=== PATIENT | male | born 1940 | race African-American/Black ===

== ENCOUNTER 2017-02-14 02:24 | Inpatient (IN) | payer MEDICARE ==
[2017-02-14 03:10] LABS: ALT (SGPT) 25 U/L (8-55); AST (SGOT) 27 U/L (5-34); Alkaline Phosphatase 211 U/L (40-150); Anion Gap 13 mmol/L (10-20); BUN (Urea Nitrogen) 36 mg/dL (8.4-25.7); Bilirubin, Total 0.8 mg/dL (0.2-1.2); Calc. Creatinine Clearance 0 mL/min (70-130); Calcium 9.3 mg/dL (7.8-10.44); Carbon Dioxide 25 mmol/L (23-31); Chloride 102 mmol/L (98-107); Estimated GFR-MDRD 45; Globulin 3.2 g/dL (2.4-3.5); Protein, Total 6.8 g/dL (5.8-8.1)
[2017-02-14 03:17] LABS: Hematocrit 23.8 % (42.0-52.0); Mean Platelet Volume 7.3 fL (7.4-10.4); Red Blood Cell (RBC) Count 2.92 mill/uL (4.70-6.10); White Blood Cell (WBC) Count 7.2 thou/uL (4.8-10.8)
[2017-02-14 03:27] LABS: Prothrombin Time 30.4 SEC (12.0-14.7)
[2017-02-14 03:28] LABS: PTT 69.5 SEC (22.9-36.1)
[2017-02-14 03:34] LABS: Troponin I 0.125 ng/mL (< 0.028)
[2017-02-14 03:45] LABS: Band 2 % (5-11); Neutrophil 61 % (42-75)
[2017-02-14] MEDS ORDERED: Ondansetron ODT 4 MG TAB SL PRN (06:04)
[2017-02-14] MEDS ORDERED: Acetaminophen 325 MG TAB PO PRN (06:04)
[2017-02-14] MEDS ORDERED: Ondansetron HCl/PF 4 MG/2 ML Vial IVP PRN (06:04)
[2017-02-14 06:11] VITALS: BMI 26.7
[2017-02-14 06:42] LABS: Troponin I 0.111 ng/mL (< 0.028)
--- NOTE | 2017-02-14 09:31 | RAD ---
SINGLE VIEW OF CHEST: Date: 02/14/17 COMPARISON: 12/16/16. HISTORY: Shortness of breath and leg swelling with dyspnea. FINDINGS: Single view of the chest shows an enlarged but stable cardiomediastinal silhouette. The patient is s tatus post CABG. The pacemaker is unchanged in position. There is no evidence of consolidation, mass , or pleural effusion. IMPRESSION: Cardiomegaly without evidence of acute cardiopulmonary disease. POS: [facility]
[2017-02-14] MEDS ORDERED: HumaLOG 300 UNITS/3 ML VIAL SC PRN ×2 (09:57→10:04)
[2017-02-14] MEDS ORDERED: hydrALAZINE 20 MG/ML VIAL SLOW IVP PRN (09:57)
[2017-02-14] MEDS ORDERED: Furosemide 40 MG/4 ML VIAL SLOW IVP SCH (10:00)
[2017-02-14] MEDS ORDERED: Dextrose 50% Abboject 50 ML SYRINGE IVP PRN (10:04)
[2017-02-14] MEDS ORDERED: Dextrose 5% in Water 1,000 ML IV PRN (10:04)
[2017-02-14 10:26] LABS: Troponin I 0.112 ng/mL (< 0.028)
--- NOTE | 2017-02-14 10:28 | HP ---
PRIMARY CARE PHYSICIAN: Dr. Ramiro Babb. CHIEF COMPLAINT: Weakness and shortness of breath. HISTORY OF PRESENT ILLNESS: This is a 77-year-old gentleman with history of heart disease, status post coronary artery bypass, history of congestive heart failure with EF of less than 20%, status post implanted defibrillator placement , who presents to the emergency department with 3-4 days of worsening weakness and shortness of breath. The patient states that about 3 days ago, he felt more weak and he was short of breath with activity. 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 He denied chest pain, denied abdominal pain. Denied syncope. He does state that about 2 weeks ago, he noticed that he had some dark black stools on occasion, but then this resolved on its own. He states that he was recently started on aspirin along with Xarelto about 3 months ago. He states he does not take naproxen on a daily basis, but does take it periodically for arthritis knee pain. He presented to the emergency department last night. He was given 1 unit of packed red blood cells and states that he is already feeling some better now, but he has been resting in bed and in no acute distress. PAST MEDICAL HISTORY: Hypertension, type 2 diabetes, gastroesophageal reflux disease, history of coronary artery disease, history of chronic systolic congestive heart failure with EF below 20%, status post implanted defibrillator placement. Gout and arthritis. PAST SURGICAL HISTORY: Appendectomy in 1964, coronary artery bypass graft in 1997, cardiac catheterization in 10/2016, implanted defibrillator placement in 10/2016. MEDICATIONS: Include omeprazole 40 mg daily, metformin 500 mg b.i.d., spironolactone 25 mg daily, isosorbide 10 mg b.i.d., Lasix 40 mg daily, lisinopril 2.5 mg daily, Coreg 3.125 mg b.i.d., simvastatin 20 mg at bedtime, Xarelto 15 mg daily, Zithromax, Robitussin p.r.n. cough, naproxen b.i.d. p.r.n. pain, and aspirin daily per the patient. ALLERGIES: DIPHENHYDRAMINE. SOCIAL HISTORY: No alcohol use at this time. In the past, he used to drink on weekends. No other drug use. No smoking. 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 REVIEW OF SYSTEMS: As per the history of present illness. GENERAL: Denies any recent fevers, chills or recent illness. HEENT: No headache, visual or hearing changes. Denies upper respiratory symptoms, but has been on Zithromax recently. CARDIAC: No chest pain or palpitations. RESPIRATORY: Positive for dyspnea on exertion, history of CHF. PULMONARY: No cough or hemoptysis, again shortness of breath. GASTROINTESTINAL: History of black stools about 2 weeks ago, but denies abdominal pain, nausea, vomiting, diarrhea, constipation. GENITOURINARY: No dysuria or hematuria. NEUROLOGIC: Positive for weakness. No seizures or syncope. MUSCULOSKELETAL: Positive for gout and occasional arthritis pain. PHYSICAL EXAMINATION: VITAL SIGNS: Temperature 97.8, pulse is 67, respirations 18, blood pressure 121 /72, pulse ox is 100% on room air. GENERAL: He is awake and alert. Speech is clear. Mucosa is moist. NECK: Supple. No JVD, adenopathy or bruits. HEART: Regular rate and rhythm with a 2/6 systolic ejection murmur at the left apex. LUNGS: With rales at the bases. ABDOMEN: Soft, nontender, nondistended. No hepatosplenomegaly. EXTREMITIES: With 1+ pitting edema bilaterally. NEUROLOGIC: Intact. LABORATORY DATA AND X-RAY FINDINGS: Early this morning, white blood cell count 7.2 thousand, hemoglobin and hematocrit 7.8 and 23.8, platelets 141. PT was elevated at 30.4 with an INR of 2.8, PTT elevated at 69.5, sodium 136, potassium 3.8, chloride 102, CO2 25, BUN and creatinine 36 and 1.79 with a GFR of 45. Serum glucose of 110. Bilirubin is normal. AST and ALT are normal. Alkaline phosphatase is elevated at 211. Troponin I were elevated at 0.125 and 0.111. BNP was elevated at 503. Chest x-ray from last night revealed cardiomegaly with no evidence of acute cardiopulmonary disease. ASSESSMENT AND PLAN: 1. This is a 77-year-old gentleman with a known history of coronary artery disease and congestive heart failure with decreased ejection fraction, now with symptomatic anemia likely secondary to upper gastrointestinal bleed. 2. We will stop his aspirin and Xarelto. We will consult Gastroenterology for possible upper gastrointestinal endoscopy. We will start proton pump inhibitor twice a day and follow his blood counts.. 3. Ischemic cardiomyopathy with congestive heart failure. Consult Cardiology. We will increase his Lasix to 40 mg twice a day IV, monitor his electrolytes. Further plan per Cardiology. 4. Type 2 diabetes. We will continue metformin at this time and watch his Accu -Cheks. 5. Chronic kidney disease stage 3. I will monitor closely with him being on increased dose of furosemide. 6. Joint pains. We will stop anti-inflammatories. Discussed the importance of avoiding anti-inflammatories especially when he is on blood thinners. 7. Coagulopathy. Rarely would be secondary to the Xarelto, but we will check a liver ultrasound due to elevated PT, PTT as well as elevated alkaline phosphatase, we need to rule out other etiologies. MTDD
[2017-02-14 12:06] LABS: Hematocrit 26.6 % (42.0-52.0)
--- NOTE | 2017-02-14 13:22 | ULT ---
PRELIMINARY REPORT/[facility]/EMERGENCY AFTER HOURS PROCEDURE: EXAM: US Duplex Left Lower Extremity Veins CLINICAL HISTORY: 77 years old, male; Signs and symptoms; Other: Lle swelling, SOB TECHNIQUE: Real-time ultrasound scan of the veins of the left lower extremity with color Doppler flow, spectral waveform analysis and compression. COMPARISON: No relevant prior studies available. FINDINGS: No visible clot in the included veins. The included veins appear normally compressible. Duplex Doppler evaluation demonstrates flow in the evaluated veins. IMPRESSION: No evidence of acute left lower extremity DVT. Thank you for allowing us to participate in the care of your patient. Dictated and Authenticated by: Dez Tanner MD 02/14/2017 3:56 AM Central Time ([place] \T\ [place]) FINAL REPORT EMERGENCY AFTER HOURS LEFT LOWER EXTREMITY VENOUS ULTRASOUND: Date: 02/14/17 FINDINGS/IMPRESSION: I agree with the findings and impression given in the preliminary report per [facility] physician. No evid ence of left lower extremity deep venous thrombosis. POS: [facility]
[2017-02-14] MEDS: Furosemide 40 MG/4 ML VIAL SLOW IVP SCH (13:44)
--- NOTE | 2017-02-14 14:02 | ULT ---
COMPLETE ABDOMINAL ULTRASOUND: Date: 02/14/17 HISTORY: Coagulopathy. Patient had a recent defibrillator insertion. TECHNIQUE: Multiplanar [place] scale and color Doppler images were obtained in a complete abdominal ultrasound. FINDINGS: The liver is normal in echogenicity without focal lesions or intrahepatic ductal dilatation. The gal lbladder contains sludge and mobile gallstones without pericholecystic fluid. There is apparent gall bladder wall thickening. The common bile duct is normal measuring 6.0 mm. A small amount of free fluid is seen adjacent to the liver and spleen. The aorta cannot be visualize d. The visualized portions of the inferior vena cava are normal in caliber. The pancreas cannot be v isualized. The spleen is normal in echogenicity without focal lesions and measures 11.9 cm in length . Both kidneys are normal in echogenicity without hydronephrosis or calculi and measure 10.9 and 12.0 cm in length on the right and left, respectively. IMPRESSION: 1. Cholelithiasis with findings suggesting acute cholecystitis. 2. Small amount of free fluid in the abdomen. POS: [facility]
--- NOTE | 2017-02-14 16:38 | CON ---
DATE OF CONSULTATION: 02/14/2017 REASON FOR CONSULTATION: Shortness of breath. PRIMARY RUBBER STAMP DIES INSPECTOR: Dr. Kapil Marcus. REFERRING PROVIDER: Dr. Hilario Whitten. HISTORY OF PRESENT ILLNESS: Mr. Cerda is a very pleasant 77-year-old gentleman with history of co ronary artery disease, status post bypass surgery in addition to cardiomyopathy status post ICD, who recently presented with shortness of breath. He states that has also had increased weakness. His shortness of breath does occur with mild exertion. He is found to be profoundly anemic upon present ation to the emergency room. He has been given 1 unit of packed red blood cells with significant im provement. He does admit to having black dark tarry stools several weeks ago. PAST MEDICAL HISTORY: Chronic atrial fibrillation, hypertension, diabetes mellitus, CAD status post bypass surgery. MEDICATIONS: Include omeprazole, Lasix, lisinopril, metformin, spironolactone, Coreg, simvastatin, and aspirin. ALLERGIES: BENADRYL. SOCIAL HISTORY: No current tobacco or alcohol use. REVIEW OF SYSTEMS: Ten point review of systems is reviewed and as above, otherwise negative. PHYSICAL EXAMINATION: GENERAL: Patient is a pleasant male, who is in no acute distress. The patient appears his stated age. VITAL SIGNS: Blood pressure 142/81, pulse 69, temperature 98.6. NEUROLOGIC: The patient is alert and oriented times 3 with no focal neurologic deficits. HEENT: Sclerae without icterus. Mouth has moist mucous membranes with normal pallor. NECK: No JVD. Carotid upstroke brisk. No bruits bilaterally. LUNGS: Clear to auscultation with unlabored respirations. BACK: No scoliosis or kyphosis. CARDIAC: Regular rate and rhythm with normal S1 and S2. No S3 or S4 noted. No significant rubs, murmurs, thrills, or gallops noted throughout the precordium. PMI is not displaced. There is no parasternal heave. ABDOMEN: Soft, nontender, nondistended. No peritoneal signs present. No hepatosplenomegaly. No abnormal striae. EXTREMITIES: 2+ femoral and 2+ dorsalis pedis pulses. No cyanosis, clubbing, or edema. SKIN: No gross abnormalities. PERTINENT LABS: Hemoglobin 7.8, increased to 8.6 after 1 unit packed red blood cells. Creatinine 1 .79. Peak troponin 0.112. BNP of 503. IMPRESSION: 1. Shortness of breath. 2. Anemia. 3. Acute on chronic systolic heart failure. 4. Chronic atrial fibrillation. RECOMMENDATIONS: Etiology to anemia needs to be sought. He does admit to black dark tarry stools, noted several weeks ago. At this point, we will hold his Xarelto in addition to aspirin. We may ne ed a GI workup. May consider proceeding with the Xarelto alone without aspirin, given likely gastro intestinal bleed. Continue Coreg in addition to atorvastatin, lisinopril, and isosorbide. Further recommendations per Dr. Kapil Marcus in the a.m.
[2017-02-14] MEDS: Carvedilol 6.25 MG TAB PO SCH (17:08)
[2017-02-14] MEDS: metFORMIN 500 MG TAB PO SCH (17:08)
[2017-02-14] MEDS: Atorvastatin Calcium 10 MG TAB PO SCH (20:55)
[2017-02-14] MEDS: Pantoprazole 40 MG VIAL IVP SCH (20:56)
[2017-02-14] MEDS: Isosorbide Mononitrate 20 MG TAB PO SCH (20:56)
[2017-02-14] MEDS ORDERED: FLU VACC TS2017-18 (>65YR) 0.5 ML SYRINGE IM ONE (21:00)
--- NOTE | 2017-02-14 22:54 | CON ---
DATE OF CONSULTATION: 02/14/2017 REASON FOR CONSULTATION: Anemia. HISTORY OF PRESENT ILLNESS: Mr. Cerda is a 77-year-old gentleman who was admitted to the hospital for significant anemia. He states that he began having worsening shortness of breath with exertion and some worsening swelling of his lower legs recently and presented to the emergency room and was found to be a little more anemic than usual with a hemoglobin around 8. Back in October and October, it w as between 10 and 11. Apparently, the patient had a Hemoccult stool which was negative. He denies any melena or black tarry stools or blood in the stool recently, although he notes that maybe in the past couple of months, he has seen the stool, it was black a couple of times, maybe as recently as 2-3 weeks ago, but he did not really do anything about it. He does take a baby aspirin a day. He d enies any NSAIDs, but he does have a prescription for Naprosyn. He is on a PPI as well. He was sta rted on Xarelto back in October or October when he had a defibrillator placed for an EF of 20% to 25%. Pr esently, he denies any shortness of breath. His stomach does not hurt. He is eating well. He has not lost any weight. His last endoscopies were in 2001. We did see him recently this past summer f or mildly elevated alkaline phosphatase which was felt to be related to passive hepatic congestion o f liver from his CHF. The patient denies any chest pain. He has had no syncopal episodes. Apparen tly, he does not take the Naprosyn daily but does take it occasionally. PAST MEDICAL HISTORY: Hypertension, reflux, coronary artery disease, chronic systolic heart failure , bad enough that they placed the defibrillator empirically 6 months ago, gout, arthritis, chronic a nticoagulation use since 10/2016. PAST SURGICAL HISTORY: Appendectomy, coronary bypass grafting in 1988, cardiac catheterization 11/01, and defibrillator placement in 10/2016. MEDICATIONS AT HOME: Omeprazole, metformin, spironolactone, isosorbide, Lasix, lisinopril, Coreg, s imvastatin, Xarelto, Zithromax, Robitussin, Naprosyn, and aspirin. ALLERGIES: DIPHENHYDRAMINE. SOCIAL HISTORY: The patient denies alcohol, drugs, or tobacco. 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 REVIEW OF SYSTEMS: Negative for dysphagia, odynophagia, or inappetence. Rest of the review of syst ems as per HPI. There has been a history of hematuria, bruising, nosebleeds. MEDICATIONS: Here, Tylenol, Lipitor, Coreg, glucose, Lasix, Apresoline, Humalog, isosorbide mononitr ate, Zestril, metformin, Zofran, Protonix 40 IV q. 12 hours, and Aldactone. PHYSICAL EXAMINATION: GENERAL: The patient is resting comfortably in bed. He is eating a little bit lunch. He is a well -nourished, well-developed. He is in no distress. VITAL SIGNS: Temperature is 98, pulse 69, blood pressure is 142/81. NECK: Supple. There is no JVD. LUNGS: Clear except for some slight crackles at the bases. HEART: Regular rate and rhythm. ABDOMEN: Soft, nontender, slightly protuberant. There is no shifting dullness or fluid wave. EXTREMITIES: Reveal 2+ edema. LABORATORY FINDINGS: Hemoglobin is 10-11 back in October with a normal MCV, admitted now with a hemogl obin of 7.8 and an MCV of 81. White count 7.2 after 2 units of blood, hemoglobin is 8.6, platelet c ount is 141. INR was 2.8. Chemistries are notable for a BUN and creatinine of 36 and 1.7 with a GF R of 45. AST and ALT are 27 and 25, alkaline phosphatase is 211, bilirubin is 0.8. Troponin was 0. 125. BNP was 503 with the highest being measured here being 306 and 337 in October, October, and December. MICROBIOLOGY: Stool Hemoccult was negative. Pending studies: Apparently, an ultrasound of the abd omen has been ordered. ASSESSMENT: 1. Anemia with borderline indices, questionable history of black stools recently with negative Hemo ccult here. There are no signs of acute gastrointestinal hemorrhage. He has got an elevated INR wh ile on Xarelto. This could indicate having an excessive dose of Xarelto. It is unclear what dose o f Xarelto he is on at home. 2. Mild renal insufficiency, advanced age of 77. RECOMMENDATIONS: 1. Hold Xarelto. He is not a candidate for endoscopy right now with his coagulopathy and is probab ly more coagulopathic with an INR of 2.8, represents it is really difficult to measure the effect of Xarelto. 2. I would talk with his Cardiology for embarking on the endoscopy in this individual who has bad e nough heart failure to have an empiric placement of a defibrillator. 3. Probably reasonable to stop his NSAIDs. 4. We will talk to the retail account specialist about the issues of endoscopy as well as possibly decreasing Xa relto dose unless he is already on a lessened dose. We will follow along with you during the hospit alization.
[2017-02-15 05:06] LABS: Anion Gap 12 mmol/L (10-20); BUN (Urea Nitrogen) 32 mg/dL (8.4-25.7); Calc. Creatinine Clearance 53 mL/min (70-130); Calcium 9.4 mg/dL (7.8-10.44); Carbon Dioxide 26 mmol/L (23-31); Chloride 105 mmol/L (98-107); Estimated GFR-MDRD 58
[2017-02-15 05:17] LABS: Hematocrit 25.3 % (42.0-52.0); Mean Platelet Volume 7.5 fL (7.4-10.4); Neutrophil 67 % (42-75); Red Blood Cell (RBC) Count 3.04 mill/uL (4.70-6.10); White Blood Cell (WBC) Count 6.4 thou/uL (4.8-10.8)
[2017-02-15] MEDS: Furosemide 40 MG/4 ML VIAL SLOW IVP SCH ×2 (05:23→17:46)
[2017-02-15] MEDS: Isosorbide Mononitrate 20 MG TAB PO SCH ×2 (08:51→20:34)
[2017-02-15] MEDS: metFORMIN 500 MG TAB PO SCH ×2 (08:53→18:21)
[2017-02-15] MEDS: Carvedilol 6.25 MG TAB PO SCH ×2 (08:53→18:21)
[2017-02-15] MEDS: Spironolactone 25 MG TAB PO SCH (08:53)
[2017-02-15] MEDS: Lisinopril 2.5 MG TAB PO SCH (08:53)
--- NOTE | 2017-02-15 08:53 | PRG ---
DATE OF SERVICE: 02/15/2017 SUBJECTIVE: The patient is sitting up in bed comfortably. He states he is feeling better with his breathing and weakness. He denies pain at this time. PHYSICAL EXAMINATION: VITAL SIGNS: Temperature 97.5, pulse 65, respirations 18, oxygen saturation 98% on room air, blood pressure 112/61. GENERAL: Alert and oriented x3 with no acute distress. HEENT: Normocephalic. Pupils equally round and reactive to light. Extraocular muscles intact. Mo ist mucous membranes without erythematous throat. CARDIOVASCULAR: Regular rate and rhythm with a 2/6 systolic murmur. LUNGS: Clear to auscultation bilaterally. ABDOMEN: Soft, nontender, nondistended. EXTREMITIES: Trace edema bilaterally. SKIN: No rashes or lesions. LABORATORY DATA: White blood cell count 6.4, hemoglobin 8.3, hematocrit 25.3, MCV 83.3, platelets 1 59. Sodium 139, potassium 3.8, chloride 105, carbon dioxide 26, BUN 32, creatinine 1.43, glucose 92 , calcium 9.4. ASSESSMENT AND PLAN: 1. Normocytic anemia, improved after transfusion. He reports feeling better. 2. Dark tarry stools. This is the probable cause of his anemia along with his aspirin and Xarelto. His anticoagulants are held for the time being. Awaiting further plan from GI regarding possible gastrointestinal bleed. 3. Chronic systolic congestive heart failure. Cardiology is consulted. His breathing is improved. 4. Type 2 diabetes. Continue his home medications. His glucose is currently controlled. 5. Chronic kidney disease stage 3. Creatinine is improved from admission. 6. Coagulopathy await further plan from Cardiology.
[2017-02-15] MEDS: Pantoprazole 40 MG VIAL IVP SCH ×2 (08:54→20:34)
[2017-02-15] MEDS ORDERED: Furosemide 40 MG TAB PO SCH (09:00)
--- NOTE | 2017-02-15 11:08 | PRG ---
DATE OF SERVICE: 02/15/2017 Mr. Cerda is without complaints. He has had no melena. He feels weak. MEDICATIONS: Atorvastatin, Coreg, Lasix, isosorbide mononitrate, metformin, Protonix 40 IV q.12 h., Aldactone. VITAL SIGNS: Temperature is 97, pulse 65, blood pressure 112/61. LUNGS: Clear. HEART: Regular rate and rhythm. ABDOMEN: Nontender. LABORATORY DATA: Hemoglobin is 8.3, stable. White count 6.4, platelet count 159. BUN and creatini ne 32 and 1.43. Abdominal ultrasound was done yesterday for unclear reasons. He has got cholelithi asis with a small amount of free fluid adjacent to liver and spleen. There is a little bit of gallb ladder wall thickening. Echocardiogram in October showed EF of 20-25%, severe mitral regurg, right ventricular was moderately e nlarged, right atrium was enlarged, tricuspid valve showed moderate to severe TR, moderately elevate d pulmonary pressures. ASSESSMENT: 1. Gallstones. The patient has had known gallstones for many years. These are asymptomatic. I th ink ultrasound findings with the gallbladder wall thickening, and a cholecystic upper abdominal flui d are all related to passive congestion from his heart failure. 2. Chronic mild elevation of liver function test with recent workup this summer negative. This is likely passive congestion again for his heart failure. 3. Anemia, acute drop in hemoglobin 11 on 11/28/2016 to 8.6 on 12/16/2016, 7.9 on 02/14/2017. This all began after starting Xarelto after his defibrillator was placed for severe CHF, indication for anticoagulation seemed to be his severe heart failure. There is some history of possibly some dark stools in the past week or two; however, Hemoccult was negative here. RECOMMENDATIONS: 1. PPI. 2. We will await Cardiology's evaluation today to determine whether or not we are going to proceed with endoscopy in this patient who is a very high risk. Apparently he has such bad heart failure, h e has had to have a defibrillator placed. 3. I would not do any further workup or evaluation of his gallbladder as he is asymptomatic. He is a very poor surgical candidate for any elective surgeries. He does not have any signs of acute cho lecystitis or chronic cholecystitis clinically.
--- NOTE | 2017-02-15 11:16 | PQF ---
DEVIN SCHAEFER JR, JOEL DO [id number] CLINICAL DOCUMENTATION IMPROVEMENT CLARIFICATION FORM: ICD-10 Updated PLEASE DO AN ADDENDUM TO THE PROGRESS NOTE WITH ANY DOCUMENTATION UPDATES OR ADDITIONS AND CARRY THROUGH TO DC SUMMARY. THANK YOU. DATE: 02-15-17 ATTN: DR. WOO FOWLER Please exercise your independent, professional judgment in responding to the clarification form. Clinical indicators are provided on the bottom of this form for your review Please check appropriate box(s): AMI TYPE: [ ] AMI Type II - D/T Demand Ischemia [ ] Demand Ischemia [ X ] Other diagnosis: Chronic systolic CHF [ ] Unable to determine In addition, please specify: Present on Admission (POA): [ ] Yes [ ] No [ ] Unable to determine CLINICAL INDICATORS - SIGNS / SYMPTOMS / LABS LABS: TROPONIN I - @ 0235 0.125 10- @ 0535 0.111 10- @ 0843 0.112 RISKS: H&P: HX OF CAD W/ CABG HTN TREATMENTS: CARDIOLOGY CONSULT CPOE: 1 UNIT PRBC HOLD XARELTO / ASPIRIN THANK YOU, SAHRA (This form is maintained as a part of the permanent medical record) 2015 [employer]. All Rights Reserved Sahra Koo RN, BS [email or web address]
[2017-02-15] MEDS ORDERED: GoLYTELY 4,000 ml Bottle PO SCH (12:30)
[2017-02-15] MEDS: Atorvastatin Calcium 10 MG TAB PO SCH (20:34)
--- NOTE | 2017-02-15 21:45 | PRG ---
DATE OF SERVICE: 02/15/2017 SUBJECTIVE: Mr. Cerda states he is feeling better. No complaints. No chest pain or pressure. OBJECTIVE: VITAL SIGNS: Blood pressure 110/61, pulse 60s now regular, it is paced. LUNGS: Clear. CARDIAC: Normal S1, normal S2. ABDOMEN: Soft, nontender. EXTREMITIES: There is only 1+ edema. LABORATORY DATA: Hemoglobin is dropped, as mentioned 7.8, now it is 8.3. ASSESSMENT: 1. Anemia related to gastrointestinal blood loss. 2. Congestive heart failure, systolic, chronic. PLAN: 1. We have recommended upper and lower endoscopy. The patient declines. 2. He says he has been having black stools, this is probably upper gastrointestinal. We will give him pantoprazole. 3. We will discharge him on Xarelto in few days without aspirin.
--- NOTE | 2017-02-15 22:04 | CON ---
DATE OF CONSULTATION: 02/15/2017 REQUESTING PHYSICIAN: Hilario Whitten D.O. HISTORY OF PRESENT ILLNESS: This is a 77-year-old man with a history of severe cardiomyopathy. The patient was recently admitted with a complaint of fatigue. He was also complaining of some dark ta rry stool at the same time. At no time did the patient have any abdominal pain. He denied any diff iculties with eating. Workup, however, included abdominal ultrasound which was obtained to evaluate mildly elevated transaminases on admission. The ultrasound did show intraluminal gallstones with a normal common bile duct size in diameter. I was asked to evaluate the patient for possible surgica l management of his biliary disease. At the time of my evaluation, the patient is awake and alert. He clearly denies any abdominal pain. He tolerates diet well, having normal bowel and urinary func tion. PAST MEDICAL HISTORY: Significant for severe chronic systolic congestive heart failure with an anita mated ejection fraction of 20% by last echocardiography. The patient also has a history of coronary artery disease, essential hypertension, type 2 diabetes mellitus, gastroesophageal reflux disease, and gouty arthritis. SURGICAL HISTORY: Pertinent for appendectomy in 1964, coronary artery bypass with graft in 1997, he had a cardiac catheterization in 10/2016, and a cardiac defibrillator was implanted at the same [facility]. SOCIAL HISTORY: The patient denies any cigarette smoking, ethanol, or illicit drug abuse. FAMILY HISTORY: Noncontributory for this patient's age. REVIEW OF SYSTEMS: A 10-point review of systems is essentially unremarkable except for as stated in past medical history and chief complaint. PHYSICAL EXAMINATION: GENERAL: This reveals a 77-year-old normally-developed man who is otherwise coherent and interactiv e and appears stated age. The patient is alert and oriented x3, appears to be in no acute distress at the time of my evaluation. VITAL SIGNS: Includes blood pressure 104/63, pulse 69, respirations 16, temperature is 97.5 degrees Fahrenheit, oxygen saturation 98% on room air. HEENT: Reveals normocephalic and atraumatic. Pupils are equal, round, and reactive to light and ac commodation. Extraocular muscles are intact bilaterally. No scleral icterus present. HEART: Reveals regular rate and rhythm. No murmurs or gallops auscultated. LUNGS: Clear to auscultation bilaterally. Breathing is regular and unlabored. ABDOMEN: Soft, nontender, nondistended. Liver and spleen are nonpalpable below costal margins. EXTREMITIES: Reveals 2+ radial and pedal pulses bilaterally. No ankle edema is present. NEUROLOGIC: Reveals no focal deficits present. PERTINENT LABORATORY DATA: Today includes a CBC with 6400 white blood cells, hemoglobin 8.3, hemato crit is 25.3, and platelet count is 159,000. Metabolic profile: Sodium 139, potassium is 3.8, chlo ride is 105, bicarbonate 26, BUN 32, creatinine is 1.43, and glucose is 123. Last liver function te st which was obtained yesterday, the transaminases, AST and ALT were normal at 27 and 25, respective ly, alkaline phosphatase was elevated at 211, total bilirubin was normal at 0.8. IMPRESSIONS: 1. Cholelithiasis which is asymptomatic. 2. History of severe cardiomyopathy. RECOMMENDATIONS: A HIDA scan to be obtained to rule out any chronic biliary disease as the etiology of this patient's fatigue, although I suspect that his fatigue is more than likely secondary to his severe cardiomyopathy. The patient was unable to tolerate the HIDA scan; however, in light of the asymptomatic nature of his cholelithiasis, I recommend no further surgical intervention at this time . Thank you again, Dr. Whitten, for allowing me the opportunity to participate in the care of this pa tient.
[2017-02-16 05:12] LABS: Anion Gap 12 mmol/L (10-20); BUN (Urea Nitrogen) 32 mg/dL (8.4-25.7); Calc. Creatinine Clearance 52 mL/min (70-130); Calcium 9.6 mg/dL (7.8-10.44); Carbon Dioxide 27 mmol/L (23-31); Chloride 106 mmol/L (98-107); Estimated GFR-MDRD 58; Iron 19 ug/dL (65-175)
[2017-02-16] MEDS: Furosemide 40 MG/4 ML VIAL SLOW IVP SCH ×2 (05:12→16:25)
[2017-02-16 05:30] LABS: Hematocrit 26.2 % (42.0-52.0); Mean Platelet Volume 7.4 fL (7.4-10.4); Neutrophil 58 % (42-75); Red Blood Cell (RBC) Count 3.16 mill/uL (4.70-6.10); White Blood Cell (WBC) Count 6.4 thou/uL (4.8-10.8)
--- NOTE | 2017-02-16 08:05 | PRG ---
DATE OF SERVICE: 02/16/2017 SUBJECTIVE: The patient reports feeling good this morning. He denies shortness of breath and overa ll weakness. He denies being in pain. He reports his leg swelling is much improved. PHYSICAL EXAMINATION: VITAL SIGNS: Temperature 97.6, pulse 68, respirations 16, oxygen saturation 100% on room air, blood pressure 129/73. GENERAL: Alert and oriented x3 with no acute distress. HEENT: Pupils equally, round and reactive to light. Extraocular muscles intact. Moist mucous memb ranes. HEART: Regular rate and rhythm with a 2/6 systolic murmur. LUNGS: Clear to auscultation bilaterally. No wheezes, rales or rhonchi. ABDOMEN: Soft, nontender, nondistended. EXTREMITIES: No cyanosis, clubbing or edema. SKIN: No rashes or lesions. LABORATORY DATA: White blood cell count 6.4, hemoglobin 8.6, hematocrit 26.2, MCV 83.1, platelets 1 59. Sodium 141, potassium 3.9, chloride 106, carbon dioxide 27, BUN 32, creatinine 1.44, glucose 86, marcelo cium 9.6. Iron 19, TIBC 353, ferritin 20.29. ASSESSMENT AND PLAN: 1. Normocytic anemia, improved after transfusion, but still low. Iron was found to be very low at 19. 2. Iron deficiency. We will start iron supplement this morning to be taken b.i.d. 3. Dark tarry stools. He was advised to do upper and lower endoscopy, but he has chosen not to do so. His anticoagulants are being held. 4. Asymptomatic cholelithiasis, it is not recommended to go through surgery at this time. 5. Chronic systolic congestive heart failure. His breathing is improved. Dr. Marcus is following. 6. Coagulopathy. 7. Type 2 diabetes. Glucose is well controlled, currently on his home medications. 8. Chronic kidney disease stage 3. This is stable. DISPOSITION: As for discharge, his blood count is lower than his normal, which I would like to see some improvement. Iron will be started today and monitor for bloody stool. However, he is stable a nd if okay with Cardiology, he could go home today and continue the iron. He will most likely need to go back on Xarelto.
[2017-02-16] MEDS: Pantoprazole 40 MG VIAL IVP SCH ×2 (08:14→20:19)
[2017-02-16] MEDS: Lisinopril 2.5 MG TAB PO SCH (08:14)
[2017-02-16] MEDS: Spironolactone 25 MG TAB PO SCH (08:14)
[2017-02-16] MEDS: Isosorbide Mononitrate 20 MG TAB PO SCH ×2 (08:14→20:19)
[2017-02-16] MEDS: metFORMIN 500 MG TAB PO SCH ×2 (08:14→16:42)
[2017-02-16] MEDS: Ferrous Sulfate 325 MG TAB PO SCH ×2 (08:14→16:41)
[2017-02-16] MEDS: Carvedilol 6.25 MG TAB PO SCH ×2 (08:14→16:40)
--- NOTE | 2017-02-16 08:37 | PQF ---
DEVIN SCHAEFER JR, JOEL DO [id number] [facility] [place]-208 [id number] CLINICAL DOCUMENTATION IMPROVEMENT CLARIFICATION FORM: ICD-10 Updated PLEASE DO AN ADDENDUM TO THE PROGRESS NOTE WITH ANY DOCUMENTATION UPDATES OR ADDITIONS AND CARRY THROUGH TO DC SUMMARY. THANK YOU. DATE: 02-15-17 ATTN: DR. WOO FOWLER Please exercise your independent, professional judgment in responding to the clarification form. Clinical indicators are provided on the bottom of this form for your review Please check appropriate box(s): [ X ] Acute blood loss anemia [ ] Anemia Drug induced Xarelto / Aspirin [ X ] Chronic Anemia: [ ] Blood loss [ ] Other [ X ] Anemia of Chronic Disease - CKD [ ] Other diagnosis [ ] Unable to determine In addition, please specify: Present on Admission (POA): [ ] Yes [ ] No [ ] Unable to determine For continuity of documentation, please document condition throughout progress notes and discharge summary. Thank You. CLINICAL INDICATORS - SIGNS / SYMPTOMS / LABS 10-16 PN ATTENDING: NORMOCYTIC ANEMIA DARK TARRY STOOLS - PROBABLE CAUSE RISK FACTORS 10-15 GI CONSULT: CHRONIC ANTICOAGULATION QUESTIONABLE HX OF BLACK TARRY STOOLS - HEMOCCULT NEGATIVE TREATMENTS: GI CONSULT: HOLD XARELTO POSSIBLY TALK TO CARDIOLOGY ABOUT LOWER DOSE OF XARELTO THANK YOU, SAHRA (This form is maintained as a part of the permanent medical record) 2014 [employer]. All Rights Reserved Sahra Koo RN, BS [email or web address] Cell [facility]
[2017-02-16] MEDS ORDERED: Iron Dextran 500 MG in Sodium Chloride 0.9% 250 ML IVPB SCH (10:00)
--- NOTE | 2017-02-16 13:34 | PRG ---
DATE OF SERVICE: 02/16/2017 Mr. Cerda was found to have anemia with severe iron deficiency this morning. Intravenous iron was ordered, but the patient developed chills, and back pain during the infusion an d it was stopped. The patient still does not feel well. He says he feels cold and has blankets on him. He is not feb rile. PHYSICAL EXAMINATION: VITAL SIGNS: Blood pressure 104/67, pulse 62. LUNGS: Clear. CARDIAC: Normal S1 and S2. ABDOMEN: Soft, nontender. EXTREMITIES: There is no edema. PERTINENT LABORATORY: The patient's hemoglobin was 8.6. The iron level was 19. Ferritin 20.29 ind icating profound iron deficiency. ASSESSMENT: 1. Iron deficiency anemia. 2. Chills following administration of a very low dose of the iron dextran 250 mL only was infused. PLAN: 1. IV iron was discontinued. 2. We will continue to try with the oral iron. 3. Hold discharge at this time.
--- NOTE | 2017-02-16 14:28 | PQF ---
DEVIN SHCAEFER JR, JOEL DO [id number] [facility]-208 [id number] CLINICAL DOCUMENTATION IMPROVEMENT CLARIFICATION FORM: ICD-10 Updated PLEASE DO AN ADDENDUM TO THE PROGRESS NOTE WITH ANY DOCUMENTATION UPDATES OR ADDITIONS AND CARRY THROUGH TO DC SUMMARY. THANK YOU. DATE: 02-16-17 ATTN: DR. WOO FOWLER Please exercise your independent, professional judgment in responding to the clarification form. Clinical indicators are provided on the bottom of this form for your review Please check appropriate box: HEART FAILURE: [ ] Acute on Chronic Systolic CHF [ X ] Chronic Systolic CHF [ ] Other diagnosis I HAVE ALREADY BEEN DOCUMENTING THIS. I DON'T KNOW WHY I HAVE TO SIGN THIS FORM [ ] Unable to determine In addition, please specify: Present on Admission (POA): [ ] Yes [ ] No [ ] Unable to determine For continuity of documentation, please document condition throughout progress notes and discharge summary. Thank You. CLINICAL INDICATORS - SIGNS / SYMPTOMS / LABS LABS: BNP 02-14 503 H&P: Ischemic BUSHLER w/ CHF BLE 1+ Edema CARDIO CONSULT: Acute on Chronic CHF ATTENDING PN 02-15 / 02-16: Chronic Systolic CHF 04-17 CARDIO PN: Chronic Systolic CHF 02-14 CXR: No Pleural Effusion RISKS: H&P: HX CHF W/ EF OF LESS THAN 20% HTN; CAD; CKD STAGE 3 TREATMENTS: CARDIO CONSULT: Acute on Chronic CHF COPE: IV LASIX 02-14 TO 02-16 COREG 02-14 TO 02-16 THANK YOU, SAHRA (This form is maintained as a part of the permanent medical record) 2015 [employer]. All Rights Reserved Sahra Koo RN, BS [email or web address] [facility]PITALMaricarmen
[2017-02-16] MEDS ORDERED: Acetaminophen 500 MG TAB PO PRN (17:27)
[2017-02-16] MEDS: Atorvastatin Calcium 10 MG TAB PO SCH (20:19)
--- NOTE | 2017-02-16 21:00 | PRG ---
DATE OF SERVICE: 02/16/2017 SUBJECTIVE: Mr. Cerda stated he did not want to have endoscopy, so I talk with Dr. Marcus yesterd ay, he felt that although he has heart failure and a defibrillator placed, he would be safe for the endoscopy. He felt we can proceed with upper and lower endoscopy. We went ahead and tried to get t hat arranged today, but the patient decided he does not want that and refused. I had another conver sation with him today about the issues of endoscopy and how I think we can get this accomplished saf [place] for him, although there is some slight risk, but he states that he has conferred with the Lord, and that he was told not to mess with it. He has had no signs of bleeding here in the hospital. OBJECTIVE: VITAL SIGNS: Temperature is 97, pulse 62, blood pressure 104/67. ABDOMEN: Soft, nontender. LABORATORY DATA: Hemoglobin is 8.6. Iron was 19, ferritin 20. ASSESSMENT: Iron deficiency anemia. He had a history of possibly dark stools at home and he had a heme negative here, this is all likely related to anticoagulation, but cannot rule out underlying GI tract disease as he had no endoscopy and/or colonoscopy in many years, more than 10. Again, I have a conversation with him and a friend is with him in the room, but he was not amenable to the idea o f endoscopies. I did tell him that if something were to change or if he were to change his mind, we would be happy to come back and set that up either during this admission or of some future time. RECOMMENDATIONS: I agree with IV iron. We will send him home on oral iron and a PPI. Agree with jay patino aspirin, we will avoid all NSAIDs. The patient understands the risk of missing serious lesio ns such as ulcers in malignancy.
[2017-02-17] MEDS: Furosemide 40 MG/4 ML VIAL SLOW IVP SCH (05:42)
[2017-02-17 07:55] VITALS: BP 99/57
--- NOTE | 2017-02-17 09:03 | PRG ---
DATE OF SERVICE: 02/17/2017 SUBJECTIVE: Mr. Cerda is feeling much better today, no complaints. PHYSICAL EXAMINATION: VITAL SIGNS: Blood pressure 99/57, pulse 60 regular. LUNGS: Clear. CARDIAC: Normal S1, S2. ABDOMEN: Soft, nontender. EXTREMITIES: No edema. The neck veins are still dilated. ASSESSMENT: 1. Congestive heart failure, systolic, appears relatively severe. 2. Iron deficiency anemia. Possible reaction to intravenous iron with back and joint pain. He onl y received a very small dose of intravenous iron. 3. The patient has declined further evaluation for the gastrointestinal tract. PLAN: 1. We will go off of aspirin today on Xarelto. He has chronic atrial fibrillation. 2. I asked him to come back and see me about a month. Prognosis is guarded to poor long-term.
[2017-02-17] MEDS: Spironolactone 25 MG TAB PO SCH (09:30)
[2017-02-17] MEDS: Lisinopril 2.5 MG TAB PO SCH (09:30)
[2017-02-17] MEDS: Carvedilol 6.25 MG TAB PO SCH (09:37)
[2017-02-17] MEDS: Pantoprazole 40 MG VIAL IVP SCH (09:38)
[2017-02-17] MEDS: metFORMIN 500 MG TAB PO SCH (09:38)
[2017-02-17] MEDS: Ferrous Sulfate 325 MG TAB PO SCH (09:38)
[2017-02-17 11:23] VITALS: TEMP 97.9
--- NOTE | 2017-02-17 12:31 | DIS ---
DATE OF ADMISSION: 02/14/2017 DATE OF DISCHARGE: 02/17/2017 ADMISSION DIAGNOSES: 1. Acute on chronic anemia. 2. Upper gastrointestinal bleed, suspected. 3. Chronic systolic congestive heart failure. 4. Coagulopathy. 5. Type 2 diabetes. 6. Chronic kidney disease, stage 3. 7. Joint pains. DISCHARGE DIAGNOSES: 1. Acute on chronic normocytic anemia. 2. Iron deficiency. 3. Upper gastrointestinal bleed, suspected. 4. Asymptomatic cholelithiasis. 5. Chronic systolic congestive heart failure. 6. Coagulopathy. 7. Type 2 diabetes. 8. Chronic kidney disease, stage 3. CONSULTS: 1. Dr. Hernandez, General Surgery. 2. Dr. Marcus, Cardiology. 3. Dr. Fuentes, Gastroenterology. PROCEDURES: None. HOSPITAL COURSE: This is a 77-year-old black male with past medical history of anemia of chronic di sease, chronic kidney disease, type 2 diabetes, who presented to the emergency room with weakness an d shortness of breath. He was found to have a low blood count with hemoglobin of 7.8. He was given 1 unit of blood, which improved his blood count. He had no further dark stools. As for his dark tarry stools, Dr. Fuentes discussed with the patient the need for endoscopy to invest igate the source of bleeding. However, the patient declined stating he was worried about his heart even though Dr. Marcus cleared him to undergo the procedures. At this time, he has chosen not to fu rther investigate the cause of bleed. As for his shortness of breath, he was found to be mildly fluid overloaded. He was given Lasix, whi ch improved his symptoms. The patient will be continued on Xarelto, but aspirin will be stopped for potential bleeding. The patient was found to be severely iron deficient with an iron level of 19. We attempted to give IV iron, but he had an apparent side effect of shaking with that. He tolerated oral iron well. Thi s will be continued on discharge and should be rechecked in 4-6 weeks. As for his type 2 diabetes, his glucose levels remained stable on his home medications. DISPOSITION: Stable. DISCHARGE INSTRUCTIONS: 1. Discharge: To home. 2. Diet: Heart healthy. 3. Activity: Ad lora. FOLLOWUP: 1. Followup with Dr. Babb in 7-10 days. 2. Follow up with Dr. Marcus in about 1 month.
== END 2017-02-17 11:09 | disposition home or self-care (01) | DRG 378 ==
LOC: ERS 02:24 → 2SE 04:25
PROVIDERS: ADMIT Family Medicine; ATTEND Family Medicine
PROC: 30233N1 Transfusion of Nonautologous Red Blood Cells into Peripheral Vein, Percutaneous Approach (ICD-10-PCS; principal; 2017-02-14)
DX: K92.2 Gastrointestinal hemorrhage, unspecified (principal); I13.0 Hypertensive heart and chronic kidney disease with heart failure and stage 1 through stage 4 chronic kidney disease, or unspecified chronic kidney disease; E11.22 Type 2 diabetes mellitus with diabetic chronic kidney disease; D68.9 Coagulation defect, unspecified; I50.22 Chronic systolic (congestive) heart failure; N18.3 Chronic kidney disease, stage 3 (moderate); I48.2 Chronic atrial fibrillation; D62 Acute posthemorrhagic anemia; I25.5 Ischemic cardiomyopathy; D63.1 Anemia in chronic kidney disease; D50.9 Iron deficiency anemia, unspecified; K80.80 Other cholelithiasis without obstruction
CPT/HCPCS: 36415; 36416; 36430; 71010; 76700; 80048; 80053; 82274; 82550; 82553; 82728; 83540; 83550; 83880; 84484; 85025; 85610; 85730; 86850; 86900; 86901; 93005; 94760; A4216; C9113; J1750; J1940; J7050; P9016

== ENCOUNTER 2017-03-22 23:28 | Emergency (ER) | payer MEDICARE ==
--- NOTE | 2017-03-23 08:02 | RAD ---
CHEST PA AND LATERAL: HISTORY: A 77-year-old male with cough. COMPARISON: 02/14/17. FINDINGS: Postop midline sternotomy and left ICD. Minimal cardiomegaly. No confluent pneumonia, overt edema, or pleural effusion. IMPRESSION: Cardiomegaly with left implantable cardioverter defibrillator and postop midline sternotomy. No othe r significant acute process. Stable from prior study. POS: [facility]
== END 2017-03-23 00:43 | disposition home or self-care (01) ==
LOC: ERS 23:28
DX: R05 Cough (principal); I11.0 Hypertensive heart disease with heart failure; I50.9 Heart failure, unspecified; I25.2 Old myocardial infarction; M10.9 Gout, unspecified; K21.9 Gastro-esophageal reflux disease without esophagitis; E11.9 Type 2 diabetes mellitus without complications; Z79.899 Other long term (current) drug therapy; Z79.84 Long term (current) use of oral hypoglycemic drugs; Z79.01 Long term (current) use of anticoagulants
CPT/HCPCS: 71020

== ENCOUNTER 2017-05-28 15:40 | Emergency (ER) | payer MEDICARE ==
[2017-05-28 16:42] LABS: Hemoglobin 8.2 g/dL (14.0-18.0); Mean Corpuscular HGB CONC 32.6 g/dL (32.0-36.0); Mean Platelet Volume 7.6 fL (7.4-10.4); Platelet Count 148 thou/uL (130-400); RBC Distribution Width 15.5 % (11.5-14.5); Red Blood Cell (RBC) Count 2.73 mill/uL (4.70-6.10); White Blood Cell (WBC) Count 6.5 thou/uL (4.8-10.8)
[2017-05-28 16:47] LABS: INR-International Normal Ratio 1.7; PTT 44.6 SEC (22.9-36.1); Prothrombin Time 20.1 SEC (12.0-14.7)
[2017-05-28 16:56] LABS: ALT (SGPT) 15 U/L (8-55); AST (SGOT) 22 U/L (5-34); Albumin 3.6 g/dL (3.4-4.8); Alkaline Phosphatase 206 U/L (40-150); Anion Gap 15 mmol/L (10-20); BUN (Urea Nitrogen) 32 mg/dL (8.4-25.7); Bilirubin, Total 1.2 mg/dL (0.2-1.2); CK (CPK) 118 U/L (30-200); Calc. Creatinine Clearance 0 mL/min (70-130); Carbon Dioxide 22 mmol/L (23-31); Chloride 103 mmol/L (98-107); Estimated GFR-MDRD 56; Globulin 2.9 g/dL (2.4-3.5); Glucose 101 mg/dL (83-110); Lipase 80 U/L (8-78); Potassium 3.9 mmol/L (3.5-5.1); Protein, Total 6.5 g/dL (5.8-8.1); Sodium 136 mmol/L (136-145)
[2017-05-28 16:59] LABS: Anisocytosis SLIGHT = 6-15 cells (100X) (0-5/hpf); Band 1 % (5-11); Eosinophils 1 % (0-10); Lymphocytes 12 % (21-51); MDiff Complete? YES; Monocytes 6 % (0-10); Neutrophil 79 % (42-75); PLT Morphology Comment Appears Adequate; Polychromasia MODERATE = 3-4 cells (100X) (0-2/hpf); Reactive Lymphocytes 1 % (0-10)
[2017-05-28 17:01] LABS: CKMB 2.4 ng/mL (0-6.6); Troponin I 0.094 ng/mL (< 0.028)
--- NOTE | 2017-05-28 17:18 | RAD ---
CHEST ONE VIEW: 05/28/17 HISTORY: 77-year-old male with chest pain and weakness. COMPARISON: 02/14/17 and 03/23/17. FINDINGS: Borderline cardiomegaly. Postop midline sternotomy with left ICD. Atherosclerosis of the aorta. Mild stable vascular congestion but no confluent pneumonia, overt edema, or pleural effusion. No pneumotho rax. IMPRESSION: Stable borderline cardiomegaly with postop midline sternotomy and left ICD changes. Atherosclerosis o f the aorta. POS: [facility]
[2017-05-28] MEDS ORDERED: Furosemide 20 MG/2 ML VIAL ONE ×2 (17:36→17:38)
[2017-05-28] MEDS ORDERED: Aspirin 325 MG TAB ONE (17:37)
== END 2017-05-28 18:34 | disposition home or self-care (01) ==
LOC: ERS 15:40
DX: I11.0 Hypertensive heart disease with heart failure (principal); I50.9 Heart failure, unspecified; M10.9 Gout, unspecified; I25.2 Old myocardial infarction; K21.9 Gastro-esophageal reflux disease without esophagitis; E11.9 Type 2 diabetes mellitus without complications; M19.90 Unspecified osteoarthritis, unspecified site
CPT/HCPCS: 71045; 80053; 82553; 83690; 83880; 84484; 85025; 85610; 85730; 93005; 96374; J1940

== ENCOUNTER 2017-06-14 20:57 | Inpatient (IN) | payer MEDICARE ==
[2017-06-14] MEDS ORDERED: Furosemide 100 MG/10 ML VIAL ONE (22:05)
[2017-06-14 22:27] LABS: Base Excess-Venous -2.8 mmol/L (-30.0-30.0); Bicarbonate (HCO3v) 20.3 mmol/L (1.0-85.0); CO2 Tension (PvCO2) 28.6 mmHg (41.0-51.0); Calcium, Ionized 1.01 mmol/L (1.12-1.32); Hemoglobin - Calc 10.2 g/dL (12.0-18.0); O2 Tension (PvO2) 47.8 mmHg (35.0-45.0); Potassium 3.7 mmol/L (3.4-4.7); T. Carbon Dioxide 21.2 mmol/L (1.0-85.0); pH (Venous) 7.458 (7.35-7.45); vO2 Saturation-calc 86.2 % (0.0-100.0)
[2017-06-14 22:33] LABS: ALT (SGPT) 19 U/L (8-55); AST (SGOT) 31 U/L (5-34); Albumin 3.7 g/dL (3.4-4.8); Alkaline Phosphatase 187 U/L (40-150); Anion Gap 15 mmol/L (10-20); BUN (Urea Nitrogen) 29 mg/dL (8.4-25.7); Bilirubin, Total 1.8 mg/dL (0.2-1.2); Calc. Creatinine Clearance 0 mL/min (70-130); Calcium 9.5 mg/dL (7.8-10.44); Carbon Dioxide 24 mmol/L (23-31); Chloride 102 mmol/L (98-107); Estimated GFR-MDRD 41; Glucose 107 mg/dL (83-110); Potassium 3.8 mmol/L (3.5-5.1); Protein, Total 6.7 g/dL (5.8-8.1); Sodium 137 mmol/L (136-145)
[2017-06-14 22:34] LABS: Band 3 % (5-11); Hemoglobin 8.6 g/dL (14.0-18.0); Lymphocytes 5 % (21-51); MDiff Complete? YES; Macrocytosis SLIGHT = 6-15 cells (100X) (0-5/hpf); Mean Corpuscular HGB CONC 32.5 g/dL (32.0-36.0); Mean Corpuscular Hemoglobin 30.7 pg (27.0-31.0); Mean Corpuscular Volume 94.7 fl (80.0-94.0); Mean Platelet Volume 6.8 fL (7.4-10.4); Monocytes 13 % (0-10); Neutrophil 79 % (42-75); PLT Morphology Comment Appears Adequate; Platelet Count 156 thou/uL (130-400); RBC Distribution Width 14.4 % (11.5-14.5); Red Blood Cell (RBC) Count 2.81 mill/uL (4.70-6.10); White Blood Cell (WBC) Count 9.1 thou/uL (4.8-10.8)
--- NOTE | 2017-06-14 22:38 | RAD ---
PORTABLE AP CHEST RADIOGRAPH: Date: 06-14-17 History: Dyspnea. Cough since Wednesday. Comparison: 05-28-17 FINDINGS: Multi-lead left subclavian AICD device is again noted in place. Post-surgical change related to CABG are noted. The cardiac silhouette remains enlarged. Pulmonary vasculature is within normal limits. Karishma ngs are clear. There has been no interval change from the prior exam. IMPRESSION: 1. No acute cardiopulmonary process. 2. Cardiomegaly. POS: [facility]
[2017-06-14 22:47] LABS: CKMB 2.4 ng/mL (0-6.6)
[2017-06-14 22:55] LABS: Bilirubin Negative (Negative); Blood, Urine Negative (Negative); Clarity CLEAR (Clear); Glucose, Urine (Dipstick) Negative (Negative); Leukocyte Negative (Negative); Nitrite Negative (Negative); Protein, Urine (Dipstick) Negative (Neg-Trace); Specific Gravity, Urine 1.006 (1.002-1.036); Urobilinogen 0.2 mg/dL (0.2-1.0)
[2017-06-15] MEDS ORDERED: Acetaminophen 325 MG TAB PO PRN (00:27)
[2017-06-15] MEDS ORDERED: Ondansetron ODT 4 MG TAB SL PRN (00:27)
[2017-06-15] MEDS ORDERED: Ondansetron HCl/PF 4 MG/2 ML Vial IVP PRN (00:27)
[2017-06-15 00:59] VITALS: BMI 25.6
[2017-06-15 01:19] LABS: Troponin I 0.185 ng/mL (< 0.028)
--- NOTE | 2017-06-15 02:13 | HP ---
DATE OF ADMISSION: 06/15/2017 CHIEF COMPLAINT: Shortness of breath. HISTORY OF PRESENT ILLNESS: This is a 77-year-old -[place] male with a known history of jacqueline estive heart failure and he sees Dr. Marcus. The patient was in his usual state of health, living wi th his daughter, started having persistent shortness of breath and cough since Wednesday, which has be en progressively getting worse, had nonproductive sputum. He came to the hospital, was very lethargi c and weak, but had a significant JVD elevation and also had marked elevation of the BNP from his bas shagufta. His chest x-ray did show cardiomegaly, but no evidence of any acute pulmonary edema was noted . He had a massive pedal edema up to the knees and has a clear evidence of volume overload. The patient had a low grade fever, but no evidence of any white count elevation. The patient has known history of type 2 diabetes mellitus and has a low ejection fraction, congestive heart failure. His blood sugars are well controlled at this time. PAST MEDICAL HISTORY: 1. Hypertension. 2. Type 2 diabetes mellitus. 3. Gastroesophageal reflux disease. 4. Coronary artery disease. 5. Congestive heart failure with EF of 20%, status post defibrillator. 6. Gout. 7. Arthritis. PAST SURGICAL HISTORY: Appendectomy in 1965, history of coronary artery bypass in 1997, history of i mplanted defibrillator placement in 2017. ALLERGIES: DIPHENHYDRAMINE. SOCIAL HISTORY: The patient lives with his daughter. No history of alcohol, no history of illicit d rug use. REVIEW OF SYSTEMS: All 12 systems are reviewed with the patient thoroughly and found to be negative at this time except the ones described in HPI. The following complete review of systems was negative , unless otherwise mentioned in the HPI or below: Constitutional: Weight loss or gain, sense of well-being, ability to conduct usual activities, exerc ise tolerance. Skin/Breast: Rash, itching, changes in hair growth or loss, nail changes, breast lumps, tenderness, swelling, nipple discharge. Eyes: Vision, double vision, tearing, blind spots, pain. ENT/Mouth: Headaches (location, time of onset, duration, precipitating factors), vertigo, lightheade dness, injury. Vision, double vision, tearing, blind spots, pain, nose bleeding, colds, obstruction, discharge, dental difficulties, gingival bleeding, dentures, neck stiffness, pain, tenderness, masses in thyroid or other areas. Cardiovascular: Precordial pain, substernal distress, palpitations, syncope, dyspnea on exertion, or thopnea, nocturnal paroxysmal dyspnea, edema, cyanosis, hypertension, heart murmurs, varicosities, ph lebitis, claudication. Respiratory: Pain, shortness of breath, wheezing, stridor, cough, hemoptysis, fever or night sweats. Gastrointestinal: Poor appetite, dysphagia, indigestion, abdominal pain, heartburn, eructation, naus ea, vomiting, hematemesis, jaundice, constipation, or diarrhea, abnormal stools (gigi-colored, tarry, bloody, greasy, foul smelling), flatulence, hemorrhoids, recent changes in bowel habits. Genitourinary: Urgency, frequency, dysuria, nocturia, hematuria, polyuria, oliguria, unusual (or cierra nge in) color of urine, stones, hesitancy, change in size of stream, dribbling, acute retention or in continence, libido, potency. Musculoskeletal: Pain, swelling, redness or heat of muscles or joints, limitation, of motion, muscul ar weakness, atrophy, cramps. Neurologic/Psychiatric: Convulsions, paralyses, tremor, incoordination, paresthesias, difficulties w ith memory of speech, sensory or motor disturbances, or muscular coordination (ataxia, tremor), emoti onal problems, anxiety, depression, previous psychiatric care, unusual perceptions, hallucinations. Allergy/Immunologic: Skin rash, anemia, bleeding tendency, polydipsia, polyuria, intolerance to heat or cold. FAMILY HISTORY: No significant family history of coronary artery disease was noted. HOME MEDICATIONS: 1. Allopurinol 100 mg p.o. b.i.d. 2. Coreg 3.125 mg p.o. b.i.d. 3. Ferrous sulfate 325 mg p.o. b.i.d. 4. Lasix 40 mg p.o. daily. 5. Isosorbide mononitrate 10 mg p.o. b.i.d. 6. Metformin. 7. Naproxen 500 mg p.o. b.i.d. 8. Omeprazole. 9. Xarelto 15 mg p.o. daily. 10. Simvastatin 20 mg p.o. daily. 11. Spironolactone 25 mg p.o. daily. PHYSICAL EXAMINATION: VITAL SIGNS: Blood pressures are 104/58, heart rate is 89, respiratory rate is 18, saturation 99%, t emperature of 100.1. GENERAL: The patient is seen sitting on the bed supine, does not appear to be in acute distress. HEENT: Atraumatic, normocephalic. PERRLA. Extraocular movements were intact. Oral mucosa is pink and moist. CARDIOVASCULAR: S1, S2 normal. No murmurs, rubs or gallops. LUNGS: Bilateral air entry was equal. Crackles were noted in the lower bases. ABDOMEN: Soft, nontender, no guarding, no rebound tenderness. Bowel sounds normal. MUSCULOSKELETAL: No calf tenderness. Pedal edema up to the 3+. No joint swelling. GRADES 9 THROUGH 12 TEACHER: Cranial nerve examination II-XII intact. No focal deficits were noted. PSYCHIATRIC: No signs of suicidal ideation. No signs of felipa. LABORATORY DATA AND IMAGING: WBC 9.1, hemoglobin 8.6, hematocrit 26.6, platelets 156. Sodium is 137 , potassium 3.8, chloride is 102, BUN 29, creatinine 1.93, total bilirubin 1.8. Troponin 0.160. BNP was 1659. Chest x-ray was unremarkable. No evidence of any acute pulmonary edema. ASSESSMENT: 1. Acute congestive heart failure, systolic dysfunction. 2. Acute kidney injury, likely cardiorenal syndrome. 3. Non-ST elevation myocardial infarction. 4. Type 2 diabetes mellitus. 5. Coronary artery disease with coronary artery bypass graft. 6. Anemia of chronic disease. PLAN: 1. The plan is to continue the patient on the Lasix at this time with 40 mg IV b.i.d. The patient i s clearly volume overloaded and has a pretty low ejection fraction of 20% from his previous echo. We will do a 2-D echo today and we will consult Cardiology in the morning. We will continue the patien t on the lisinopril 2.5 mg and continue on the Coreg of 3.125 mg b.i.d. and spironolactone 25 mg p.o. daily. 2. The patient has a mildly elevated troponin, but no chest pain was noted. Most likely this could be demand ischemia, but we will continue the patient on aspirin and the above medications. 3. The patient has a mild renal dysfunction, most likely this could be from venous congestion. So a t this time, we will continue with diuresis. 4. Type 2 diabetes mellitus, well-controlled. We will continue the patient on the home medications. We will hold off on the metformin at this time and we will continue with sliding scale insulin. 5. The patient has history of coronary artery disease with CABG, has a defibrillator, has not fired yet. We will closely monitor the patient. 6. Deep venous thrombosis prophylaxis. The patient is on Eliquis. We will continue with this medic ation at this time. I spent 70 minutes with this patient.
[2017-06-15 05:28] LABS: Anion Gap 13 mmol/L (10-20); BUN (Urea Nitrogen) 33 mg/dL (8.4-25.7); Calc. Creatinine Clearance 38 mL/min (70-130); Calcium 9.5 mg/dL (7.8-10.44); Carbon Dioxide 26 mmol/L (23-31); Chloride 102 mmol/L (98-107); Estimated GFR-MDRD 40; Glucose 110 mg/dL (83-110); Potassium 3.8 mmol/L (3.5-5.1); Sodium 137 mmol/L (136-145)
[2017-06-15 05:36] LABS: Troponin I 0.177 ng/mL (< 0.028)
[2017-06-15] MEDS: Furosemide 40 MG/4 ML VIAL SLOW IVP SCH ×2 (05:49→15:22)
[2017-06-15 06:19] LABS: Band 1 % (5-11); Eosinophils 1 % (0-10); Hemoglobin 8.3 g/dL (14.0-18.0); Lymphocytes 10 % (21-51); MDiff Complete? YES; Macrocytosis SLIGHT = 6-15 cells (100X) (0-5/hpf); Mean Corpuscular Hemoglobin 31.2 pg (27.0-31.0); Mean Corpuscular Volume 94.6 fl (80.0-94.0); Mean Platelet Volume 6.7 fL (7.4-10.4); Monocytes 13 % (0-10); Neutrophil 75 % (42-75); PLT Morphology Comment Appears Adequate; Platelet Count 140 thou/uL (130-400); RBC Distribution Width 14.3 % (11.5-14.5); Red Blood Cell (RBC) Count 2.66 mill/uL (4.70-6.10); White Blood Cell (WBC) Count 7.8 thou/uL (4.8-10.8)
[2017-06-15] MEDS: Ferrous Sulfate 325 MG TAB PO SCH ×2 (08:33→16:35)
[2017-06-15] MEDS: Allopurinol 100 MG TAB PO SCH ×2 (08:33→22:10)
[2017-06-15] MEDS: Carvedilol 3.125 MG TAB PO SCH ×2 (08:35→22:12)
[2017-06-15] MEDS: Famotidine/PF 20 mg/2ml Vial SLOW IVP SCH (08:35)
[2017-06-15] MEDS ORDERED: Enoxaparin Sodium 30 MG/0.3 ML SYRINGE SC SCH (09:00)
[2017-06-15] MEDS ORDERED: Lisinopril 2.5 MG TAB PO SCH (09:00)
[2017-06-15] MEDS ORDERED: Isosorbide Mononitrate 20 MG TAB PO SCH (09:00)
[2017-06-15] MEDS ORDERED: Spironolactone 25 MG TAB PO SCH (09:00)
[2017-06-15 09:23] LABS: Iron 13 ug/dL (65-175); Iron Binding Capacity, Total 351 mcg/dL (261-462)
--- NOTE | 2017-06-15 14:18 | PDOC.PN ---
- Subjective Encounter Start Date: 06/15/17 Encounter Start Time: 10:00 Subjective: pt up in bed with family around, states he feels better today - Objective Resuscitation Status: Resuscitation Status FULL:Full Resuscitation Vital Signs & Weight: Vital Signs (12 hours) Temp Pulse Resp BP BP Pulse Ox 06/15/17 11:45 71 16 97 06/15/17 11:30 99.7 F H 66 18 89/51 L 97 06/15/17 08:33 89 97/52 L 06/15/17 07:40 99.1 F 89 20 97/52 L 97 06/15/17 07:20 99.1 F 89 20 97 06/15/17 04:00 98.8 F 71 17 120/62 96 Weight Weight 188 lb I&O: 06/14/17 06/15/17 06/16/17 06:59 06:59 06:59 Intake Total 140 Output Total 1075 Balance -935 Result Diagrams: 06/15/17 04:46 06/15/17 04:46 Phys Exam - Physical Examination Respiratory: wheezing present (pt has some wheezing and rhonchi all over lungs) Cardiovascular: RRR Gastrointestinal: soft, non-tender Musculoskeletal: edema present (to bilateral lower ext) Neurological: non-focal Lymphatic: no nodes Psychiatric: normal affect, A&O x 3 Dx/Plan (1) Acute systolic (congestive) heart failure Code(s): I50.21 - ACUTE SYSTOLIC (CONGESTIVE) HEART FAILURE Status: Acute Plan: pt is on coreg/ilana/spironolactone for his heart failure. He is currently on iv lasix. on fluid restriction. echo ordered, cardio consulted. pt states that he feels he has been drinking lots of water. (2) Shortness of breath Code(s): R06.02 - SHORTNESS OF BREATH Status: Acute Plan: multifactoral, pt has systolic heart failure, anemia, has a hx of heavy smoking in the past which could cause pt to be sob. will start pt on duonebs and will transfuse iv iron. will check resp viral panel. (3) Anemia Code(s): D64.9 - ANEMIA, UNSPECIFIED Status: Acute Qualifiers: Anemia type: iron deficiency Iron deficiency anemia type: unspecified iron deficiency Qualified Code(s): D50.9 - Iron deficiency anemia, unspecified Plan: pt has been on po iron. he is on xarelto also for afib. spoke with daughter and pt if he ever had a colonoscopy. Pt said he did a long time ago. will give pt iv iron since his iron and percent saturation is low (4) New onset atrial fibrillation Code(s): I48.91 - UNSPECIFIED ATRIAL FIBRILLATION Status: Acute Plan: pt is on xarelto for his afib - Plan * .
[2017-06-15] MEDS: Rivaroxaban 15 MG TAB PO SCH (16:35)
[2017-06-15] MEDS: Guaifenesin DM 100-10/5 ML UDCUP PO PRN ×2 (16:38→22:17)
--- NOTE | 2017-06-15 18:18 | CON ---
DATE OF CONSULTATION: 06/15/2017 REASON FOR CONSULTATION: Congestive heart failure, systolic, acute on chronic. HISTORY OF PRESENT ILLNESS: Mr. Gagandeep Cerda is a delightful 77-year-old gentleman with history of co ngestive heart failure, recently it has been noted by his daughter that the patient is becoming more fatigued, lack of energy, and increasing cough. He came to the emergency room and was found to be in congestive heart failure and was admitted for further therapy. Past history of coronary artery disease. He has bypass surgery 20 years ago. He had cardiac cathete rization last summer in October. The grafts were patent, he had patent grafts to the LAD, obtuse margin al 1 and 2, the right coronary graft did have several areas of stenosis, but looks suboptimal for int ervention also the inferior wall akinetic. The patient was readmitted with some difficulty breathing. PAST MEDICAL HISTORY: 1. Iron deficiency anemia. 2. Implantable defibrillator biventricular 10/2016. ALLERGIES: DIPHENHYDRAMINE. SOCIAL HISTORY: No alcohol or tobacco. 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 REVIEW OF SYSTEMS: CONSTITUTIONAL: Positive for weakness and fatigue. VISION: No changes. HEARING: No changes. PULMONARY: Positive for cough. CARDIAC: No chest pain or pressure. GASTROINTESTINAL: No nausea, vomiting, diarrhea. SKIN: No rashes. NEUROLOGIC: No unilateral weakness or numbness. PSYCHIATRIC: No unusual depression or anxiety. HEMATOLOGIC: No unusual bruising. GENITOURINARY: No burning with urination. PHYSICAL EXAMINATION: GENERAL: A delightful elderly gentleman resting comfortably, he is in a recliner. VITAL SIGNS: Blood pressure earlier 97/52, now 89/51. Pulse 66, regular. EYES: Sclerae nonicteric. Mouth mucous branch moist. NECK: Neck veins are still elevated. Carotid normal upstrokes. LUNGS: No wheezing, rales, or rhonchi. CARDIOVASCULAR: Regular. Soft apical systolic murmur. ABDOMEN: Soft, nontender. EXTREMITIES: No clubbing or cyanosis. There is moderate edema. The I and O, patient said he had good urine output since he has been here, 1 liter outputs recorded. PERTINENT LABORATORY DATA: Hemoglobin is 8.3, MCV is 94.6, creatinine is 1.97. BNP 1665.0. Troponi n 0.185. EKG reveals atrial fibrillation and has underlying rhythm with a biventricular paced rhythm . ASSESSMENT: Echocardiogram, ejection fraction is 25% inferior wall akinetic, moderate to severe mitr al regurgitation, moderate to severe tricuspid insufficiency, moderately elevated pulmonary pressure. ASSESSMENT: 1. Congestive heart failure, systolic, acute on chronic. 2. Renal failure, previously was unable to tolerate DELFINO inhibitors due to hypotension and renal insu fficiency, worsening. 3. Atrial fibrillation, which is chronic. 4. History of iron deficiency anemia. PLAN: 1. Continue diuretics. 2. I view of relatively low blood pressure, we will hold DELFINO inhibitors at this point. 3. Hold nitrates at this point. 4. We will give intravenous iron tomorrow morning.
[2017-06-15] MEDS: Simvastatin 20 MG TAB PO SCH (22:10)
[2017-06-16] MEDS ORDERED: Acetaminophen 325 MG TAB PO SCH (01:00)
[2017-06-16 05:23] LABS: Band 2 % (5-11); Hemoglobin 7.5 g/dL (14.0-18.0); Lymphocytes 19 % (21-51); MDiff Complete? YES; Mean Corpuscular Hemoglobin 31.2 pg (27.0-31.0); Mean Corpuscular Volume 94.5 fl (80.0-94.0); Mean Platelet Volume 6.9 fL (7.4-10.4); Monocytes 13 % (0-10); Neutrophil 65 % (42-75); PLT Morphology Comment Appears Adequate; Platelet Count 129 thou/uL (130-400); RBC Distribution Width 13.8 % (11.5-14.5); White Blood Cell (WBC) Count 5.2 thou/uL (4.8-10.8)
[2017-06-16 05:36] LABS: Anion Gap 11 mmol/L (10-20); BUN (Urea Nitrogen) 39 mg/dL (8.4-25.7); Calc. Creatinine Clearance 36 mL/min (70-130); Calcium 8.8 mg/dL (7.8-10.44); Carbon Dioxide 26 mmol/L (23-31); Chloride 100 mmol/L (98-107); Estimated GFR-MDRD 37; Glucose 92 mg/dL (83-110); Potassium 3.4 mmol/L (3.5-5.1); Sodium 134 mmol/L (136-145)
[2017-06-16] MEDS: Furosemide 40 MG/4 ML VIAL SLOW IVP SCH ×2 (06:45→09:47)
[2017-06-16] MEDS ORDERED: Iron Sucrose Complex 200 MG, Admixture Fee 1 EACH in Sodium Chloride 0.9% 250 ML 250 ML IVPB SCH ×2 (08:00→10:00)
[2017-06-16] MEDS ORDERED: Iron Dextran 500 MG in Sodium Chloride 0.9% 250 ML IVPB SCH (08:00)
[2017-06-16] MEDS: Famotidine/PF 20 mg/2ml Vial SLOW IVP SCH (08:26)
[2017-06-16] MEDS: Carvedilol 3.125 MG TAB PO SCH ×2 (08:27→20:57)
[2017-06-16] MEDS: Allopurinol 100 MG TAB PO SCH ×2 (08:27→20:56)
[2017-06-16] MEDS: Ferrous Sulfate 325 MG TAB PO SCH ×2 (08:27→16:56)
[2017-06-16] MEDS ORDERED: Potassium Chloride 20 MEQ TAB PO SCH (08:30)
[2017-06-16] MEDS ORDERED: FLU VACC TS2017-18 (>65YR) 0.5 ML SYRINGE IM ONE (09:00)
[2017-06-16 09:04] LABS: Hemoglobin 7.6 g/dL (14.0-18.0)
[2017-06-16] MEDS: Doxycycline 100 MG CAP PO SCH ×2 (09:46→20:57)
[2017-06-16] MEDS ORDERED: Sodium Ferric Gluconate 250 MG, Admixture Fee 1 EACH in Sodium Chloride 0.9% 250 ML 250 ML IVPB SCH (10:15)
--- NOTE | 2017-06-16 10:17 | PRG ---
DATE OF SERVICE: 06/16/2017 Mr. Cerda states he feels somewhat better. PHYSICAL EXAMINATION: VITAL SIGNS: His blood pressure is 105/65, pulse 70, it is regular. LUNGS: There are some basilar rales. CARDIAC: Normal S1 and S2. Reviewing the records, he did have a positive influenza swab yesterday. Other lab; his hemoglobin is 7.6. He has iron deficiency. ASSESSMENT: 1. Congestive heart failure, systolic, acute on chronic. 2. Influenza. 3. Coronary artery disease. 4. Anemia, iron deficient, probably slow blood loss due to an anticoagulant on atrial fibrillation. PLAN: 1. Try to give him iron sucrose. 2. Tamiflu would be advised.
[2017-06-16] MEDS: Guaifenesin DM 100-10/5 ML UDCUP PO PRN ×2 (13:32→17:04)
--- NOTE | 2017-06-16 15:43 | PDOC.PN ---
- Subjective Encounter Start Date: 06/16/17 Encounter Start Time: 11:15 Subjective: pt up in chair no complains - Objective Resuscitation Status: Resuscitation Status DNR:Do Not Resuscitate Vital Signs & Weight: Vital Signs (12 hours) Temp Pulse Pulse Pulse Resp BP BP 06/16/17 14:02 75 20 06/16/17 13:40 82 72 110/66 95/53 L 06/16/17 12:21 96.9 F L 72 16 06/16/17 12:00 97.9 F 73 16 06/16/17 10:44 72 72 104/65 96/59 L 06/16/17 09:52 75 18 06/16/17 07:47 96.9 F L 72 16 06/16/17 06:42 79 18 06/16/17 04:00 98.7 F 72 16 BP BP Pulse Ox 06/16/17 14:02 95 06/16/17 13:40 06/16/17 12:21 98 06/16/17 12:00 92/60 94 L 06/16/17 10:44 06/16/17 09:52 95 06/16/17 07:47 105/65 98 06/16/17 06:42 96 06/16/17 04:00 93/51 L 94 L Weight Weight 187 lb 5 oz I&O: 06/15/17 06/16/17 06/17/17 06:59 06:59 06:59 Intake Total 140 1210 240 Output Total 1075 1750 Balance -935 -540 240 Result Diagrams: 06/16/17 08:36 06/16/17 04:43 Additional Labs: Accuchecks 06/16/17 06/15/17 11:25 20:52 POC Glucose 128 H 123 H Phys Exam - Physical Examination HEENT: PERRLA Neck: no nodes Respiratory: wheezing present Cardiovascular: RRR, no significant murmur Gastrointestinal: soft, non-tender Musculoskeletal: no edema, pulses present Neurological: non-focal, normal sensation Dx/Plan (1) Acute systolic (congestive) heart failure Code(s): I50.21 - ACUTE SYSTOLIC (CONGESTIVE) HEART FAILURE Status: Acute Plan: will hold lasix pt's bp is low, also pt's creatinine worsened today. (2) Anemia Code(s): D64.9 - ANEMIA, UNSPECIFIED Status: Acute Qualifiers: Anemia type: iron deficiency Iron deficiency anemia type: unspecified iron deficiency Qualified Code(s): D50.9 - Iron deficiency anemia, unspecified Plan: Did order iv iron but pt's daughter refused it stated that he had a reaction last time and did not want it. pt received iv iron today no issues. (3) New onset atrial fibrillation Code(s): I48.91 - UNSPECIFIED ATRIAL FIBRILLATION Status: Acute Plan: continue xarelto, rate controlled (4) Influenza A Code(s): J10.1 - FLU DUE TO OTH IDENT INFLUENZA VIRUS W OTH RESP MANIFEST Status: Acute Plan: pt out of the window for tamiflu, will still start for some benefits. will start pt on doxy to avoid any superimposed pna - Plan * .
[2017-06-16] MEDS: Rivaroxaban 15 MG TAB PO SCH (16:56)
[2017-06-16] MEDS: Simvastatin 20 MG TAB PO SCH (20:57)
[2017-06-16] MEDS: Oseltamivir 6 MG/ML ORAL SUSP PO SCH (20:57)
[2017-06-17 05:40] LABS: Anion Gap 11 mmol/L (10-20); BUN (Urea Nitrogen) 38 mg/dL (8.4-25.7); Calc. Creatinine Clearance 39 mL/min (70-130); Calcium 8.6 mg/dL (7.8-10.44); Carbon Dioxide 26 mmol/L (23-31); Chloride 100 mmol/L (98-107); Estimated GFR-MDRD 42; Glucose 89 mg/dL (83-110); Potassium 3.6 mmol/L (3.5-5.1); Sodium 133 mmol/L (136-145)
[2017-06-17 06:26] LABS: Band 5 % (5-11); Eosinophils 1 % (0-10); Hemoglobin 7.7 g/dL (14.0-18.0); Lymphocytes 24 % (21-51); MDiff Complete? YES; Mean Corpuscular HGB CONC 32.4 g/dL (32.0-36.0); Mean Corpuscular Hemoglobin 30.5 pg (27.0-31.0); Mean Corpuscular Volume 94.3 fl (80.0-94.0); Mean Platelet Volume 7.1 fL (7.4-10.4); Monocytes 13 % (0-10); Neutrophil 57 % (42-75); Platelet Count 135 thou/uL (130-400); Red Blood Cell (RBC) Count 2.51 mill/uL (4.70-6.10); White Blood Cell (WBC) Count 4.7 thou/uL (4.8-10.8)
[2017-06-17] MEDS ORDERED: Sodium Ferric Gluconate 250 MG in Sodium Chloride 0.9% 100 ML IVPB SCH (08:00)
[2017-06-17] MEDS ORDERED: Iron Sucrose Complex 200 MG in Sodium Chloride 0.9% 250 ML 250 ML IVPB SCH (08:00)
[2017-06-17] MEDS: Furosemide 40 MG/4 ML VIAL SLOW IVP SCH (08:40)
[2017-06-17] MEDS: Doxycycline 100 MG CAP PO SCH ×2 (08:40→20:43)
[2017-06-17] MEDS: Allopurinol 100 MG TAB PO SCH ×2 (08:40→20:43)
[2017-06-17] MEDS: Carvedilol 3.125 MG TAB PO SCH ×2 (08:40→20:43)
[2017-06-17] MEDS: Ferrous Sulfate 325 MG TAB PO SCH ×2 (08:40→17:13)
[2017-06-17] MEDS ORDERED: Furosemide 40 MG/4 ML VIAL IVP SCH (09:00)
[2017-06-17] MEDS: Famotidine/PF 20 mg/2ml Vial SLOW IVP SCH (10:04)
[2017-06-17] MEDS: Oseltamivir 6 MG/ML ORAL SUSP PO SCH ×2 (10:04→20:44)
--- NOTE | 2017-06-17 14:28 | PRG ---
DATE OF SERVICE: 06/17/2017 SUBJECTIVE: Mr. Cerda is sitting up in the chair, feeling well. OBJECTIVE: VITAL SIGNS: His blood pressure is 103/63, pulse 80. LUNGS: Clear. CARDIAC: Normal S1, S2. ASSESSMENT: 1. Congestive heart failure, systolic, chronic. 2. Influenza. 3. Anemia. PLAN: 1. He received 2 doses of iron. 2. He is going to receive 1 unit of packed red blood cells. 3. Hopefully, can be released home tomorrow. His BNP has improved. Agree with an extra dose of [place] tonight.
--- NOTE | 2017-06-17 15:03 | PDOC.PN ---
- Subjective Encounter Start Date: 06/17/17 Encounter Start Time: 09:30 Subjective: pt up in chair states he feels much better - Objective Resuscitation Status: Resuscitation Status DNR:Do Not Resuscitate Vital Signs & Weight: Vital Signs (12 hours) Temp Pulse Resp BP BP Pulse Ox 06/17/17 14:00 97.9 F 72 18 98/62 100 06/17/17 11:21 80 16 06/17/17 09:01 98.0 F 72 16 103/63 96 06/17/17 08:00 100.5 F H 94 20 94 L 06/17/17 07:18 80 16 06/17/17 07:00 100.5 F H 74 16 103/65 94 L 06/17/17 03:48 100.6 F H 74 18 104/67 98 Weight Weight 187 lb 14.4 oz I&O: 06/16/17 06/17/17 06/18/17 06:59 06:59 06:59 Intake Total 1210 1970 240 Output Total 1750 2200 Balance -540 -230 240 Result Diagrams: 06/17/17 04:44 06/17/17 04:44 Additional Labs: Accuchecks 06/17/17 06/16/17 06/16/17 11:28 20:09 16:51 POC Glucose 112 H 160 H 108 Phys Exam - Physical Examination HEENT: PERRLA Neck: no nodes Respiratory: no rhonchi, wheezing present (improved from yest) Cardiovascular: RRR, no significant murmur Gastrointestinal: soft, non-tender Musculoskeletal: no edema Neurological: non-focal Dx/Plan (1) Acute systolic (congestive) heart failure Code(s): I50.21 - ACUTE SYSTOLIC (CONGESTIVE) HEART FAILURE Status: Acute Plan: stable currently will continue meds. (2) Anemia Code(s): D64.9 - ANEMIA, UNSPECIFIED Status: Acute Qualifiers: Anemia type: iron deficiency Iron deficiency anemia type: unspecified iron deficiency Qualified Code(s): D50.9 - Iron deficiency anemia, unspecified Plan: pt received 2 doses of iv iron, tolerated well. will transfuse one unit of blood. spoke with pt's daughter couple days ago in regards to his low hh which could be due to iron def, however he is also on xarelto. Pt's daughter stated that he was suppose to get a colonoscopy however given his multiple medical issues anesthesia would be difficult. (3) New onset atrial fibrillation Code(s): I48.91 - UNSPECIFIED ATRIAL FIBRILLATION Status: Acute Plan: pt on AC (4) Influenza A Code(s): J10.1 - FLU DUE TO OTH IDENT INFLUENZA VIRUS W OTH RESP MANIFEST Status: Acute Plan: continue tmaiflu day 2 and doxy day 2 - Plan * .
[2017-06-17] MEDS: Rivaroxaban 15 MG TAB PO SCH (17:13)
[2017-06-17] MEDS: Simvastatin 20 MG TAB PO SCH (20:43)
[2017-06-17] MEDS: Guaifenesin DM 100-10/5 ML UDCUP PO PRN (20:48)
[2017-06-18] MEDS: Guaifenesin DM 100-10/5 ML UDCUP PO PRN (04:28)
--- NOTE | 2017-06-18 09:30 | PRG ---
DATE OF SERVICE: 06/18/2017 SUBJECTIVE: Mr. Cerda is doing better today, he feels much better. OBJECTIVE: VITAL SIGNS: Blood pressure is actually improved at 106/57, pulse 70. LUNGS: Clear. CARDIAC: Normal S1, normal S2. ASSESSMENT: 1. Congestive heart failure, systolic, chronic, appears stable. 2. Anemia, iron deficiency. He has received 2 doses of intravenous iron sucrose, he tolerated that well, two doses of 200 mg. He also got 1 unit of packed red blood cells yesterday. 3. Coronary artery disease. 4. Mitral regurgitation. PLAN: 1. To go home on furosemide 40 mg a day. We would actually recommend increasing to 40 mg twice a da y when he leaves. 2. Lisinopril 2.5 mg a day, to be resumed. 3. Spironolactone 25 mg a day. 4. Coreg 3.125 mg a day. 5. Should avoid naproxen. 6. Rivaroxaban 15 mg daily. 7. Can take aspirin if he had recurrent iron deficiency anemia.
[2017-06-18 09:37] LABS: Hemoglobin 9.5 g/dL (14.0-18.0)
[2017-06-18] MEDS: Allopurinol 100 MG TAB PO SCH (09:51)
[2017-06-18] MEDS: Carvedilol 3.125 MG TAB PO SCH (09:51)
[2017-06-18] MEDS: Ferrous Sulfate 325 MG TAB PO SCH (09:51)
[2017-06-18] MEDS: Furosemide 40 MG/4 ML VIAL SLOW IVP SCH (09:52)
[2017-06-18] MEDS: Doxycycline 100 MG CAP PO SCH (09:52)
[2017-06-18] MEDS: Oseltamivir 6 MG/ML ORAL SUSP PO SCH (09:52)
[2017-06-18 10:03] LABS: Anion Gap 13 mmol/L (10-20); BUN (Urea Nitrogen) 26 mg/dL (8.4-25.7); Calc. Creatinine Clearance 45 mL/min (70-130); Calcium 9.1 mg/dL (7.8-10.44); Carbon Dioxide 26 mmol/L (23-31); Chloride 100 mmol/L (98-107); Estimated GFR-MDRD 50; Glucose 115 mg/dL (83-110); Magnesium 1.8 mg/dL (1.6-2.6); Potassium 3.5 mmol/L (3.5-5.1); Sodium 135 mmol/L (136-145)
[2017-06-18 12:29] VITALS: BP 106/56; TEMP 98.3
--- NOTE | 2017-06-20 00:17 | DIS ---
DATE OF ADMISSION: 06/15/2017 DATE OF DISCHARGE: 06/18/2017 DISCHARGE DIAGNOSES: 1. Influenza A. 2. Acute on chronic systolic heart failure. 3. Anemia. 4. Atrial fibrillation. DISCHARGE MEDICATIONS: As the following: Spironolactone 25 mg daily, simvastatin 20 mg q.p.m., Xare lto 50 mg q.p.m., omeprazole 40 mg daily, lisinopril 2.5 mg daily, isosorbide 10 mg p.o. b.i.d., ferr ous sulfate 325 p.o. b.i.d., Coreg 3.125 daily, allopurinol 100 mg b.i.d., Tamiflu 30 mg b.i.d. for 5 days, Lasix 40 mg b.i.d., doxycycline 100 mg b.i.d. for 5 days and the patient already had a Ventoli n inhaler 1 puff inhalation q.6 hours p.r.n. HOSPITAL COURSE: The patient is a very pleasant 77-year-old male with history of systolic heart fail ure with an EF of 20% to 25%. Also, has an AICD, who initially presented to the hospital with worsen ing shortness of breath. The patient's BNP was noted to be elevated and initially was treated with I V diuretics. However, upon auscultating patient's chest, appeared to have more rhonchi and wheezing, so influenza was checked which was positive. Also, patient has history of smoking in the past. The patient was put on Tamiflu 30 mg p.o. b.i.d. given his chronic kidney disease, he was also put on do xycycline to prevent secondary pneumonia. The patient also was put on DuoNebs. The patient througho ut the hospital stay continued to improve. Upon discharge, his lungs were clear. The patient was ab le to ambulate without any difficulties. The patient also was seen by Cardiology while he was in the hospital. No interventions per Cardiology. The patient was discharged home with this medication. He will follow up with PCP and Cardiology. The patient was given heart failure teaching instructions . The patient did receive 1 unit of PRBC. Repeat H&H was 9.5. The patient will follow up with his PCP. I did speak at length with the patient's daughter in regards to his anemia and being on Xarelto . The patient's daughter stated that they had discussed this with either the PCP or gastroenterologi st. Given his multiple comorbidities and medical issues, they had opted not to do any other invasive testing, which could cause more harm to the patient. We will continue to monitor. The patient also received 3 doses of IV iron and was sent home with oral iron. The patient was stable on discharge. PHYSICAL EXAMINATION: GENERAL: Awake, alert and oriented x3. CARDIOVASCULAR: S1 and S2 present. No murmurs, rubs or gallops. LUNGS: Clear to auscultation. ABDOMEN: Soft. Bowel sounds are present x2. CONDITION OF THE PATIENT ON DISCHARGE: Stable. DISPOSITION: The patient was discharged home.
== END 2017-06-18 13:01 | disposition home or self-care (01) | DRG 291 ==
LOC: ERS 20:57 → 2NO 06-15 00:27
PROVIDERS: ADMIT Family Medicine; ATTEND Family Medicine
PROC: 30233N1 Transfusion of Nonautologous Red Blood Cells into Peripheral Vein, Percutaneous Approach (ICD-10-PCS; principal; 2017-06-17)
DX: I13.0 Hypertensive heart and chronic kidney disease with heart failure and stage 1 through stage 4 chronic kidney disease, or unspecified chronic kidney disease (principal); I50.23 Acute on chronic systolic (congestive) heart failure; N17.9 Acute kidney failure, unspecified; E11.22 Type 2 diabetes mellitus with diabetic chronic kidney disease; I48.2 Chronic atrial fibrillation; I34.0 Nonrheumatic mitral (valve) insufficiency; Z95.1 Presence of aortocoronary bypass graft; Z66 Do not resuscitate; N18.9 Chronic kidney disease, unspecified; I25.10 Atherosclerotic heart disease of native coronary artery without angina pectoris; Z95.810 Presence of automatic (implantable) cardiac defibrillator; M10.9 Gout, unspecified; M19.90 Unspecified osteoarthritis, unspecified site; K21.9 Gastro-esophageal reflux disease without esophagitis; D50.9 Iron deficiency anemia, unspecified; Z79.01 Long term (current) use of anticoagulants; J10.1 Influenza due to other identified influenza virus with other respiratory manifestations; Z87.891 Personal history of nicotine dependence
CPT/HCPCS: 36415; 36416; 36430; 71045; 80048; 80053; 81003; 82330; 82553; 82728; 82803; 83540; 83550; 83735; 83880; 84484; 85007; 85014; 85018; 85025; 85027; 86850; 86900; 86901; 87070; 87205; 87633; 87798; 89220; 90471; 90682; 93005; 93306; 93798; 94640; 96374; A4216; G0008; G8978-GP-CJ; G8979-GP-CJ; G8980-GP-CJ; G8987-GO-CI; G8988-GO-CI; G8989-GO-CI; J1756; J1940; J2916; J7050; J7620; P9016; Q2036; S0028

== ENCOUNTER 2017-10-08 08:28 | Day surgery (SDC) | payer MEDICARE ==
[2017-10-08] MEDS ORDERED: Epoetin (ESRD) 20,000 UNITS/ML SC SCH (08:45)
[2017-10-08 09:21] VITALS: BP 102/59
== END 2017-10-08 09:41 | disposition home or self-care (01) ==
LOC: ONC/OP 08:28
PROVIDERS: ATTEND Internal Medicine Medical Oncology
DX: D50.8 Other iron deficiency anemias (principal); N18.3 Chronic kidney disease, stage 3 (moderate); Z88.8 Allergy status to other drugs, medicaments and biological substances
CPT/HCPCS: 96372; Q4081

== ENCOUNTER 2017-10-14 10:15 | Outpatient (CLI) | payer MEDICARE ==
--- NOTE | 2017-10-14 11:44 | ULT ---
ABDOMINAL AORTIC ULTRASOUND: HISTORY: A 77-year-old male with a history of abdominal aortic aneurysm screening, former smoker for 25 years. COMPARISON: 02/14/17. FINDINGS: No evidence for abdominal aorta aneurysm. Somewhat dilated inferior vena cava. The aortic bifurcati on and proximal iliac arteries demonstrate no evidence of aneurysm. IMPRESSION: No evidence for abdominal aortic aneurysm. Some atherosclerotic changes of the aorta. Minimally dil ated inferior vena cava. POS: C
== END 2017-10-14 10:16 | disposition home or self-care (01) ==
LOC: ULT 10:15
PROVIDERS: ATTEND Family Medicine
DX: Z13.6 Encounter for screening for cardiovascular disorders (principal); Z00.00 Encounter for general adult medical examination without abnormal findings; I87.1 Compression of vein; I70.0 Atherosclerosis of aorta
CPT/HCPCS: 76775

== ENCOUNTER 2017-10-15 08:28 | Day surgery (SDC) | payer MEDICARE ==
[2017-10-15 08:56] VITALS: BP 109/65; TEMP 97.6
[2017-10-15] MEDS ORDERED: Epoetin (ESRD) 20,000 UNITS/ML SC SCH (09:00)
== END 2017-10-15 09:36 | disposition home or self-care (01) ==
LOC: ONC/OP 08:28
PROVIDERS: ATTEND Internal Medicine Medical Oncology
DX: N18.3 Chronic kidney disease, stage 3 (moderate) (principal); D63.1 Anemia in chronic kidney disease; D50.8 Other iron deficiency anemias; Z79.01 Long term (current) use of anticoagulants; Z79.899 Other long term (current) drug therapy; Z88.8 Allergy status to other drugs, medicaments and biological substances
CPT/HCPCS: 96372; Q4081

== ENCOUNTER 2017-10-22 08:23 | Day surgery (SDC) | payer MEDICARE ==
[2017-10-22] MEDS ORDERED: Epoetin (NON-ESRD) 20,000 UNITS/ML ML SC SCH (09:00)
== END 2017-10-22 09:17 | disposition home or self-care (01) ==
LOC: ONC/OP 08:23
PROVIDERS: ATTEND Internal Medicine Medical Oncology
DX: N18.3 Chronic kidney disease, stage 3 (moderate) (principal); D63.1 Anemia in chronic kidney disease; Z88.8 Allergy status to other drugs, medicaments and biological substances
CPT/HCPCS: 96372; J0885

== ENCOUNTER 2017-10-28 11:02 | Emergency (ER) | payer MEDICARE ==
[2017-10-28 12:03] LABS: INR-International Normal Ratio 1.7; Prothrombin Time 20.3 SEC (12.0-14.7)
[2017-10-28 12:04] LABS: PTT 51.2 SEC (22.9-36.1)
[2017-10-28 12:19] LABS: ALT (SGPT) 20 U/L (8-55); AST (SGOT) 22 U/L (5-34); Albumin 3.7 g/dL (3.4-4.8); Alkaline Phosphatase 222 U/L (40-150); Anion Gap 11 mmol/L (10-20); BUN (Urea Nitrogen) 36 mg/dL (8.4-25.7); Bilirubin, Total 1.1 mg/dL (0.2-1.2); Calc. Creatinine Clearance 0 mL/min (70-130); Calcium 9.3 mg/dL (7.8-10.44); Carbon Dioxide 27 mmol/L (23-31); Chloride 103 mmol/L (98-107); Estimated GFR-MDRD 42; Globulin 2.9 g/dL (2.4-3.5); Glucose 110 mg/dL (83-110); Potassium 4.1 mmol/L (3.5-5.1); Protein, Total 6.6 g/dL (5.8-8.1); Sodium 137 mmol/L (136-145)
[2017-10-28 12:24] LABS: Band 3 % (5-11); Eosinophils 3 % (0-10); Hemoglobin 8.9 g/dL (14.0-18.0); Lymphocytes 19 % (21-51); MDiff Complete? YES; Mean Corpuscular HGB CONC 32.1 g/dL (32.0-36.0); Mean Corpuscular Hemoglobin 30.5 pg (27.0-31.0); Mean Corpuscular Volume 94.8 fL (78.0-98.0); Mean Platelet Volume 8.1 fL (7.4-10.4); Monocytes 9 % (0-10); Neutrophil 66 % (42-75); PLT Morphology Comment Appears Decreased; Platelet Count 105 thou/uL (130-400); Polychromasia MODERATE = 3-4 cells (100X) (0-2/hpf); RBC Distribution Width 14.9 % (11.5-14.5); Red Blood Cell (RBC) Count 2.91 mill/uL (4.70-6.10); Tear Drops SLIGHT = 2-5 cells (100X) (0-1/hpf); White Blood Cell (WBC) Count 5.7 thou/uL (4.8-10.8)
== END 2017-10-28 12:55 | disposition home or self-care (01) ==
LOC: ERS 11:02
DX: R04.0 Epistaxis (principal); D64.89 Other specified anemias; K21.9 Gastro-esophageal reflux disease without esophagitis; M10.9 Gout, unspecified; I11.0 Hypertensive heart disease with heart failure; I50.9 Heart failure, unspecified; I25.2 Old myocardial infarction
CPT/HCPCS: 36415; 80053; 85025; 85610; 85730; 99283

== ENCOUNTER 2017-10-29 08:22 | Day surgery (SDC) | payer MEDICARE ==
[2017-10-29] MEDS ORDERED: Epoetin (ESRD) 20,000 UNITS/ML SC SCH (08:45)
[2017-10-29 09:12] VITALS: BP 108/55; TEMP 97.6
== END 2017-10-29 09:12 | disposition home or self-care (01) ==
LOC: ONC/OP 08:22
PROVIDERS: ATTEND Internal Medicine Medical Oncology
DX: N18.3 Chronic kidney disease, stage 3 (moderate) (principal); D50.8 Other iron deficiency anemias; Z88.8 Allergy status to other drugs, medicaments and biological substances
CPT/HCPCS: 96372; Q4081

== ENCOUNTER 2017-11-05 08:41 | Day surgery (SDC) | payer MEDICARE ==
[2017-11-05] MEDS ORDERED: Epoetin 40,000 UNITS/ML VIAL SC SCH (09:00)
== END 2017-11-05 12:20 | disposition home or self-care (01) ==
LOC: ONC/OP 08:41
PROVIDERS: ATTEND Internal Medicine Medical Oncology
DX: D50.8 Other iron deficiency anemias (principal); N18.3 Chronic kidney disease, stage 3 (moderate); Z88.8 Allergy status to other drugs, medicaments and biological substances
CPT/HCPCS: 36415; 82728; 96372; J0885

== ENCOUNTER 2017-11-12 08:31 | Day surgery (SDC) | payer MEDICARE ==
[2017-11-12] MEDS ORDERED: Epoetin 40,000 UNITS/ML VIAL ONE (08:39)
[2017-11-12] MEDS ORDERED: Epoetin 40,000 UNITS/ML VIAL SC SCH (09:00)
[2017-11-12 09:18] VITALS: BP 134/68; TEMP 98.9
== END 2017-11-12 09:18 | disposition home or self-care (01) ==
LOC: ONC/OP 08:31
PROVIDERS: ATTEND Internal Medicine Medical Oncology
DX: D50.8 Other iron deficiency anemias (principal); N18.3 Chronic kidney disease, stage 3 (moderate); Z88.8 Allergy status to other drugs, medicaments and biological substances
CPT/HCPCS: 96372; J0885

== ENCOUNTER 2017-11-19 08:51 | Day surgery (SDC) | payer MEDICARE ==
[2017-11-19] MEDS ORDERED: Epoetin 40,000 UNITS/ML VIAL SC SCH (09:15)
== END 2017-11-19 09:11 | disposition home or self-care (01) ==
LOC: ONC/OP 08:51
PROVIDERS: ATTEND Internal Medicine Medical Oncology
DX: D50.8 Other iron deficiency anemias (principal); I12.9 Hypertensive chronic kidney disease with stage 1 through stage 4 chronic kidney disease, or unspecified chronic kidney disease; N18.3 Chronic kidney disease, stage 3 (moderate); I25.2 Old myocardial infarction; I42.9 Cardiomyopathy, unspecified; Z88.8 Allergy status to other drugs, medicaments and biological substances; Z87.891 Personal history of nicotine dependence; Z79.02 Long term (current) use of antithrombotics/antiplatelets; Z79.899 Other long term (current) drug therapy
CPT/HCPCS: 96372; J0885

== ENCOUNTER 2017-12-11 14:57 | Emergency (ER) | payer MEDICARE ==
[2017-12-11] MEDS ORDERED: Dexamethasone 4 MG TAB ONE (15:12)
== END 2017-12-11 15:20 | disposition home or self-care (01) ==
LOC: ERS 14:57
DX: M10.9 Gout, unspecified (principal); K21.9 Gastro-esophageal reflux disease without esophagitis; I11.0 Hypertensive heart disease with heart failure; I50.9 Heart failure, unspecified; I25.2 Old myocardial infarction
CPT/HCPCS: 99283; J8540

== ENCOUNTER 2017-12-17 08:37 | Day surgery (SDC) | payer MEDICARE ==
[2017-12-17] MEDS ORDERED: Epoetin 40,000 UNITS/ML VIAL SC SCH (09:30)
== END 2017-12-17 09:28 | disposition home or self-care (01) ==
LOC: ONC/OP 08:37
PROVIDERS: ATTEND Internal Medicine Medical Oncology
DX: D50.8 Other iron deficiency anemias (principal); N18.3 Chronic kidney disease, stage 3 (moderate); D63.1 Anemia in chronic kidney disease; Z88.8 Allergy status to other drugs, medicaments and biological substances
CPT/HCPCS: 96372; J0885

== ENCOUNTER 2017-12-31 08:39 | Day surgery (SDC) | payer MEDICARE ==
[2017-12-31] MEDS ORDERED: Epoetin 40,000 UNITS/ML VIAL ONE (08:45)
[2017-12-31 16:57] VITALS: BP 112/56; TEMP 97.6
== END 2017-12-31 17:00 | disposition home or self-care (01) ==
LOC: ONC/OP 08:39
PROVIDERS: ATTEND Internal Medicine Medical Oncology
DX: D50.8 Other iron deficiency anemias (principal); N18.3 Chronic kidney disease, stage 3 (moderate); Z88.8 Allergy status to other drugs, medicaments and biological substances
CPT/HCPCS: 96372; J0885

== ENCOUNTER 2018-01-14 08:28 | Day surgery (SDC) | payer MEDICARE ==
[2018-01-14] MEDS ORDERED: Epoetin 40,000 UNITS/ML VIAL SC SCH (08:45)
[2018-01-14 09:43] VITALS: BP 107/59
== END 2018-01-14 11:09 | disposition home or self-care (01) ==
LOC: ONC/OP 08:28
PROVIDERS: ATTEND Internal Medicine Medical Oncology
DX: D50.8 Other iron deficiency anemias (principal); N18.3 Chronic kidney disease, stage 3 (moderate); Z88.8 Allergy status to other drugs, medicaments and biological substances
CPT/HCPCS: 82728; 96372; J0885

== ENCOUNTER 2018-01-21 08:35 | Day surgery (SDC) | payer MEDICARE ==
[2018-01-21] MEDS ORDERED: Epoetin 40,000 UNITS/ML VIAL SC SCH (09:00)
[2018-01-21 09:05] VITALS: BP 105/56; TEMP 97.5
== END 2018-01-21 09:29 | disposition home or self-care (01) ==
LOC: ONC/OP 08:35
PROVIDERS: ATTEND Internal Medicine Medical Oncology
DX: D50.8 Other iron deficiency anemias (principal); N18.3 Chronic kidney disease, stage 3 (moderate); Z88.8 Allergy status to other drugs, medicaments and biological substances
CPT/HCPCS: 96372

== ENCOUNTER 2018-01-28 08:53 | Day surgery (SDC) | payer MEDICARE ==
[2018-01-28] MEDS ORDERED: Epoetin 40,000 UNITS/ML VIAL SC SCH (09:15)
[2018-01-28 11:01] VITALS: BP 122/67; TEMP 97.5
== END 2018-01-28 11:14 | disposition home or self-care (01) ==
LOC: ONC/OP 08:53
PROVIDERS: ATTEND Internal Medicine Medical Oncology
DX: D50.8 Other iron deficiency anemias (principal); N18.3 Chronic kidney disease, stage 3 (moderate); Z88.8 Allergy status to other drugs, medicaments and biological substances
CPT/HCPCS: 96372; J0885

== ENCOUNTER 2018-02-04 08:21 | Day surgery (SDC) | payer MEDICARE ==
[2018-02-04] MEDS ORDERED: Epoetin 40,000 UNITS/ML VIAL ONE (08:23)
[2018-02-04 08:30] VITALS: BP 109/60; TEMP 97.4
[2018-02-04] MEDS ORDERED: Epoetin 40,000 UNITS/ML VIAL SC SCH (08:30)
== END 2018-02-04 08:34 | disposition home or self-care (01) ==
LOC: ONC/OP 08:21
PROVIDERS: ATTEND Internal Medicine Medical Oncology
DX: D50.8 Other iron deficiency anemias (principal); N18.3 Chronic kidney disease, stage 3 (moderate); Z88.8 Allergy status to other drugs, medicaments and biological substances
CPT/HCPCS: 96372; J0885

== ENCOUNTER 2018-02-14 09:43 | Outpatient (CLI) | payer MEDICARE ==
--- NOTE | 2018-02-14 11:46 | RAD ---
CHEST PA AND LATERAL TWO VIEWS: History: 78-year-old male with history of chronic systolic congestive heart failure. Comparison: 12-19-16 FINDINGS: Post underlying sternotomy and left ICD. Cardiomegaly. Mild stable vascular congestion. No confluent pneumonia, overt edema, or significant pleural effusion. IMPRESSION: Stable appearing chest with minimal cardiomegaly and mild stable vascular congestion. POS: TPC
== END 2018-02-14 09:44 | disposition home or self-care (01) ==
LOC: RAD 09:43
PROVIDERS: ATTEND Internal Medicine Cardiovascular Disease
DX: I50.22 Chronic systolic (congestive) heart failure (principal); I51.7 Cardiomegaly; R09.89 Other specified symptoms and signs involving the circulatory and respiratory systems
CPT/HCPCS: 71046

== ENCOUNTER 2018-03-09 14:19 | Outpatient (CLI) | payer MEDICARE ==
--- NOTE | 2018-03-09 15:30 | ULT ---
RIGHT BREAST ULTRASOUND: History: Patient reports pain in the retroareolar region of the right breast. No defined palpable mas s. Mammogram study showed asymmetric breast tissue in the retroareolar region of the right breast as compared to the left but no discrete mass. FINDINGS: Real-time imaging of the area of concern fails to show any cystic or solid mass. IMPRESSION: BIRADS category 2 - benign findings. POS: OFF
== END 2018-03-09 14:20 | disposition home or self-care (01) ==
LOC: BICBD 14:19
PROVIDERS: ATTEND Family Medicine
DX: N63.10 Unspecified lump in the right breast, unspecified quadrant (principal); N64.89 Other specified disorders of breast
CPT/HCPCS: 76642; 77066; G0279

== ENCOUNTER 2018-03-18 08:44 | Day surgery (SDC) | payer MEDICARE ==
[2018-03-18] MEDS ORDERED: Sodium Chloride 0.9% 20 ML ONE (08:57)
[2018-03-18] MEDS ORDERED: Epoetin 40,000 UNITS/ML VIAL SC SCH (09:00)
[2018-03-18 09:32] VITALS: BP 108/59
== END 2018-03-18 10:32 | disposition home or self-care (01) ==
LOC: ONC/OP 08:44
PROVIDERS: ATTEND Internal Medicine Hematology & Oncology
DX: D50.8 Other iron deficiency anemias (principal); N18.3 Chronic kidney disease, stage 3 (moderate); Z88.8 Allergy status to other drugs, medicaments and biological substances
CPT/HCPCS: 36415; 82728; 96365; 96372; J0885; J1756; J7050

== ENCOUNTER 2018-04-01 08:28 | Day surgery (SDC) | payer MEDICARE ==
[2018-04-01] MEDS ORDERED: Iron Sucrose Complex 500 MG in Sodium Chloride 0.9% 250 ML 250 ML IVPB SCH (08:45)
[2018-04-01] MEDS ORDERED: Epoetin 40,000 UNITS/ML VIAL SC SCH (08:45)
[2018-04-01 15:10] VITALS: BP 117/68; TEMP 98.3
== END 2018-04-01 15:11 | disposition home or self-care (01) ==
LOC: ONC/OP 08:28
PROVIDERS: ATTEND Internal Medicine Medical Oncology
DX: D50.8 Other iron deficiency anemias (principal); N18.3 Chronic kidney disease, stage 3 (moderate); Z91.041 Radiographic dye allergy status
CPT/HCPCS: 96365; 96372; J0885; J1756; J7050

== ENCOUNTER 2018-04-08 08:58 | Day surgery (SDC) | payer MEDICARE ==
[2018-04-08] MEDS ORDERED: Epoetin 40,000 UNITS/ML VIAL SC SCH (09:15)
[2018-04-08 09:35] VITALS: BP 112/68; TEMP 97.8
== END 2018-04-08 11:56 | disposition home or self-care (01) ==
LOC: ONC/OP 08:58
PROVIDERS: ATTEND Internal Medicine Medical Oncology
DX: N18.3 Chronic kidney disease, stage 3 (moderate) (principal); D63.1 Anemia in chronic kidney disease; Z79.01 Long term (current) use of anticoagulants; Z79.899 Other long term (current) drug therapy; Z88.8 Allergy status to other drugs, medicaments and biological substances
CPT/HCPCS: 96372; 99213; G0463; J0885

== ENCOUNTER 2018-04-15 08:23 | Day surgery (SDC) | payer MEDICARE ==
[2018-04-15] MEDS ORDERED: Epoetin 40,000 UNITS/ML VIAL ONE (08:24)
[2018-04-15] MEDS ORDERED: Epoetin 40,000 UNITS/ML VIAL SC SCH (08:30)
[2018-04-15 08:43] VITALS: BP 126/70; TEMP 97.8
== END 2018-04-15 08:43 | disposition home or self-care (01) ==
LOC: ONC/OP 08:23
PROVIDERS: ATTEND Internal Medicine Medical Oncology
DX: N18.3 Chronic kidney disease, stage 3 (moderate) (principal); D63.1 Anemia in chronic kidney disease; D50.8 Other iron deficiency anemias; Z79.01 Long term (current) use of anticoagulants; Z79.899 Other long term (current) drug therapy; Z88.8 Allergy status to other drugs, medicaments and biological substances
CPT/HCPCS: 82728; 96372; J0885

== ENCOUNTER 2018-05-06 08:26 | Day surgery (SDC) | payer MEDICARE ==
[2018-05-06] MEDS ORDERED: Epoetin 40,000 UNITS/ML VIAL ONE (08:32)
[2018-05-06] MEDS ORDERED: Epoetin 40,000 UNITS/ML VIAL SC SCH (09:00)
[2018-05-06 10:16] VITALS: BP 125/61; TEMP 97.6
== END 2018-05-06 11:52 | disposition home or self-care (01) ==
LOC: ONC/OP 08:26
PROVIDERS: ATTEND Internal Medicine Medical Oncology
DX: N18.3 Chronic kidney disease, stage 3 (moderate) (principal); D63.1 Anemia in chronic kidney disease; D50.8 Other iron deficiency anemias; Z79.01 Long term (current) use of anticoagulants; Z79.899 Other long term (current) drug therapy; Z88.8 Allergy status to other drugs, medicaments and biological substances
CPT/HCPCS: 96372; J0885

== ENCOUNTER 2018-05-13 08:26 | Day surgery (SDC) | payer MEDICARE ==
[2018-05-13] MEDS ORDERED: Epoetin 40,000 UNITS/ML VIAL SC SCH (08:45)
[2018-05-13 08:47] VITALS: BP 103/54; TEMP 97.8
== END 2018-05-13 08:47 | disposition home or self-care (01) ==
LOC: ONC/OP 08:26
PROVIDERS: ATTEND Internal Medicine Medical Oncology
DX: N18.3 Chronic kidney disease, stage 3 (moderate) (principal); D63.1 Anemia in chronic kidney disease; Z88.8 Allergy status to other drugs, medicaments and biological substances; Z79.01 Long term (current) use of anticoagulants; Z79.2 Long term (current) use of antibiotics; Z79.899 Other long term (current) drug therapy
CPT/HCPCS: 82728; 96372; J0885

== ENCOUNTER → 2018-05-20 | Day surgery (SDC) | payer MEDICARE ==
[~2018-05-20] MED LIST: Epoetin 40,000 UNITS/ML VIAL ONE
[2018-05-20 09:19] VITALS: BP 112/60; TEMP 97.5
== END ==
LOC: ONC/OP 08:22
PROVIDERS: ATTEND Internal Medicine Medical Oncology
DX: D50.8 Other iron deficiency anemias (principal); N18.3 Chronic kidney disease, stage 3 (moderate); Z79.01 Long term (current) use of anticoagulants; Z79.899 Other long term (current) drug therapy; Z88.8 Allergy status to other drugs, medicaments and biological substances
CPT/HCPCS: 96365; J0885; J1756; J7050

== ENCOUNTER 2018-05-27 08:19 | Day surgery (SDC) | payer MEDICARE ==
[2018-05-27] MEDS ORDERED: Epoetin 40,000 UNITS/ML VIAL ONE (08:23)
[2018-05-27] MEDS ORDERED: Epoetin 40,000 UNITS/ML VIAL SC SCH (09:00)
[2018-05-27 11:59] VITALS: BP 115/59; TEMP 97.5
== END 2018-05-27 11:05 | disposition home or self-care (01) ==
LOC: ONC/OP 08:19
PROVIDERS: ATTEND Internal Medicine Medical Oncology
DX: D50.8 Other iron deficiency anemias (principal); N18.3 Chronic kidney disease, stage 3 (moderate); Z79.01 Long term (current) use of anticoagulants; Z79.899 Other long term (current) drug therapy; Z88.8 Allergy status to other drugs, medicaments and biological substances
CPT/HCPCS: 96374; J0885

== ENCOUNTER 2018-06-03 08:20 | Day surgery (SDC) | payer MEDICARE ==
[2018-06-03] MEDS ORDERED: Epoetin 40,000 UNITS/ML VIAL SC SCH (08:30)
[2018-06-03 11:36] VITALS: BP 106/61; TEMP 97.7
== END 2018-06-03 15:53 | disposition home or self-care (01) ==
LOC: ONC/OP 08:20
PROVIDERS: ATTEND Internal Medicine Medical Oncology
DX: D50.8 Other iron deficiency anemias (principal); N18.3 Chronic kidney disease, stage 3 (moderate); D63.1 Anemia in chronic kidney disease; Z79.01 Long term (current) use of anticoagulants; Z79.899 Other long term (current) drug therapy; Z88.8 Allergy status to other drugs, medicaments and biological substances
CPT/HCPCS: 96372

== ENCOUNTER 2018-06-10 08:38 | Day surgery (SDC) | payer MEDICARE ==
[2018-06-10] MEDS ORDERED: Epoetin 40,000 UNITS/ML VIAL ONE (08:43)
[2018-06-10] MEDS ORDERED: Epoetin 40,000 UNITS/ML VIAL SC SCH (09:00)
== END 2018-06-10 09:05 | disposition home or self-care (01) ==
LOC: ONC/OP 08:38
PROVIDERS: ATTEND Internal Medicine Medical Oncology
DX: D50.8 Other iron deficiency anemias (principal); N18.3 Chronic kidney disease, stage 3 (moderate); D63.1 Anemia in chronic kidney disease; Z79.01 Long term (current) use of anticoagulants; Z79.899 Other long term (current) drug therapy; Z88.8 Allergy status to other drugs, medicaments and biological substances
CPT/HCPCS: 82728; 96372; J0885

== ENCOUNTER 2018-06-17 08:21 | Day surgery (SDC) | payer MEDICARE ==
[2018-06-17] MEDS ORDERED: Iron Sucrose Complex 500 MG in Sodium Chloride 0.9% 250 ML 250 ML IVPB SCH (08:30)
[2018-06-17] MEDS ORDERED: Sodium Chloride 0.9% 20 ML ONE (08:30)
[2018-06-17 08:58] VITALS: BP 112/69; TEMP 97.5
== END 2018-06-17 10:13 | disposition home or self-care (01) ==
LOC: ONC/OP 08:21
PROVIDERS: ATTEND Internal Medicine Medical Oncology
DX: D50.8 Other iron deficiency anemias (principal); N18.3 Chronic kidney disease, stage 3 (moderate); D63.1 Anemia in chronic kidney disease; Z88.8 Allergy status to other drugs, medicaments and biological substances
CPT/HCPCS: 96365; J1756; J7050

== ENCOUNTER 2018-06-24 09:11 | Day surgery (SDC) | payer MEDICARE ==
[~2018-06-24 09:11] MED LIST changes: -Epoetin 40,000 UNITS/ML VIAL ONE; +Epoetin 40,000 UNITS/ML VIAL SC SCH
[2018-06-24 09:55] VITALS: BP 102/59; TEMP 97.6
== END 2018-06-24 10:12 | disposition home or self-care (01) ==
LOC: ONC/OP 09:11
PROVIDERS: ATTEND Internal Medicine Medical Oncology
DX: D50.8 Other iron deficiency anemias (principal); N18.3 Chronic kidney disease, stage 3 (moderate); D63.1 Anemia in chronic kidney disease; Z88.8 Allergy status to other drugs, medicaments and biological substances
CPT/HCPCS: 96372; J0885

== ENCOUNTER 2018-07-01 08:12 | Day surgery (SDC) | payer MEDICARE ==
[2018-07-01] MEDS ORDERED: Epoetin 40,000 UNITS/ML VIAL ONE (08:22)
[2018-07-01] MEDS ORDERED: Epoetin 40,000 UNITS/ML VIAL SC SCH (09:45)
[2018-07-01 10:03] VITALS: BP 120/58; TEMP 97.6
== END 2018-07-01 10:04 | disposition home or self-care (01) ==
LOC: ONC/OP 08:12
PROVIDERS: ATTEND Internal Medicine Medical Oncology
DX: N18.3 Chronic kidney disease, stage 3 (moderate) (principal); D63.1 Anemia in chronic kidney disease; D50.8 Other iron deficiency anemias; Z88.8 Allergy status to other drugs, medicaments and biological substances
CPT/HCPCS: 82728; 96372; J0885

== ENCOUNTER 2018-07-08 09:23 | Day surgery (SDC) | payer MEDICARE ==
[2018-07-08] MEDS ORDERED: Epoetin 40,000 UNITS/ML VIAL ONE (09:27)
[2018-07-08 09:47] VITALS: BP 161/82; TEMP 98
[2018-07-08] MEDS ORDERED: Epoetin 40,000 UNITS/ML VIAL SC SCH (10:00)
== END 2018-07-08 09:51 | disposition home or self-care (01) ==
LOC: ONC/OP 09:23
PROVIDERS: ATTEND Internal Medicine Medical Oncology
DX: D50.8 Other iron deficiency anemias (principal); N18.3 Chronic kidney disease, stage 3 (moderate); D63.1 Anemia in chronic kidney disease; Z88.8 Allergy status to other drugs, medicaments and biological substances
CPT/HCPCS: 96372; J0885

== ENCOUNTER 2018-07-29 08:27 | Day surgery (SDC) | payer MEDICARE ==
[2018-07-29] MEDS ORDERED: Epoetin 40,000 UNITS/ML VIAL SC SCH (08:45)
[2018-07-29 13:00] VITALS: BP 112/76; TEMP 97.6
== END 2018-07-29 13:01 | disposition home or self-care (01) ==
LOC: ONC/OP 08:27
PROVIDERS: ATTEND Internal Medicine Medical Oncology
DX: N18.3 Chronic kidney disease, stage 3 (moderate) (principal); D63.1 Anemia in chronic kidney disease; D50.8 Other iron deficiency anemias; Z88.8 Allergy status to other drugs, medicaments and biological substances
CPT/HCPCS: 96372; J0885

== ENCOUNTER 2018-08-05 08:33 | Day surgery (SDC) | payer MEDICARE ==
[2018-08-05 08:44] VITALS: BP 114/69
[2018-08-05] MEDS ORDERED: Epoetin 40,000 UNITS/ML VIAL SC SCH (09:00)
== END 2018-08-05 08:59 | disposition home or self-care (01) ==
LOC: ONC/OP 08:33
PROVIDERS: ATTEND Internal Medicine Medical Oncology
DX: N18.3 Chronic kidney disease, stage 3 (moderate) (principal); D50.8 Other iron deficiency anemias; Z88.8 Allergy status to other drugs, medicaments and biological substances; Z79.2 Long term (current) use of antibiotics; Z79.01 Long term (current) use of anticoagulants; Z79.899 Other long term (current) drug therapy
CPT/HCPCS: 82728; 96372; J0885

== ENCOUNTER 2018-08-12 08:31 | Day surgery (SDC) | payer MEDICARE ==
[2018-08-12] MEDS ORDERED: Iron Sucrose Complex 500 MG in Sodium Chloride 0.9% 250 ML 250 ML IVPB SCH (08:40)
[2018-08-12 09:10] VITALS: BP 99/60
== END 2018-08-12 12:06 | disposition home or self-care (01) ==
LOC: ONC/OP 08:31
PROVIDERS: ATTEND Internal Medicine Medical Oncology
DX: N18.3 Chronic kidney disease, stage 3 (moderate) (principal); D50.8 Other iron deficiency anemias
CPT/HCPCS: 96365; J1756; J7050

== ENCOUNTER 2018-08-18 08:46 | Day surgery (SDC) | payer MEDICARE ==
[2018-08-18] MEDS ORDERED: Epoetin 40,000 UNITS/ML VIAL ONE (09:13)
[2018-08-18 10:12] VITALS: BP 112/65; TEMP 97.8
== END 2018-08-18 10:13 | disposition home or self-care (01) ==
LOC: ONC/OP 08:46
PROVIDERS: ATTEND Internal Medicine Medical Oncology
DX: N18.3 Chronic kidney disease, stage 3 (moderate) (principal); D50.8 Other iron deficiency anemias; Z88.8 Allergy status to other drugs, medicaments and biological substances
CPT/HCPCS: 82728; 96372; J0885

== ENCOUNTER 2018-08-26 08:22 | Day surgery (SDC) | payer MEDICARE ==
[2018-08-26] MEDS ORDERED: EPOETIN ALFA-EPBX (ESRD) 40,000 UNIT/ML VIAL SC SCH (08:30)
[2018-08-26] MEDS ORDERED: Epoetin 40,000 UNITS/ML VIAL ONE (08:32)
[2018-08-26 08:38] VITALS: BP 105/56; TEMP 97.9
== END 2018-08-26 08:45 | disposition home or self-care (01) ==
LOC: ONC/OP 08:22
PROVIDERS: ATTEND Internal Medicine Medical Oncology
DX: N18.3 Chronic kidney disease, stage 3 (moderate) (principal); D50.8 Other iron deficiency anemias; Z88.8 Allergy status to other drugs, medicaments and biological substances
CPT/HCPCS: 96372; J0885

== ENCOUNTER 2018-09-02 08:12 | Day surgery (SDC) | payer MEDICARE ==
[2018-09-02 08:20] VITALS: BP 109/59; TEMP 98.4
[2018-09-02] MEDS ORDERED: EPOETIN ALFA-EPBX (ESRD) 10,000 UNIT/ML VIAL SC SCH (08:30)
[2018-09-02] MEDS ORDERED: EPOETIN ALFA-EPBX (ESRD) 40,000 UNIT/ML VIAL SC SCH (08:45)
== END 2018-09-02 09:27 | disposition home or self-care (01) ==
LOC: ONC/OP 08:12
PROVIDERS: ATTEND Internal Medicine Medical Oncology
DX: D50.8 Other iron deficiency anemias (principal); N18.3 Chronic kidney disease, stage 3 (moderate); Z88.8 Allergy status to other drugs, medicaments and biological substances
CPT/HCPCS: 96372; Q5105

== ENCOUNTER 2018-09-09 08:22 | Day surgery (SDC) | payer MEDICARE ==
[2018-09-09] MEDS ORDERED: EPOETIN ALFA-EPBX (ESRD) 40,000 UNIT/ML VIAL SC SCH (08:45)
[2018-09-09 09:04] VITALS: BP 120/68; TEMP 97.6
== END 2018-09-09 11:24 | disposition home or self-care (01) ==
LOC: ONC/OP 08:22
PROVIDERS: ATTEND Internal Medicine Medical Oncology
DX: D50.8 Other iron deficiency anemias (principal); N18.3 Chronic kidney disease, stage 3 (moderate); D63.1 Anemia in chronic kidney disease; Z88.8 Allergy status to other drugs, medicaments and biological substances
CPT/HCPCS: 96372

== ENCOUNTER 2018-09-23 08:41 | Day surgery (SDC) | payer MEDICARE ==
[2018-09-23] MEDS ORDERED: Epoetin 40,000 UNITS/ML VIAL ONE (09:18)
[2018-09-23 09:49] VITALS: BP 103/55; TEMP 97.7
[2018-09-23] MEDS ORDERED: EPOETIN ALFA-EPBX (ESRD) 40,000 UNIT/ML VIAL SC SCH (11:30)
== END 2018-09-23 11:39 | disposition home or self-care (01) ==
LOC: ONC/OP 08:41
PROVIDERS: ATTEND Internal Medicine Medical Oncology
DX: N18.3 Chronic kidney disease, stage 3 (moderate) (principal); D63.1 Anemia in chronic kidney disease; Z88.8 Allergy status to other drugs, medicaments and biological substances; Z79.01 Long term (current) use of anticoagulants; Z79.2 Long term (current) use of antibiotics; Z79.899 Other long term (current) drug therapy
CPT/HCPCS: 96372; J0885

== ENCOUNTER 2018-09-30 08:41 | Day surgery (SDC) | payer MEDICARE ==
[2018-09-30] MEDS ORDERED: EPOETIN ALFA-EPBX (ESRD) 40,000 UNIT/ML VIAL SC SCH (09:00)
[2018-09-30 10:39] VITALS: BP 108/55; TEMP 98
== END 2018-09-30 10:39 | disposition home or self-care (01) ==
LOC: ONC/OP 08:41
PROVIDERS: ATTEND Internal Medicine Medical Oncology
DX: N18.3 Chronic kidney disease, stage 3 (moderate) (principal); D63.1 Anemia in chronic kidney disease; D50.8 Other iron deficiency anemias; Z88.8 Allergy status to other drugs, medicaments and biological substances
CPT/HCPCS: 82728; 96372

== ENCOUNTER 2018-10-07 08:25 | Day surgery (SDC) | payer MEDICARE ==
[2018-10-07] MEDS ORDERED: Sodium Chloride 0.9% 20 ML ONE (08:32)
[2018-10-07 09:19] VITALS: BP 99/58; TEMP 97.7
== END 2018-10-07 14:02 | disposition home or self-care (01) ==
LOC: ONC/OP 08:25
PROVIDERS: ATTEND Internal Medicine Medical Oncology
DX: D50.8 Other iron deficiency anemias (principal); N18.3 Chronic kidney disease, stage 3 (moderate); D63.1 Anemia in chronic kidney disease; Z88.8 Allergy status to other drugs, medicaments and biological substances
CPT/HCPCS: 96365; J1756; J3490

== ENCOUNTER 2018-10-14 08:17 | Day surgery (SDC) | payer MEDICARE ==
[2018-10-14] MEDS ORDERED: EPOETIN ALFA-EPBX (ESRD) 40,000 UNIT/ML VIAL SC SCH (08:30)
[2018-10-14 09:57] VITALS: BP 98/51; TEMP 97.7
== END 2018-10-14 11:36 | disposition home or self-care (01) ==
LOC: ONC/OP 08:17
PROVIDERS: ATTEND Internal Medicine Medical Oncology
DX: N18.3 Chronic kidney disease, stage 3 (moderate) (principal); D63.1 Anemia in chronic kidney disease; D50.8 Other iron deficiency anemias; Z88.8 Allergy status to other drugs, medicaments and biological substances; Z79.01 Long term (current) use of anticoagulants; Z79.899 Other long term (current) drug therapy
CPT/HCPCS: 96372

== ENCOUNTER 2018-10-21 08:35 | Day surgery (SDC) | payer MEDICARE ==
[2018-10-21] MEDS ORDERED: EPOETIN ALFA-EPBX (NON-ESRD) 40,000 UNIT/ML VIAL ONE (08:38)
[2018-10-21] MEDS ORDERED: EPOETIN ALFA-EPBX (ESRD) 40,000 UNIT/ML VIAL SC SCH (08:45)
[2018-10-21 08:57] VITALS: BP 119/66; TEMP 97.8
== END 2018-10-21 08:56 | disposition home or self-care (01) ==
LOC: ONC/OP 08:35
PROVIDERS: ATTEND Internal Medicine Medical Oncology
DX: N18.9 Chronic kidney disease, unspecified (principal); D63.1 Anemia in chronic kidney disease; D50.8 Other iron deficiency anemias
CPT/HCPCS: 96372; Q5106

== ENCOUNTER 2018-10-28 08:20 | Day surgery (SDC) | payer MEDICARE ==
[2018-10-28] MEDS ORDERED: EPOETIN ALFA-EPBX (ESRD) 10,000 UNIT/ML VIAL ONE (08:24)
[2018-10-28] MEDS ORDERED: EPOETIN ALFA-EPBX (ESRD) 40,000 UNIT/ML VIAL SC SCH (08:45)
== END 2018-10-28 10:53 | disposition home or self-care (01) ==
LOC: ONC/OP 08:20
PROVIDERS: ATTEND Internal Medicine Medical Oncology
DX: N18.3 Chronic kidney disease, stage 3 (moderate) (principal); D63.1 Anemia in chronic kidney disease; D50.8 Other iron deficiency anemias; Z88.8 Allergy status to other drugs, medicaments and biological substances
CPT/HCPCS: 96372; Q5105

== ENCOUNTER → 2018-11-04 | Day surgery (SDC) | payer MEDICARE ==
[~2018-11-04] MED LIST changes: +EPOETIN ALFA-EPBX (ESRD) 40,000 UNIT/ML VIAL ONE; +EPOETIN ALFA-EPBX (ESRD) 40,000 UNIT/ML VIAL SC SCH; -Epoetin 40,000 UNITS/ML VIAL SC SCH
[2018-11-04 08:37] VITALS: BP 113/59; TEMP 97.6
== END ==
LOC: ONC/OP 08:22
PROVIDERS: ATTEND Internal Medicine Medical Oncology
DX: N18.3 Chronic kidney disease, stage 3 (moderate) (principal); D63.1 Anemia in chronic kidney disease; D50.8 Other iron deficiency anemias; Z88.8 Allergy status to other drugs, medicaments and biological substances
CPT/HCPCS: 82728; 96372; Q5105

== ENCOUNTER 2018-11-11 08:25 | Day surgery (SDC) | payer MEDICARE ==
[2018-11-11] MEDS ORDERED: EPOETIN ALFA-EPBX (NON-ESRD) 40,000 UNIT/ML VIAL ONE (09:20)
[2018-11-11] MEDS ORDERED: EPOETIN ALFA-EPBX (ESRD) 40,000 UNIT/ML VIAL SC SCH (09:45)
== END 2018-11-11 09:52 | disposition home or self-care (01) ==
LOC: ONC/OP 08:25
PROVIDERS: ATTEND Internal Medicine Medical Oncology
DX: N18.3 Chronic kidney disease, stage 3 (moderate) (principal); D63.1 Anemia in chronic kidney disease; D50.8 Other iron deficiency anemias; Z88.8 Allergy status to other drugs, medicaments and biological substances
CPT/HCPCS: 96372; Q5106

== ENCOUNTER 2018-11-18 08:44 | Day surgery (SDC) | payer MEDICARE ==
[2018-11-18] MEDS ORDERED: EPOETIN ALFA-EPBX (ESRD) 40,000 UNIT/ML VIAL ONE (08:51)
[2018-11-18 09:03] VITALS: BP 113/57; TEMP 97.7
[2018-11-18] MEDS ORDERED: EPOETIN ALFA-EPBX (ESRD) 40,000 UNIT/ML VIAL SC SCH (09:30)
== END 2018-11-18 15:43 | disposition home or self-care (01) ==
LOC: ONC/OP 08:44
PROVIDERS: ATTEND Internal Medicine Medical Oncology
DX: N18.3 Chronic kidney disease, stage 3 (moderate) (principal); D63.1 Anemia in chronic kidney disease; D50.8 Other iron deficiency anemias; Z88.8 Allergy status to other drugs, medicaments and biological substances
CPT/HCPCS: 36415; 82728; 96372; Q5105

== ENCOUNTER 2018-11-25 08:18 | Day surgery (SDC) | payer MEDICARE ==
[2018-11-25] MEDS ORDERED: Sodium Chloride 0.9% 20 ML ONE (08:35)
[2018-11-25 12:55] VITALS: BP 114/79; TEMP 97.6
== END 2018-11-25 13:01 | disposition home or self-care (01) ==
LOC: ONC/OP 08:18
PROVIDERS: ATTEND Internal Medicine Medical Oncology
DX: N18.3 Chronic kidney disease, stage 3 (moderate) (principal); D63.1 Anemia in chronic kidney disease; D50.8 Other iron deficiency anemias; Z88.8 Allergy status to other drugs, medicaments and biological substances
CPT/HCPCS: 96365; J1756; J3490

== ENCOUNTER 2018-12-02 08:23 | Day surgery (SDC) | payer MEDICARE ==
[2018-12-02] MEDS ORDERED: EPOETIN ALFA-EPBX (ESRD) 40,000 UNIT/ML VIAL SC SCH (08:30)
[2018-12-02 08:42] VITALS: BP 112/67; TEMP 97.4
== END 2018-12-02 08:42 | disposition home or self-care (01) ==
LOC: ONC/OP 08:23
PROVIDERS: ATTEND Internal Medicine Medical Oncology
DX: N18.3 Chronic kidney disease, stage 3 (moderate) (principal); D63.1 Anemia in chronic kidney disease; D50.8 Other iron deficiency anemias; Z88.8 Allergy status to other drugs, medicaments and biological substances
CPT/HCPCS: 96372; Q5105

== ENCOUNTER 2018-12-09 10:16 | Day surgery (SDC) | payer MEDICARE ==
[2018-12-09] MEDS ORDERED: EPOETIN ALFA-EPBX (NON-ESRD) 40,000 UNIT/ML VIAL ONE (10:25)
[2018-12-09] MEDS ORDERED: EPOETIN ALFA-EPBX (ESRD) 40,000 UNIT/ML VIAL SC SCH (10:30)
[2018-12-09] MEDS ORDERED: EPOETIN ALFA-EPBX (NON-ESRD) 40,000 UNIT/ML VIAL SC SCH (10:30)
[2018-12-09 11:23] VITALS: BP 108/59; TEMP 98
== END 2018-12-09 11:26 | disposition home or self-care (01) ==
LOC: ONC/OP 10:16
PROVIDERS: ATTEND Internal Medicine Medical Oncology
DX: N18.3 Chronic kidney disease, stage 3 (moderate) (principal); D63.1 Anemia in chronic kidney disease; D50.8 Other iron deficiency anemias; Z88.8 Allergy status to other drugs, medicaments and biological substances
CPT/HCPCS: 96372; Q5106

== ENCOUNTER 2018-12-16 08:41 | Day surgery (SDC) | payer MEDICARE ==
[2018-12-16] MEDS ORDERED: Sodium Chloride 0.9% 20 ML ONE (09:40)
[2018-12-16] MEDS ORDERED: EPOETIN ALFA-EPBX (ESRD) 40,000 UNIT/ML VIAL SC SCH (10:45)
[2018-12-16 11:12] VITALS: BP 103/54; TEMP 97.7
== END 2018-12-16 15:18 | disposition home or self-care (01) ==
LOC: ONC/OP 08:41
PROVIDERS: ATTEND Internal Medicine Medical Oncology
DX: N18.3 Chronic kidney disease, stage 3 (moderate) (principal); D63.1 Anemia in chronic kidney disease; D50.8 Other iron deficiency anemias; Z88.8 Allergy status to other drugs, medicaments and biological substances
CPT/HCPCS: 36415; 82728; 96365; 96372; J1756; J3490

== ENCOUNTER 2018-12-30 08:13 | Day surgery (SDC) | payer MEDICARE ==
[2018-12-30] MEDS ORDERED: EPOETIN ALFA-EPBX (ESRD) 40,000 UNIT/ML VIAL ONE (08:14)
[2018-12-30 08:36] VITALS: BP 109/55; TEMP 97.9
[2018-12-30] MEDS ORDERED: EPOETIN ALFA-EPBX (ESRD) 40,000 UNIT/ML VIAL SC SCH (08:45)
== END 2018-12-30 10:52 | disposition home or self-care (01) ==
LOC: ONC/OP 08:13
PROVIDERS: ATTEND Internal Medicine Medical Oncology
DX: N18.3 Chronic kidney disease, stage 3 (moderate) (principal); D63.1 Anemia in chronic kidney disease; D50.8 Other iron deficiency anemias; Z88.8 Allergy status to other drugs, medicaments and biological substances
CPT/HCPCS: 96372; Q5105

== ENCOUNTER 2019-01-06 08:18 | Day surgery (SDC) | payer MEDICARE ==
[2019-01-06] MEDS ORDERED: EPOETIN ALFA-EPBX (ESRD) 40,000 UNIT/ML VIAL ONE (08:25)
[2019-01-06] MEDS ORDERED: EPOETIN ALFA-EPBX (ESRD) 40,000 UNIT/ML VIAL SC SCH (08:45)
[2019-01-06 08:53] VITALS: BP 98/50; TEMP 98.4
== END 2019-01-06 08:50 | disposition home or self-care (01) ==
LOC: ONC/OP 08:18
PROVIDERS: ATTEND Internal Medicine Medical Oncology
DX: N18.3 Chronic kidney disease, stage 3 (moderate) (principal); D63.1 Anemia in chronic kidney disease; D50.8 Other iron deficiency anemias; Z88.8 Allergy status to other drugs, medicaments and biological substances
CPT/HCPCS: 96372; Q5105

== ENCOUNTER 2019-01-13 08:33 | Day surgery (SDC) | payer MEDICARE ==
[2019-01-13 08:42] VITALS: BP 107/53; TEMP 98.1
[2019-01-13] MEDS ORDERED: EPOETIN ALFA-EPBX (ESRD) 40,000 UNIT/ML VIAL SC SCH (09:45)
== END 2019-01-13 10:12 | disposition home or self-care (01) ==
LOC: ONC/OP 08:33
PROVIDERS: ATTEND Internal Medicine Medical Oncology
DX: N18.3 Chronic kidney disease, stage 3 (moderate) (principal); D63.1 Anemia in chronic kidney disease; D50.8 Other iron deficiency anemias; Z88.8 Allergy status to other drugs, medicaments and biological substances
CPT/HCPCS: 96372; Q5105

== ENCOUNTER 2019-01-20 08:38 | Day surgery (SDC) | payer MEDICARE ==
[2019-01-20] MEDS ORDERED: EPOETIN ALFA-EPBX (ESRD) 40,000 UNIT/ML VIAL ONE ×2 (08:40→08:42)
[2019-01-20] MEDS ORDERED: EPOETIN ALFA-EPBX (ESRD) 40,000 UNIT/ML VIAL SC SCH (08:45)
[2019-01-20 10:24] VITALS: BP 116/54; TEMP 98.8
== END 2019-01-20 10:24 | disposition home or self-care (01) ==
LOC: ONC/OP 08:38
PROVIDERS: ATTEND Internal Medicine Medical Oncology
DX: N18.3 Chronic kidney disease, stage 3 (moderate) (principal); D63.1 Anemia in chronic kidney disease; D50.8 Other iron deficiency anemias; Z88.8 Allergy status to other drugs, medicaments and biological substances
CPT/HCPCS: 96372; Q5105

== ENCOUNTER 2019-01-27 08:33 | Day surgery (SDC) | payer MEDICARE ==
[2019-01-27] MEDS ORDERED: EPOETIN ALFA-EPBX (ESRD) 40,000 UNIT/ML VIAL ONE (08:35)
[2019-01-27 08:47] VITALS: BP 104/58; TEMP 97.9
[2019-01-27] MEDS ORDERED: EPOETIN ALFA-EPBX (ESRD) 40,000 UNIT/ML VIAL SC SCH (09:00)
== END 2019-01-27 08:48 | disposition home or self-care (01) ==
LOC: ONC/OP 08:33
PROVIDERS: ATTEND Internal Medicine Medical Oncology
DX: N18.3 Chronic kidney disease, stage 3 (moderate) (principal); D63.1 Anemia in chronic kidney disease; D50.8 Other iron deficiency anemias; Z88.8 Allergy status to other drugs, medicaments and biological substances
CPT/HCPCS: 82728; 83540; 83550; 96372; Q5105

== ENCOUNTER 2019-02-03 08:48 | Day surgery (SDC) | payer MEDICARE ==
[~2019-02-03 08:48] MED LIST changes: -EPOETIN ALFA-EPBX (ESRD) 40,000 UNIT/ML VIAL ONE
[2019-02-03 10:06] VITALS: BP 118/56; TEMP 96.9
== END 2019-02-03 10:07 | disposition home or self-care (01) ==
LOC: ONC/OP 08:48
PROVIDERS: ATTEND Internal Medicine Medical Oncology
DX: N18.3 Chronic kidney disease, stage 3 (moderate) (principal); D63.1 Anemia in chronic kidney disease; D50.8 Other iron deficiency anemias; Z88.8 Allergy status to other drugs, medicaments and biological substances
CPT/HCPCS: 96365; 96372; J1756; J3490; Q5105

== ENCOUNTER 2019-02-10 08:42 | Day surgery (SDC) | payer MEDICARE ==
[2019-02-10] MEDS ORDERED: EPOETIN ALFA-EPBX (ESRD) 40,000 UNIT/ML VIAL SC SCH (08:45)
[2019-02-10 08:52] VITALS: BP 120/59; TEMP 97.8
== END 2019-02-10 12:01 | disposition home or self-care (01) ==
LOC: ONC/OP 08:42
PROVIDERS: ATTEND Internal Medicine Medical Oncology
DX: N18.3 Chronic kidney disease, stage 3 (moderate) (principal); D63.1 Anemia in chronic kidney disease; D50.8 Other iron deficiency anemias; Z88.8 Allergy status to other drugs, medicaments and biological substances
CPT/HCPCS: 96365; 96372; J1756; J3490; Q5105

== ENCOUNTER → 2019-02-17 | Day surgery (SDC) | payer MEDICARE ==
[2019-02-17 08:36] VITALS: BP 97/54; TEMP 97.5
== END ==
LOC: ONC/OP 08:19
PROVIDERS: ATTEND Internal Medicine Medical Oncology
DX: D50.8 Other iron deficiency anemias (principal); N18.3 Chronic kidney disease, stage 3 (moderate); D63.1 Anemia in chronic kidney disease; Z88.8 Allergy status to other drugs, medicaments and biological substances
CPT/HCPCS: 96372; Q5105

== ENCOUNTER 2019-02-24 08:13 | Day surgery (SDC) | payer MEDICARE ==
[2019-02-24] MEDS ORDERED: EPOETIN ALFA-EPBX (ESRD) 40,000 UNIT/ML VIAL ONE (08:14)
[2019-02-24 08:29] VITALS: BP 119/61; TEMP 97.9
== END 2019-02-24 08:37 | disposition home or self-care (01) ==
LOC: ONC/OP 08:13
PROVIDERS: ATTEND Internal Medicine Medical Oncology
DX: D50.8 Other iron deficiency anemias (principal); N18.3 Chronic kidney disease, stage 3 (moderate)
CPT/HCPCS: 96372; Q5105

== ENCOUNTER 2019-03-03 08:31 | Day surgery (SDC) | payer MEDICARE ==
[2019-03-03] MEDS ORDERED: EPOETIN ALFA-EPBX (ESRD) 40,000 UNIT/ML VIAL SC SCH (09:00)
[2019-03-03 09:03] VITALS: BP 120/82
== END 2019-03-03 11:11 | disposition home or self-care (01) ==
LOC: ONC/OP 08:31
PROVIDERS: ATTEND Internal Medicine Medical Oncology
DX: N18.3 Chronic kidney disease, stage 3 (moderate) (principal); D50.8 Other iron deficiency anemias; D63.1 Anemia in chronic kidney disease
CPT/HCPCS: 96372; Q5105

== ENCOUNTER 2019-03-04 08:48 | Observation (INO) | payer MEDICARE ==
--- NOTE | 2019-03-04 09:13 | RAD ---
XR Chest 1 View Portable History: Weakness Comparison: Radiograph September 27, 2018 Findings: Heart size is enlarged. No confluent airspace consolidation, pneumothorax, or effusion. AIC D/pacer is similar. No acute osseous abnormality. Impression: Mild cardiomegaly otherwise unremarkable exam.
[2019-03-04 09:43] LABS: Hemoglobin 9.8 g/dL (14.0-18.0); Mean Corpuscular HGB CONC 33.1 g/dL (32.0-36.0); Mean Corpuscular Hemoglobin 30.3 pg (27.0-31.0); Mean Corpuscular Volume 91.5 fL (78.0-98.0); RBC Distribution Width 14.5 % (11.5-14.5); Red Blood Cell (RBC) Count 3.24 mill/uL (4.70-6.10); White Blood Cell (WBC) Count 6.1 thou/uL (4.8-10.8)
[2019-03-04 09:44] LABS: ALT (SGPT) 16 U/L (8-55); AST (SGOT) 19 U/L (5-34); Albumin 3.9 g/dL (3.4-4.8); Alkaline Phosphatase 213 U/L (40-110); Anion Gap 15 mmol/L (10-20); BUN (Urea Nitrogen) 52 mg/dL (8.4-25.7); Calc. Creatinine Clearance 0 mL/min (70-130); Calcium 9.1 mg/dL (7.8-10.44); Carbon Dioxide 24 mmol/L (23-31); Chloride 104 mmol/L (98-107); Estimated GFR-MDRD 36; Globulin 2.5 g/dL (2.4-3.5); Glucose 119 mg/dL (83-110); Potassium 3.8 mmol/L (3.5-5.1); Protein, Total 6.4 g/dL (5.8-8.1); Sodium 139 mmol/L (136-145)
[2019-03-04 09:47] LABS: Anisocytosis SLIGHT = 6-15 cells (100X) (0-5/hpf); Eosinophils 2 % (0-10); Lymphocytes 6 % (21-51); MDiff Complete? YES; Mean Platelet Volume 8.4 fL (7.4-10.4); Monocytes 16 % (0-10); Neutrophil 72 % (42-75); Platelet Count 117 thou/uL (130-400); Platelet Morphology Comment Appears Decreased; Reactive Lymphocytes 4 % (0-10)
[2019-03-04] MEDS ORDERED: Ketorolac Tromethamine 30 MG/ML VIAL ONE (10:03)
[2019-03-04 10:07] LABS: CKMB 1.6 ng/mL (0-6.6)
[2019-03-04] MEDS ORDERED: Aspirin Chewable 81 MG TAB ONE (10:26)
[2019-03-04 10:31] LABS: Bilirubin Negative (Negative); Blood, Urine Negative (Negative); Clarity Clear (Clear); Glucose, Urine (Dipstick) Normal (Negative); Leukocyte Negative Leu/uL (Negative); Nitrite Negative (Negative); Protein, Urine (Dipstick) Negative (Neg-Trace); Urobilinogen Normal mg/dL (Less than 2)
[2019-03-04] MEDS ORDERED: Sodium Chloride 0.9% 1,000 ML IV SCH (12:26)
[2019-03-04] MEDS ORDERED: Ondansetron ODT 4 MG TAB SL PRN (12:26)
[2019-03-04] MEDS ORDERED: Ondansetron PF 4 MG/2 ML Vial IVP PRN (12:26)
[2019-03-04] MEDS ORDERED: Acetaminophen 325 MG TAB PO PRN ×2 (12:26→14:21)
[2019-03-04] MEDS ORDERED: HYDROcodone/Acetaminophen 5/325 mg Tablet PO PRN ×2 (12:26)
[2019-03-04 13:32] LABS: Troponin I 0.069 ng/mL (< 0.028)
[2019-03-04] MEDS ORDERED: Guaifenesin DM 100-10/5 ML UDCUP PO PRN (14:21)
[2019-03-04] MEDS ORDERED: Bisacodyl 10 MG SUPP PR PRN (14:21)
[2019-03-04] MEDS ORDERED: Senokot S 8.6-50 MG TAB PO PRN (14:21)
--- NOTE | 2019-03-04 14:45 | HP ---
REASON FOR ADMISSION: Acute kidney injury and generalized weakness. HISTORY OF PRESENTING ILLNESS: The patient gives history of not feeling well from yesterday afternoon. He says he took his usual weekly Epogen shot for chronic anemia yesterday. From then on, he has been feeling weak and was unable to move around like before. The patient states he is very active and works in his home. No complaints of chest pain or palpitation. No complaints of fever, cough, or expectoration. No complaints of urinary frequency or urgency. He normally ambulates by himself. PAST MEDICAL AND SURGICAL HISTORY: History of ischemic cardiomyopathy with EF of around 25% based on echo done in June 2017, has chronic inferior wall akinesis, prior CABG, chronic atrial fibrillation, AICD, the last cardiac catheterization was in October of 2016, CKD stage 3, chronic anemia, hypertension, and dyslipidemia. CURRENT MEDICATIONS: The patient is on, 1. Digoxin 0.125 mg p.o. daily. 2. Omeprazole 40 mg p.o. daily. 3. Torsemide 20 mg twice daily. 4. Simvastatin 20 mg p.o. at bedtime. 5. Spironolactone 25 mg p.o. daily. 6. Carvedilol 6.25 mg twice daily. ALLERGIES: 1. BENADRYL. 2. IRON DEXTRAN. PERSONAL HISTORY: Does not abuse alcohol or drugs. No history of smoking. FAMILY HISTORY: Mother at the age of 85 years from natural causes. Father at the age of 38 from cardiac causes. His daughter and grandson lives with him. His is in a retirement at present. CODE STATUS: The patient wants to be do not attempt to resuscitate. Power of solder making supervisor is his daughter, Ms. Kat Cerda. REVIEW OF SYSTEMS: CONSTITUTIONAL: Negative for weight loss or gain, ability to conduct usual activities. SKIN: Negative for rash, itching. EYES: Negative for double vision, pain. ENT/MOUTH: Negative for nose bleeding, neck stiffness, pain, tenderness. CARDIOVASCULAR: Negative for palpitations, dyspnea on exertion, orthopnea. RESPIRATORY: Negative for shortness of breath, wheezing, cough, hemoptysis, fever or night sweats. GASTROINTESTINAL: Negative for poor appetite, abdominal pain, heartburn, nausea , vomiting, constipation, or diarrhea. GENITOURINARY: Negative for urgency, frequency, dysuria, nocturia. MUSCULOSKELETAL: Negative for pain, swelling. NEUROLOGIC/PSYCHIATRIC: Negative for anxiety, depression. ALLERGY/IMMUNOLOGIC: Negative for skin rash, bleeding tendency. PHYSICAL EXAMINATION: GENERAL: The patient is a 79-year-old male, who is currently not in any acute distress. VITAL SIGNS: Blood pressure 110/64, pulse 70 per minute, respiratory rate 18 per minute, temperature 97.9 degrees Fahrenheit, saturating 100% on room air. NECK: Supple. No elevated JVD. HEENT: Eyes; extraocular muscles intact. Pupils reacting to light. Oral cavity, mucous membranes are moist. No exudates or congestion. CARDIOVASCULAR SYSTEM: S1, S2 heard. Regular rhythm. RESPIRATORY SYSTEM: Air entry 1+ bilateral. No rales or rhonchi. ABDOMEN: Soft bowel sounds heard. No tenderness, rigidity, or guarding. EXTREMITIES: No peripheral edema or calf tenderness. VASCULAR SYSTEM: Peripheral pulses 1+ bilateral. No ischemic ulcerations or gangrene. CENTRAL NERVOUS SYSTEM: No gross focal deficits noted. The patient is alert, awake, and oriented well. PSYCHIATRIC SYSTEM: The patient's mood is euthymic. No hallucinations or delusions. LABORATORY DATA: EKG done shows paced rhythm around 80 beats per minute on the director card. Chest x-ray done shows mild cardiomegaly, otherwise no acute infiltrate. H and H 9.8 and 29, platelet count 117, MCV is 91, white count of 6 , with 72% neutrophils. BUN 52, creatinine 2.1, serum bicarb 24, serum glucose 119. AST and ALT within normal limits. Troponin I is indeterminate, peaking up to 0.08. Albumin is 3.9. UA is negative for any infection. CLINICAL IMPRESSION AND PLAN: The patient will be under observation on telemetry for mild acute kidney injury on top of chronic kidney disease, stage 3-4, generalized weakness, post likely Epogen shot, which he gets weekly. He has mild dehydration as well. He will be gently hydrated with normal saline at 70 mL/h. We will continue Coreg, digoxin, ferrous sulfate, and Zocor as before. His Xarelto will be held for now in view of chronic anemia and requiring Epogen shots weekly. We will closely monitor him on telemetry. The patient's creatinine usually runs around 1.5 to 1.6. Job ID: [id number] [facility]
[2019-03-04] MEDS: Sodium Chloride 0.9% 1,000 ML IV SCH ×2 (15:14→16:50)
[2019-03-04 16:22] LABS: Protein, Urine Random Quant Less than 10 mg/dL (1-14); Urea Nitrogen, Random Urine 750 mg/dl
[2019-03-04] MEDS: Ferrous Sulfate 325 MG TAB PO SCH (16:49)
--- NOTE | 2019-03-04 17:32 | CON ---
DATE OF CONSULTATION: 03/04/2019 CONSULTING PHYSICIAN: Capri Raines MD REASON FOR CONSULTATION: Acute kidney injury on chronic kidney disease. REASON FOR ADMISSION: Weakness. HISTORY OF PRESENT ILLNESS: This is a 79-year-old male with history of CKD and followed by Dr. Millan and CHF, cardiomyopathy, and AFib, came to the hospital with weakness and was found to have elevated creatinine, is being gently hydrated. No chest pain or palpitation. No fever or chills. No nausea or vomiting or diarrhea. PAST MEDICAL HISTORY: Positive for cardiomyopathy, CHF, atrial fibrillation, hypertension, CKD, and hyperlipidemia. PAST SURGERY HISTORY: CABG, AICD placement. HOME MEDICATIONS: 1. Digoxin. 2. Omeprazole. 3. Torsemide. 4. Simvastatin. 5. Spironolactone. 6. Carvedilol. ALLERGIES: TO BENADRYL, IRON DEXTRAN. SOCIAL HISTORY: No smoking, alcohol, or illicit drugs. FAMILY HISTORY: No history of kidney disease. REVIEW OF SYSTEMS: CONSTITUTIONAL: Negative for weight loss or gain, ability to conduct usual activities. SKIN: Negative for rash, itching. EYES: Negative for double vision, pain. ENT/MOUTH: Negative for nose bleeding, neck stiffness, pain, tenderness. CARDIOVASCULAR: Negative for palpitations, dyspnea on exertion, orthopnea. RESPIRATORY: Negative for shortness of breath, wheezing, cough, hemoptysis, fever or night sweats. GASTROINTESTINAL: Negative for poor appetite, abdominal pain, heartburn, nausea, vomiting, constipation, or diarrhea. GENITOURINARY: Negative for urgency, frequency, dysuria, nocturia. MUSCULOSKELETAL: Negative for pain, swelling. NEUROLOGIC/PSYCHIATRIC: Negative for anxiety, depression. ALLERGY/IMMUNOLOGIC: Negative for skin rash, bleeding tendency. PHYSICAL EXAMINATION: GENERAL: Reveals is a well-built male, in no apparent distress. VITAL SIGNS: Temperature 97.9, pulse 60, respiratory rate 18, and blood pressure 100/50. HEENT: Atraumatic, normocephalic. Oral mucosa is moist. NECK: Supple. CARDIOVASCULAR: S1 and S2. Rate and rhythm are regular. RESPIRATORY: Clear. GASTROINTESTINAL: Abdomen is soft. MUSCULOSKELETAL: No tenderness. No edema. DERMATOLOGIC: No skin rash. NEUROLOGIC: Alert and awake. PSYCHIATRIC: Mood and affect normal. LABORATORY DATA: Hemoglobin is 9.8. Potassium 3.8, BUN is 52, and creatinine is 2.1. ASSESSMENT AND PLAN: 1. Acute kidney injury on chronic kidney disease, stage 3, most likely from volume depletion. Agree with holding diuretics and gentle hydration. 2. Edema, controlled. 3. History of congestive heart failure. 4. Hypertension, stable. 5. Chronic anemia. Plan to continue gentle hydration, avoid nephrotoxins and we will follow. Recheck labs in the morning. Thank you for the consult. Job ID: [id number]
[2019-03-04] MEDS: Atorvastatin Calcium 10 MG TAB PO SCH (20:14)
[2019-03-04] MEDS: Allopurinol 100 MG TAB PO SCH (20:14)
[2019-03-05 06:06] LABS: Band 1 % (5-11); Hemoglobin 10.3 g/dL (14.0-18.0); Hypochromia SLIGHT = 6-15 cells (100X) (0-5/hpf); Lymphocytes 7 % (21-51); MDiff Complete? YES; Mean Corpuscular HGB CONC 31.9 g/dL (32.0-36.0); Mean Corpuscular Hemoglobin 29.6 pg (27.0-31.0); Mean Corpuscular Volume 92.7 fL (78.0-98.0); Mean Platelet Volume 8.7 fL (7.4-10.4); Monocytes 7 % (0-10); Neutrophil 85 % (42-75); Platelet Count 118 thou/uL (130-400); Platelet Morphology Comment Appears Decreased; RBC Distribution Width 14.5 % (11.5-14.5); Red Blood Cell (RBC) Count 3.49 mill/uL (4.70-6.10); White Blood Cell (WBC) Count 6.4 thou/uL (4.8-10.8)
[2019-03-05 06:10] LABS: Albumin 3.7 g/dL (3.4-4.8); Anion Gap 14 mmol/L (10-20); BUN (Urea Nitrogen) 40 mg/dL (8.4-25.7); BUN/Creatinine Ratio 23.95; Calc. Creatinine Clearance 42 mL/min (70-130); Calcium 9.2 mg/dL (7.8-10.44); Carbon Dioxide 23 mmol/L (23-31); Chloride 111 mmol/L (98-107); Estimated GFR-MDRD 48; Glucose 127 mg/dL (83-110); Potassium 3.9 mmol/L (3.5-5.1); Sodium 144 mmol/L (136-145)
[2019-03-05] MEDS: Carvedilol 3.125 MG TAB PO SCH (08:36)
[2019-03-05] MEDS: Ferrous Sulfate 325 MG TAB PO SCH ×2 (08:37→17:15)
[2019-03-05] MEDS: Digoxin 0.125 MG TAB PO SCH (08:37)
[2019-03-05] MEDS: Allopurinol 100 MG TAB PO SCH ×2 (08:37→19:24)
--- NOTE | 2019-03-05 08:57 | PRG ---
DATE OF SERVICE: 03/05/2019 SUBJECTIVE: Patient was seen and examined at bedside and overnight events noted. Patient denies any shortness of breath or chest pain or palpitation. No history of nausea or vomiting or diarrhea or fever or chills or cramps. OBJECTIVE: GENERAL: This is a well-built male, in no acute distress. VITAL SIGNS: Temperature . Heart rate 68. Respiratory rate 16. Blood pressure 120/69. HEENT: Atraumatic, normocephalic. Oral mucosa is moist NECK: Supple. CARDIOVASCULAR: S1, S2 heard. Rate and rhythm regular. RESPIRATORY: Clear to auscultation. GASTROINTESTINAL: Abdomen is soft. MUSCULOSKELETAL: No tenderness. No edema. DERMATOLOGIC: No skin rash. NEUROLOGIC: Alert and awake and oriented X3. No focal neurologic deficits. Moving all the extremities. PSYCHIATRIC: Mood and affect normal. LABORATORY DATA: Potassium is 3.9, BUN is 40, and creatinine is 1.67. ASSESSMENT AND PLAN: 1. Acute kidney injury on chronic kidney disease, stage 3, secondary to volume depletion. Creatinine is better. 2. Edema, controlled. 3. History of congestive heart failure, monitor cardiorespiratory status. 4. Hypertension. 5. Chronic anemia. Creatinine is better with IV fluids. We will follow. Job ID: [id number]
[2019-03-05] MEDS ORDERED: Enoxaparin Sodium 30 MG/0.3 ML SYRINGE SC SCH (09:00)
--- NOTE | 2019-03-05 11:07 | PRG ---
DATE OF SERVICE: 03/05/2019 SUBJECTIVE: The patient seen at bedside. Says he feels better. Denies any chest pain, shortness of breath, nausea, or vomiting. Says that generalized weakness is there, but getting better. OBJECTIVE: VITAL SIGNS: Blood pressure 120/69, temperature 98.6, pulse 60, respirations 16, oxygen saturation 96%. GENERAL: The patient lying in bed comfortably, not in any distress. HEENT: Conjunctivae normal. Oral mucosa moist. NECK: Supple. No JVD. No lymphadenopathy. CHEST: Normal vesicular breathing. HEART: Sounds normal. ABDOMEN: Soft and benign. No tenderness or visceromegaly. EXTREMITIES: Negative edema of feet. No rash. No cyanosis. LABORATORY DATA: CBC unremarkable, except hemoglobin 10.3. BMP unremarkable, except creatinine 1.67, potassium 3.9. ProBNP 891. UA negative. IMPRESSION: 1. Acute kidney injury with baseline chronic kidney disease, stage 3, currently creatinine improving, status post given fluids by Nephrology. Creatinine is improving and fluid discontinued by Nephrology, Dr. Chow. Follow up kidney functions in the morning. 2. Mildly positive troponin, possible demand supply mismatch secondary to acute kidney injury. The patient currently denies any chest pain or shortness of breath. The patient follows up with Dr. Marcus, has an appointment with him scheduled outpatient. 3. Chronic anemia. The patient denies any active bleeding, currently stable. 4. History of coronary artery disease, status post coronary artery bypass grafting, status post AICD pacemaker placement. Currently, denies any chest pain. Continue home medications. 5. Hypertension. Continue to monitor blood pressure. Continue home medications. 6. Deep venous thrombosis and gastrointestinal prophylaxis. PLAN: Discussed with the patient and nursing staff. Possible discharge home in the morning once kidney functions are better and improving. Discussed with Dr. Chow who has agreed with the plan. Job ID: [id number]
[2019-03-05] MEDS ORDERED: Rivaroxaban 15 MG TAB PO SCH (17:00)
[2019-03-05] MEDS: Atorvastatin Calcium 10 MG TAB PO SCH (19:24)
[2019-03-06 05:17] LABS: Anion Gap 12 mmol/L (10-20); BUN (Urea Nitrogen) 33 mg/dL (8.4-25.7); Calc. Creatinine Clearance 46 mL/min (70-130); Calcium 9.1 mg/dL (7.8-10.44); Carbon Dioxide 24 mmol/L (23-31); Chloride 108 mmol/L (98-107); Estimated GFR-MDRD 55; Glucose 104 mg/dL (83-110); Potassium 3.6 mmol/L (3.5-5.1); Sodium 140 mmol/L (136-145)
[2019-03-06 05:26] LABS: Eosinophils 2 % (0-10); Hemoglobin 9.6 g/dL (14.0-18.0); Lymphocytes 17 % (21-51); MDiff Complete? YES; Mean Corpuscular HGB CONC 32.4 g/dL (32.0-36.0); Mean Corpuscular Hemoglobin 29.8 pg (27.0-31.0); Mean Corpuscular Volume 92.1 fL (78.0-98.0); Mean Platelet Volume 9.1 fL (7.4-10.4); Monocytes 12 % (0-10); Neutrophil 69 % (42-75); Platelet Count 105 thou/uL (130-400); Platelet Morphology Comment Appears Decreased; RBC Distribution Width 14.2 % (11.5-14.5); Red Blood Cell (RBC) Count 3.21 mill/uL (4.70-6.10); White Blood Cell (WBC) Count 5.5 thou/uL (4.8-10.8)
[2019-03-06 08:45] VITALS: BMI 25.6
[2019-03-06 09:04] VITALS: BP 114/60; TEMP 98.7
[2019-03-06] MEDS: Carvedilol 3.125 MG TAB PO SCH (09:34)
[2019-03-06] MEDS: Digoxin 0.125 MG TAB PO SCH (09:34)
[2019-03-06] MEDS: Allopurinol 100 MG TAB PO SCH (09:34)
[2019-03-06] MEDS: Ferrous Sulfate 325 MG TAB PO SCH (09:34)
--- NOTE | 2019-03-06 11:46 | PRG ---
DATE OF SERVICE: 03/06/2019 SUBJECTIVE: Patient was seen and examined at bedside and overnight events noted. Patient denies any shortness of breath or chest pain or palpitation. No history of nausea or vomiting or diarrhea or fever or chills or cramps. OBJECTIVE: GENERAL: This is a well-built male, in no apparent distress. VITAL SIGNS: Temperature 98.7. Heart rate 60. Respiratory rate 16. Blood pressure 115/66. HEENT: Atraumatic, normocephalic. Oral mucosa is moist NECK: Supple. CARDIOVASCULAR: S1, S2 heard. Rate and rhythm regular. RESPIRATORY: Clear to auscultation. GASTROINTESTINAL: Abdomen is soft. MUSCULOSKELETAL: No tenderness. No edema. DERMATOLOGIC: No skin rash. NEUROLOGIC: Alert and awake and oriented X3. No focal neurologic deficits. Moving all the extremities. PSYCHIATRIC: Mood and affect normal. LABORATORY DATA: Potassium 3.6, BUN is 33, and creatinine is 1.5. ASSESSMENT AND PLAN: 1. Acute kidney injury on chronic kidney disease stage 3, much better. 2. Edema, controlled. 3. Hypertension, stable. Resume selected home diuretics and follow up with Dr. Millan in 1 to 2 weeks. Continue limiting fluid and salt intake too and continue close monitoring as outpatient to follow. Job ID: [id number]
--- NOTE | 2019-03-07 13:27 | DIS ---
DATE OF ADMISSION: 03/04/2019 DATE OF DISCHARGE: 03/06/2019 DISCHARGE DIAGNOSES: As of the followin. Acute kidney injury on chronic kidney injury. 2. Generalized weakness. 3. Hypertension. 4. Systolic heart failure, compensated. HOSPITAL COURSE: The patient is a very pleasant 79-year-old male, who initially presented to the hospital with complaints of generalized weakness and was found to have acute kidney injury. He was recently given Epogen shots for chronic anemia, which he has normally been receiving and after that, he felt unwell. He was observed overnight. He was hydrated gently. His creatinine did improve dramatically. He stated that he felt well and he was discharged. His hemoglobin and hematocrit remained stable . He is on anticoagulation and we discontinue that given his history of atrial fibrillation. His creatinine on discharge was 1.5. HOME MEDICATIONS: His home medications will be as of the followin. Digoxin 125 mcg daily. 2. Allopurinol 100 mg b.i.d. 3. Carvedilol 6.25 daily. 4. Spironolactone 12.5 daily. 5. Torsemide 20 mg daily. He was taking 40 mg in the morning and 20 at night. He was taking spironolactone 25 mg a day, we did cut it down since he was seen by Nephrology and also Xarelto daily, simvastatin 20 mg at bedtime, and Coreg 6.25 mg daily. Again, he was discharged home. He felt well. He will follow up with Nephro and provided him a lab slip for checking his blood work. PHYSICAL EXAMINATION: VITAL SIGNS: Temperature 98.7, pulse 60, oxygen saturation 69% on room air, and blood pressure 108/56. Again, he was asked to follow up with us if his symptoms worsen. Job ID: [id number]
== END 2019-03-06 13:00 | disposition home or self-care (01) ==
LOC: ERS 08:48 → 2SW 11:59
PROVIDERS: ADMIT Internal Medicine; ATTEND Internal Medicine
DX: I13.0 Hypertensive heart and chronic kidney disease with heart failure and stage 1 through stage 4 chronic kidney disease, or unspecified chronic kidney disease (principal); N18.3 Chronic kidney disease, stage 3 (moderate); I50.20 Unspecified systolic (congestive) heart failure; N17.9 Acute kidney failure, unspecified; D63.1 Anemia in chronic kidney disease; R53.1 Weakness; E78.5 Hyperlipidemia, unspecified; I25.5 Ischemic cardiomyopathy; I48.20 Chronic atrial fibrillation, unspecified; E86.0 Dehydration; R60.9 Edema, unspecified; Z66 Do not resuscitate; Z79.899 Other long term (current) drug therapy; Z88.8 Allergy status to other drugs, medicaments and biological substances; Z95.810 Presence of automatic (implantable) cardiac defibrillator
CPT/HCPCS: 71045; 80048; 80053; 80069; 81003; 82553; 82570; 83880; 84156; 84484 ×2; 84540; 85025 ×3; 87086; 93005; 96360; 96361 ×2; 96372; 97139 ×2; 99285; G0378 ×3; 36415; J1650; J1885

== ENCOUNTER 2019-03-10 08:59 | Day surgery (SDC) | payer MEDICARE ==
[2019-03-10] MEDS ORDERED: EPOETIN ALFA-EPBX (ESRD) 40,000 UNIT/ML VIAL ONE (09:07)
[2019-03-10] MEDS ORDERED: EPOETIN ALFA-EPBX (ESRD) 40,000 UNIT/ML VIAL SC SCH (09:15)
[2019-03-10 09:37] VITALS: BP 117/60; TEMP 98.3
== END 2019-03-10 12:31 | disposition home or self-care (01) ==
LOC: ONC/OP 08:59
PROVIDERS: ATTEND Internal Medicine Medical Oncology
DX: N18.3 Chronic kidney disease, stage 3 (moderate) (principal); D63.1 Anemia in chronic kidney disease; D50.8 Other iron deficiency anemias; Z88.8 Allergy status to other drugs, medicaments and biological substances
CPT/HCPCS: 96372; Q5105

== ENCOUNTER 2019-03-17 08:39 | Day surgery (SDC) | payer MEDICARE ==
[2019-03-17] MEDS ORDERED: EPOETIN ALFA-EPBX (ESRD) 40,000 UNIT/ML VIAL ONE (08:41)
[2019-03-17] MEDS ORDERED: EPOETIN ALFA-EPBX (ESRD) 40,000 UNIT/ML VIAL SC SCH (09:00)
[2019-03-17 11:41] VITALS: BP 138/64; TEMP 98.1
== END 2019-03-17 11:41 | disposition home or self-care (01) ==
LOC: ONC/OP 08:39
PROVIDERS: ATTEND Internal Medicine Medical Oncology
DX: N18.3 Chronic kidney disease, stage 3 (moderate) (principal); D63.1 Anemia in chronic kidney disease; D50.8 Other iron deficiency anemias; Z88.8 Allergy status to other drugs, medicaments and biological substances
CPT/HCPCS: 82728; 96372; Q5105

== ENCOUNTER 2019-03-24 08:20 | Day surgery (SDC) | payer MEDICARE ==
[2019-03-24] MEDS ORDERED: EPOETIN ALFA-EPBX (ESRD) 40,000 UNIT/ML VIAL ONE (08:25)
[2019-03-24] MEDS ORDERED: EPOETIN ALFA-EPBX (ESRD) 40,000 UNIT/ML VIAL SC SCH (08:45)
[2019-03-24 08:53] VITALS: BP 104/55; TEMP 97.7
== END 2019-03-24 08:57 | disposition home or self-care (01) ==
LOC: ONC/OP 08:20
PROVIDERS: ATTEND Internal Medicine Medical Oncology
DX: N18.3 Chronic kidney disease, stage 3 (moderate) (principal); D63.1 Anemia in chronic kidney disease; D50.8 Other iron deficiency anemias; Z88.8 Allergy status to other drugs, medicaments and biological substances
CPT/HCPCS: 96365; Q5105

== ENCOUNTER 2019-04-07 08:20 | Day surgery (SDC) | payer MEDICARE ==
[2019-04-07] MEDS ORDERED: EPOETIN ALFA-EPBX (ESRD) 40,000 UNIT/ML VIAL ONE (08:33)
[2019-04-07 16:11] VITALS: BP 109/57; TEMP 97.4
== END 2019-04-07 16:12 | disposition home or self-care (01) ==
LOC: ONC/OP 08:20
PROVIDERS: ATTEND Internal Medicine Medical Oncology
DX: N18.3 Chronic kidney disease, stage 3 (moderate) (principal); D63.1 Anemia in chronic kidney disease; D50.8 Other iron deficiency anemias; Z88.8 Allergy status to other drugs, medicaments and biological substances
CPT/HCPCS: 96372; Q5105

== ENCOUNTER 2019-04-14 08:24 | Day surgery (SDC) | payer MEDICARE ==
[2019-04-14] MEDS ORDERED: EPOETIN ALFA-EPBX (ESRD) 40,000 UNIT/ML VIAL SC SCH (09:00)
[2019-04-14 11:21] VITALS: BP 101/72; TEMP 97.6
== END 2019-04-14 11:23 | disposition home or self-care (01) ==
LOC: ONC/OP 08:24
PROVIDERS: ATTEND Internal Medicine Medical Oncology
DX: N18.3 Chronic kidney disease, stage 3 (moderate) (principal); D63.1 Anemia in chronic kidney disease; D50.8 Other iron deficiency anemias; Z88.8 Allergy status to other drugs, medicaments and biological substances
CPT/HCPCS: 82728; 96372; Q5105

== ENCOUNTER 2019-04-21 08:33 | Day surgery (SDC) | payer MEDICARE ==
[2019-04-21] MEDS ORDERED: Iron Sucrose Complex 500 MG in Sodium Chloride 0.9% 250 ML 250 ML IVPB SCH (08:45)
[2019-04-21] MEDS ORDERED: EPOETIN ALFA-EPBX (ESRD) 40,000 UNIT/ML VIAL ONE (09:36)
[2019-04-21 10:05] VITALS: BP 103/58; TEMP 97.6
== END 2019-04-21 11:36 | disposition home or self-care (01) ==
LOC: ONC/OP 08:33
PROVIDERS: ATTEND Internal Medicine Medical Oncology
DX: D50.8 Other iron deficiency anemias (principal); N18.3 Chronic kidney disease, stage 3 (moderate); Z88.8 Allergy status to other drugs, medicaments and biological substances
CPT/HCPCS: 96365; 96372; J1756; J3490; J7050; Q5105

== ENCOUNTER 2019-05-05 08:51 | Day surgery (SDC) | payer MEDICARE ==
[2019-05-05] MEDS ORDERED: EPOETIN ALFA-EPBX (ESRD) 40,000 UNIT/ML VIAL ONE (09:01)
[2019-05-05 09:12] VITALS: BP 98/58; TEMP 97.7
[2019-05-05] MEDS ORDERED: EPOETIN ALFA-EPBX (ESRD) 40,000 UNIT/ML VIAL SC SCH (09:15)
== END 2019-05-05 09:15 | disposition home or self-care (01) ==
LOC: ONC/OP 08:51
PROVIDERS: ATTEND Internal Medicine Medical Oncology
DX: D50.8 Other iron deficiency anemias (principal); N18.3 Chronic kidney disease, stage 3 (moderate); D63.1 Anemia in chronic kidney disease; Z88.8 Allergy status to other drugs, medicaments and biological substances
CPT/HCPCS: 36415; 82728; 96372; Q5105

== ENCOUNTER 2019-05-08 22:28 | Emergency (ER) | payer MEDICARE ==
[2019-05-08 23:14] LABS: Mean Corpuscular HGB CONC 33.2 g/dL (32.0-36.0); Mean Corpuscular Hemoglobin 29.5 pg (27.0-31.0); Mean Corpuscular Volume 88.8 fL (78.0-98.0); Red Blood Cell (RBC) Count 3.39 mill/uL (4.70-6.10); White Blood Cell (WBC) Count 5.7 thou/uL (4.8-10.8)
[2019-05-08 23:27] LABS: MDiff Complete? YES; Mean Platelet Volume 8.9 fL (7.4-10.4); Platelet Count 120 thou/uL (130-400); Platelet Morphology Comment Appears Decreased; Tear Drops SLIGHT = 2-5 cells (100X) (0-1/hpf)
[2019-05-08 23:33] LABS: ALT (SGPT) 15 U/L (8-55); AST (SGOT) 22 U/L (5-34); Albumin 3.5 g/dL (3.4-4.8); Alkaline Phosphatase 232 U/L (40-110); Anion Gap 15 mmol/L (10-20); BUN (Urea Nitrogen) 46 mg/dL (8.4-25.7); Bilirubin, Total 1.8 mg/dL (0.2-1.2); Calc. Creatinine Clearance 0 mL/min (70-130); Calcium 8.5 mg/dL (7.8-10.44); Carbon Dioxide 22 mmol/L (23-31); Chloride 104 mmol/L (98-107); Estimated GFR-MDRD 40; Globulin 2.6 g/dL (2.4-3.5); Glucose 98 mg/dL (83-110); Potassium 3.7 mmol/L (3.5-5.1); Protein, Total 6.1 g/dL (5.8-8.1); Sodium 137 mmol/L (136-145)
[2019-05-08] MEDS ORDERED: Furosemide 40 MG/4 ML VIAL ONE (23:52)
--- NOTE | 2019-05-09 00:31 | RAD ---
PORTABLE AP CHEST X-RAY: HISTORY: Cough and leg edema. COMPARISON: 03/04/2019 FINDINGS: A multilead left subclavian AICD device remains in place. Post surgical changes related to CABG are a gain noted. The cardiac silhouette remains enlarged. The pulmonary vasculature is within normal limit s. The lungs are clear. There has been no interval change compared to the prior exam. IMPRESSION: 1. No acute cardiopulmonary process. 2. Cardiomegaly. POS: [facility]
== END 2019-05-09 00:06 | disposition home or self-care (01) ==
LOC: ERS 22:28
DX: I11.0 Hypertensive heart disease with heart failure (principal); I50.9 Heart failure, unspecified; K21.9 Gastro-esophageal reflux disease without esophagitis; M10.9 Gout, unspecified; M19.90 Unspecified osteoarthritis, unspecified site; I25.2 Old myocardial infarction; Z95.1 Presence of aortocoronary bypass graft; Z95.818 Presence of other cardiac implants and grafts; Z79.899 Other long term (current) drug therapy
CPT/HCPCS: 71045; 80053; 83880; 85025; 96374; J1940

== ENCOUNTER 2019-05-12 08:29 | Day surgery (SDC) | payer MEDICARE ==
[2019-05-12] MEDS ORDERED: EPOETIN ALFA-EPBX (ESRD) 40,000 UNIT/ML VIAL ONE (08:39)
[2019-05-12 10:12] VITALS: BP 106/56; TEMP 97.9
== END 2019-05-12 10:11 | disposition home or self-care (01) ==
LOC: ONC/OP 08:29
PROVIDERS: ATTEND Internal Medicine Medical Oncology
DX: D50.8 Other iron deficiency anemias (principal); N18.3 Chronic kidney disease, stage 3 (moderate); D63.1 Anemia in chronic kidney disease; Z88.8 Allergy status to other drugs, medicaments and biological substances
CPT/HCPCS: 96372; Q5105

== ENCOUNTER 2019-05-16 10:37 | Inpatient (IN) | payer MEDICARE ==
[2019-05-16 11:32] VITALS: BMI 25.8
[2019-05-16 11:43] LABS: Mean Corpuscular Hemoglobin 29.2 pg (27.0-31.0); Mean Corpuscular Volume 88.5 fL (78.0-98.0); Mean Platelet Volume 8.8 fL (7.4-10.4); Platelet Count 106 thou/uL (130-400); Red Blood Cell (RBC) Count 3.75 mill/uL (4.70-6.10); White Blood Cell (WBC) Count 5.9 thou/uL (4.8-10.8)
[2019-05-16 11:49] LABS: Anion Gap 12 mmol/L (10-20); BUN (Urea Nitrogen) 44 mg/dL (8.4-25.7); Calc. Creatinine Clearance 39 mL/min (70-130); Calcium 8.9 mg/dL (7.8-10.44); Carbon Dioxide 27 mmol/L (23-31); Chloride 104 mmol/L (98-107); Estimated GFR-MDRD 42; Glucose 97 mg/dL (83-110); Potassium 3.4 mmol/L (3.5-5.1); Sodium 140 mmol/L (136-145)
[2019-05-16 12:15] LABS: Band 3 % (5-11); Eosinophils 1 % (0-10); Lymphocytes 12 % (21-51); MDiff Complete? YES; Monocytes 15 % (0-10); Neutrophil 66 % (42-75); Platelet Morphology Comment Appears Decreased; RBC Morphology Normal; Reactive Lymphocytes 3 % (0-10)
[2019-05-16] MEDS: Furosemide 40 MG/4 ML VIAL SLOW IVP SCH (12:16)
[2019-05-16] MEDS: DOBUTAMINE 250 MG-D5W 250 ML 250 MG in Premix Bag 1 BAG IV SCH (12:56)
[2019-05-16] MEDS: Rivaroxaban 15 MG TAB PO SCH (16:38)
[2019-05-16] MEDS: Allopurinol 100 MG TAB PO SCH (21:54)
[2019-05-17] MEDS: DOBUTAMINE 250 MG-D5W 250 ML 250 MG in Premix Bag 1 BAG IV SCH ×3 (00:03→21:30)
[2019-05-17 05:06] LABS: Anion Gap 10 mmol/L (10-20); BUN (Urea Nitrogen) 37 mg/dL (8.4-25.7); Calc. Creatinine Clearance 49 mL/min (70-130); Calcium 8.4 mg/dL (7.8-10.44); Carbon Dioxide 25 mmol/L (23-31); Chloride 108 mmol/L (98-107); Estimated GFR-MDRD 56; Glucose 89 mg/dL (83-110); Potassium 3.4 mmol/L (3.5-5.1); Sodium 140 mmol/L (136-145)
[2019-05-17] MEDS: Spironolactone 25 MG TAB PO SCH (07:47)
[2019-05-17] MEDS: Digoxin 0.125 MG TAB PO SCH (07:48)
[2019-05-17] MEDS: Allopurinol 100 MG TAB PO SCH ×2 (07:48→21:31)
[2019-05-17] MEDS: Furosemide 40 MG/4 ML VIAL SLOW IVP SCH ×2 (07:48→17:22)
[2019-05-17] MEDS ORDERED: Potassium Chloride 20 MEQ TAB PO SCH ×2 (08:00→18:00)
--- NOTE | 2019-05-17 09:12 | PRG ---
DATE OF SERVICE: 05/17/2019 SUBJECTIVE: Mr. Cerda had a very good response to the intravenous diuresis. The patient also as mentioned previously had a heart rate increased to 80 beats per minute on his defibrillator pacer. He said he is urinating about every 10 minutes. No chest pain. OBJECTIVE: VITAL SIGNS: His blood pressure is improved, 105/52 and pulse is 80. LUNGS: Clear. CARDIAC: Normal S1, normal S2. ABDOMEN: Soft, nontender. EXTREMITIES: Still severe edema. NECK: The neck veins are still distended. PERTINENT LABORATORY DATA: Hemoglobin is 11. Potassium is 3.4. ASSESSMENT: 1. Congestive heart failure, systolic, acute on chronic, improving. 2. History of renal insufficiency, slightly better. Creatinine is 1.48. PLAN: 1. Continue intravenous dobutamine. 2. Replete potassium. 3. Continue Lasix. 4. Probably home Wednesday morning, I suspect, based on how he is progressing. Job ID: [id number]
[2019-05-17] MEDS: Ferrex 150 Plus (iron poly cmplx) PO SCH ×2 (10:08→21:31)
--- NOTE | 2019-05-17 10:21 | HP ---
REASON FOR ADMISSION: Congestive heart failure, hypotension. HISTORY OF PRESENT ILLNESS: Mr. Gagandeep Cerda is a delightful 79-year-old gentleman. He has a long history of congestive heart failure and coronary artery disease as will be outlined below. The patient recently went to the hospital with volume overload, received diuretics and was released from the emergency room. He came to our office yesterday, complaining of weakness and fatigue and had a blood pressure in the mid 70s systolic. He was short of breath at rest, not having chest pain or pressure, but could not even go for very short distances without becoming more dyspneic. PAST MEDICAL HISTORY: Previous bypass surgery. He did undergo cardiac catheterization in October of 2016, he was found to have three-vessel disease. He had patent grafts. 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 The patient also had moderate to severe mitral regurgitation. He has had several admissions to the hospital with congestive heart failure and also renal insufficiency. At one time in the past, I believe he was on Entresto, but ultimately that had to be taken off, but we will need to review those records. His main complaint is weakness, fatigue, and lack of energy, and also hypotension, prompting admission. MEDICATIONS: At home included; 1. Carvedilol 6.25 mg twice a day. 2. Iron 325 mg twice a day. 3. Allopurinol. 4. Xarelto 15 mg a day. 5. Digoxin 0.125 mg a day. 6. Spironolactone 12.5 mg a day. 7. Torsemide 20 mg twice a day, but he is not responding to the oral diuretic. 8. Prilosec. 9. Simvastatin 20 mg a day. REVIEW OF SYSTEMS: CONSTITUTIONAL: No significant weight gain or loss. VISION: No changes. HEARING: No changes. PULMONARY: No cough or wheezing. GASTROINTESTINAL: No nausea, vomiting, or diarrhea. SKIN: No rashes. NEUROLOGIC: No unilateral weakness or numbness. PSYCHIATRIC: No unusual depression or anxiety. HEMATOLOGIC: No unusual bruising. GENITOURINARY: No burning with urination. 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 Does not use tobacco or alcohol. PHYSICAL EXAMINATION: GENERAL: This is an ill-appearing, elderly gentleman. VITAL SIGNS: His blood pressure is in mid 70s systolic, pulse initially was 60. HEENT: Eyes, sclerae are nonicteric. Mouth, mucous membranes are moist. NECK: Supple. No lymphadenopathy. Neck veins were distended. LUNGS: Clear anteriorly and laterally, but the breath sounds seem to be decreased at the bases. CARDIAC: Normal S1, normal S2. No murmur, rub, or gallop. ABDOMEN: Soft and nontender. EXTREMITIES: No clubbing or cyanosis. There is moderate peripheral edema. SKIN: Warm and dry. PSYCHIATRIC: Mood and affect were normal, but clearly did not feel well due to the hypotension, it appears. PERTINENT LABORATORY DATA: Here in the hospital this morning, his potassium is 3.4. His creatinine was 1.9 yesterday, it is actually 1.48 today. His iron levels are not low. His hemoglobin is 11. EKG reveals a biventricular paced device, atrial pacing and biventricular pacing, appropriate. ASSESSMENT: 1. Congestive heart failure, systolic, with most recent ejection fraction being 20%. 2. Moderate to severe mitral regurgitation in the past. 3. Status post biventricular pacing, functioning normally. 4. Paroxysmal atrial fibrillation, maintaining sinus rhythm now. 5. Hypotension. 6. Initially with class IV heart failure with shortness of breath at rest and hypotension. PLAN: 1. The pacemaker was reprogrammed to a rate of 80. 2. The patient was admitted for intravenous dobutamine, which he is responding to. 3. Continue diuretic therapy. 4. We will review the records to see whether he could be a candidate for Entresto, though he will have to be watched closely as the patient does have history of renal failure. 5. Prognosis, guarded long-term. 6. He needs to be in the hospital for at least 2 nights. Job ID: [id number]
[2019-05-17] MEDS: Rivaroxaban 15 MG TAB PO SCH (17:22)
[2019-05-18 05:15] LABS: Anion Gap 13 mmol/L (10-20); BUN (Urea Nitrogen) 27 mg/dL (8.4-25.7); Calc. Creatinine Clearance 56 mL/min (70-130); Calcium 8.8 mg/dL (7.8-10.44); Carbon Dioxide 26 mmol/L (23-31); Chloride 105 mmol/L (98-107); Estimated GFR-MDRD 64; Glucose 108 mg/dL (83-110); Potassium 4.1 mmol/L (3.5-5.1); Sodium 140 mmol/L (136-145)
[2019-05-18] MEDS: Furosemide 40 MG/4 ML VIAL SLOW IVP SCH ×2 (05:24→14:24)
[2019-05-18] MEDS: Digoxin 0.125 MG TAB PO SCH (07:55)
[2019-05-18] MEDS: Spironolactone 25 MG TAB PO SCH (07:55)
[2019-05-18] MEDS: Allopurinol 100 MG TAB PO SCH ×2 (07:55→22:19)
[2019-05-18] MEDS: Ferrex 150 Plus (iron poly cmplx) PO SCH ×2 (07:57→22:19)
[2019-05-18] MEDS: DOBUTAMINE 250 MG-D5W 250 ML 250 MG in Premix Bag 1 BAG IV SCH ×2 (08:24→20:52)
[2019-05-18] MEDS ORDERED: Magnesium 2 GM/50 ML 2 GM in Premix Bag 1 BAG IVPB SCH (08:45)
--- NOTE | 2019-05-18 09:19 | PRG ---
DATE OF SERVICE: 05/18/2019 SUBJECTIVE: Prashant is feeling better. He has some cramping earlier, but not cramping currently. He is diuresing well. No chest pain or shortness of breath. OBJECTIVE: VITAL SIGNS: Blood pressure is in the 90 systolic, pulse is 80 and it is paced. LUNGS: Clear. CARDIAC: There is a 2/6 apical systolic murmur. I and O is -2.5 L. EXTREMITIES: On exam, he still has moderate peripheral edema. ASSESSMENT: 1. Congestive heart failure, systolic, acute on chronic, slowly improving. 2. Renal failure, improving with dobutamine. 3. Still relatively hypotensive. PLAN: 1. Continue diuresis. 2. Possibly try Entresto tomorrow. We will see how he is doing. 3. Defibrillator pacer has been programed up to a rate of 80 at least temporarily to try to improve cardiac output. Job ID: [id number]
[2019-05-18] MEDS ORDERED: Potassium Chloride 20 MEQ TAB PO SCH (12:00)
[2019-05-18] MEDS: Rivaroxaban 15 MG TAB PO SCH (17:35)
[2019-05-18] MEDS ORDERED: Sacubitril 24.5 MG/Valsartan 25.5 MG TABLET PO SCH (20:00)
[2019-05-19] MEDS ORDERED: DOBUTamine 500 mg/250 ml 250 ML IVPB SCH ×2 (04:15→12:59)
[2019-05-19 05:01] LABS: Anion Gap 13 mmol/L (10-20); BUN (Urea Nitrogen) 20 mg/dL (8.4-25.7); Calc. Creatinine Clearance 59 mL/min (70-130); Carbon Dioxide 25 mmol/L (23-31); Chloride 103 mmol/L (98-107); Estimated GFR-MDRD 68; Potassium 4.8 mmol/L (3.5-5.1); Sodium 136 mmol/L (136-145)
[2019-05-19 05:02] LABS: Glucose 89 mg/dL (83-110)
[2019-05-19] MEDS: Spironolactone 25 MG TAB PO SCH (09:30)
--- NOTE | 2019-05-19 09:30 | PRG ---
DATE OF SERVICE: 05/19/2019 SUBJECTIVE: Mr. Cerda feels better. His breathing is improved. OBJECTIVE: VITAL SIGNS: His blood pressure is 105/55, but at times the systolic is under 100, pulse is 80. LUNGS: Clear. CARDIAC: Normal S1 normal S2. I and O, he was -841 mL yesterday. He is minus 2-1/2 L a day before. His weight has not been recorded in the last couple of days. EXTREMITIES: His edema does seem to be reduced. The patient refused Entresto last night. He is worried about his blood pressure dropping. ASSESSMENT: 1. Advanced congestive heart failure, systolic, acute on chronic. 2. Mitral regurgitation. 3. Hypotension. 4. Renal failure has actually improved with diuresis and dobutamine. Creatinine is 1.25, potassium 4.8. PLAN: 1. Try again with Entresto, I convinced him to go and take it this morning. 2. Hopefully can wean the dobutamine today, possibly home later today or tomorrow depending on how he does. Job ID: [id number]
[2019-05-19] MEDS: Allopurinol 100 MG TAB PO SCH (09:31)
[2019-05-19] MEDS: Digoxin 0.125 MG TAB PO SCH (09:32)
[2019-05-19] MEDS ORDERED: hydrALAZINE 20 MG/ML VIAL ONE (11:15)
[2019-05-19 16:13] VITALS: BP 111/60; TEMP 97.6
[2019-05-19] MEDS: Ferrex 150 Plus (iron poly cmplx) PO SCH (16:14)
[2019-05-19] MEDS: Rivaroxaban 15 MG TAB PO SCH (16:17)
[2019-05-19] MEDS ORDERED: Torsemide 20 MG TAB PO SCH (17:15)
--- NOTE | 2019-05-20 02:16 | DIS ---
DATE OF ADMISSION: 05/16/2019 DATE OF DISCHARGE: 05/19/2019 FINAL DIAGNOSES: 1. Congestive heart failure, systolic [id number]. 2. Hypotension, improved. 3. Mitral regurgitation. 4. Coronary artery disease. 5. Previous pacemaker defibrillator. 6. Renal failure, improved. DISCHARGE MEDICATIONS: 1. Entresto 24/ twice daily. 2. He is not on beta-delfina due to hypotension. 3. He is on low-dose spironolactone. 4. He is on a statin. Please see admission note for full details. This gentleman presented to the office with weakness, fatigue, hypotension with severe congestive heart failure. The patient was diuresed. He was given intravenous dobutamine with a good response to that. His creatinine actually improved with dobutamine. This morning he got Entresto. He did not get any diuretics, but he did diurese well with the Entresto. The most recent blood pressure is 100 systolic. The plan will be to treat him with Entresto, hopefully and eventually try low-dose beta delfina, but we have tried that yet. We will have him take torsemide just once a day in the evening at 5 in the afternoon to try to avoid hypotension. He is also on iron. We will get him to come back in the office next Wednesday to recheck. The patient otherwise is doing relatively well. He does have mitral regurgitation, consideration for mitral clip could be given, but if his ejection fraction is very low, I do not know that if would be contraindicated, we will have to check on that. The most recent ejection fraction is 20% to 25% with [id number] mitral regurgitation due to left ventricular dilatation. The patient's creatinine actually improved from 1.9 to 1.25 today. Potassium most recently is 4.8, GFR improved from 42 up to 68. The patient otherwise is doing relatively well. Long-term prognosis is poor. Hopefully Entresto will benefit him clinically. Job ID: [id number]
--- NOTE | 2019-05-22 00:09 | PQF ---
DEVIN SCHAEFER JR, KENNON D MD [id number] [id number] CLINICAL DOCUMENTATION CLARIFICATION FORM: POST DISCHARGE Addendum to original discharge summary date: ____ Late entry note date: __ DATE:05/22/2019 ATTN: Kapil Abbott Please exercise your independent, professional judgment in responding to the clarification form. Clinical indicators are provided on the bottom of this form for your review Please check appropriate box(s): [ ] Hypovolemic Shock [ ] Cardiogenic Shock [ ] Shock Unspecified [ ] Other diagnosis [ ] Unable to determine In addition, please specify: Present on Admission (POA): [ ] Yes [ ] No [ ] Unable to determine For continuity of documentation, please document condition throughout progress notes and discharge summary. Thank You. CLINICAL INDICATORS - SIGNS / SYMPTOMS / LABS Vital sign 05/17 BP 105/52 Laboratory Chemistry 05/16 BUN 44, Creatinine 1.90 H&P p1 05/16 Dr Marcus He came to our office yesterday, complaining of weakness and fatigue and had a blood pressure in the mid 70s systolic PN p1 05/18 Dr Marcus Renal failure, improving with Dobutamine RISK FACTORS H&P p1 05/16 - Acute on Chronic CHF H&P p1 05/16 - Hypotension H&P p1 05/16 - Paroxysmal atrial fibrillation TREATMENTS: JUL 01 Dobutamine JUL 01 IV Lasix JUL 01 Potassium replacement (This form is maintained as a part of the permanent medical record) 2014 [email or web address]. All Rights Reserved [email or web address] [not provided] MTDD
--- NOTE | 2019-05-22 00:10 | PQF ---
DEVIN SCHAEFER JR, KENNON D MD [id number] CLINICAL DOCUMENTATION CLARIFICATION FORM: POST DISCHARGE Addendum to original discharge summary date: ____ Late entry note date: __ DATE:05/22/2019 ATTN: Kapil Abbott Please exercise your independent, professional judgment in responding to the clarification form. Clinical indicators are provided on the bottom of this form for your review Please check appropriate box(s): [ ] Acute Renal Failure (ARF) / Acute Kidney Injury (ANTOINE) [ ] Acute Tubular Necrosis (ATN) [ ] Acute Cortical Necrosis [ ] Acute Medullary Necrosis [ ] Acute on Chronic Renal Failure please specify Stage of CKD (see below) [ ] CKD without ARF/ANTOINE please specify Stage of CKD [ ] Other diagnosis [ ] Unable to determine In addition, please specify: Present on Admission (POA): [ ] Yes [ ] No [ ] Unable to determine National Kidney Foundation Guidelines for CKD Staging Stage I Kidney damage with normal or increased GFRGFR > 90 Stage IIKidney damage with mildly decreased GFRGFR 60-89 Stage III Kidney damage with moderately decreased GFRGFR 30-59 Stage IVKidney damage with severely decreased GFRGFR 16-29 Stage VKidney failureGFR<15 ESRDEnd Stage Renal DiseaseOn dialysis Acute Renal Failure/Acute Kidney Failure defined as: Increases in SCr by (>) 0.3 mg/dl within 48 hours OR- Increases in SCr by (>) 1.5 times baseline, known or presumed to have occurred within the prior 7 days OR- Urine volume < 0.5 ml/kg/hour for 6 hours (KDIGO supplement 2012 for RIFLE/KRISTIE criteria) For continuity of documentation, please document condition throughout progress notes and discharge summary. Thank You. CLINICAL INDICATORS - SIGNS / SYMPTOMS / LABS Vital sign 05/17 BP 105/52 Laboratory Chemistry 05/16 BUN 44, Creatinine 1.90 H&P p1 05/16 Dr Marcus He came to our office yesterday, complaining of weakness and fatigue and had a blood pressure in the mid 70s systolic PN p1 05/18 Dr Marcus Renal failure, improving with Dobutamine RISK FACTORS H&P p1 05/16 - Acute on Chronic CHF H&P p1 05/16 - Hypotension H&P p1 05/16 - Paroxysmal atrial fibrillation TREATMENTS: JUL 01 Dobutamine JUL 01 IV Lasix JUL 01 Potassium replacement (This form is maintained as a part of the permanent medical record) 2014 [employer]. All Rights Reserved [email or web address] [not provided] MTDD
== END 2019-05-19 18:23 | disposition home or self-care (01) | DRG 293 ==
LOC: UNDOADMIN 10:37 → 2SW 10:37 → OBSVTOIN 10:50 → 2NO 18:27
PROVIDERS: ADMIT Internal Medicine Cardiovascular Disease; ATTEND Internal Medicine Cardiovascular Disease
PROC: 3E033XZ Introduction of Vasopressor into Peripheral Vein, Percutaneous Approach (ICD-10-PCS; principal; 2019-05-16)
DX: I50.23 Acute on chronic systolic (congestive) heart failure (principal); I25.10 Atherosclerotic heart disease of native coronary artery without angina pectoris; I34.0 Nonrheumatic mitral (valve) insufficiency; I48.0 Paroxysmal atrial fibrillation; I95.9 Hypotension, unspecified; N19 Unspecified kidney failure; Z95.0 Presence of cardiac pacemaker; Z79.899 Other long term (current) drug therapy; Z79.01 Long term (current) use of anticoagulants; Z95.1 Presence of aortocoronary bypass graft
CPT/HCPCS: 36415; 80048; 82728; 85025; 93306; 93798; J0360; J1250; J1940; J3475

== ENCOUNTER 2019-05-26 08:28 | Day surgery (SDC) | payer MEDICARE ==
[2019-05-26] MEDS ORDERED: EPOETIN ALFA-EPBX (ESRD) 40,000 UNIT/ML VIAL ONE (08:33)
[2019-05-26 10:41] VITALS: BP 95/53; TEMP 97.8
== END 2019-05-26 13:16 | disposition home or self-care (01) ==
LOC: ONC/OP 08:28
PROVIDERS: ATTEND Internal Medicine Medical Oncology
DX: D50.8 Other iron deficiency anemias (principal); N18.3 Chronic kidney disease, stage 3 (moderate); Z88.8 Allergy status to other drugs, medicaments and biological substances
CPT/HCPCS: 96372; Q5105

== ENCOUNTER 2019-06-02 08:24 | Day surgery (SDC) | payer MEDICARE ==
[2019-06-02] MEDS ORDERED: EPOETIN ALFA-EPBX (ESRD) 40,000 UNIT/ML VIAL ONE (08:28)
[2019-06-02 08:35] VITALS: BP 93/54; TEMP 97.7
== END 2019-06-02 08:36 | disposition home or self-care (01) ==
LOC: ONC/OP 08:24
PROVIDERS: ATTEND Internal Medicine Medical Oncology
DX: N18.3 Chronic kidney disease, stage 3 (moderate) (principal); D63.1 Anemia in chronic kidney disease; D50.8 Other iron deficiency anemias; Z88.8 Allergy status to other drugs, medicaments and biological substances
CPT/HCPCS: 96372; Q5105

== ENCOUNTER 2019-06-09 08:22 | Day surgery (SDC) | payer MEDICARE ==
[2019-06-09] MEDS ORDERED: EPOETIN ALFA-EPBX (ESRD) 40,000 UNIT/ML VIAL ONE (08:25)
[2019-06-09] MEDS ORDERED: EPOETIN ALFA-EPBX (ESRD) 40,000 UNIT/ML VIAL SC SCH (08:30)
[2019-06-09 08:35] VITALS: BP 119/59; TEMP 98.4
== END 2019-06-09 08:36 | disposition home or self-care (01) ==
LOC: ONC/OP 08:22
PROVIDERS: ATTEND Internal Medicine Medical Oncology
DX: N18.3 Chronic kidney disease, stage 3 (moderate) (principal); D63.1 Anemia in chronic kidney disease; D50.8 Other iron deficiency anemias
CPT/HCPCS: 82728; 96372; Q5105

== ENCOUNTER 2019-06-23 08:27 | Day surgery (SDC) | payer MEDICARE ==
[2019-06-23] MEDS ORDERED: EPOETIN ALFA-EPBX (ESRD) 40,000 UNIT/ML VIAL SC SCH (08:45)
[2019-06-23] MEDS ORDERED: Iron, Sodium Ferric Gluconate 500 MG in Sodium Chloride 0.9% 250 ML 250 ML IVPB SCH (09:00)
[2019-06-23] MEDS ORDERED: Ferumoxytol (ERSD) 510 MG in Sodium Chloride 0.9% 150 ML IVPB SCH (09:00)
[2019-06-23] MEDS ORDERED: Sodium Chloride 0.9% 500 ML IV SCH (10:30)
[2019-06-23 14:52] VITALS: BP 88/52; TEMP 98
== END 2019-06-23 15:00 | disposition home or self-care (01) ==
LOC: ONC/OP 08:27
PROVIDERS: ATTEND Internal Medicine Medical Oncology
DX: N18.3 Chronic kidney disease, stage 3 (moderate) (principal); D63.1 Anemia in chronic kidney disease; D50.8 Other iron deficiency anemias; Z88.8 Allergy status to other drugs, medicaments and biological substances
CPT/HCPCS: 96372; J1756; J2916; J3490; J7050; Q0139; Q5105

== ENCOUNTER 2019-06-24 18:13 | Inpatient (IN) | payer MEDICARE ==
[2019-06-24 19:29] LABS: #Lymphocytes 0.8 thou/uL (1.20-3.40); #Monocytes 0.7 thou/uL (0.11-0.59); #Neutrophils 7.3 thou/uL (1.40-6.50); %Basophils 0.2 % (0.0-1.0); %Eosinophils 0.2 % (0.0-10.0); %Monocytes 7.7 % (0.0-10.0); %Neutrophils 82.9 % (42.0-75.0); Mean Corpuscular HGB CONC 34.1 g/dL (32.0-36.0); Mean Corpuscular Hemoglobin 29.7 pg (27.0-31.0); Mean Corpuscular Volume 86.9 fL (78.0-98.0); Platelet Count 176 thou/uL (130-400); RBC Distribution Width 14.2 % (11.5-14.5); Red Blood Cell (RBC) Count 2.68 mill/uL (4.70-6.10); White Blood Cell (WBC) Count 8.8 thou/uL (4.8-10.8)
--- NOTE | 2019-06-24 19:35 | RAD ---
Chest one view HISTORY: Dyspnea. COMPARISON: 05/08/2019. FINDINGS: Cardiac silhouette is magnified and upper limits of normal in size. Pulmonary vasculature i s unremarkable. Mediastinum is midline with postoperative changes and a multi lead left subclavian cardiac electronic device. No lobar consolidation or evidence of pneumothorax. Calcified granulomata are consistent with healed granulomatous disease. IMPRESSION: Chronic-type findings are stable. No active cardiopulmonary abnormalities are demonstrate d.
[2019-06-24 19:52] LABS: ALT (SGPT) 12 U/L (8-55); AST (SGOT) 14 U/L (5-34); Albumin 3.8 g/dL (3.4-4.8); Alkaline Phosphatase 153 U/L (40-110); Anion Gap 17 mmol/L (10-20); BUN (Urea Nitrogen) 100 mg/dL (8.4-25.7); Bilirubin, Total 0.8 mg/dL (0.2-1.2); CK (CPK) 84 U/L (30-200); Calc. Creatinine Clearance 0 mL/min (70-130); Calcium 8.8 mg/dL (7.8-10.44); Carbon Dioxide 19 mmol/L (23-31); Chloride 104 mmol/L (98-107); Estimated GFR-MDRD 33; Globulin 2.2 g/dL (2.4-3.5); Glucose 174 mg/dL (83-110); Potassium 4.3 mmol/L (3.5-5.1); Sodium 136 mmol/L (136-145)
[2019-06-24 20:14] LABS: CKMB 2.5 ng/mL (0-6.6)
[2019-06-24] MEDS ORDERED: Aspirin 325 MG TAB ONE (20:19)
[2019-06-24 22:51] LABS: Troponin I 0.058 ng/mL (< 0.028)
[2019-06-24] MEDS ORDERED: Sodium Chloride 0.9% 1,000 ML IV SCH (23:07)
[2019-06-25] MEDS ORDERED: traMADol HCl 50 MG TAB PO PRN (00:04)
[2019-06-25] MEDS ORDERED: Acetaminophen 325 MG TAB PO PRN (00:04)
[2019-06-25] MEDS ORDERED: Sodium Chloride 0.9% 1,000 ML IV SCH ×2 (04:45→05:46)
[2019-06-25] MEDS ORDERED: Sodium Chloride 0.9% 250 ML IV SCH (04:45)
[2019-06-25 05:12] LABS: Albumin 3.2 g/dL (3.4-4.8); Anion Gap 14 mmol/L (10-20); BUN (Urea Nitrogen) 101 mg/dL (8.4-25.7); BUN/Creatinine Ratio 47.64; Calc. Creatinine Clearance 30 mL/min (70-130); Calcium 8.4 mg/dL (7.8-10.44); Carbon Dioxide 21 mmol/L (23-31); Chloride 108 mmol/L (98-107); Estimated GFR-MDRD 37; Glucose 108 mg/dL (83-110); Magnesium 2.2 mg/dL (1.6-2.6); Potassium 3.8 mmol/L (3.5-5.1); Sodium 139 mmol/L (136-145)
[2019-06-25 05:16] LABS: Troponin I 0.065 ng/mL (< 0.028)
[2019-06-25] MEDS ORDERED: Calcium Carbonate 500 MG ChewTAB PO PRN (05:54)
[2019-06-25] MEDS ORDERED: Nitroglycerin 0.4 MG TAB (25 Tab Bottle) PO PRN (05:57)
[2019-06-25 10:30] LABS: Hemoglobin 6.4 g/dL (14.0-18.0)
[2019-06-25] MEDS ORDERED: Potassium Chloride 20 MEQ TAB PO SCH (14:30)
[2019-06-25] MEDS ORDERED: Furosemide 20 MG/2 ML VIAL SLOW IVP SCH (15:45)
--- NOTE | 2019-06-25 16:27 | HP ---
PRIMARY CARE PHYSICIAN: Dr. Ramiro Babb. PRIMARY BAKERY ASSOCIATE: Dr. Marcus. CHIEF COMPLAINT: Generalized weakness. HISTORY OF PRESENT ILLNESS: The patient is a 79-year-old male with chronic systolic heart failure, coronary artery disease, and chronic anemia, presented to the emergency room with above complaints. Over the last 1-2 days, the patient has gradual worsening shortness of breath along with generalized weakness. He gets short of breath on sywl-nl-[id number] exertion. He denies significant orthopnea. No paroxysmal nocturnal dyspnea reported. He denies any cough. No lightheadedness, chest pain, palpitations, or syncope reported. He is on anticoagulation. He also follows Dr. Kerr for iron infusions. The patient also states that yesterday he received a wrong iron infusion. PAST MEDICAL HISTORY: 1. Chronic systolic heart failure. 2. Coronary artery disease status post CABG. 3. Paroxysmal atrial fibrillation, on anticoagulation. 4. CKD. 5. Chronic anemia. 6. Hypertension. 7. Dyslipidemia. PAST SURGICAL HISTORY: 1. Coronary artery bypass grafting. 2. Appendectomy. 3. AICD placement. 4. Coronary stent placement. ALLERGIES: THE PATIENT IS ALLERGIC TO BENADRYL, IRON DEXTRAN, AND FERUMOXYTOL. CURRENT HOME MEDICATIONS: 1. Digoxin 125 mcg Wednesday, Wednesday, and Wednesday. 2. Allopurinol 100 mg b.i.d. 3. Amiodarone 200 mg daily. 4. Omeprazole 40 mg daily. 5. Potassium chloride 10 mEq daily. 6. Xarelto 15 mg q.p.m. 7. Entresto 24/26 b.i.d. 8. Simvastatin 20 mg daily. 9. Ferrous sulfate 325 mg b.i.d. 10. Aldactone 12.5 mg daily. 11. Torsemide 20 mg daily. SOCIAL HISTORY: No tobacco or alcohol use. He currently lives at home with his family. His daughter is the decision maker. FAMILY HISTORY: Negative for premature coronary artery disease. REVIEW OF SYSTEMS: All other review of systems was reviewed and were found negative. PHYSICAL EXAMINATION: VITAL SIGNS: Temperature 97.4, respirations of 18, pulse of 91, blood pressure of 107/81 with O2 saturation 100% on room air. GENERAL: A 79-year-old male, in no apparent distress at rest. HEENT: Head atraumatic and normocephalic. Sclerae anicteric. Moist mucous membranes. No oral lesion. NECK: Supple. No JVD appreciated. No carotid bruit. LUNGS: Clear to auscultation bilaterally. No wheezing, rales, or rhonchi. HEART: S1, S2 present. Regular rate and rhythm. No rubs or gallops. ABDOMEN: Soft, nontender. Bowel sounds present. No rebound or guarding. No costovertebral angle tenderness. EXTREMITIES: No edema or calf tenderness. NEUROLOGIC: Grossly nonfocal. Moves all 4 extremities. Power was 5/5 in all extremities. PSYCHIATRIC: Alert, awake, oriented x3. SKIN: Warm and dry. LYMPH NODES: No palpable lymph nodes in the neck. PERIPHERAL VASCULAR: Radial pulses palpable bilaterally. MUSCULOSKELETAL: No joint swelling or tenderness. LABORATORY FINDINGS: EKG by my review showed paced rhythm. CBC showed WBC 8.8 with hemoglobin 8.0, hematocrit 23.3, and platelet of 176. Chemistry showed sodium of 136, potassium 4.3, chloride 104, bicarb 19, BUN of 100, and creatinine 2.32. Troponin of 0.061. BNP 272. His BNP last month was 994. Albumin 3.2. Chest x-ray by my review was negative for infiltrate or edema. IMPRESSION: 1. Generalized weakness. 2. Acute kidney injury on chronic kidney disease stage. 3. Chronic anemia. The patient denies any melena or hematochezia. 4. Coronary artery disease status post stent placement and coronary artery bypass graft. 5. Chronic systolic heart failure, ejection fraction 20% range status post AICD. 6. Zrxiqzju-tt-blszbc mitral regurgitation in the past. 7. Paroxysmal atrial fibrillation, on anticoagulation. 8. Hypotension, probably secondary to intravascular volume depletion. 9. History of hypertension. 10. Hyperlipidemia. PLAN: The patient will be monitored in the telemetry unit. Cardiology, Dr. Marcus, will be consulted. We will start him on gentle IV hydration for acute kidney injury. We will resume selected home medications. Resume Xarelto. Hold Entresto, Aldactone, and torsemide due to acute kidney injury. Reduce allopurinol dose to 100 mg daily. We will discontinue IV fluids after 1 bag. The patient understands the above plan of care. Job ID: [id number] [facility]
--- NOTE | 2019-06-25 19:09 | PRG ---
DATE OF SERVICE: 06/25/2019 SUBJECTIVE: Mr. Cerda came to the hospital complaining of increasing weakness and fatigue and shortness of breath with exertion. No chest pain. He received some iron dextran in our office. He has had an adverse reaction to that in the past in the hospital and he "passed out" according to the family. However, that is not what brought him to the hospital. What brought him to the hospital was shortness of breath with low level of exercise as mentioned. OBJECTIVE: VITAL SIGNS: His blood pressure now is 95/59, pulse 77, blood pressure was 81/49 at 5 a.m. LUNGS: Clear. CARDIAC: Normal S1, normal S2. ABDOMEN: Soft, nontender LABORATORY DATA: The hemoglobin was 11 on May 16, it was 8 yesterday and 6.4 this morning. ASSESSMENT: 1. Severe anemia, likely due to GI blood loss. 2. He is on Xarelto for atrial fibrillation paroxysmal, with a high CHADS-VASc score. 3. Renal failure, stable, creatinine is 2.12. PLAN: 1. I spoke with Dr. Arceo who will transfuse him with packed red blood cells. I would recommend 2 units and we will give him Lasix 20 mg between the doses. 2. Give him some potassium. 3. Stop Xarelto for now. He said he did take a dose yesterday afternoon. Job ID: [id number]
[2019-06-25 19:52] LABS: Hemoglobin 7.2 g/dL (14.0-18.0)
[2019-06-26 04:52] LABS: Eosinophils 3 % (0-10); Hemoglobin 6.9 g/dL (14.0-18.0); Lymphocytes 11 % (21-51); MDiff Complete? YES; Mean Corpuscular HGB CONC 34.7 g/dL (32.0-36.0); Mean Corpuscular Hemoglobin 30.2 pg (27.0-31.0); Mean Corpuscular Volume 86.9 fL (78.0-98.0); Mean Platelet Volume 7.8 fL (7.4-10.4); Monocytes 11 % (0-10); Neutrophil 75 % (42-75); Nucleated RBC 2 % (0); Platelet Count 120 thou/uL (130-400); Platelet Morphology Comment Appears Decreased; RBC Distribution Width 14.1 % (11.5-14.5); White Blood Cell (WBC) Count 6.2 thou/uL (4.8-10.8)
[2019-06-26 04:58] LABS: Albumin 3.2 g/dL (3.4-4.8); Anion Gap 11 mmol/L (10-20); BUN (Urea Nitrogen) 68 mg/dL (8.4-25.7); BUN/Creatinine Ratio 39.77; Calc. Creatinine Clearance 38 mL/min (70-130); Calcium 8.5 mg/dL (7.8-10.44); Carbon Dioxide 21 mmol/L (23-31); Chloride 115 mmol/L (98-107); Estimated GFR-MDRD 47; Glucose 101 mg/dL (83-110); Sodium 143 mmol/L (136-145)
--- NOTE | 2019-06-26 10:55 | PDOC.HOSPP ---
- Subjective Encounter Date: 06/26/19 Encounter Time: 07:00 Subjective: Pt seen for followup re: acute on chronic renal failure. Denies chest pain, shortness of breath, fevers or chills. - Objective Vital Signs & Weight: Vital Signs (12 hours) Temp Pulse Pulse Resp BP BP BP 06/26/19 09:45 97.9 F 80 18 98/58 L 06/26/19 08:57 98 F 79 20 06/26/19 08:10 98.1 F 80 18 91/53 L 06/26/19 07:00 98.1 F 80 20 92/51 L 06/26/19 06:41 98.0 F 81 18 98/53 L 06/26/19 03:17 98.2 F 80 18 96/52 L 06/25/19 23:00 98.0 F 80 16 95/54 L Pulse Ox 06/26/19 09:45 100 06/26/19 08:57 100 06/26/19 08:10 100 06/26/19 07:00 100 06/26/19 06:41 100 06/26/19 03:17 100 06/25/19 23:00 100 Weight Weight 164 lb 14.4 oz I&O: 06/25/19 06/26/19 06/27/19 06:59 06:59 06:59 Intake Total 535 2500 Output Total 575 2705 Balance -40 -205 Result Diagrams: 06/26/19 04:23 06/26/19 04:23 Additional Labs: Labs and MARs reviewed by me EKG Reviewed by me: Yes (Tele; AV-paced) Hospitalist ROS - Review of Systems Constitutional: denies: fever, chills, sweats, weakness, malaise Respiratory: denies: cough, shortness of breath, SOB with excertion, pleuritic pain, wheezing Cardiovascular: denies: chest pain, palpitations, orthopnea, paroxysmal noc. dyspnea, edema, light headedness Gastrointestinal: denies: nausea, vomiting, abdominal pain, diarrhea, constipation, melena, hematochezia Genitourinary: denies: dysuria, frequency, incontinence, hematuria, retention Musculoskeletal: denies: neck pain, shoulder pain, arm pain, back pain, hand pain, leg pain, foot pain - Medication Medications: Active Medications Generic Name Dose Route Start Last Admin Trade Name Freq PRN Reason Stop Dose Admin Acetaminophen 650 mg 06/25/19 00:04 06/25/19 01:00 Tylenol PO 650 mg Q4H PRN Administration Headache/Fever or Mild Pain Sodium Chloride 10 ml 06/25/19 09:00 06/26/19 09:41 Flush - Normal Saline IVF 10 ml Q12HR BRIE Administration - Exam General Appearance: NAD, awake alert Eye: anicteric sclera Eye - other findings: conjunctival pallor ENT: normocephalic atraumatic, no oropharyngeal lesions Neck: supple, symmetric, no thyromegaly, no lymphadenopathy Heart: RRR, no gallops, no rubs, normal peripheral pulses Respiratory: CTAB, no wheezes, no rales, no ronchi Gastrointestinal: soft, non-tender, non-distended, normal bowel sounds Extremities: no cyanosis Psychiatric: normal affect, normal behavior Hosp A/P (1) Acute worsening of stage 3 chronic kidney disease Code(s): N18.3 - CHRONIC KIDNEY DISEASE, STAGE 3 (MODERATE) Status: Acute (2) Symptomatic anemia Code(s): D64.9 - ANEMIA, UNSPECIFIED Status: Acute (3) Afib Code(s): I48.91 - UNSPECIFIED ATRIAL FIBRILLATION Status: Chronic (4) Chronic systolic (congestive) heart failure Code(s): I50.22 - CHRONIC SYSTOLIC (CONGESTIVE) HEART FAILURE Status: Chronic (5) CAD (coronary artery disease) Code(s): I25.10 - ATHSCL HEART DISEASE OF [place] CORONARY ARTERY W/O ANG PCTRS Status: Chronic (6) DM type 2 (diabetes mellitus, type 2) Status: Chronic (7) HTN (hypertension) Code(s): I10 - ESSENTIAL (PRIMARY) HYPERTENSION Status: Chronic - Plan out of bed/ambulate creatinine improved. GI consulted re: anemia, await opinion.
[2019-06-26 13:13] LABS: Reticulocyte Count 4.2 % (0.5-1.5)
[2019-06-26 13:36] LABS: Iron 55 ug/dL (65-175)
[2019-06-26 13:37] LABS: Iron Binding Capacity, Total 304 mcg/dL (261-462)
[2019-06-26 13:55] LABS: Thyroid Stimulating Hormone 2.6504 uIU/mL (0.35-4.94)
--- NOTE | 2019-06-26 14:13 | PRG ---
DATE OF SERVICE: 06/26/2019 SUBJECTIVE: Mr. Cerda has now received 2 units of packed red blood cells. He feels better. OBJECTIVE: VITAL SIGNS: Blood pressure is also improved at 100/60, pulse 84, regular. LUNGS: Clear. CARDIAC: Normal S1. Normal S2. ABDOMEN: Soft and nontender. ASSESSMENT: 1. Anemia, likely due to gastrointestinal blood loss with a hemoglobin down to 6.4. 2. Hemoglobin was only 6.9 after 1 unit of packed red cells. He received another unit. 3. He has been on Xarelto at reduced dose up until , therefore he is still somewhat anticoagulated likely. PLAN: 1. He is off the Xarelto. 2. He received 2 units of packed red blood cells. 3. GI consultation for consideration for at least upper endoscopy. We will continue to follow with you during this hospitalization. Ferritin levels also been drawn. Job ID: [id number]
[2019-06-26 15:36] VITALS: BMI 22.4
--- NOTE | 2019-06-26 23:12 | CON ---
DATE OF CONSULTATION: 06/26/2019 CHIEF COMPLAINT: Weakness. HISTORY OF PRESENT ILLNESS: Mr. Cerda is a 79-year-old man, who presented through the emergency room 2 nights ago with progressive generalized weakness. He has a history of chronic anemia on anticoagulation with Xarelto for which he follows with Hematology and gets periodic IV iron infusions. It also sounds like he may get epoetin injections as well. He has had no nausea or vomiting. No diarrhea, constipation or visible blood in the stool. He does have some dark stools. He takes oral iron. He states that he had an upper and lower endoscopy at the [facility] several years ago that were negative for bleeding source. His anemia at this time was worse than his usual baseline and he required transfusion. GI was consulted to re-evaluate. PAST MEDICAL HISTORY: Congestive heart failure, coronary artery disease, paroxysmal atrial fibrillation, chronic kidney disease, chronic anemia, hypertension, and hyperlipidemia. PAST SURGICAL HISTORY: Coronary artery bypass graft, appendectomy, AICD placement, coronary stent placement. FAMILY HISTORY: Negative for GI malignancies. SOCIAL HISTORY: No alcohol, tobacco, or drugs. ALLERGIES: BENADRYL, IRON DEXTRAN, AND FERUMOXYTOL. REVIEW OF SYSTEMS: Negative x10 systems reviewed, except as stated in the history of present illness. PHYSICAL EXAMINATION: VITAL SIGNS: Temperature 97.8, pulse 81, and blood pressure 99/57. GENERAL: He is in no acute distress. Alert and oriented x3. HEENT: Eyes have no scleral icterus. Oropharynx is clear without lesions. No cervical or supraclavicular lymphadenopathy. LUNGS: Clear to auscultation bilaterally. HEART: Regular rate and rhythm without murmur. ABDOMEN: Soft, nontender, and nondistended. Bowel sounds are present. EXTREMITIES: No lower extremity edema. LABORATORY DATA: White blood cell count 6.2, hemoglobin is 6.9. He did receive 2 units transfusion, one last night and one this morning. The 6.9 hemoglobin was after 1 unit transfusion. His hemoglobin on 06/25/2019 was 6.4. Creatinine is 1.71, down from 2.12 yesterday. Iron 55, TIBC 304, ferritin 72, albumin 3.2, B12 of 401, folate 15.6, TSH 2.65. IMPRESSION: 1. Chronic iron deficiency anemia for which [facility] He is on chronic anticoagulation and most likely source of his chronic anemia would be GI blood loss. He has not had overt bleeding recently. 2. Paroxysmal atrial fibrillation and congestive heart failure on anticoagulation with Xarelto. He is at the lower 15 mg dose. The patient is closing in on 80-year-old and has chronic renal insufficiency. RECOMMENDATIONS: 1. I offered EGD and colonoscopy to further evaluate for bleeding source. The patient declines this and states that he does not wish to undergo endoscopy. 2. I will be available if needed if patient changes his mind. For now, I will sign off, but please call if GI can be of assistance. Job ID: [id number]
[2019-06-27 05:13] LABS: Albumin 3.2 g/dL (3.4-4.8); Anion Gap 10 mmol/L (10-20); BUN (Urea Nitrogen) 45 mg/dL (8.4-25.7); Calc. Creatinine Clearance 40 mL/min (70-130); Calcium 8.5 mg/dL (7.8-10.44); Carbon Dioxide 22 mmol/L (23-31); Chloride 112 mmol/L (98-107); Estimated GFR-MDRD 51; Glucose 100 mg/dL (83-110); Phosphorus 3.1 mg/dL (2.3-4.7); Potassium 3.8 mmol/L (3.5-5.1); Sodium 140 mmol/L (136-145)
[2019-06-27 05:21] LABS: Hemoglobin 7.3 g/dL (14.0-18.0); Hypochromia SLIGHT = 6-15 cells (100X) (0-5/hpf); Lymphocytes 12 % (21-51); MDiff Complete? YES; Mean Corpuscular HGB CONC 34.1 g/dL (32.0-36.0); Mean Corpuscular Hemoglobin 30.2 pg (27.0-31.0); Mean Corpuscular Volume 88.7 fL (78.0-98.0); Mean Platelet Volume 7.8 fL (7.4-10.4); Monocytes 8 % (0-10); Neutrophil 80 % (42-75); Platelet Count 124 thou/uL (130-400); Platelet Morphology Comment Appears Decreased; RBC Distribution Width 14.9 % (11.5-14.5); Red Blood Cell (RBC) Count 2.42 mill/uL (4.70-6.10); White Blood Cell (WBC) Count 5.9 thou/uL (4.8-10.8)
[2019-06-27] MEDS: Iron, Sodium Ferric Gluconate 250 MG in Sodium Chloride 0.9% 100 ML IVPB SCH ×3 (10:14→22:00)
--- NOTE | 2019-06-27 10:16 | PRG ---
DATE OF SERVICE: 06/27/2019 SUBJECTIVE: Mr. Cerda is feeling well today. No chest pain or pressure. He does not feel short of breath. He declined upper and lower endoscopy. OBJECTIVE: VITAL SIGNS: Blood pressure is 98/59, pulse 80. NECK: The neck veins are very distended up to the angle of his jaw. GENERAL: He is lying at head of bed 30-degree angle. LUNGS: Clear. CARDIAC: Normal S1, normal S2. ABDOMEN: Soft and nontender. EXTREMITIES: No edema. ASSESSMENT: 1. Congestive heart failure systolic with severely depressed left ventricular function. 2. Paroxysmal atrial fibrillation maintaining sinus rhythm. 3. Coronary artery disease. 4. Severe iron deficiency anemia, requiring 2 units of packed red blood cells and his hemoglobin still low at 7.3, even after 2 units of blood. PLAN: 1. He is off Xarelto. 2. Resume diuretics as neck veins are back up. 3. Hopefully, can resume Entresto tomorrow. 4. Hopefully to home tomorrow if he is stable. 5. We will try again with intravenous iron. He is allergic to iron dextran. We have a different preparation here in the hospital available. Job ID: [id number]
[2019-06-27] MEDS ORDERED: Amiodarone 200 MG TAB PO SCH (10:30)
[2019-06-27] MEDS ORDERED: Torsemide 20 MG TAB PO SCH (10:45)
[2019-06-27] MEDS ORDERED: Spironolactone 25 MG TAB PO SCH (10:45)
--- NOTE | 2019-06-27 14:30 | PDOC.HOSPP ---
- Subjective Encounter Date: 06/27/19 Encounter Time: 14:28 Subjective: Mr. Cerda was seen today in follow-up of generalized weakness. He says he feels better today. - Objective Vital Signs & Weight: Vital Signs (12 hours) Temp Pulse Resp BP Pulse Ox 06/27/19 11:11 97.9 F 81 18 91/55 L 100 06/27/19 09:03 100 06/27/19 07:51 97.9 F 79 14 98/59 L 100 06/27/19 07:45 98 06/27/19 03:15 98.8 F 80 17 101/56 L 98 Weight Admit Weight 168 lb Weight 166 lb 12.8 oz I&O: 06/26/19 06/27/19 06/28/19 06:59 06:59 06:59 Intake Total 2500 1200 Output Total 2705 1000 Balance -205 200 Result Diagrams: 06/27/19 04:27 06/27/19 04:27 Hospitalist ROS - Medication Medications: Active Medications Generic Name Dose Route Start Last Admin Trade Name Isaac PRN Reason Stop Dose Admin Acetaminophen 650 mg 06/25/19 00:04 06/25/19 01:00 Tylenol PO 650 mg Q4H PRN Administration Headache/Fever or Mild Pain Ferric Sodium Gluconate 120 mls @ 60 mls/hr 06/27/19 09:00 06/27/19 10:14 Complex 250 mg/ Sodium IVPB 06/27/19 22:59 120 mls Chloride Q12HR BRIE Administration Sodium Chloride 10 ml 06/25/19 09:00 06/27/19 08:22 Flush - Normal Saline IVF 10 ml Q12HR BRIE Administration - Exam Eye: PERRL, anicteric sclera Heart: RRR, no murmur, no gallops, no rubs Respiratory: CTAB, no wheezes, no rales, no ronchi, normal chest expansion, no tachypnea, normal percussion Gastrointestinal: soft, non-tender, non-distended, normal bowel sounds, no palpable masses, no hepatomegaly, no splenomegaly, no guarding Extremities: no cyanosis, no clubbing, no edema Hosp A/P (1) Symptomatic anemia Code(s): D64.9 - ANEMIA, UNSPECIFIED Status: Acute (2) Afib Code(s): I48.91 - UNSPECIFIED ATRIAL FIBRILLATION Status: Chronic (3) Chronic systolic (congestive) heart failure Code(s): I50.22 - CHRONIC SYSTOLIC (CONGESTIVE) HEART FAILURE Status: Chronic (4) CAD (coronary artery disease) Code(s): I25.10 - ATHSCL HEART DISEASE OF [place] CORONARY ARTERY W/O ANG PCTRS Status: Chronic (5) DM type 2 (diabetes mellitus, type 2) Status: Chronic (6) HTN (hypertension) Code(s): I10 - ESSENTIAL (PRIMARY) HYPERTENSION Status: Chronic - Plan * Symptomatic anemia- likely due to a GI bleed while on Xarelto * He confirms that he is not interested in an EGD * He is currently receiving an Iron infusion for the anemia * Chronic systolic heart failure- compensated * HTN- blood pressure is low normal * DM- blood glucose is stable * AFIB- heart rate is stable, and hold Xarelto * Home tomorrow after he completes the iron infusions
[2019-06-28 05:04] LABS: Eosinophils 3 % (0-10); Hemoglobin 7.3 g/dL (14.0-18.0); Lymphocytes 12 % (21-51); MDiff Complete? YES; Mean Corpuscular HGB CONC 34.1 g/dL (32.0-36.0); Mean Corpuscular Hemoglobin 30.5 pg (27.0-31.0); Mean Corpuscular Volume 89.4 fL (78.0-98.0); Mean Platelet Volume 7.4 fL (7.4-10.4); Monocytes 9 % (0-10); Neutrophil 76 % (42-75); Nucleated RBC 1 % (0); Platelet Count 140 thou/uL (130-400); Platelet Morphology Comment Appears Adequate; RBC Distribution Width 15.3 % (11.5-14.5); Red Blood Cell (RBC) Count 2.39 mill/uL (4.70-6.10); White Blood Cell (WBC) Count 6.8 thou/uL (4.8-10.8)
[2019-06-28 07:31] VITALS: TEMP 98
[2019-06-28] MEDS ORDERED: Potassium Chloride 20 MEQ TAB PO SCH (08:00)
[2019-06-28] MEDS ORDERED: Spironolactone 25 MG TAB PO SCH (08:00)
[2019-06-28] MEDS ORDERED: Torsemide 20 MG TAB PO SCH (09:00)
[2019-06-28] MEDS ORDERED: Amiodarone 200 MG TAB PO SCH (09:00)
[2019-06-28] MEDS ORDERED: Atorvastatin Calcium 10 MG TAB PO SCH ×2 (09:00→21:00)
[2019-06-28] MEDS ORDERED: Digoxin 0.125 MG TAB PO SCH (09:00)
--- NOTE | 2019-06-28 09:06 | PRG ---
DATE OF SERVICE: 06/28/2019 SUBJECTIVE: Mr. Cerda is feeling much better today. His neck veins are down. He is not having trouble breathing. OBJECTIVE: VITAL SIGNS: His blood pressure is in mid 90 systolic. NECK: As mentioned, the neck veins are no longer distended. LUNGS: Clear. CARDIAC: Normal S1 and normal S2. ABDOMEN: Soft and nontender. EXTREMITIES: No edema. LABORATORY DATA: Hemoglobin is stable at 7.3. He did receive 2 doses of intravenous iron yesterday. ASSESSMENT: 1. Severe recurrent iron-deficiency anemia despite oral and intravenous iron. 2. The patient has declined an upper or lower endoscopy. 3. Congestive heart failure, advanced. 4. Paroxysmal atrial fibrillation, but he has been maintaining sinus rhythm on amiodarone. PLAN: 1. At this time, I am going to leave him off Xarelto. He continues to have severe anemia, which is worsening his heart failure despite intravenous iron. 2. Resume Entresto tomorrow. 3. Resume statin. 4. He has already been taken off aspirin. 5. Long-term prognosis is guarded to poor, but I think at this point the detrimental effect of anticoagulation is outweighing the benefit. At some point in the future, may consider trying Xarelto again, but for now, he is maintaining sinus rhythm and the severe anemia I think is worsening his congestive heart failure. Job ID: [id number]
[2019-06-28 10:31] VITALS: BP 109/63
--- NOTE | 2019-06-28 12:56 | DIS ---
DATE OF ADMISSION: 06/24/2019 DATE OF DISCHARGE: 06/28/2019 PRIMARY CARE PHYSICIAN: Ramiro Babb DO PRIMARY DISCHARGE DIAGNOSES: 1. Symptomatic anemia. 2. Tqinh-zp-uopytdc kidney failure, baseline chronic kidney disease, stage 3. SECONDARY DISCHARGE DIAGNOSES: 1. Cardiomyopathy. 2. Gout. 3. Paroxysmal atrial fibrillation. 4. Hypertension. 5. Diabetes, type 2. 6. Chronic systolic heart failure. 7. Chronic kidney disease, stage 3. PRIMARY PROCEDURE/OPERATION: None. RADIOLOGICAL INVESTIGATION: Chest x-ray showed chronic changes. SIGNIFICANT LABORATORY DATA: WBC 6.8, hemoglobin 7.3, platelet 144. Sodium 140 , potassium 3.8, BUN 45, creatinine 1.59, calcium 8.5. Folate 15. B12 of 401. TSH 2.6. Ferritin 72. DISCHARGE MEDICATIONS: 1. Allopurinol 100 mg p.o. b.i.d. 2. Amiodarone 200 mg daily. 3. Digoxin 125 mcg p.o. Wednesday, Wednesday, Wednesday, and Wednesday. 4. Omeprazole 40 mg daily. 5. Potassium chloride 10 mEq daily. 6. Entresto 1 tablet twice daily. 7. Zocor 20 mg p.o. daily. 8. Ferrous sulfate 325 mg b.i.d. 9. Aldactone 12.5 mg daily. 10. Demadex 20 mg daily. CONTRAINDICATION: None. CODE STATUS: Full code. INPATIENT CONSULTANTS: 1. Dr. Nik Martinez was consulted for anemia workup, but the patient refused endoscopy. 2. Dr. Marcus was consulted for cardiomyopathy. TEST RESULTS PENDING ON DISCHARGE: None. ALLERGIES: 1. IRON DEXTRAN. 2. BENADRYL. DISCHARGE PLAN: Posthospital, the patient will follow up with Heart Failure Clinic, Cardiology, and primary care physician. HOSPITAL COURSE: A 79-year-old male, who was admitted by Dr. Yadiel Almaguer. Please see his H and P for further details. The patient was having symptomatic anemia , and he was given 1 unit of blood transfusion. He was having generalized weakness. We consulted Gastroenterology for anemia workup, but the patient refused endoscopic evaluation. The patient was on blood thinner medicine, which was discontinued because of his symptomatic anemia. The patient is not a candidate for chronic anticoagulation therapy because of worsening anemia, and Cardiology agreed with that plan. The patient also had wfffg-ml-hnlehvy kidney failure, which was improved towards his baseline. The patient also had radyk-lt-ahwvtoq systolic heart failure, that was improved. On discharge, we continued all his previous medications. His hypotension resolved. This patient is at high risk for recurrent admission. Overall, this patient is stable for discharge. Cardiology cleared him for discharge as well. PHYSICAL EXAMINATION: The patient is seen and examined at bedside today. VITAL SIGNS: Today vital signs; blood pressure 109/63, pulse 86, temperature 98.0, saturation 100% on room air, weight 168 pounds. GENERAL: The patient is currently alert, awake, in no acute distress. HEENT: Head, normocephalic and atraumatic. NECK: Supple. Slightly elevated JVD. No thyromegaly. No carotid bruit. LUNGS: Clear to auscultation without any rhonchi or rales. CARDIAC: S1 and S2. Regular. No murmur. ABDOMEN: Soft. Bowel sounds present. EXTREMITIES: No edema. NEUROLOGIC: Nonfocal examination. The patient is medically stable for discharge. DOCUMENTATION CORRECTION: Please note that the patient did not have any wnkvz-pc-vutgoqn systolic heart failure. Only, the patient has chronic systolic heart failure without any flare-up. During this admission, the patient had hypotension that was attributed to be due to volume depletion that was improved with holding diuretic therapy. Job ID: [id number] [facility]
[2019-06-28] MEDS ORDERED: Simvastatin 20 MG TAB PO SCH (21:00)
[2019-06-29] MEDS ORDERED: Potassium Chloride 10 MEQ TAB PO SCH (08:00)
[2019-06-29] MEDS ORDERED: Ferrous Sulfate 325 MG TAB PO SCH (08:00)
[2019-06-29] MEDS ORDERED: Sacubitril 24.5 MG/Valsartan 25.5 MG TABLET PO SCH (21:00)
== END 2019-06-28 11:25 | disposition home or self-care (01) | DRG 812 ==
LOC: ERS 18:13 → OBSVTOIN 22:39 → 2SW 22:39 → 2NO 06-27 15:47
PROVIDERS: ADMIT Internal Medicine; ATTEND Internal Medicine
PROC: 30233N1 Transfusion of Nonautologous Red Blood Cells into Peripheral Vein, Percutaneous Approach (ICD-10-PCS; principal; 2019-06-24)
DX: D50.9 Iron deficiency anemia, unspecified (principal); N17.9 Acute kidney failure, unspecified; I13.0 Hypertensive heart and chronic kidney disease with heart failure and stage 1 through stage 4 chronic kidney disease, or unspecified chronic kidney disease; I42.9 Cardiomyopathy, unspecified; I50.22 Chronic systolic (congestive) heart failure; K92.2 Gastrointestinal hemorrhage, unspecified; N18.3 Chronic kidney disease, stage 3 (moderate); I48.0 Paroxysmal atrial fibrillation; M10.9 Gout, unspecified; E11.22 Type 2 diabetes mellitus with diabetic chronic kidney disease; Z88.8 Allergy status to other drugs, medicaments and biological substances; I25.10 Atherosclerotic heart disease of native coronary artery without angina pectoris; Z95.1 Presence of aortocoronary bypass graft; Z95.810 Presence of automatic (implantable) cardiac defibrillator; Z95.5 Presence of coronary angioplasty implant and graft; E86.9 Volume depletion, unspecified; R40.2362 Coma scale, best motor response, obeys commands, at arrival to emergency department; R40.2142 Coma scale, eyes open, spontaneous, at arrival to emergency department; R40.2252 Coma scale, best verbal response, oriented, at arrival to emergency department; Z79.01 Long term (current) use of anticoagulants; I95.9 Hypotension, unspecified; E78.5 Hyperlipidemia, unspecified
CPT/HCPCS: 36415; 36430; 71045; 80048; 80053; 80069; 82550; 82553; 82607; 82728; 82746; 83540; 83550; 83735; 83880; 84443; 84484; 85014; 85018; 85025; 85046; 86850; 86900; 86901; 93005; 93798; 94760; 96372; J1756; J2916; J3490; J7050; P9016; Q0139; Q5105

== ENCOUNTER → 2019-06-30 | Day surgery (SDC) | payer MEDICARE ==
[2019-06-30 12:03] VITALS: BP 78/52; TEMP 97.7
== END ==
LOC: ONC/OP 08:29
PROVIDERS: ATTEND Internal Medicine Medical Oncology
DX: N18.3 Chronic kidney disease, stage 3 (moderate) (principal); D63.1 Anemia in chronic kidney disease; D50.8 Other iron deficiency anemias; Z88.8 Allergy status to other drugs, medicaments and biological substances
CPT/HCPCS: 96372; J1756; J3490; Q5105

== ENCOUNTER 2019-07-07 08:16 | Day surgery (SDC) | payer MEDICARE ==
[2019-07-07] MEDS ORDERED: EPOETIN ALFA-EPBX (ESRD) 40,000 UNIT/ML VIAL ONE (08:18)
[2019-07-07 16:39] VITALS: BP 101/57
== END 2019-07-07 16:41 | disposition home or self-care (01) ==
LOC: ONC/OP 08:16
PROVIDERS: ATTEND Internal Medicine Medical Oncology
DX: N18.3 Chronic kidney disease, stage 3 (moderate) (principal); D63.1 Anemia in chronic kidney disease; D50.8 Other iron deficiency anemias; Z88.8 Allergy status to other drugs, medicaments and biological substances
CPT/HCPCS: 82728; 96372; Q5105

== ENCOUNTER → 2019-07-14 | Day surgery (SDC) | payer MEDICARE ==
[~2019-07-14] MED LIST changes: +EPOETIN ALFA-EPBX (ESRD) 40,000 UNIT/ML VIAL ONE; -EPOETIN ALFA-EPBX (ESRD) 40,000 UNIT/ML VIAL SC SCH
[2019-07-14 08:24] VITALS: BP 85/52; TEMP 97.5
== END | disposition home or self-care (01) ==
LOC: ONC/OP 08:15
PROVIDERS: ATTEND Internal Medicine Medical Oncology
DX: N18.3 Chronic kidney disease, stage 3 (moderate) (principal); D63.1 Anemia in chronic kidney disease; D50.8 Other iron deficiency anemias; Z88.8 Allergy status to other drugs, medicaments and biological substances
CPT/HCPCS: 96372; Q5105

== ENCOUNTER 2019-10-13 08:44 | Day surgery (SDC) | payer MEDICARE ==
[2019-10-13] MEDS ORDERED: EPOETIN ALFA-EPBX (ESRD) 40,000 UNIT/ML VIAL ONE (08:49)
[2019-10-13 08:52] VITALS: BP 108/57; TEMP 97.9
== END 2019-10-13 09:45 | disposition home or self-care (01) ==
LOC: ONC/OP 08:44
PROVIDERS: ATTEND Internal Medicine Medical Oncology
DX: N18.3 Chronic kidney disease, stage 3 (moderate) (principal); D63.1 Anemia in chronic kidney disease; D50.8 Other iron deficiency anemias; Z88.8 Allergy status to other drugs, medicaments and biological substances
CPT/HCPCS: 36415; 82728; 96372; Q5105

== ENCOUNTER 2019-10-27 08:32 | Day surgery (SDC) | payer MEDICARE ==
[2019-10-27] MEDS ORDERED: EPOETIN ALFA-EPBX (ESRD) 40,000 UNIT/ML VIAL ONE (08:37)
[2019-10-27 08:45] VITALS: BP 97/61
[2019-10-27] MEDS ORDERED: EPOETIN ALFA-EPBX (ESRD) 40,000 UNIT/ML VIAL SC SCH (09:00)
== END 2019-10-27 09:17 | disposition home or self-care (01) ==
LOC: ONC/OP 08:32
PROVIDERS: ATTEND Internal Medicine Medical Oncology
DX: D50.8 Other iron deficiency anemias (principal); N18.3 Chronic kidney disease, stage 3 (moderate); D63.1 Anemia in chronic kidney disease; Z88.8 Allergy status to other drugs, medicaments and biological substances
CPT/HCPCS: 96372; Q5105

== ENCOUNTER 2019-11-05 00:06 | Inpatient (IN) | payer MEDICARE, OTHER ==
[2019-11-05 01:17] LABS: Hemoglobin 11.6 g/dL (14.0-18.0); Mean Corpuscular HGB CONC 33.1 g/dL (32.0-36.0); Mean Corpuscular Hemoglobin 28.9 pg (27.0-31.0); Mean Corpuscular Volume 87.4 fL (78.0-98.0); Mean Platelet Volume 9.2 fL (7.4-10.4); Platelet Count 182 thou/uL (130-400); RBC Distribution Width 15.3 % (11.5-14.5); Red Blood Cell (RBC) Count 4.01 mill/uL (4.70-6.10); White Blood Cell (WBC) Count 5.5 thou/uL (4.8-10.8)
[2019-11-05 01:19] LABS: Bilirubin Negative (Negative); Blood, Urine Negative (Negative); Clarity Clear (Clear); Glucose, Urine (Dipstick) Normal (Negative); Ketone, Urine Negative (Negative); Leukocyte Negative Leu/uL (Negative); Nitrite Negative (Negative); Protein, Urine (Dipstick) Negative (Neg-Trace); Specific Gravity, Urine 1.013 (1.002-1.036); Urobilinogen 6 mg/dL (Less than 2)
[2019-11-05 01:25] LABS: ALT (SGPT) 33 U/L (8-55); AST (SGOT) 35 U/L (5-34); Albumin 3.7 g/dL (3.4-4.8); Alkaline Phosphatase 317 U/L (40-110); Anion Gap 17 mmol/L (10-20); BUN (Urea Nitrogen) 71 mg/dL (8.4-25.7); Bilirubin, Total 2.8 mg/dL (0.2-1.2); Calc. Creatinine Clearance 0 mL/min (70-130); Calcium 9.4 mg/dL (7.8-10.44); Carbon Dioxide 21 mmol/L (23-31); Chloride 103 mmol/L (98-107); Estimated GFR-MDRD 19; Globulin 3.5 g/dL (2.4-3.5); Glucose 92 mg/dL (83-110); Potassium 4.9 mmol/L (3.5-5.1); Protein, Total 7.2 g/dL (5.8-8.1); Sodium 136 mmol/L (136-145)
[2019-11-05 01:32] LABS: Band 1 % (5-11); Eosinophils 2 % (0-10); Lymphocytes 9 % (21-51); MDiff Complete? YES; Monocytes 27 % (0-10); Neutrophil 60 % (42-75)
[2019-11-05] MEDS ORDERED: Morphine 4 MG/ML VIAL ONE (02:53)
[2019-11-05] MEDS ORDERED: Ondansetron PF 4 MG/2 ML Vial ONE (02:53)
[2019-11-05] MEDS ORDERED: Ondansetron PF 4 MG/2 ML Vial IVP PRN (03:46)
[2019-11-05] MEDS ORDERED: Dextrose 5% in Water 1,000 ML IV PRN ×3 (03:46→15:24)
[2019-11-05] MEDS ORDERED: Promethazine HCl 25 MG/ML VIAL IM PRN (03:46)
[2019-11-05] MEDS ORDERED: Morphine 4 MG/ML VIAL SLOW IVP PRN (03:46)
[2019-11-05] MEDS ORDERED: Mag-Al 1200 mg/1200 mg/30 ML UDCUP PO PRN (03:46)
[2019-11-05] MEDS ORDERED: Acetaminophen 325 MG TAB PO PRN (03:46)
[2019-11-05] MEDS ORDERED: Dextrose 50% Abboject 50 ML SYRINGE SLOW IVP PRN ×2 (03:46→03:50)
[2019-11-05] MEDS ORDERED: hydrALAZINE 20 MG/ML VIAL SLOW IVP PRN (03:46)
[2019-11-05] MEDS ORDERED: Calcium Carbonate 500 MG ChewTAB PO PRN (03:46)
[2019-11-05] MEDS ORDERED: Sodium Chloride 0.9% 1,000 ML IV SCH (04:00)
[2019-11-05 04:09] LABS: Digoxin 1.35 ng/mL (0.8-2.0)
[2019-11-05 04:14] LABS: Magnesium 2.2 mg/dL (1.6-2.6); Phosphorus 3.9 mg/dL (2.3-4.7)
[2019-11-05] MEDS ORDERED: Piperacillin/Tazobactam 3.375 GM VIAL ONE (04:42)
[2019-11-05 06:32] VITALS: BMI 23.5
--- NOTE | 2019-11-05 07:56 | HP ---
CHIEF COMPLAINT: Right upper quadrant pain and epigastric pain. REQUESTING PHYSICIAN: Dr. Knutson. HISTORY OF PRESENT ILLNESS: This is a 79-year-old gentleman, who presented to the emergency room with a 4-day history of off and on epigastric and right upper quadrant pain. He denies any nausea or vomiting. He denies any fever, chills, cough, or congestion. The patient denies any bloating-type feeling and pain is not associated with eating. The patient states pain has been off and on and lasts approximately 2 to 3 minutes. The last episode last night was while he was watching TV. REVIEW OF SYSTEMS: A 10-point review of systems is negative unless otherwise indicated in the above HPI. PAST MEDICAL HISTORY: Coronary artery disease, gout, arthritis, GERD, congestive heart failure with ejection fraction 20% to 25%, myocardial infarction, hypertension, cardiac stents, coronary artery bypass graft, defibrillator, atrioventricular pacemaker, and chronic kidney disease stage 3. PAST SURGICAL HISTORY: Appendectomy, defibrillator placement in October 2016, and CABG. SOCIAL HISTORY: Former tobacco user, quit smoking more than 10 years ago. Denies alcohol use. Denies illicit drug use. The patient lives at home with family. ALLERGIES: BENADRYL, WHICH CAUSES HIM TO ITCH. CURRENT MEDICATIONS: Digoxin 125 mcg, omeprazole 40 mg daily, torsemide 20 mg two times a day, simvastatin 20 mg at bedtime, spironolactone 25 mg q.8 minutes, carvedilol 6.25 mg b.i.d., allopurinol 100 mg daily, and ferrous sulfate 325 mg two times a day. OBJECTIVE: VITAL SIGNS: Blood pressure 128/70, pulse 80, respirations 18, SpO2 of 98% on room air, and temperature 98.9. GENERAL: Well-appearing elderly male, in no acute distress. HEENT: Head is atraumatic and normocephalic. Mucous membranes moist. Pharynx exam normal. NECK: Normal range of motion of neck, trachea midline. RESPIRATORY: Equal chest rise and fall, bilateral breath sounds clear, no wheezing, rales, or rhonchi. CARDIOVASCULAR: Regular rate, regular rhythm, no murmurs, mild chronic pedal edema. ABDOMEN: Soft, nondistended, mild tenderness in epigastric and right upper quadrants. No rebound tenderness, no peritoneal signs, active bowel sounds x4. EXTREMITIES: Moves all extremities. Neurovascularly intact x4. NEUROLOGIC: No focal deficits. LABORATORY DATA: WBC 5.5, RBC 4.01, hemoglobin 11.6, hematocrit 35.0, and platelets 182. Sodium 136, potassium 4.9, chloride 103, BUN 71, creatinine 3.83, estimated GFR 19, glucose 92, calcium 9.4, phosphorus 3.9, magnesium 2.2, total bilirubin 2.8, AST 35, ALT 33, alkaline phos 317, and lipase 81. Urinalysis; negative for UTI. Digoxin level 1.35. DIAGNOSTIC DATA: A 12-lead EKG, atrioventricular paced at 80 beats per minute. Abdominal ultrasound, impression; sludge, stones, and wall thickening, common bile duct within normal limits, positive Rios's. IMPRESSION: 1. Acute calculous cholecystitis. 2. History of congestive heart failure with reduced ejection fraction. 3. Coronary artery disease. 4. Hypertension. PLAN: Admit to the surgical floor. Pain management. The patient's peeler operator, Dr. Marcus has advised the patient that he should not be put under anesthesia as his heart is not strong enough. The patient's last echocardiogram was May of 2019, which did show an ejection fraction of 20% to 25% and severely elevated pulmonary artery pressure and left ventricular size, moderate to severe increase. ER consulted Surgery for likely cholecystectomy, although with the patient's low ejection fraction, the patient's risk of surgery outweighs benefits. We will discuss with Dr. Hernandez after this dictation for definitive plan. Job ID: [id number]
[2019-11-05] MEDS: Famotidine/PF 20 mg/2ml Vial SLOW IVP SCH ×2 (08:45→22:02)
[2019-11-05] MEDS ORDERED: Digoxin 0.125 MG TAB PO SCH (09:00)
[2019-11-05] MEDS ORDERED: Spironolactone 25 MG TAB PO SCH (09:00)
--- NOTE | 2019-11-05 09:05 | ULT ---
PRELIMINARY REPORT/DIRECT RADIOLOGY/EMERGENCY AFTER HOURS PROCEDURE Receipt of this report by the clinical staff was confirmed with Lacy Knutson MD by Dudley Nichols on Nov 05, 2019 02:55:00 CDT. Addendum electronically signed by Cristina Nichols on November 05, 2019 2:55 :42 AM CDT EXAM: US Abdomen Limited, Right Upper Quadrant. CLINICAL HISTORY: HX: RUQ PAIN. SEE NOTES ON LAST IMAGE.THANKS TECHNIQUE: Real-time ultrasound of the right upper quadrant with image documentation. COMPARISON: None provided. FINDINGS: LIVER: Unremarkable. GALLBLADDER: Cholelithiasis is seen with gallbladder sludge and wall thickening at 4.8 mm. No pericho lecystic fluid. Positive sonographic Rios's sign COMMON BILE DUCT: No dilation. PANCREAS: Unremarkable as visualized. The distal pancreas is obscured by overlying bowel gas. RIGHT KIDNEY: Unremarkable. No hydronephrosis. Measures 11 cm IMPRESSION: Cholelithiasis with gallbladder sludge, wall thickening and a positive sonographic Rios sign suggesting acute cholecystitis ELECTRONICALLY SIGNED BY: Lester Bermudez MD Nov 05, 2019 2:51:02 AM CDT FINAL REPORT EMERGENT AFTER HOURS RIGHT UPPER QUADRANT ULTRASOUND: IMPRESSION: Agree with the preliminary interpretation regarding the presence of a gallstone, wall thickening, and the reported presence of a positive sonographic Rios's sign. The gallbladder appears decompressed , however. If there is concern for acute cholecystitis, consider HIDA scan. POS: JMSarah
[2019-11-05] MEDS: Allopurinol 100 MG TAB PO SCH (11:30)
[2019-11-05] MEDS ORDERED: Sodium Chloride 0.9% 500 ML IVPB SCH (12:15)
--- NOTE | 2019-11-05 15:11 | CON ---
DATE OF CONSULTATION: HISTORY OF PRESENT ILLNESS: The patient is a 79-year-old gentleman with a history of ischemic cardiomyopathy, who presented with abdominal discomfort and nausea. The patient has a long history of coronary artery disease. He had previous coronary artery bypass graft surgery many years ago. He underwent a cardiac catheterization in 2017. He was found to have completely occluded coronary arteries. He had a patent JAMES to the LAD. He had a patent graft also to the first and second obtuse marginal branch. The right coronary artery bypass graft had several stenotic lesions. The patient has been on medical therapy. He has subsequently had placement of automatic implantable cardiac defibrillator. The patient has done remarkably well. He denies having any chest discomfort or dyspnea. The patient presented with several days history of abdominal discomfort. PAST MEDICAL HISTORY: 1. Ischemic cardiomyopathy. 2. Hypertension. 3. Atrial fibrillation. 4. Chronic renal failure. 5. Dyslipidemia. PAST SURGICAL HISTORY: Coronary artery bypass graft surgery. ALLERGIES: BENADRYL AND IRON. SOCIAL HISTORY: Nonsmoker. FAMILY HISTORY: No strong family history of coronary artery disease. REVIEW OF SYSTEMS: Ten-point system otherwise unremarkable. PHYSICAL EXAMINATION: GENERAL: Well-developed gentleman, in no acute distress. VITAL SIGNS: Blood pressure 92/54. NECK: Showed no jugular venous distention. LUNGS: Clear to auscultation. HEART: Regular rate and rhythm with normal S1 and S2. ABDOMEN: Nondistended. EXTREMITIES: Show no edema. VASCULAR: Radial pulses are 2+. LABORATORY DATA: Sodium 136, potassium 4.9, chloride 103, bicarbonate 21, BUN 71, and creatinine was 3.8. White blood count 5.5, hemoglobin 11.6, hematocrit 35.0, and platelets are 182. IMAGING DATA: EKG r biventricular pacemaker. IMPRESSION: 1. Cholecystitis. 2. History of coronary artery bypass surgery. 3. Ischemic cardiomyopathy. 4. Severe mitral regurgitation. 5. History of atrial fibrillation. 6. History of automatic implantable cardioverter-defibrillator placement. 7. Acute on chronic renal failure. PLAN: This gentleman presents with cholecystitis. His blood pressure is low at this time with his increase in creatinine. We would hold the patient's diuretics. I would also stop his digoxin and decrease the dose of his Coreg. We would slowly hydrate the patient. We will follow this patient with you through his hospitalization. Job ID: [id number] [facility]
--- NOTE | 2019-11-05 16:06 | PRG ---
DATE OF SERVICE: 11/05/2019 SUBJECTIVE: Mr. Cerda is a 79-year-old man, admitted with acute cholecystitis with cholelithiasis. The patient has a history of significant severe ischemic cardiomyopathy. Blood pressure is little soft this morning. He has had episodes of bradycardia. He has been evaluated by Cardiology and adjustments have been made to his medications. He reports 4/10 right upper quadrant abdominal pain, but has no nausea or emesis. OBJECTIVE: VITAL SIGNS: This morning included blood pressure 89/56, pulse 80, respiratory rate is 16, temperature is 97.7 degrees Fahrenheit, and oxygen saturation 98% on room air. HEENT: Pupils are equal, round, and reactive to light and accommodation. He has slight bilateral scleral icterus. NECK: He has no jugular venous distention noted. HEART: Reveals regular rate. LUNGS: Clear to auscultation bilaterally. Breathing, regular and unlabored. ABDOMEN: Soft with right upper quadrant tenderness to palpation. He clearly has no peritoneal signs on examination. Liver and spleen nonpalpable below costal margin. NEUROLOGIC: Reveals no focal deficits present. LABORATORY FINDINGS: Include CBC with 5500 white blood cells, hemoglobin and hematocrit of 11.6 and 35.0 respectively, and platelet count is 182,000. Metabolic profile; sodium 136, potassium 4.9, chloride is 103, bicarb is 21, BUN is 71, creatinine is 3.83, glucose 92, phosphorus is 3.9, magnesium is 3.2, total bilirubin is 2.8, AST and ALT are 35 and 33 respectively, and alkaline phosphatase is 317. Serum lipase is marginally elevated at 81. I have reviewed the patient's abdominal ultrasound, which is pertinent for cholelithiasis with significant gallbladder wall thickening, positive Rios's sign. Otherwise, gallbladder appears to be decompressed. Common bile duct is normal in diameter for this patient's age at 4.4 mm in diameter. IMPRESSION: 1. Acute cholecystitis with cholelithiasis. 2. History of significant ischemic cardiomyopathy with coronary artery disease. RECOMMENDATIONS: The patient will ultimately require laparoscopic cholecystectomy with risks of bleeding, infection, injury to bile duct or surrounding structures. Additionally, because of this patient's significant comorbidities, he is at risk for perioperative CT or . Awaiting evaluation by Cardiology and recommendations with regard to perioperative optimization. Above findings and recommendations have been discussed with the patient and with his adult son on the telephone. The patient indicates understanding of information given. The patient himself is very reluctant to proceed with surgery and I have also advised him that nonoperative management of his disease can be complicated by worsening acute pancreatitis as the patient appears to have a mild gallstone pancreatitis in this setting. An acute pancreatitis would certainly carry with it a higher mortality risk. The patient indicates understanding of this information. I reviewed the case with the surgery PA, Miranda Nowak and I agree with her notes and findings. ADDENDUM: Mr. Cerda has considered the risks and benefits of his acute cholecystitis given his significant comorbidities. The patient has elected to pursue nonoperative management of his biliary disease at this time. General Surgery will sign off at this time and will be available to re-evaluate the patient on demand. I thank Dr. Bekah Mcdowell from the hospitalist service for assuming the patient's medical management. Job ID: [id number]
--- NOTE | 2019-11-05 16:42 | PDOC.HHP ---
Hospitalist ROS - Medication Medications: Active Medications Generic Name Dose Route Start Last Admin Trade Name Isaac PRN Reason Stop Dose Admin Famotidine 20 mg 11/05/19 09:00 11/05/19 08:45 Pepcid SLOW IVP 20 mg Q12HR BRIE Administration Hospitalist Results - Labs Result Diagrams: 11/05/19 00:53 11/05/19 00:53 Lab results: WBC 5.5 thou/uL (4.8-10.8) 11/05/19 00:53 Hgb 11.6 g/dL (14.0-18.0) L 11/05/19 00:53 Hct 35.0 % (42.0-52.0) L 11/05/19 00:53 MCV 87.4 fL (78.0-98.0) 11/05/19 00:53 Plt Count 182 thou/uL (130-400) 11/05/19 00:53 Band Neuts % (Manual) 1 % (5-11) L 11/05/19 00:53 Sodium 136 mmol/L (136-145) 11/05/19 00:53 Potassium 4.9 mmol/L (3.5-5.1) 11/05/19 00:53 Chloride 103 mmol/L (98-107) 11/05/19 00:53 Carbon Dioxide 21 mmol/L (23-31) L 11/05/19 00:53 BUN 71 mg/dL (8.4-25.7) H 11/05/19 00:53 Creatinine 3.83 mg/dL (0.7-1.3) H 11/05/19 00:53 Glucose 92 mg/dL (83-110) 11/05/19 00:53 Calcium 9.4 mg/dL (7.8-10.44) 11/05/19 00:53 Total Bilirubin 2.8 mg/dL (0.2-1.2) H 11/05/19 00:53 AST 35 U/L (5-34) H 11/05/19 00:53 ALT 33 U/L (8-55) 11/05/19 00:53 Alkaline Phosphatase 317 U/L (40-110) H 11/05/19 00:53 Serum Total Protein 7.2 g/dL (5.8-8.1) 11/05/19 00:53 Albumin 3.7 g/dL (3.4-4.8) 11/05/19 00:53 Lipase 81 U/L (8-78) H 11/05/19 00:58 Urine Ketones Negative mg/dL (Negative) 11/05/19 00:14 Urine Blood Negative (Negative) 11/05/19 00:14 Urine Nitrite Negative (Negative) 11/05/19 00:14 Ur Leukocyte Esterase Negative Vin/uL (Negative) 11/05/19 00:14
--- NOTE | 2019-11-05 16:47 | PDOC.FMACP ---
Advance Care Planning - Note Summary: Advanced Care Planning was discussed. The diagnosis, prognosis and goals of care were discussed. Appropriate forms and documentation to accomplish the goals of care were discussed. All questions were answered. The Palliative Care Team will be engaged to assist with completion of any outstanding forms that are needed. I discussed with patient, he stated he would like to be DNR/DNI. He specifically states that he is a believes when "god is ready to let him go, he should go" . He states " the bible states to trust god and not man"
[2019-11-05] MEDS: Sodium Chloride 0.9% 1,000 ML IV SCH ×2 (17:09→23:51)
--- NOTE | 2019-11-05 17:19 | CON ---
DATE OF CONSULTATION: REASON FOR CONSULTATION: Medical management. REQUESTING PHYSICIAN: Dr. Brent Hernandez. BRIEF HISTORY OF PRESENT ILLNESS: This is a 79-year-old male with a past medical history of CAD, gout, arthritis, CHF with an EF of 20% to 25%, NE, CKD stage 3, history of atrioventricular pacemaker, presented to the emergency room with 4- day history of epigastric pain. The patient stated the patient has been having epigastric pain for the last 4 days. He states it is in the right upper quadrant, sharp, intermittent, and occasionally radiates to the left side. His last painful episode was last night, but has not had further occurrence after receiving morphine. He denies any association with physician. He denies any association with food. He denies eating outside recently or any recent travel history. He denies nausea, vomiting, or diarrhea. He denies fevers, chills, cough, congestion, or chest pain. The patient presented to the hospital for further evaluation. The patient states he thinks he is able to climb up a flight of stairs. He hasn 't done any chores in his house so not sure if he gets short of breath doing that. REVIEW OF SYSTEMS: CONSTITUTIONAL: Denies fevers or chills. EYES: The patient denies vision changes. ENT: The patient denies throat pain or ear discharge. RESPIRATORY: No cough, no shortness of breath, no hemoptysis. CARDIOVASCULAR: No chest pain or palpitations. GI: No nausea, vomiting, or diarrhea. GENITOURINARY: Denies frequency, urgency, or dysuria. SKIN: No rashes. MUSCULOSKELETAL: No significant musculoskeletal pain. NEUROLOGICAL: No weakness or numbness. PAST MEDICAL HISTORY: CAD, GERD, CHF with an EF of 20% to 25%, cardiac defibrillator, atrioventricular pacemaker, CKD stage 3. PAST SURGICAL HISTORY: Appendectomy, defibrillator placement in October 2016, CABG. SOCIAL HISTORY: The patient previously used to smoke tobacco. He quit smoking 10 years ago. Denies alcohol use. He lives with his daughter. He denies any illicit drug use. ALLERGIES: BENADRYL, WHICH MAKES HIM ITCH. HOME MEDICATIONS: 1. Allopurinol 100 mg p.o. daily. 2. Digoxin 125 mcg. 3. Omeprazole 40 mg daily. 4. Torsemide 20 mg two times daily. 5. Simvastatin 20 mg at bedtime. 6. Spironolactone 25 mg p.o. daily. 7. Coreg 6.25 mg p.o. b.i.d. 8. Ferrous sulfate 325 mg two times daily. 9. Amiodarone 200 mg p.o. daily. The patient does not recall if he takes this or not. PHYSICAL EXAMINATION: VITAL SIGNS: Temperature 98.3, heart rate 88, respiratory rate 16, O2 saturations 97% on room air, blood pressure ranges from 89/56 to 101/61. GENERAL: patient is alert, awake, oriented times three. CVS: RRR, no murmurs, rubs, gallops LUNGS: CTAB ABD: + Bowel sounds, soft, nontender, nondistended EXT: No edema PERTINENT LABORATORY DATA: CBC: White count of 5.5, hemoglobin 11.6, hematocrit 35.0, and platelet count 182. CMP on 11/04: Creatinine was noted to be 3.83. Total bilirubin 2.8, AST 35, ALT 33, alkaline phosphatase 317, lipase 81. UA on 11/04: Shows urine urobilinogen of 6. Digoxin level on 11/04: 1.35. COVID PCR on 11/04: Negative. IMAGING STUDIES: Abdominal ultrasound on 11/04: Cholelithiasis with gallbladder sludge, wall thickening and positive sonographic Rios sign suggesting acute cholecystitis. ASSESSMENT AND PLAN: This is a 79-year-old male, who presented to the hospital with a 4-day history of intermittent right upper quadrant pain radiating to his left side. Ultrasound was positive for cholecystitis. 1. Acute cholecystitis/cholelithiasis: The patient denies any pain with eating. However, he does have an elevated alkaline phosphatase and does report pain in the right upper quadrant. US showed acute cholecystitis. He did not have any right upper quadrant tenderness at this time. Currently, the patient is not interested in any surgical intervention. I have discussed with Dr. Hernandez and will advance his diet to clear liquid diet and see if he tolerates this. 2. Hypotension/acute kidney injury: The patient's blood pressure was 89/56. It is improved to 101/61 with IV fluids. His creatinine is 3.83 and his baseline is 1.59. We will continue gentle IV fluid hydration and monitor for any signs of volume overload. We will continue to trend his creatinine. His UA was unremarkable for urine infection. 3. Coronary artery disease, status post coronary artery bypass grafting/chronic systolic heart failure: Cardiology is following the patient. His Coreg and simvastatin will be resumed. His torsemide will be on hold and his Entresto will be held as well. His digoxin will be continued since his digoxin level was normal. 4. Gout: Continue allopurinol. 5. Anemia: The patient had recent ferritin level of 329 with a high iron saturation. I will hold his iron supplementation at this time. B12 and folate in June were normal. His anemia is likely secondary to kidney disease. We will continue to follow this patient and be happy to transfer over care if desired. Job ID: [id number] [facility]
[2019-11-05] MEDS: Carvedilol 6.25 MG TAB PO SCH (20:56)
[2019-11-05] MEDS ORDERED: Torsemide 20 MG TAB PO SCH (21:00)
[2019-11-05] MEDS ORDERED: Carvedilol 6.25 MG TAB PO SCH (21:00)
[2019-11-06 05:43] LABS: Anion Gap 12 mmol/L (10-20); BUN (Urea Nitrogen) 42 mg/dL (8.4-25.7); Calc. Creatinine Clearance 30 mL/min (70-130); Calcium 8.6 mg/dL (7.8-10.44); Carbon Dioxide 20 mmol/L (23-31); Chloride 112 mmol/L (98-107); Estimated GFR-MDRD 35; Glucose 75 mg/dL (83-110); Potassium 4.9 mmol/L (3.5-5.1); Sodium 139 mmol/L (136-145)
[2019-11-06] MEDS ORDERED: Atorvastatin Calcium 10 MG TAB PO SCH (07:30)
[2019-11-06] MEDS: Allopurinol 100 MG TAB PO SCH (07:59)
[2019-11-06] MEDS: Famotidine/PF 20 mg/2ml Vial SLOW IVP SCH (07:59)
[2019-11-06] MEDS: Carvedilol 6.25 MG TAB PO SCH (08:00)
[2019-11-06 08:11] VITALS: BP 91/57; TEMP 98.2
[2019-11-06 09:37] LABS: ALT (SGPT) 30 U/L (8-55); AST (SGOT) 33 U/L (5-34); Albumin 3.1 g/dL (3.4-4.8); Alkaline Phosphatase 251 U/L (40-110); Bilirubin, Direct 1.3 mg/dL (0.1-0.3); Bilirubin, Total 1.8 mg/dL (0.2-1.2); Protein, Total 5.9 g/dL (5.8-8.1)
--- NOTE | 2019-11-06 10:00 | PRG ---
DATE OF SERVICE: 11/06/2019 SUBJECTIVE: Mr. Cerda is resting comfortably. He says he feels well. No chest pain or pressure. OBJECTIVE: VITAL SIGNS: Blood pressure still low 91/57, pulse 80. LUNGS: Clear. CARDIAC: Normal S1, normal S2. ABDOMEN: Mildly distended. EXTREMITIES: Warm and dry. PERTINENT LABORATORY DATA: Creatinine is down to 2.2, which is near his baseline. The bilirubin is 2.8, alkaline phosphatase 317. ASSESSMENT: 1. Cholecystitis. 2. Congestive heart failure appears stable. 3. Previous biventricular pacemaker defibrillator. 4. Relatively low blood pressure. 5. Renal failure, improving, near his baseline now. PLAN: 1. Chest x-ray to assess the status of congestive heart failure. 2. We will discuss with Dr. Hernandez. I think the patient is a reasonable candidate to proceed to surgery if necessary. Otherwise, I would suspect to be a higher risk of recurrence of his cholecystitis. 3. We will hold carvedilol. 4. Continue intravenous fluids, probably cut the rate down later today. Job ID: [id number]
--- NOTE | 2019-11-06 10:27 | PRG ---
DATE OF SERVICE: 11/06/2019 Mr. Cerda has decided he does not wish to have surgery at this time. I explained to him that my recommendation is to proceed to having his gallbladder removed, but he declines. The patient understands our recommendations to proceed to surgery. I am afraid that what is going to going to go home and get sicker, come back, potentially septic be a high risk surgery, but the patient understands this, but declines surgery at this time. Job ID: [id number]
--- NOTE | 2019-11-06 10:50 | RAD ---
Exam: Chest one view HISTORY:Dyspnea Comparison: 06/24/2019 FINDINGS: Cardiac silhouette:Cardiomegaly. Stable sternotomy wires. Pacing device: Stable left-sided defibrillator with lead positioned over the right atrium and coronar y sinus and right ventricle Aorta: Slightly elongated Pulmonary vessels: Normal Costophrenic angles: Clear LUNGS: No masses or consolidation. Pneumothorax: None Osseous abnormalities: None IMPRESSION: No acute cardiopulmonary process.
[2019-11-06] MEDS ORDERED: Carvedilol 3.125 MG TAB PO SCH (17:00)
--- NOTE | 2019-11-06 19:43 | DIS ---
DATE OF ADMISSION: 11/05/2019 DATE OF DISCHARGE: 11/06/2019 DISCHARGE DIAGNOSES: 1. Acute cholecystitis. 2. Anemia. 3. Acute kidney injury. 4. Transaminitis. 5. Slightly elevated lipase. CONSULTATIONS: 1. Brent Hernandez DO of General Surgery. 2. Reji Samuels MD with Cardiology. PROCEDURES: None. BRIEF HISTORY OF PRESENT ILLNESS: This is a 79-year-old male with past medical history of ischemic cardiomyopathy, who presented to the emergency room with abdominal pain for the past 4 days that was intermittent in the right upper quadrant colon. The patient denied any nausea, vomiting, fevers, or chills. He denies any association with food. He was noted to have an abdominal ultrasound, which showed acute cholecystitis. His alkaline phosphatase was also elevated at 317. The patient was admitted to the hospital for possible cholecystectomy. HOSPITAL COURSE: Acute cholecystitis: The patient's abdominal pain resolved with morphine. He denied any association of his pain with food. The patient had refused surgical intervention. His LFTs did improve on the day of discharge with his alkaline phosphatase going down to 251. The patient did state that he wants to attend a later this afternoon. He was advised to come back to the hospital if he was to have any recurrence of his abdominal pain, fevers, nausea, or vomiting. Acute kidney injury: The patient had a creatinine of 3.83 on admission. The patient states he was not drinking any water. He was given IV fluids with improvement in his creatinine to 2.20. We have held his Entresto and spironolactone on discharge after discussion with Dr. Marcus. His Coreg will be reduced to 3.125 mg twice daily. He was advised to hold his torsemide today and restarted at 20 mg daily starting tomorrow 11/06. He should get a repeat BMP in a week and repeat creatinine in a week. He will follow up with his PCP in a week. Chronic systolic heart failure: The patient was seen by Dr. Marcus in consultation. Dr. Marcus thought the patient was appropriate for surgical intervention. His medications including his torsemide were reduced to 20 mg daily as mentioned above, and his Coreg was reduced to 3.125 mg twice daily. He will follow up with Dr. Marcus in a week. DISCHARGE PHYSICAL EXAMINATION: VITAL SIGNS: Temperature 98.2, heart rate 80, respiratory rate 14, O2 saturation 98% on room air, and blood pressure 91/57. GENERAL: The patient is alert, awake, and oriented x3. CVS: Regular rate and rhythm with no murmurs, rubs, or gallops. LUNGS: Clear to auscultation bilaterally. ABDOMEN: Positive bowel sounds. Soft, nontender, and nondistended. EXTREMITIES: No edema. PERTINENT LABORATORY DATA: CBC 11/04: White count 5.5, hemoglobin 11.6, hematocrit 35.0, and platelet count 182. BMP 11/04: Showed a creatinine of 3.83. BMP 11/05: Creatinine improved to 2.20. LFTs 11/04: AST 35, ALT 33, and alkaline phosphatase 317. LFTs 11/05: Total bilirubin 1.8, direct bilirubin 1.3, AST 33, ALT 30, and alkaline phosphatase 251. Lipase: 81. UA 11/04: Negative. Digoxin level 11/04: Normal. COVID PCR 11/04: Negative. IMAGIN. Abdominal ultrasound 11/04: Cholelithiasis with gallbladder sludge, wall thickening and positive sonographic Rios sign suggesting acute cholecystitis. 2. Chest x-ray 11/05: No acute disease. DISCHARGE CONDITION: Stable. ACTIVITY: As tolerated. DIET: The patient is advised to resume a heart healthy diet DISCHARGE INSTRUCTIONS: the patient should drink no more than five glasses of water a day. He will follow up with Dr. Marcus in a week and see PCP in a week and get repeat LFTs and kidney function tests in a week. DISCHARGE MEDICATIONS: 1. Coreg 3.125 mg p.o. twice daily. 2. Torsemide 20 mg daily. 3. Iron sulfate 325 mg p.o. b.i.d. 4. Simvastatin 20 mg p.o. daily. 5. Potassium chloride 10 mEq p.o. daily. 6. Omeprazole 40 mg p.o. daily. 7. Digoxin 125 mcg p.o. daily. 8. Amiodarone 200 mg p.o. daily. 9. Allopurinol 100 mg p.o. daily. DISCONTINUED MEDICATIONS: 1. Entresto. 2. Spironolactone. Job ID: [id number] [facility]
[2019-11-07] MEDS ORDERED: Famotidine/PF 20 mg/2ml Vial SLOW IVP SCH (09:00)
== END 2019-11-06 11:25 | disposition home or self-care (01) | DRG 445 ==
LOC: ERS 00:06 → SURG A 03:56
PROVIDERS: ADMIT Internal Medicine; ATTEND Internal Medicine
DX: K80.00 Calculus of gallbladder with acute cholecystitis without obstruction (principal); N17.9 Acute kidney failure, unspecified; I50.22 Chronic systolic (congestive) heart failure; I13.0 Hypertensive heart and chronic kidney disease with heart failure and stage 1 through stage 4 chronic kidney disease, or unspecified chronic kidney disease; Z20.828 Contact with and (suspected) exposure to other viral communicable diseases; Z66 Do not resuscitate; Z51.5 Encounter for palliative care; R74.0 Nonspecific elevation of levels of transaminase and lactic acid dehydrogenase [LDH]; K21.9 Gastro-esophageal reflux disease without esophagitis; M10.9 Gout, unspecified; M19.90 Unspecified osteoarthritis, unspecified site; N18.3 Chronic kidney disease, stage 3 (moderate); I25.5 Ischemic cardiomyopathy; I48.91 Unspecified atrial fibrillation; I34.0 Nonrheumatic mitral (valve) insufficiency; D63.1 Anemia in chronic kidney disease; E78.5 Hyperlipidemia, unspecified; I95.9 Hypotension, unspecified; I25.2 Old myocardial infarction; Z95.1 Presence of aortocoronary bypass graft; Z90.49 Acquired absence of other specified parts of digestive tract; Z87.891 Personal history of nicotine dependence; Z95.810 Presence of automatic (implantable) cardiac defibrillator; Z79.899 Other long term (current) drug therapy; Z88.8 Allergy status to other drugs, medicaments and biological substances; Z95.5 Presence of coronary angioplasty implant and graft
CPT/HCPCS: 36415; 71045; 76705; 80048; 80053; 80076; 80162; 81003; 83690; 83735; 84100; 85025; 93005; 96361; 96374; 96375; J2270; J2405; J2543; J7030; S0028; U0002

== ENCOUNTER 2019-11-10 08:24 | Day surgery (SDC) | payer MEDICARE ==
[2019-11-10 08:34] VITALS: BP 87/52; TEMP 98.6
[2019-11-10] MEDS ORDERED: EPOETIN ALFA-EPBX (ESRD) 40,000 UNIT/ML VIAL ONE (08:38)
[2019-11-10] MEDS ORDERED: EPOETIN ALFA-EPBX (ESRD) 40,000 UNIT/ML VIAL SC SCH (08:45)
== END 2019-11-10 08:39 | disposition home or self-care (01) ==
LOC: ONC/OP 08:24
PROVIDERS: ATTEND Internal Medicine Medical Oncology
DX: D50.8 Other iron deficiency anemias (principal); N18.3 Chronic kidney disease, stage 3 (moderate); D63.1 Anemia in chronic kidney disease; Z88.8 Allergy status to other drugs, medicaments and biological substances; I50.9 Heart failure, unspecified
CPT/HCPCS: 80048; 82728; 83880; 96372; Q5105

== ENCOUNTER 2019-11-24 06:59 | Outpatient (CLI) | payer MEDICARE, OTHER ==
[2019-11-24 11:24] LABS: Hemoglobin 11.5 g/dL (14.0-18.0); Mean Corpuscular HGB CONC 32.5 g/dL (32.0-36.0); Mean Corpuscular Hemoglobin 29.3 pg (27.0-31.0); Mean Corpuscular Volume 90.2 fL (78.0-98.0); Mean Platelet Volume 10.5 fL (7.4-10.4); Platelet Count 153 thou/uL (130-400); RBC Distribution Width 14.3 % (11.5-14.5); Red Blood Cell (RBC) Count 3.91 mill/uL (4.70-6.10); White Blood Cell (WBC) Count 5.1 thou/uL (4.8-10.8)
[2019-11-24 11:50] LABS: ALT (SGPT) 44 U/L (8-55); AST (SGOT) 40 U/L (5-34); Albumin 3.5 g/dL (3.4-4.8); Alkaline Phosphatase 336 U/L (40-110); Anion Gap 15 mmol/L (10-20); BUN (Urea Nitrogen) 42 mg/dL (8.4-25.7); Bilirubin, Total 2.6 mg/dL (0.2-1.2); Calc. Creatinine Clearance 0 mL/min (70-130); Calcium 8.5 mg/dL (7.8-10.44); Carbon Dioxide 21 mmol/L (23-31); Chloride 104 mmol/L (98-107); Estimated GFR-MDRD 38; Globulin 2.8 g/dL (2.4-3.5); Glucose 170 mg/dL (83-110); Potassium 3.7 mmol/L (3.5-5.1); Protein, Total 6.3 g/dL (5.8-8.1); Sodium 136 mmol/L (136-145)
[2019-11-25 12:44] LABS: SARS-CoV-2 MS2 Positive; SARS-CoV-2 N Gene Negative; SARS-CoV-2 S Gene Negative; SARS-CoV-2 by NAA Not Detected (NotDetected); SARS-CoV-2 orf1ab Negative
== END 2019-11-24 07:00 | disposition home or self-care (01) ==
LOC: LABBT 06:59
PROVIDERS: ATTEND Specialist
DX: Z01.812 Encounter for preprocedural laboratory examination (principal); Z11.59 Encounter for screening for other viral diseases; K82.8 Other specified diseases of gallbladder
CPT/HCPCS: 80053; 85027; U0003; 83880; 87635

== ENCOUNTER 2019-11-29 08:37 | Day surgery (SDC) | payer MEDICARE ==
[2019-11-24 10:10] VITALS: BMI 22.4
--- NOTE | 2019-11-29 08:45 | HP ---
HISTORY OF PRESENT ILLNESS: Gagandeep Cerda is a 79-year-old black male patient with episodic right upper quadrant pain, recently hospitalized, has symptomatic cholelithiasis. Bile duct caliber is normal. The patient saw Dr. Marcus for cardiac clearance, which was obtained, felt it was safe to proceed with laparoscopic cholecystectomy. Gallbladder ultrasound on 11/05/2019 reveals gallbladder sludge and stones, common bile duct without dilatation. The patient had laboratories on 11/05/2019. CBC and comprehensive metabolic were normal. pacemaker. He saw Claudia Garduno cardiac clearance at [facility], at that point was asymptomatic chronic atrial fibrillation is cleared for surgery without further evaluation or studies. PAST SURGICAL HISTORY: 1. Appendectomy. 2. Coronary artery bypass graft. 3. Defibrillator. 4. surgery. PAST MEDICAL HISTORY: 1. Coronary artery disease includes placement of stent and CABG x3 in 1997, followed by Dr. Marcus. Recently had an echocardiogram, his Xarelto has been held. Echocardiogram on 05/17/2019 with 20% to 25% cardiac ejection fraction, [id number] tricuspid regurg, severely elevated pulmonary artery pressure. 2. History of cardiomyopathy. 3. Had a colonoscopy . 4. Elevated cholesterol. 5. Diabetes type 2. 6. in the past. HABITS: Tobacco, none. ALLERGIES: NONE SIGNIFICANT REVIEW OF SYSTEMS: Ten[place]point otherwise noncontributory. PHYSICAL EXAMINATION: VITAL SIGNS: Weight 163 pounds, height 72 inches, and 22 BMI. Blood pressure 103/60, heart rate 88, and temperature 97.4 degrees. HEAD, EARS, EYES, NOSE, AND THROAT: Unremarkable. LUNGS: Clear to auscultation. CARDIAC: Regular rate and rhythm without murmur or gallop. ABDOMEN: Soft. Defibrillator present. Mild tenderness in right upper quadrant. EXTREMITIES: Without edema. ASSESSMENT AND PLAN: 1. Symptomatic cholelithiasis. We would recommend laparoscopic video cholecystectomy. Risks of infection, bleeding, visceral and biliary injury discussed. 2. Coronary artery disease stable with chronic systolic congestive heart failure, 20% to 25% ejection fraction. No history of cardiac symptoms. Cleared by Cardiology for laparoscopic cholecystectomy. Other medical problems as noted above. Hold [employer] 2 to 3 days preoperatively. Job ID: [id number]
[2019-11-29] MEDS ORDERED: Fentanyl 100 MCG/2 ML VIAL ONE (09:00)
[2019-11-29] MEDS ORDERED: Lidocaine 1% w/Epinephrine 1:100K 20 ML VIAL ONE (09:01)
[2019-11-29] MEDS ORDERED: Bupivacaine PF 0.5% 30 ML VIAL ONE (09:01)
[2019-11-29] MEDS ORDERED: Ketorolac Tromethamine 30 MG/ML VIAL ONE (09:15)
[2019-11-29] MEDS ORDERED: Acetaminophen 500 MG TAB ONE (09:15)
[2019-11-29] MEDS ORDERED: PHENYLEPHRINE-NS 100 MCG/ML 10 ML SYRINGE ONE (09:26)
[2019-11-29] MEDS ORDERED: Ondansetron PF 4 MG/2 ML Vial ONE (09:26)
[2019-11-29] MEDS ORDERED: Glycopyrrolate 0.2 MG/ML 5 ML SYRINGE ONE (09:26)
[2019-11-29] MEDS ORDERED: Lidocaine 1% PF 5 ML VIAL ONE (09:26)
[2019-11-29] MEDS ORDERED: Rocuronium Bromide 10 MG/ML (10ML VIAL) ONE (09:26)
[2019-11-29] MEDS ORDERED: Phenylephrine 10 MG/ML VIAL ONE (09:36)
--- NOTE | 2019-11-29 11:53 | OP ---
DATE OF PROCEDURE: 11/29/2019 PREOPERATIVE DIAGNOSES: Chronic cholecystitis and cholelithiasis, congestive heart failure cleared by Cardiology. POSTOPERATIVE DIAGNOSES: Chronic cholecystitis and cholelithiasis, congestive heart failure cleared by Cardiology. PROCEDURE PERFORMED: Laparoscopic video cholecystectomy. ANESTHESIA: General, local 0.5% Marcaine 30 mL mixed with 1% Xylocaine with epinephrine 20 mL. DESCRIPTION OF PROCEDURE: The patient was taken to the operating room, where under general anesthesia, abdomen was prepared with ChloraPrep and draped in routine fashion. Local anesthetic was infiltrated in the skin and subcutaneous tissue about each port site. Infraumbilical incision was made. Pneumoperitoneum to 15 mmHg was obtained with a Veress needle, replaced with a 5 port, video laparoscope inserted. Right subxiphoid incision was made and 11 port was placed. Right subcostal incision was made in midclavicular entrance line. A 5 port was placed. Liver appeared to be normal. Gallbladder and fundus grasped and reflected cephalad. Infundibulum grasped and reflected laterally. Cystic artery and duct dissected free. Critical view obtained. Cystic artery and duct doubly clipped proximally and divided. Gallbladder dissected free from liver bed obtaining good hemostasis prior to division of final peritoneal attachments. Gallbladder and contents removed, submitted to Pathology. Good hemostasis obtained with cautery. Kb was used. Irrigant and pneumoperitoneum evacuated. All instruments were removed. All skin incisions were approximated with interrupted subdermal 4-0 Monocryl and [place] glue applied. Job ID: [id number]
[2019-11-29] MEDS ORDERED: HYDROcodone/Acetaminophen 5/325 mg Tablet ONE (12:14)
[2019-11-29] MEDS ORDERED: Furosemide 40 MG/4 ML VIAL ONE (13:27)
[2019-11-29] MEDS ORDERED: Tamsulosin HCl 0.4 MG CAP ONE (17:51)
== END 2019-11-29 18:44 | disposition home or self-care (01) ==
LOC: SDC 08:37
PROVIDERS: ATTEND Specialist
PROC: 0FT44ZZ Resection of Gallbladder, Percutaneous Endoscopic Approach (ICD-10-PCS; principal; 2019-11-29)
DX: K80.10 Calculus of gallbladder with chronic cholecystitis without obstruction (principal); K82.8 Other specified diseases of gallbladder; I11.0 Hypertensive heart disease with heart failure; I50.22 Chronic systolic (congestive) heart failure; I25.10 Atherosclerotic heart disease of native coronary artery without angina pectoris; I42.9 Cardiomyopathy, unspecified; E78.00 Pure hypercholesterolemia, unspecified; E11.9 Type 2 diabetes mellitus without complications; I48.20 Chronic atrial fibrillation, unspecified; M19.90 Unspecified osteoarthritis, unspecified site; K21.9 Gastro-esophageal reflux disease without esophagitis; M10.9 Gout, unspecified; Z87.891 Personal history of nicotine dependence; Z79.899 Other long term (current) drug therapy; Z88.8 Allergy status to other drugs, medicaments and biological substances; Z95.1 Presence of aortocoronary bypass graft; Z95.5 Presence of coronary angioplasty implant and graft; Z95.810 Presence of automatic (implantable) cardiac defibrillator
CPT/HCPCS: 51798; 88304; J0690; J1885; J1940; J2370; J2405; J3010; S0020

== ENCOUNTER 2020-01-05 09:01 | Day surgery (SDC) | payer MEDICARE ==
[2020-01-05] MEDS ORDERED: EPOETIN ALFA-EPBX (ESRD) 40,000 UNIT/ML VIAL ONE (09:08)
[2020-01-05 09:15] VITALS: BP 128/57; TEMP 97.8
== END 2020-01-05 11:05 | disposition home or self-care (01) ==
LOC: ONC/OP 09:01
PROVIDERS: ATTEND Internal Medicine Medical Oncology
DX: N18.3 Chronic kidney disease, stage 3 (moderate) (principal); D63.1 Anemia in chronic kidney disease; D50.8 Other iron deficiency anemias; Z88.8 Allergy status to other drugs, medicaments and biological substances
CPT/HCPCS: 96372; Q5105

== ENCOUNTER 2020-01-19 08:55 | Day surgery (SDC) | payer MEDICARE ==
[2020-01-19] MEDS ORDERED: EPOETIN ALFA-EPBX (ESRD) 40,000 UNIT/ML VIAL ONE (09:08)
[2020-01-19 09:28] VITALS: BP 93/52
[2020-01-19] MEDS ORDERED: EPOETIN ALFA-EPBX (ESRD) 40,000 UNIT/ML VIAL SC SCH (09:30)
== END 2020-01-19 09:22 | disposition home or self-care (01) ==
LOC: ONC/OP 08:55
PROVIDERS: ATTEND Internal Medicine Medical Oncology
DX: N18.3 Chronic kidney disease, stage 3 (moderate) (principal); D63.1 Anemia in chronic kidney disease; D50.8 Other iron deficiency anemias; Z88.8 Allergy status to other drugs, medicaments and biological substances
CPT/HCPCS: 96372; Q5105

== ENCOUNTER 2020-01-26 09:13 | Day surgery (SDC) | payer MEDICARE ==
[2020-01-26] MEDS ORDERED: EPOETIN ALFA-EPBX (ESRD) 40,000 UNIT/ML VIAL ONE (09:19)
[2020-01-26 09:30] VITALS: BP 93/50; TEMP 98.7
== END 2020-01-26 09:34 | disposition home or self-care (01) ==
LOC: ONC/OP 09:13
PROVIDERS: ATTEND Internal Medicine Medical Oncology
DX: N18.3 Chronic kidney disease, stage 3 (moderate) (principal); D63.1 Anemia in chronic kidney disease; D50.8 Other iron deficiency anemias; Z88.8 Allergy status to other drugs, medicaments and biological substances
CPT/HCPCS: 80048; 96372; Q5105

== ENCOUNTER 2020-02-02 08:43 | Day surgery (SDC) | payer MEDICARE, OTHER ==
[2020-02-02] MEDS ORDERED: EPOETIN ALFA-EPBX (ESRD) 40,000 UNIT/ML VIAL ONE (09:03)
[2020-02-02 09:23] VITALS: BP 97/53; TEMP 97.9
[2020-02-02] MEDS ORDERED: EPOETIN ALFA-EPBX (ESRD) 40,000 UNIT/ML VIAL SC SCH (09:30)
== END 2020-02-02 09:25 | disposition home or self-care (01) ==
LOC: ONC/OP 08:43
PROVIDERS: ATTEND Internal Medicine Medical Oncology
DX: N18.30 Chronic kidney disease, stage 3 unspecified (principal); D63.1 Anemia in chronic kidney disease; D50.8 Other iron deficiency anemias; Z88.8 Allergy status to other drugs, medicaments and biological substances
CPT/HCPCS: 96372; Q5105

== ENCOUNTER 2020-02-09 08:45 | Day surgery (SDC) | payer MEDICARE ==
[2020-02-09] MEDS ORDERED: EPOETIN ALFA-EPBX (ESRD) 40,000 UNIT/ML VIAL ONE (08:48)
[2020-02-09 09:00] VITALS: BP 98/54; TEMP 97.7
[2020-02-09] MEDS ORDERED: EPOETIN ALFA-EPBX (ESRD) 40,000 UNIT/ML VIAL SC SCH (09:15)
== END 2020-02-09 09:12 | disposition home or self-care (01) ==
LOC: ONC/OP 08:45
PROVIDERS: ATTEND Internal Medicine Medical Oncology
DX: N18.30 Chronic kidney disease, stage 3 unspecified (principal); D63.1 Anemia in chronic kidney disease; D50.8 Other iron deficiency anemias; Z88.8 Allergy status to other drugs, medicaments and biological substances
CPT/HCPCS: 96372; Q5105

== ENCOUNTER 2020-02-16 09:00 | Day surgery (SDC) | payer MEDICARE ==
[2020-02-16] MEDS ORDERED: EPOETIN ALFA-EPBX (ESRD) 40,000 UNIT/ML VIAL SC SCH (09:15)
== END 2020-02-16 09:41 | disposition home or self-care (01) ==
LOC: ONC/OP 09:00
PROVIDERS: ATTEND Internal Medicine Medical Oncology
DX: N18.30 Chronic kidney disease, stage 3 unspecified (principal); D63.1 Anemia in chronic kidney disease; D50.8 Other iron deficiency anemias; Z88.8 Allergy status to other drugs, medicaments and biological substances
CPT/HCPCS: 96372; Q5105

== ENCOUNTER 2020-02-23 08:20 | Day surgery (SDC) | payer MEDICARE ==
[2020-02-23] MEDS ORDERED: EPOETIN ALFA-EPBX (ESRD) 40,000 UNIT/ML VIAL ONE (08:22)
[2020-02-23] MEDS ORDERED: EPOETIN ALFA-EPBX (ESRD) 40,000 UNIT/ML VIAL SC SCH (08:30)
[2020-02-23 08:47] VITALS: BP 103/54; TEMP 97.7
== END 2020-02-23 08:51 | disposition home or self-care (01) ==
LOC: ONC/OP 08:20
PROVIDERS: ATTEND Internal Medicine Medical Oncology
DX: N18.30 Chronic kidney disease, stage 3 unspecified (principal); D63.1 Anemia in chronic kidney disease; D50.8 Other iron deficiency anemias; Z88.8 Allergy status to other drugs, medicaments and biological substances
CPT/HCPCS: 96372; Q5105

== ENCOUNTER 2020-03-15 08:31 | Day surgery (SDC) | payer MEDICARE ==
[~2020-03-15 08:31] MED LIST changes: -EPOETIN ALFA-EPBX (ESRD) 40,000 UNIT/ML VIAL ONE; +EPOETIN ALFA-EPBX (ESRD) 40,000 UNIT/ML VIAL SC SCH
[2020-03-15 08:35] VITALS: BP 107/63
== END 2020-03-15 08:38 | disposition home or self-care (01) ==
LOC: ONC/OP 08:31
PROVIDERS: ATTEND Internal Medicine Medical Oncology
DX: N18.30 Chronic kidney disease, stage 3 unspecified (principal); D63.1 Anemia in chronic kidney disease; D50.8 Other iron deficiency anemias; Z88.8 Allergy status to other drugs, medicaments and biological substances
CPT/HCPCS: 96372; Q5105

== ENCOUNTER 2020-03-22 08:17 | Day surgery (SDC) | payer MEDICARE ==
[2020-03-22] MEDS ORDERED: EPOETIN ALFA-EPBX (ESRD) 40,000 UNIT/ML VIAL ONE (08:23)
[2020-03-22 10:08] VITALS: BP 94/51; TEMP 97.9
== END 2020-03-22 10:12 | disposition home or self-care (01) ==
LOC: ONC/OP 08:17
PROVIDERS: ATTEND Internal Medicine Medical Oncology
DX: N18.30 Chronic kidney disease, stage 3 unspecified (principal); D63.1 Anemia in chronic kidney disease; D50.8 Other iron deficiency anemias; Z88.8 Allergy status to other drugs, medicaments and biological substances
CPT/HCPCS: 96372; Q5105

== ENCOUNTER 2020-04-05 08:34 | Day surgery (SDC) | payer MEDICARE, OTHER ==
[2020-04-05] MEDS ORDERED: EPOETIN ALFA-EPBX (ESRD) 40,000 UNIT/ML VIAL ONE (08:37)
[2020-04-05 12:47] VITALS: BP 102/59
== END 2020-04-05 12:50 | disposition home or self-care (01) ==
LOC: ONC/OP 08:34
PROVIDERS: ATTEND Internal Medicine Medical Oncology
DX: N18.30 Chronic kidney disease, stage 3 unspecified (principal); D63.1 Anemia in chronic kidney disease; D50.8 Other iron deficiency anemias; Z88.8 Allergy status to other drugs, medicaments and biological substances
CPT/HCPCS: 96372; Q5105

== ENCOUNTER 2020-04-17 08:58 | Day surgery (SDC) | payer MEDICARE, OTHER ==
[2020-04-17 09:12] VITALS: BP 106/62; TEMP 98
[2020-04-17] MEDS ORDERED: EPOETIN ALFA-EPBX (ESRD) 40,000 UNIT/ML VIAL SC SCH (09:15)
== END 2020-04-17 09:42 | disposition home or self-care (01) ==
LOC: ONC/OP 08:58
PROVIDERS: ATTEND Internal Medicine Medical Oncology
DX: N18.30 Chronic kidney disease, stage 3 unspecified (principal); D63.1 Anemia in chronic kidney disease; D50.8 Other iron deficiency anemias
CPT/HCPCS: 96372; Q5105

== ENCOUNTER 2020-04-24 08:35 | Day surgery (SDC) | payer MEDICARE ==
[2020-04-24] MEDS ORDERED: EPOETIN ALFA-EPBX (ESRD) 40,000 UNIT/ML VIAL ONE (08:36)
[2020-04-24 08:52] VITALS: BP 97/54; TEMP 99.8
== END 2020-04-24 09:00 | disposition home or self-care (01) ==
LOC: ONC/OP 08:35
PROVIDERS: ATTEND Internal Medicine Medical Oncology
DX: N18.30 Chronic kidney disease, stage 3 unspecified (principal); D63.1 Anemia in chronic kidney disease; D50.8 Other iron deficiency anemias; Z88.8 Allergy status to other drugs, medicaments and biological substances
CPT/HCPCS: 96372; Q5105

== ENCOUNTER 2020-04-28 00:42 | Inpatient (IN) | payer MEDICARE ==
[2020-04-28 01:23] LABS: #Lymphocytes 0.3 thou/uL (1.20-3.40); #Monocytes 0.7 thou/uL (0.11-0.59); #Neutrophils 3.7 thou/uL (1.40-6.50); %Lymphocytes 7.1 % (21.0-51.0); %Neutrophils 78.9 % (42.0-75.0); Hemoglobin 10.3 g/dL (14.0-18.0); Mean Corpuscular HGB CONC 33.6 g/dL (32.0-36.0); Mean Corpuscular Hemoglobin 27.5 pg (27.0-31.0); Mean Corpuscular Volume 81.7 fL (78.0-98.0); Mean Platelet Volume 4.9 fL (7.4-10.4); Platelet Count 106 thou/uL (130-400); RBC Distribution Width 14.1 % (11.5-14.5); Red Blood Cell (RBC) Count 3.77 mill/uL (4.70-6.10); White Blood Cell (WBC) Count 4.7 thou/uL (4.8-10.8)
[2020-04-28 01:33] LABS: Bacteria/HPF 1+ HPF (None Seen); Bilirubin Negative (Negative); Blood, Urine Negative (Negative); Clarity Turbid (Clear); Glucose, Urine (Dipstick) Normal (Negative); Ketone, Urine Negative (Negative); Leukocyte Negative Leu/uL (Negative); Nitrite Negative (Negative); Protein, Urine (Dipstick) 30 mg/dL (Neg-Trace); RBC/HPF 0-3 HPF (0-3); Specific Gravity, Urine 1.015 (1.002-1.036); Squamous Epithelial 0-3 HPF (0-3); Urobilinogen Normal mg/dL (Less than 2); WBC/HPF 0-3 HPF (0-3)
[2020-04-28 01:45] LABS: ALT (SGPT) 28 U/L (8-55); AST (SGOT) 62 U/L (5-34); Albumin 3.1 g/dL (3.4-4.8); Alkaline Phosphatase 260 U/L (40-110); Anion Gap 17 mmol/L (10-20); BUN (Urea Nitrogen) 70 mg/dL (8.4-25.7); Calc. Creatinine Clearance 0 mL/min (70-130); Calcium 7.7 mg/dL (7.8-10.44); Carbon Dioxide 15 mmol/L (23-31); Chloride 100 mmol/L (98-107); Globulin 2.9 g/dL (2.4-3.5); Glucose 100 mg/dL (83-110); Magnesium 2.2 mg/dL (1.6-2.6); Potassium 4.1 mmol/L (3.5-5.1); Sodium 128 mmol/L (136-145)
[2020-04-28 02:06] LABS: CKMB 1.4 ng/mL (0-6.6)
[2020-04-28] MEDS ORDERED: Cefepime 2 GM VIAL ONE ×2 (02:13→15:52)
[2020-04-28] MEDS ORDERED: Vancomycin 1 GM/200 ML BAG ONE (02:50)
[2020-04-28] MEDS ORDERED: Norepinephrine 8 MG/0.9% NS 250 ML ONE (03:09)
[2020-04-28] MEDS ORDERED: DOBUTamine 500 mg/250 ml 250 ML ONE (04:42)
[2020-04-28 04:53] LABS: SARS-CoV-2 NAA Rapid Test DETECTED (NotDetected)
[2020-04-28 05:06] LABS: Troponin I 0.208 ng/mL (< 0.028)
--- NOTE | 2020-04-28 05:23 | PDOC.HHP ---
Hospitalist HPI - History of Present Illness Weakness History of Present Illness: This is an 80-year-old male patient with a history of GERD, gout, CHF status post AICD, [place] status post CABG who presents with worsening weakness for the past couple of days. Patient notes that a chili dog couple of days ago which tasted funny and may be the cause of his weakness. He denies any associated chest pain shortness of breath fever headache or constipation. He notes having had 2 episodes of diarrhea. He also denies any dysuria frequency. Given progressive weakness he activated EMS which brought him to the ED for further evaluation. At presentation his blood pressure was 97/54, pulse 87, respiratory 22, tem perature 100.7 and saturating 95 on room air. His labs showed WBC of 4.7, hemoglobin 10.6, platelets 106 sodium 128, creatinine 3.12 from a baseline of 2.12 a month ago. Alkaline phosphatase was elevated to 60, troponin 0 0.225, BNP 280. Chest x-ray was concerning for bilateral infiltrates. He was started on Levophed for blood pressure support after 1.5 L normal saline. Also received vancomycin and cefepime Hospitalist team was consulted for admission. Hospitalist ROS - Review of Systems Constitutional: reports: weakness, malaise. denies: fever, chills Respiratory: denies: cough, shortness of breath, hemoptysis, SOB with excertion Cardiovascular: denies: chest pain, palpitations, orthopnea, paroxysmal noc. dyspnea Gastrointestinal: reports: diarrhea. denies: nausea, vomiting, abdominal pain, constipation Genitourinary: denies: dysuria, frequency, incontinence, hematuria Musculoskeletal: denies: neck pain, shoulder pain, arm pain, back pain Neurological: denies: weakness, numbness, incoordination All other systems reviewed; all pertinent +/- noted in HPI/Subj - Medication Medications: Medications: Can refer to ambulatory [facility]. Allergies: Iron dextran, diphenhydramine Hospitalist History - Past Medical History Other Medical History: GERD, gout, arthritis, CHF, [place]. - Past Surgical History Other Surgical History: CABG, appendectomy - Family History Family History: reports: no pertinent history - Social History Smoking Status: Never smoker Alcohol: reports: None Living Situation: With Family Hospitalist Results - Labs Result Diagrams: 04/29/20 05:16 05/01/20 05:46 Lab results: WBC 4.7 thou/uL (4.8-10.8) L 04/28/20 01:13 Hgb 10.3 g/dL (14.0-18.0) L 04/28/20 01:13 Hct 30.8 % (42.0-52.0) L 04/28/20 01:13 MCV 81.7 fL (78.0-98.0) 04/28/20 01:13 Plt Count 106 thou/uL (130-400) L 04/28/20 01:13 Neutrophils % 78.9 % (42.0-75.0) H 04/28/20 01:13 Sodium 128 mmol/L (136-145) L 04/28/20 01:12 Potassium 4.1 mmol/L (3.5-5.1) 04/28/20 01:12 Chloride 100 mmol/L (98-107) 04/28/20 01:12 Carbon Dioxide 15 mmol/L (23-31) L 04/28/20 01:12 BUN 70 mg/dL (8.4-25.7) H 04/28/20 01:12 Creatinine 3.12 mg/dL (0.7-1.3) H 04/28/20 01:12 Glucose 100 mg/dL (83-110) 04/28/20 01:12 Lactic Acid 0.6 mmol/L (0.5-2.2) 04/28/20 02:22 Calcium 7.7 mg/dL (7.8-10.44) L 04/28/20 01:12 Total Bilirubin 1.0 mg/dL (0.2-1.2) 04/28/20 01:12 AST 62 U/L (5-34) H 04/28/20 01:12 ALT 28 U/L (8-55) 04/28/20 01:12 Alkaline Phosphatase 260 U/L (40-110) H 04/28/20 01:12 CK-MB (CK-2) 1.4 ng/mL (0-6.6) 04/28/20 01:12 Troponin I 0.208 ng/mL (< 0.028) H 04/28/20 04:29 B-Natriuretic Peptide 280.5 pg/mL (0-100) H 12/27/20 01:12 Serum Total Protein 6.0 g/dL (5.8-8.1) 04/28/20 01:12 Albumin 3.1 g/dL (3.4-4.8) L 04/28/20 01:12 Urine Ketones Negative mg/dL (Negative) 04/28/20 01:20 Urine Blood Negative (Negative) 04/28/20 01:20 Urine Nitrite Negative (Negative) 04/28/20 01:20 Ur Leukocyte Esterase Negative Vin/uL (Negative) 04/28/20 01:20 Urine RBC 0-3 HPF (0-3) 04/28/20 01:20 Urine WBC 0-3 HPF (0-3) 04/28/20 01:20 Ur Squamous Epith Cells 0-3 HPF (0-3) 04/28/20 01:20 Urine Bacteria 1+ HPF (None Seen) A 04/28/20 01:20 Hospitalist H&P A/P - Plan Plan: This is an 80-year-old male patient with a history of coronary disease status post CABG, heart failure with AICD who presents with worsening weakness for the past 2 to 4 days. He was hypotensive not responsive to IV fluids. He was started on Levophed and subsequently dobutamine. You have also test positive for Covid. Septic shock Patient is hypotensive refractory to IV fluids. Started on Levophed. Source likely pneumoniapossibly Covid however CAP cannot be ruled out Consultation with cardiology was changed to dobutamine We will continue antibiotics with cefepime and doxycycline Follow-up cultures De-escalate antibiotics as needed Possible cardiogenic shock. Started on a trial of dobutamine Consult cardiology. Heart failure exacerbation EF about a year ago was 2024% has AICD Repeat echocardiogram Appreciate cardiology input. Pneumonia due to Covid Patient is Covid positive with infiltrates bilaterally Start vitamins Hold steroids and remdesivir for now Check CRP ferritin D-dimer monitor closely. NSTEMI Likely secondary to hypotension We will trend troponin Appreciate cardiology input ANTOINE Likely prerenal In the setting of reduced cardiac output Continue pressors and dobutamine as needed Renal consult if deteriorates Coronary disease No chest pain underwent Continue monitoring VT prophylaxisLovenox CODE STATUSDNR
--- NOTE | 2020-04-28 08:00 | RAD ---
Chest AP view INDICATION: History of food poisoning and diarrhea COMPARISON: January 28, 2020 at 2:14 AM FINDINGS: Lungs: There is worsening bilateral perihilar airspace opacities suspicious for edema Cardiac silhouette: There is moderate to prominent cardiomegaly Pulmonary vasculature: There is worsening pulmonary vascular congestion Pleural spaces: Tiny bilateral pleural effusions. There is layering fluid within the right minor fis sure Upper abdomen: No abnormality seen. Osseous structures: No acute osseous abnormality. Additional findings: There is a multi lead AICD and post-CABG change. There is a new right subclavia n central venous catheter. No pneumothorax is evident. IMPRESSION: Worsening CHF or volume overload. New right-sided subclavian central venous catheter. No pneumothorax .
[2020-04-28] MEDS ORDERED: Doxycycline 100 MG in Syringe 0 ML IVPB SCH (09:00)
--- NOTE | 2020-04-28 09:58 | RAD ---
Exam: Chest one view HISTORY:Weakness. Comparison: 12/10/2019 FINDINGS: Cardiac silhouette:Artery megaly. Sternotomy wires. Stable 3-lead left-sided defibrillator. Aorta: Unremarkable Pulmonary vessels: Normal Costophrenic angles: Clear LUNGS: Scattered interstitial and alveolar opacities Pneumothorax: None Osseous abnormalities: None IMPRESSION: Multifocal scattered interstitial and alveolar opacities. Correlate for congestive heart failure.
[2020-04-28] MEDS: Ascorbic Acid 500 mg Chewable Tablet PO SCH (10:00)
[2020-04-28] MEDS: Cholecalciferol (Vitamin D3) 400 UNITS TAB PO SCH (10:00)
[2020-04-28] MEDS: Heparin 5,000 UNITS/ML VIAL SC SCH ×3 (10:00→21:54)
[2020-04-28] MEDS: Zinc Sulfate 220 MG CAP PO SCH (10:00)
[2020-04-28] MEDS: Cefepime 2 GM in Sodium Chloride 0.9% 100 ML IVPB SCH (15:50)
[2020-04-28] MEDS ORDERED: Dexamethasone 4 mg/ml Vial SLOW IVP SCH (18:15)
[2020-04-28] MEDS ORDERED: DOBUTamine 500 mg/250 ml 500 MG in Premix Bag 1 BAG IVPB SCH (19:30)
[2020-04-28] MEDS: Acetaminophen 325 MG TAB PO PRN (21:54)
[2020-04-28] MEDS: Diabetic Tussin 200 MG/10 ML UDCUP PO PRN (21:54)
[2020-04-29] MEDS: Cefepime 2 GM in Sodium Chloride 0.9% 100 ML IVPB SCH ×2 (01:05→12:46)
[2020-04-29] MEDS: Diabetic Tussin 200 MG/10 ML UDCUP PO PRN ×2 (03:31→20:31)
[2020-04-29 05:52] LABS: #Lymphocytes 0.4 thou/uL (1.20-3.40); #Monocytes 0.2 thou/uL (0.11-0.59); #Neutrophils 6.1 thou/uL (1.40-6.50); %Eosinophils 0.1 % (0.0-10.0); %Lymphocytes 5.9 % (21.0-51.0); %Monocytes 2.9 % (0.0-10.0); %Neutrophils 91.2 % (42.0-75.0); Hemoglobin 10.5 g/dL (14.0-18.0); Mean Corpuscular HGB CONC 32.5 g/dL (32.0-36.0); Mean Corpuscular Hemoglobin 26.7 pg (27.0-31.0); Mean Corpuscular Volume 82.3 fL (78.0-98.0); Platelet Count 114 thou/uL (130-400); RBC Distribution Width 14.4 % (11.5-14.5); Red Blood Cell (RBC) Count 3.91 mill/uL (4.70-6.10); White Blood Cell (WBC) Count 6.7 thou/uL (4.8-10.8)
[2020-04-29 06:09] LABS: Anion Gap 18 mmol/L (10-20); BUN (Urea Nitrogen) 49 mg/dL (8.4-25.7); Calc. Creatinine Clearance 34 mL/min (70-130); Calcium 7.9 mg/dL (7.8-10.44); Carbon Dioxide 12 mmol/L (23-31); Chloride 110 mmol/L (98-107); Glucose 139 mg/dL (83-110); Potassium 4.5 mmol/L (3.5-5.1); Sodium 135 mmol/L (136-145)
[2020-04-29] MEDS: Heparin 5,000 UNITS/ML VIAL SC SCH ×3 (07:30→20:26)
[2020-04-29] MEDS: Ascorbic Acid 500 mg Chewable Tablet PO SCH (07:33)
[2020-04-29] MEDS: Digoxin 0.125 MG TAB PO SCH (07:33)
[2020-04-29] MEDS: Dexamethasone 4 mg/ml Vial SLOW IVP SCH (07:33)
[2020-04-29] MEDS: Torsemide 20 MG TAB PO SCH (07:34)
[2020-04-29] MEDS: Zinc Sulfate 220 MG CAP PO SCH (07:34)
[2020-04-29] MEDS: Cholecalciferol (Vitamin D3) 400 UNITS TAB PO SCH (07:34)
--- NOTE | 2020-04-29 14:10 | PDOC.HOSPP ---
- Subjective Encounter Date: 04/29/20 Encounter Time: 12:50 Subjective: f/u for COVID +/ANTOINE/Gen weakness/? sepis with shock. Receiving Dobutamine gtt currently and BP stable per nursing. Currently on Cefepime/Doxycycline but denies any prominent resp sx. Remains on RA currently. - Objective Vital Signs & Weight: Vital Signs (12 hours) Temp Pulse Resp BP Pulse Ox 04/29/20 11:34 97.4 F L 81 16 111/57 L 100 04/29/20 07:53 97.8 F 87 20 112/58 L 98 04/29/20 07:33 81 04/29/20 03:38 97.8 F 81 20 104/57 L 100 Weight Admit Weight 176 lb 12.8 oz Weight 176 lb 12.8 oz I&O: 04/28/20 04/29/20 04/30/20 06:59 06:59 06:59 Intake Total 694 Output Total 800 Balance -106 Result Diagrams: 04/29/20 05:16 04/29/20 05:16 Additional Labs: Microbiology 04/28/20 02:22 Venous blood - Right Hand Blood Culture - Preliminary Specimen has been received and culture in progress. No Growth to date. 04/28/20 02:22 Venous blood - Left Hand Blood Culture - Preliminary Specimen has been received and culture in progress . No Growth to date. Laboratory Tests 04/28/20 04/28/20 04/28/20 01:12 01:12 01:12 D-Dimer Carbon Dioxide 15 L Creatinine 3.12 H Ferritin Troponin I 0.225 H C-Reactive Protein B-Natriuretic Peptide 280.5 H SARS-CoV-2 Rap RNA(RT-PCR) 04/28/20 04/28/20 04/28/20 03:47 04:29 07:32 D-Dimer Carbon Dioxide Creatinine Ferritin Troponin I 0.208 H 0.210 H C-Reactive Protein B-Natriuretic Peptide SARS-CoV-2 Rap RNA(RT-PCR) DETECTED A* 04/29/20 04/29/20 04/29/20 05:16 05:16 05:16 D-Dimer 0.61 H Carbon Dioxide Creatinine Ferritin 445.78 H Troponin I C-Reactive Protein 10.34 H B-Natriuretic Peptide SARS-CoV-2 Rap RNA(RT-PCR) Radiology Reviewed by me: Yes (PCXR - bilat infiltrates) EKG Reviewed by me: Yes (Tele - V-paced in 80's) Hospitalist ROS - Medication Medications: Active Medications Generic Name Dose Route Start Last Admin Trade Name Freq PRN Reason Stop Dose Admin Acetaminophen 650 mg 04/28/20 21:13 04/28/20 21:54 Acetaminophen 325 Mg Tab PO 650 mg Q6H PRN Administration Fever/Mild Pain Ascorbic Acid 1,000 mg 04/28/20 09:00 04/29/20 07:33 Ascorbic Acid 500 Mg Chewable Tablet PO 1,000 mg DAILY BRIE Administration Cholecalciferol 400 units 04/28/20 09:00 04/29/20 07:34 Cholecalciferol (Vitamin D3) 400 Units Tab PO 400 units DAILY BRIE Administration Dexamethasone 8 mg 04/29/20 09:00 04/29/20 07:33 Dexamethasone 4 Mg/Ml Vial SLOW IVP 8 mg DAILY BRIE Administration Digoxin 0.125 mg 04/29/20 09:00 04/29/20 07:33 Digoxin 0.125 Mg Tab PO 0.125 mg DAILY BRIE Administration Guaifenesin 200 mg 04/28/20 21:19 04/29/20 03:31 Diabetic Tussin 200 Mg/10 Ml Udcup PO 200 mg Q4H PRN Administration Cough Heparin Sodium (Porcine) 5,000 units 04/28/20 09:00 04/29/20 07:30 Heparin 5,000 Units/Ml Vial SC 5,000 units TID BRIE Administration Cefepime HCl 2 gm/ Sodium 100 mls @ 200 mls/hr 04/28/20 14:00 04/29/20 12:46 Chloride IVPB 100 mls 0200,1400 BRIE Administration Doxycycline Hyclate 100 mg/ 100 mls @ 100 mls/hr 04/28/20 06:00 04/29/20 05:00 Sodium Chloride IVPB 100 mls 0600,1800 BRIE Administration Dobutamine HCl/Dextrose 500 mg 250 mls @ 0 mls/hr 04/28/20 19:30 04/28/20 19:44 / Device IVPB 250 mls INF BRIE Administration Protocol As Directed Sodium Chloride 10 ml 04/28/20 09:00 04/29/20 07:34 Flush - Normal Saline 10 Ml Syringe IVF 10 ml Q12HR BRIE Administration Torsemide 40 mg 04/29/20 09:00 04/29/20 07:34 Torsemide 20 Mg Tab PO 40 mg DAILY BIRE Administration Zinc Sulfate 220 mg 04/28/20 09:00 04/29/20 07:34 Zinc Sulfate 220 Mg Cap PO 220 mg DAILY BRIE Administration - Exam General Appearance: NAD, awake alert Eye: PERRL, anicteric sclera ENT: normocephalic atraumatic, no oropharyngeal lesions Neck: supple, symmetric, no JVD, no thyromegaly, no lymphadenopathy Heart: RRR, no gallops, no rubs, normal peripheral pulses Heart - other findings: S1, S2 Respiratory: no tachypnea Respiratory - other findings: few basilar coarse sounds Gastrointestinal: soft, non-tender, non-distended, normal bowel sounds, no palpable masses Extremities: no cyanosis, no clubbing, no edema Skin: normal turgor, no lesions Neurological: cranial nerve grossly intact, no new deficit Musculoskeletal: normal tone, normal strength, generalized weakness Psychiatric: normal affect, A&O x 3 Hosp A/P (1) Severe sepsis with septic shock Code(s): A41.9 - SEPSIS, UNSPECIFIED ORGANISM; R65.21 - SEVERE SEPSIS WITH SEPTIC SHOCK Status: Acute Plan: Suspected, likely multifactorial including COVID + and Cardiomyopathy, improved with Dobutamine, wean off Dobutamine and monitor clinical response (2) COVID-19 virus detected Code(s): U07.1 - COVID-19 Status: Acute Plan: No prominent respiratory compromise currently, continue Cefepime/Doxycycline/Dexamethasone/Vit C/Zinc (3) Acute worsening of stage 3 chronic kidney disease Code(s): N18.3 - CHRONIC KIDNEY DISEASE, STAGE 3 (MODERATE) * DO NOT USE * Status: Acute Plan: Improved, avoid nephrotoxic meds and limit contrast exposure (4) Metabolic acidosis Code(s): E87.2 - ACIDOSIS Status: Acute Plan: Likely due to ANTOINE, improving, see mgmt above (5) Cardiomyopathy Code(s): I42.9 - CARDIOMYOPATHY, UNSPECIFIED Status: Chronic Plan: s/p AICD, resume Amiodarone/Digoxin - Plan continue antibiotics, social worker clinical, respiratory therapy, DVT proph w/SCDs Stable currently Continue Cefepime/Doxycycline Continue Dexamethasone D/C Dobutamine gtt Resume Amiodarone Continue isolation protocol AM lab: BMP, CBC, BNP, D-dimer, CRP, Ferritin
--- NOTE | 2020-04-29 18:56 | CON ---
DATE OF CONSULTATION: REASON FOR CONSULTATION: Hypotension, sepsis. PRIMARY PEDIATRIC GENETICIST: Kapil Marcus MD Please note, the patient is COVID positive. Chart review was noted. HISTORY OF PRESENT ILLNESS: Mr. Cerda is an 80-year-old gentleman, who is a patient of Dr. Kapil Marcus. He recently presented with fevers, chills in addition to hypotension. He was initially placed on Levophed, then was placed on Dobutrex. During my visit, he Dobutrex. This was confirmed with the nurse. He has no current symptoms. He is currently on a nasal cannula. Again tested positive for COVID. HOME MEDICATIONS: Include: 1. Spironolactone. 2. Allopurinol. 3. Omeprazole. 4. Aspirin. 5. Atorvastatin. 6. Amiodarone. 7. Potassium. 8. Digoxin. 9. Iron sulfate. 10. Entresto. 11. Torsemide. PAST MEDICAL HISTORY: Atrial fibrillation, hypertension, diabetes mellitus, CHF, CAD, chronic kidney disease, chronic anemia, hyperlipidemia. SURGICAL HISTORY: ICD placement, appendectomy, CABG, CAD status post stent placement. SOCIAL HISTORY: No current tobacco or alcohol use. ALLERGIES: BENADRYL, IRON. REVIEW OF SYSTEMS: Unobtainable. PHYSICAL EXAMINATION: VITAL SIGNS: Blood pressure 120/68, pulse 82, and temperature 96.6. Physical exam deferred due to COVID positive. PERTINENT LABORATORY DATA: Hemoglobin 10.5, hematocrit 32.2. Creatinine 1.97. Peak troponin 0.2. IMPRESSION: 1. COVID positive pneumonia. 2. Fever. 3. Hypotension. RECOMMENDATIONS: Mr. Cerda's hypotension has resolved. He is off all pressors. We will continue current course. Based on the chart review, he is now off pressors and is on nasal cannula only. We will continue supportive care. His creatinine is also markedly improved from 3.1 to 1.97. Mr. Cerda's primary issue appears to be COVID pneumonia. From a CHF standpoint, he is stable. Please re-consult if needed. Job ID: [id number]
[2020-04-30] MEDS: Cefepime 2 GM in Sodium Chloride 0.9% 100 ML IVPB SCH ×2 (01:53→15:22)
[2020-04-30] MEDS: Acetaminophen 325 MG TAB PO PRN (01:59)
[2020-04-30] MEDS: Diabetic Tussin 200 MG/10 ML UDCUP PO PRN ×3 (01:59→18:29)
[2020-04-30] MEDS: Benzonatate 100 MG CAP PO PRN ×3 (03:05→18:29)
[2020-04-30 06:13] LABS: Anion Gap 16 mmol/L (10-20); BUN (Urea Nitrogen) 57 mg/dL (8.4-25.7); CRP (Inflammatory) 7.17 mg/dL (= or < 0.5); Calc. Creatinine Clearance 31 mL/min (70-130); Carbon Dioxide 16 mmol/L (23-31); Chloride 108 mmol/L (98-107); Glucose 118 mg/dL (83-110); Potassium 4.3 mmol/L (3.5-5.1); Sodium 136 mmol/L (136-145)
[2020-04-30] MEDS: Aspirin 81 mg Enteric Coated Tablet PO SCH (08:57)
[2020-04-30] MEDS: Ferrous Sulfate 325 MG TAB PO SCH (08:57)
[2020-04-30] MEDS: Digoxin 0.125 MG TAB PO SCH ×2 (08:57→13:01)
[2020-04-30] MEDS: Zinc Sulfate 220 MG CAP PO SCH (08:57)
[2020-04-30] MEDS: Torsemide 20 MG TAB PO SCH ×2 (08:57→13:02)
[2020-04-30] MEDS: Tamsulosin HCl 0.4 MG CAP PO SCH (08:58)
[2020-04-30] MEDS: Amiodarone 200 MG TAB PO SCH ×2 (08:58→13:00)
[2020-04-30] MEDS: Cholecalciferol (Vitamin D3) 400 UNITS TAB PO SCH (08:58)
[2020-04-30] MEDS: Dexamethasone 4 mg/ml Vial SLOW IVP SCH (08:58)
[2020-04-30] MEDS: Heparin 5,000 UNITS/ML VIAL SC SCH ×3 (09:00→19:42)
[2020-04-30] MEDS: Ascorbic Acid 500 mg Chewable Tablet PO SCH (09:33)
--- NOTE | 2020-04-30 09:35 | PDOC.HOSPP ---
- Subjective Encounter Date: 04/30/20 Encounter Time: 09:20 Subjective: f/u for hypotension/COVID +/? sepsis receiving Cefepime/Doxycycline on current RA. Nursing reports hypotension this am but apparently asymptomatic. - Objective Vital Signs & Weight: Vital Signs (12 hours) Temp Pulse Resp BP Pulse Ox 04/30/20 03:13 99.3 F 80 24 H 90/53 L 99 04/30/20 02:15 100.5 F H 04/30/20 00:00 99.9 F H 83 24 H 110/75 99 Weight Admit Weight 176 lb 12.8 oz Weight 164 lb 9.6 oz I&O: 04/29/20 04/30/20 05/01/20 06:59 06:59 06:59 Intake Total 694 1580 Output Total 800 1625 Balance -106 -45 Result Diagrams: 04/29/20 05:16 04/30/20 05:11 Additional Labs: Microbiology 04/28/20 02:22 Venous blood - Right Hand Blood Culture - Preliminary Specimen has been received and culture in pro gisela. No Growth to date. 04/28/20 02:22 Venous blood - Left Hand Blood Culture - Preliminary Specimen has been received and culture in progress. No Growth to date. Laboratory Tests 04/28/20 04/28/20 04/28/20 01:12 01:12 01:12 D-Dimer Carbon Dioxide 15 L BUN Creatinine 3.12 H Ferritin Troponin I 0.225 H C-Reactive Protein B-Natriuretic Peptide 280.5 H SARS-CoV-2 Rap RNA(RT-PCR) 04/28/20 04/28/20 04/28/20 03:47 04:29 07:32 D-Dimer Carbon Dioxide BUN Creatinine Ferritin Troponin I 0.208 H 0.210 H C-Reactive Protein B-Natriuretic Peptide SARS-CoV-2 Rap RNA(RT-PCR) DETECTED A* 04/29/20 04/29/20 04/29/20 05:16 05:16 05:16 D-Dimer Carbon Dioxide 12 L BUN 49 H Creatinine 1.97 H Ferritin 445.78 H Troponin I C-Reactive Protein 10.34 H B-Natriuretic Peptide SARS-CoV-2 Rap RNA(RT-PCR) 04/29/20 04/30/20 04/30/20 05:16 05:11 05:11 D-Dimer 0.61 H Carbon Dioxide BUN Creatinine Ferritin 504.41 H Troponin I C-Reactive Protein 7.17 H B-Natriuretic Peptide SARS-CoV-2 Rap RNA(RT-PCR) 04/30/20 04/30/20 05:11 05:11 D-Dimer 0.66 H Carbon Dioxide BUN Creatinine Ferritin Troponin I C-Reactive Protein B-Natriuretic Peptide 558.0 H SARS-CoV-2 Rap RNA(RT-PCR) EKG Reviewed by me: Yes (Tele - V-paced) Hospitalist ROS - Medication Medications: Active Medications Generic Name Dose Route Start Last Admin Trade Name Freq PRN Reason Stop Dose Admin Acetaminophen 650 mg 04/28/20 21:13 04/30/20 01:59 Acetaminophen 325 Mg Tab PO 650 mg Q6H PRN Administration Fever/Mild Pain Amiodarone HCl 200 mg 04/30/20 09:00 04/30/20 08:58 Amiodarone 200 Mg Tab PO 200 mg DAILY BRIE Administration Ascorbic Acid 1,000 mg 04/28/20 09:00 04/29/20 07:33 Ascorbic Acid 500 Mg Chewable Tablet PO 1,000 mg DAILY BRIE Administration Aspirin 81 mg 04/30/20 09:00 04/30/20 08:57 Aspirin 81 Mg Enteric Coated Tablet PO 81 mg DAILY BRIE Administration Benzonatate 100 mg 04/30/20 02:58 04/30/20 08:58 Benzonatate 100 Mg Cap PO 100 mg TIDPRN PRN Administration Cough Cholecalciferol 400 units 04/28/20 09:00 04/30/20 08:58 Cholecalciferol (Vitamin D3) 400 Units Tab PO 400 units DAILY BRIE Administration Dexamethasone 8 mg 04/29/20 09:00 04/30/20 08:58 Dexamethasone 4 Mg/Ml Vial SLOW IVP 8 mg DAILY BRIE Administration Digoxin 0.125 mg 04/29/20 09:00 04/30/20 08:57 Digoxin 0.125 Mg Tab PO 0.125 mg DAILY BRIE Administration Ferrous Sulfate 325 mg 04/30/20 09:00 04/30/20 08:57 Ferrous Sulfate 325 Mg Tab PO 325 mg DAILY BRIE Administration Guaifenesin 200 mg 04/28/20 21:19 04/30/20 08:57 Diabetic Tussin 200 Mg/10 Ml Udcup PO 200 mg Q4H PRN Administration Cough Heparin Sodium (Porcine) 5,000 units 04/28/20 09:00 04/30/20 09:00 Heparin 5,000 Units/Ml Vial SC 5,000 units TID BRIE Administration Cefepime HCl 2 gm/ Sodium 100 mls @ 200 mls/hr 04/28/20 14:00 04/30/20 01:53 Chloride IVPB 100 mls 0200,1400 BRIE Administration Doxycycline Hyclate 100 mg/ 100 mls @ 100 mls/hr 04/28/20 06:00 04/30/20 06:23 Sodium Chloride IVPB 100 mls 0600,1800 BRIE Administration Sodium Chloride 10 ml 04/28/20 09:00 04/30/20 09:05 Flush - Normal Saline 10 Ml Syringe IVF 10 ml Q12HR BRIE Administration Tamsulosin HCl 0.4 mg 04/30/20 09:00 04/30/20 08:58 Tamsulosin Hcl 0.4 Mg Cap PO 0.4 mg DAILY BRIE Administration Torsemide 40 mg 04/29/20 09:00 04/30/20 08:57 Torsemide 20 Mg Tab PO 40 mg DAILY BRIE Administration Zinc Sulfate 220 mg 04/28/20 09:00 04/30/20 08:57 Zinc Sulfate 220 Mg Cap PO 220 mg DAILY BRIE Administration - Exam General Appearance: NAD, awake alert Eye: PERRL, anicteric sclera ENT: normocephalic atraumatic, no oropharyngeal lesions Neck: supple, symmetric, no JVD, no thyromegaly, no lymphadenopathy Heart: RRR, no gallops, no rubs, normal peripheral pulses Heart - other findings: S1, S2 Respiratory: no wheezes, tachypneic Respiratory - other findings: few scattered rhonchi Gastrointestinal: soft, non-tender, non-distended, normal bowel sounds, no palpable masses Extremities: no cyanosis, no clubbing, no edema Skin: normal turgor, no lesions Neurological: cranial nerve grossly intact, no new deficit Musculoskeletal: normal tone, generalized weakness Psychiatric: normal affect, A&O x 3 Hosp A/P (1) Severe sepsis with septic shock Code(s): A41.9 - SEPSIS, UNSPECIFIED ORGANISM; R65.21 - SEVERE SEPSIS WITH SEPTIC SHOCK Status: Acute Plan: Suspected due to COVID with component of CM, hypotension noted and may need resumption of Dobutamine (2) COVID-19 virus detected Code(s): U07.1 - COVID-19 Status: Acute Plan: No associated hypoxia currently, continue supportive mgmt Cefepime/Doxycycli ne/Dexamethasone/Vit C/Zinc (3) Acute worsening of stage 3 chronic kidney disease Code(s): N18.3 - CHRONIC KIDNEY DISEASE, STAGE 3 (MODERATE) * DO NOT USE * Status: Acute Plan: Overall improved, near baseline renal function (4) Metabolic acidosis Code(s): E87.2 - ACIDOSIS Status: Acute (5) Cardiomyopathy Code(s): I42.9 - CARDIOMYOPATHY, UNSPECIFIED Status: Chronic Plan: EF 20-25%, resume Amiodarone/Digoxin/ASA - Plan continue antibiotics, 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
[2020-05-01] MEDS: Cefepime 2 GM in Sodium Chloride 0.9% 100 ML IVPB SCH ×2 (02:40→15:49)
[2020-05-01 06:45] LABS: Anion Gap 15 mmol/L (10-20); BUN (Urea Nitrogen) 57 mg/dL (8.4-25.7); CRP (Inflammatory) 6.75 mg/dL (= or < 0.5); Calc. Creatinine Clearance 32 mL/min (70-130); Calcium 8.5 mg/dL (7.8-10.44); Carbon Dioxide 18 mmol/L (23-31); Chloride 106 mmol/L (98-107); Glucose 112 mg/dL (83-110); Potassium 4.5 mmol/L (3.5-5.1); Sodium 134 mmol/L (136-145)
[2020-05-01] MEDS: Ascorbic Acid 500 mg Chewable Tablet PO SCH (08:25)
[2020-05-01] MEDS: Heparin 5,000 UNITS/ML VIAL SC SCH ×3 (08:25→20:35)
[2020-05-01] MEDS: Zinc Sulfate 220 MG CAP PO SCH (08:26)
[2020-05-01] MEDS: Tamsulosin HCl 0.4 MG CAP PO SCH (08:26)
[2020-05-01] MEDS: Cholecalciferol (Vitamin D3) 400 UNITS TAB PO SCH (08:26)
[2020-05-01] MEDS: Aspirin 81 mg Enteric Coated Tablet PO SCH (08:26)
[2020-05-01] MEDS: Ferrous Sulfate 325 MG TAB PO SCH (08:26)
[2020-05-01] MEDS: Dexamethasone 4 mg/ml Vial SLOW IVP SCH (08:26)
[2020-05-01] MEDS: Benzonatate 100 MG CAP PO PRN ×2 (08:30→16:04)
[2020-05-01] MEDS: Diabetic Tussin 200 MG/10 ML UDCUP PO PRN ×3 (08:31→20:52)
[2020-05-01] MEDS: Amiodarone 200 MG TAB PO SCH (08:31)
[2020-05-01] MEDS: Torsemide 20 MG TAB PO SCH (08:31)
[2020-05-01] MEDS: Digoxin 0.125 MG TAB PO SCH (08:31)
--- NOTE | 2020-05-01 18:07 | PDOC.HOSPP ---
- Subjective Encounter Date: 05/01/20 Encounter Time: 17:50 Subjective: f/u for COVID PNA/hypotension/sepsis receiving Cefepime/Doxycycline/Albuterol/Vit C/Zinc/Vit D3/Dexamethasone. Overall feeling ok and currently on room air. - Objective Vital Signs & Weight: Vital Signs (12 hours) Temp Pulse Resp BP Pulse Ox 05/01/20 16:09 96.4 F L 79 24 H 103/75 94 L 05/01/20 11:39 97.1 F L 80 28 H 97/54 L 94 L 05/01/20 08:31 80 05/01/20 08:00 97.2 F L 81 28 H 92/54 L 92 L Weight Admit Weight 176 lb 12.8 oz Weight 164 lb 11.2 oz I&O: 04/30/20 05/01/20 05/02/20 06:59 06:59 06:59 Intake Total 1580 650 Output Total 1625 475 Balance -45 175 Result Diagrams: 04/29/20 05:16 05/01/20 05:46 Additional Labs: Microbiology 04/28/20 02:22 Venous blood - Right Hand Blood Culture - Preliminary Specimen has been received and culture in progress. No Growth to date. 04/28/20 02:22 Venous blood - Left Hand Blood Culture - Preliminary Specimen has been received and culture in progress. No Growth to date. Laboratory Tests 04/28/20 04/28/20 04/28/20 01:12 01:12 01:12 D-Dimer Carbon Dioxide 15 L BUN Creatinine 3.12 H Ferritin Troponin I 0.225 H C-Reactive Protein B-Natriuretic Peptide 280.5 H SARS-CoV-2 Rap RNA(RT-PCR) 04/28/20 04/28/20 04/28/20 03:47 04:29 07:32 D-Dimer Carbon Dioxide BUN Creatinine Ferritin Troponin I 0.208 H 0.210 H C-Reactive Protein B-Natriuretic Peptide SARS-CoV-2 Rap RNA(RT-PCR) DETECTED A* 04/29/20 04/29/20 04/29/20 05:16 05:16 05:16 D-Dimer Carbon Dioxide 12 L BUN 49 H Creatinine 1.97 H Ferritin 445.78 H Troponin I C-Reactive Protein 10.34 H B-Natriuretic Peptide SARS-CoV-2 Rap RNA(RT-PCR) 04/29/20 04/30/20 04/30/20 05:16 05:11 05:11 D-Dimer 0.61 H Carbon Dioxide BUN Creatinine Ferritin 504.41 H Troponin I C-Reactive Protein 7.17 H B-Natriuretic Peptide SARS-CoV-2 Rap RNA(RT-PCR) 04/30/20 04/30/20 05/01/20 05:11 05:11 05:46 D-Dimer 0.66 H Carbon Dioxide BUN Creatinine Ferritin Troponin I C-Reactive Protein 6.75 H B-Natriuretic Peptide 558.0 H SARS-CoV-2 Rap RNA(RT-PCR) 05/01/20 05/01/20 05:46 05:46 D-Dimer 0.53 H Carbon Dioxide BUN Creatinine Ferritin 651.48 H Troponin I C-Reactive Protein B-Natriuretic Peptide SARS-CoV-2 Rap RNA(RT-PCR) EKG Reviewed by me: Yes (Tele - V-pacing) Hospitalist ROS - Medication Medications: Active Medications Generic Name Dose Route Start Last Admin Trade Name Freq PRN Reason Stop Dose Admin Acetaminophen 650 mg 04/28/20 21:13 04/30/20 01:59 Acetaminophen 325 Mg Tab PO 650 mg Q6H PRN Administration Fever/Mild Pain Amiodarone HCl 200 mg 04/30/20 09:00 05/01/20 08:31 Amiodarone 200 Mg Tab PO Not Given DAILY BRIE Ascorbic Acid 1,000 mg 04/28/20 09:00 05/01/20 08:25 Ascorbic Acid 500 Mg Chewable Tablet PO 1,000 mg DAILY BRIE Administration Aspirin 81 mg 04/30/20 09:00 05/01/20 08:26 Aspirin 81 Mg Enteric Coated Tablet PO 81 mg DAILY BRIE Administration Benzonatate 100 mg 04/30/20 02:58 05/01/20 16:04 Benzonatate 100 Mg Cap PO 100 mg TIDPRN PRN Administration Cough Cholecalciferol 400 units 04/28/20 09:00 05/01/20 08:26 Cholecalciferol (Vitamin D3) 400 Units Tab PO 400 units DAILY BRIE Administration Dexamethasone 8 mg 04/29/20 09:00 05/01/20 08:26 Dexamethasone 4 Mg/Ml Vial SLOW IVP 8 mg DAILY BRIE Administration Digoxin 0.125 mg 04/29/20 09:00 05/01/20 08:31 Digoxin 0.125 Mg Tab PO Not Given DAILY BRIE Ferrous Sulfate 325 mg 04/30/20 09:00 05/01/20 08:26 Ferrous Sulfate 325 Mg Tab PO 325 mg DAILY BRIE Administration Guaifenesin 200 mg 04/28/20 21:19 05/01/20 16:04 Diabetic Tussin 200 Mg/10 Ml Udcup PO 200 mg Q4H PRN Administration Cough Heparin Sodium (Porcine) 5,000 units 04/28/20 09:00 05/01/20 15:50 Heparin 5,000 Units/Ml Vial SC 5,000 units TID BRIE Administration Cefepime HCl 2 gm/ Sodium 100 mls @ 200 mls/hr 04/28/20 14:00 05/01/20 15:49 Chloride IVPB 100 mls 0200,1400 BRIE Administration Doxycycline Hyclate 100 mg/ 100 mls @ 100 mls/hr 04/28/20 06:00 05/01/20 17:32 Sodium Chloride IVPB 100 mls 0600,1800 BRIE Administration Sodium Chloride 10 ml 04/28/20 09:00 05/01/20 08:21 Flush - Normal Saline 10 Ml Syringe IVF 10 ml Q12HR BRIE Administration Tamsulosin HCl 0.4 mg 04/30/20 09:00 05/01/20 08:26 Tamsulosin Hcl 0.4 Mg Cap PO 0.4 mg DAILY BRIE Administration Torsemide 40 mg 04/29/20 09:00 05/01/20 08:31 Torsemide 20 Mg Tab PO Not Given DAILY BRIE Zinc Sulfate 220 mg 04/28/20 09:00 05/01/20 08:26 Zinc Sulfate 220 Mg Cap PO 220 mg DAILY BRIE Administration - Exam General Appearance: NAD, awake alert Eye: PERRL, anicteric sclera ENT: normocephalic atraumatic, no oropharyngeal lesions Neck: supple, symmetric, no JVD, no thyromegaly, no lymphadenopathy Heart: RRR, no gallops, no rubs, normal peripheral pulses Heart - other findings: S1, S2 Respiratory: no wheezes, tachypneic Respiratory - other findings: diminished in bases, scattered coarse sounds Gastrointestinal: soft, non-tender, non-distended, normal bowel sounds, no palpable masses Extremities: no cyanosis, no clubbing, no edema Skin: normal turgor, no lesions Neurological: cranial nerve grossly intact, no new deficit Musculoskeletal: normal tone, generalized weakness Psychiatric: normal affect, A&O x 3 Hosp A/P (1) Severe sepsis with septic shock Code(s): A41.9 - SEPSIS, UNSPECIFIED ORGANISM; R65.21 - SEVERE SEPSIS WITH SEPTIC SHOCK Status: Acute Plan: Resolved, continue mgmt as outlined below (2) COVID-19 virus detected Code(s): U07.1 - COVID-19 Status: Acute Plan: Continue Dexamethasone/Cefepime/Doxycycline/Vit C/Zinc/Vit D3/Albuterol (3) Acute worsening of stage 3 chronic kidney disease Code(s): N18.3 - CHRONIC KIDNEY DISEASE, STAGE 3 (MODERATE) * DO NOT USE * Status: Acute Plan: Improved, avoid nephrotoxic meds and limit contrast (4) Metabolic acidosis Code(s): E87.2 - ACIDOSIS Status: Acute (5) Cardiomyopathy Code(s): I42.9 - CARDIOMYOPATHY, UNSPECIFIED Status: Chronic - Plan continue antibiotics, manager social, respiratory therapy, incentive spirometry, DVT proph w/SCDs Stable currently Continue Cefepime/Doxycycline Continue Dexamethasone Consider resumption of Dobutamine gtt if hypotension sustains Resume Amiodarone if BP allows Continue isolation protocol AM lab: CRP, Ferritin
[2020-05-02] MEDS: Benzonatate 100 MG CAP PO PRN (02:08)
[2020-05-02] MEDS: Cefepime 2 GM in Sodium Chloride 0.9% 100 ML IVPB SCH ×2 (02:08→14:29)
[2020-05-02] MEDS: Diabetic Tussin 200 MG/10 ML UDCUP PO PRN ×2 (06:12→21:27)
[2020-05-02] MEDS: Dexamethasone 4 mg/ml Vial SLOW IVP SCH (08:25)
[2020-05-02] MEDS: Heparin 5,000 UNITS/ML VIAL SC SCH ×3 (08:25→21:26)
[2020-05-02] MEDS: Torsemide 20 MG TAB PO SCH (08:27)
[2020-05-02] MEDS: Digoxin 0.125 MG TAB PO SCH (08:27)
[2020-05-02] MEDS: Zinc Sulfate 220 MG CAP PO SCH (08:27)
[2020-05-02] MEDS: Tamsulosin HCl 0.4 MG CAP PO SCH (08:27)
[2020-05-02] MEDS: Cholecalciferol (Vitamin D3) 400 UNITS TAB PO SCH (08:28)
[2020-05-02] MEDS: Ferrous Sulfate 325 MG TAB PO SCH (08:28)
[2020-05-02] MEDS: Amiodarone 200 MG TAB PO SCH (08:28)
[2020-05-02] MEDS: Ascorbic Acid 500 mg Chewable Tablet PO SCH (08:28)
[2020-05-02] MEDS: Aspirin 81 mg Enteric Coated Tablet PO SCH (08:28)
[2020-05-02 11:34] VITALS: BMI 22.3
--- NOTE | 2020-05-02 12:56 | PQF ---
CLINICAL DOCUMENTATION CLARIFICATION FORM: Dear Dr. Ellis Date: 05/02/2020 Please exercise your independent, professional judgment in responding to the clarification form. Clinical indicators are provided on the bottom of this form for your review. Please check appropriate box(es): HEART FAILURE: A. ACUITY [ ] Acute [ x ] Acute on Chronic [ ] Chronic B. TYPE: [ x ] Systolic / HFrEF [ ] Diastolic / HFpEF [ ] Combined Systolic / Diastolic [ ] Other diagnosis [ ] Unable to determine In addition, please specify: Present on Admission (POA): [ x ] Yes [ ] No [ ] Unable to determine For continuity of documentation, please document condition throughout progress notes and discharge summary. Thank You. To be completed by CDI/Coding staff for physician review: CLINICAL INDICATORS - SIGNS / SYMPTOMS / LABS / RESULTS AND LOCATION IN EMR *H&P 04/28 (Affram) HPI: CHF s/p AICD BNP 280 A/P: -Heart failure exacerbation *04/29 Consult (Simone) Recommendations: From a CHF standpoint, he is stable *04/30 pn (Caleb) Chronic Cardiomyopathy EF 20-25% *LAB (EMR) 04/28 BNP 280.5 04/30 BNP 558.0 RISKS FACTORS / RESULTS AND LOCATION IN EMR *H&P 04/28 (Affram) HPI. CHF s/p AICD. Hx [place] A/P: Septic shock. ANTOINE Likely prerenal . In the setting of reduced cardiac output. TREATMENTS / RESULTS AND LOCATION IN EMR *H&P 04/28 (Affram) A/P: Continue pressors and dobutamine as needed *04/29 pn (Caleb) Plan: DC dobutamine gtt. Resume amiodarone *04/30 pn (Caleb) A/P: resume digoxin Thank you, Alexandria Malik RN, [email or web address] This is a permanent part of the Medical Record [facility]
--- NOTE | 2020-05-02 18:59 | PDOC.HOSPP ---
- Subjective Encounter Date: 05/02/20 Encounter Time: 18:40 Subjective: f/u for sepsis/COVID +/Cardiomyopathy/Acute on chronic systolic CHF. Overall feeling better today. Appetite ok. Voiding regularly. - Objective Vital Signs & Weight: Vital Signs (12 hours) Temp Pulse Resp BP Pulse Ox 05/02/20 15:50 98.3 F 80 22 H 97/59 L 95 05/02/20 12:00 82 24 H 106/61 95 05/02/20 08:00 98.1 F 84 22 H 97/53 L 94 L Weight Admit Weight 176 lb 12.8 oz Weight 164 lb 11.2 oz I&O: 05/01/20 05/02/20 05/03/20 06:59 06:59 06:59 Intake Total 650 Output Total 475 350 Balance 175 -350 Result Diagrams: 04/29/20 05:16 05/01/20 05:46 Additional Labs: Microbiology 04/28/20 02:22 Venous blood - Right Hand Blood Culture - Preliminary Specimen has been received and culture in progress. No Growth to date. 04/28/20 02:22 Venous blood - Left Hand Blood Culture - Preliminary Specimen has been received and culture in progress. No Growth to date. Laboratory Tests 04/28/20 04/28/20 04/28/20 01:12 01:12 01:12 D-Dimer Carbon Dioxide 15 L BUN Creatinine 3.12 H Ferritin Troponin I 0.225 H C-Reactive Protein B-Natriuretic Peptide 280.5 H SARS-CoV-2 Rap RNA(RT-PCR) 04/28/20 04/28/20 04/28/20 03:47 04:29 07:32 D-Dimer Carbon Dioxide BUN Creatinine Ferritin Troponin I 0.208 H 0.210 H C-Reactive Protein B-Natriuretic Peptide SARS-CoV-2 Rap RNA(RT-PCR) DETECTED A* 04/29/20 04/29/20 04/29/20 05:16 05:16 05:16 D-Dimer Carbon Dioxide 12 L BUN 49 H Creatinine 1.97 H Ferritin 445.78 H Troponin I C-Reactive Protein 10.34 H B-Natriuretic Peptide SARS-CoV-2 Rap RNA(RT-PCR) 04/29/20 04/30/20 04/30/20 05:16 05:11 05:11 D-Dimer 0.61 H Carbon Dioxide BUN Creatinine Ferritin 504.41 H Troponin I C-Reactive Protein 7.17 H B-Natriuretic Peptide SARS-CoV-2 Rap RNA(RT-PCR) 04/30/20 04/30/20 05/01/20 05:11 05:11 05:46 D-Dimer 0.66 H Carbon Dioxide BUN Creatinine Ferritin Troponin I C-Reactive Protein 6.75 H B-Natriuretic Peptide 558.0 H SARS-CoV-2 Rap RNA(RT-PCR) 05/01/20 05/01/20 05:46 05:46 D-Dimer 0.53 H Carbon Dioxide BUN Creatinine Ferritin 651.48 H Troponin I C-Reactive Protein B-Natriuretic Peptide SARS-CoV-2 Rap RNA(RT-PCR) EKG Reviewed by me: Yes (Tele - V-paced) Hospitalist ROS - Medication Medications: Active Medications Generic Name Dose Route Start Last Admin Trade Name Freq PRN Reason Stop Dose Admin Acetaminophen 650 mg 04/28/20 21:13 04/30/20 01:59 Acetaminophen 325 Mg Tab PO 650 mg Q6H PRN Administration Fever/Mild Pain Amiodarone HCl 200 mg 04/30/20 09:00 05/02/20 08:28 Amiodarone 200 Mg Tab PO 200 mg DAILY BRIE Administration Ascorbic Acid 1,000 mg 04/28/20 09:00 05/02/20 08:28 Ascorbic Acid 500 Mg Chewable Tablet PO 1,000 mg DAILY BRIE Administration Aspirin 81 mg 04/30/20 09:00 05/02/20 08:28 Aspirin 81 Mg Enteric Coated Tablet PO 81 mg DAILY BRIE Administration Benzonatate 100 mg 04/30/20 02:58 05/02/20 02:08 Benzonatate 100 Mg Cap PO 100 mg TIDPRN PRN Administration Cough Cholecalciferol 400 units 04/28/20 09:00 05/02/20 08:28 Cholecalciferol (Vitamin D3) 400 Units Tab PO 400 units DAILY BRIE Administration Dexamethasone 8 mg 04/29/20 09:00 05/02/20 08:25 Dexamethasone 4 Mg/Ml Vial SLOW IVP 8 mg DAILY BRIE Administration Digoxin 0.125 mg 04/29/20 09:00 05/02/20 08:27 Digoxin 0.125 Mg Tab PO 0.125 mg DAILY BRIE Administration Ferrous Sulfate 325 mg 04/30/20 09:00 05/02/20 08:28 Ferrous Sulfate 325 Mg Tab PO 325 mg DAILY BRIE Administration Guaifenesin 200 mg 04/28/20 21:19 05/02/20 06:12 Diabetic Tussin 200 Mg/10 Ml Udcup PO 200 mg Q4H PRN Administration Cough Heparin Sodium (Porcine) 5,000 units 04/28/20 09:00 05/02/20 14:29 Heparin 5,000 Units/Ml Vial SC 5,000 units TID BRIE Administration Cefepime HCl 2 gm/ Sodium 100 mls @ 200 mls/hr 04/28/20 14:00 05/02/20 14:29 Chloride IVPB 100 mls 0200,1400 BRIE Administration Doxycycline Hyclate 100 mg/ 100 mls @ 100 mls/hr 04/28/20 06:00 05/02/20 17:19 Sodium Chloride IVPB 100 mls 0600,1800 BRIE Administration Sodium Chloride 10 ml 04/28/20 09:00 05/02/20 08:28 Flush - Normal Saline 10 Ml Syringe IVF 10 ml Q12HR BRIE Administration Tamsulosin HCl 0.4 mg 04/30/20 09:00 05/02/20 08:27 Tamsulosin Hcl 0.4 Mg Cap PO 0.4 mg DAILY BRIE Administration Torsemide 40 mg 04/29/20 09:00 05/02/20 08:27 Torsemide 20 Mg Tab PO 40 mg DAILY BRIE Administration Zinc Sulfate 220 mg 04/28/20 09:00 05/02/20 08:27 Zinc Sulfate 220 Mg Cap PO 220 mg DAILY BRIE Administration - Exam General Appearance: NAD, awake alert General - other findings: smiling, responsive Eye: PERRL, anicteric sclera ENT: normocephalic atraumatic, no oropharyngeal lesions Neck: supple, symmetric, no JVD, no thyromegaly, no lymphadenopathy Heart: RRR, no gallops, no rubs, normal peripheral pulses Heart - other findings: S1, S2 Respiratory: CTAB, normal chest expansion, no tachypnea Gastrointestinal: soft, non-tender, non-distended, normal bowel sounds, no palpable masses Extremities: no cyanosis, no clubbing, no edema Skin: normal turgor, no lesions Neurological: cranial nerve grossly intact, no new deficit Musculoskeletal: normal tone, generalized weakness Psychiatric: normal affect, A&O x 3 Hosp A/P (1) Severe sepsis with septic shock Code(s): A41.9 - SEPSIS, UNSPECIFIED ORGANISM; R65.21 - SEVERE SEPSIS WITH SEPTIC SHOCK Status: Acute Plan: Resolved, continue supportive mgmt (2) COVID-19 virus detected Code(s): U07.1 - COVID-19 Status: Acute Plan: Continue Dexamethasone/Doxycycline/Vit C/Zinc (3) Acute on chronic systolic CHF (congestive heart failure) Code(s): I50.23 - ACUTE ON CHRONIC SYSTOLIC (CONGESTIVE) HEART FAILURE Status: Acute Plan: Continue Torsemide, improved currently, repeat 2D echo (4) Acute worsening of stage 3 chronic kidney disease Code(s): N18.3 - CHRONIC KIDNEY DISEASE, STAGE 3 (MODERATE) * DO NOT USE * Status: Acute Plan: Improved, avoid nephrotoxic meds (5) Metabolic acidosis Code(s): E87.2 - ACIDOSIS Status: Acute (6) Cardiomyopathy Code(s): I42.9 - CARDIOMYOPATHY, UNSPECIFIED Status: Chronic Plan: EF 20-25% - Plan continue antibiotics, PT/OT, director social, respiratory therapy, out of bed/ambulate, DVT proph w/SCDs Stable currently Continue Cefepime/Doxycycline another 24h then d/c Continue Dexamethasone Resume Amiodarone if BP allows Continue isolation protocol OOB with PT 2D echo pending AM lab: CRP, Ferritin Likely home in 24h
[2020-05-03] MEDS: Benzonatate 100 MG CAP PO PRN (00:55)
[2020-05-03] MEDS: Diabetic Tussin 200 MG/10 ML UDCUP PO PRN ×5 (01:06→20:26)
[2020-05-03] MEDS: Cefepime 2 GM in Sodium Chloride 0.9% 100 ML IVPB SCH ×2 (01:07→14:31)
[2020-05-03] MEDS: Amiodarone 200 MG TAB PO SCH (09:48)
[2020-05-03] MEDS: Zinc Sulfate 220 MG CAP PO SCH (09:48)
[2020-05-03] MEDS: Dexamethasone 4 mg/ml Vial SLOW IVP SCH (09:48)
[2020-05-03] MEDS: Ascorbic Acid 500 mg Chewable Tablet PO SCH (09:48)
[2020-05-03] MEDS: Tamsulosin HCl 0.4 MG CAP PO SCH (09:48)
[2020-05-03] MEDS: Cholecalciferol (Vitamin D3) 400 UNITS TAB PO SCH (09:48)
[2020-05-03] MEDS: Aspirin 81 mg Enteric Coated Tablet PO SCH (09:48)
[2020-05-03] MEDS: Digoxin 0.125 MG TAB PO SCH (09:49)
[2020-05-03] MEDS: Heparin 5,000 UNITS/ML VIAL SC SCH ×3 (09:49→20:23)
[2020-05-03] MEDS: Ferrous Sulfate 325 MG TAB PO SCH (09:49)
[2020-05-03] MEDS: Torsemide 20 MG TAB PO SCH (09:50)
--- NOTE | 2020-05-03 10:28 | PDOC.HOSPP ---
- Subjective Encounter Date: 05/03/20 Encounter Time: 10:25 Subjective: f/u for CHF/Cardiomyopathy/COVID 19 with hypoxia. O2 sats dropping with minimal exertion or movement remaining on 1-2L/min NC. - Objective Vital Signs & Weight: Vital Signs (12 hours) Temp Pulse Resp BP Pulse Ox 05/03/20 03:30 97.8 F 79 19 131/62 93 L 05/03/20 01:07 97.1 F L 80 17 120/62 96 Weight Admit Weight 176 lb 12.8 oz Weight 164 lb 11.2 oz I&O: 05/02/20 05/03/20 05/04/20 06:59 06:59 06:59 Intake Total 720 Output Total 2275 300 Balance -1555 -300 Result Diagrams: 04/29/20 05:16 05/01/20 05:46 Additional Labs: Microbiology 04/28/20 02:22 Venous blood - Right Hand Blood Culture - Preliminary Specimen has been received and culture in progress. No Growth to date. 04/28/20 02:22 Venous blood - Left Hand Blood Culture - Preliminary Specimen has been received and culture in progress. No Growth to date. Laboratory Tests 04/28/20 04/28/20 04/28/20 01:12 01:12 01:12 D-Dimer Carbon Dioxide 15 L BUN Creatinine 3.12 H Ferritin Troponin I 0.225 H C-Reactive Protein B-Natriuretic Peptide 280.5 H SARS-CoV-2 Rap RNA(RT-PCR) 04/28/20 04/28/20 04/28/20 03:47 04:29 07:32 D-Dimer Carbon Dioxide BUN Creatinine Ferritin Troponin I 0.208 H 0.210 H C-Reactive Protein B-Natriuretic Peptide SARS-CoV-2 Rap RNA(RT-PCR) DETECTED A* 04/29/20 04/29/20 04/29/20 05:16 05:16 05:16 D-Dimer Carbon Dioxide 12 L BUN 49 H Creatinine 1.97 H Ferritin 445.78 H Troponin I C-Reactive Protein 10.34 H B-Natriuretic Peptide SARS-CoV-2 Rap RNA(RT-PCR) 04/29/20 04/30/20 04/30/20 05:16 05:11 05:11 D-Dimer 0.61 H Carbon Dioxide BUN Creatinine Ferritin 504.41 H Troponin I C-Reactive Protein 7.17 H B-Natriuretic Peptide SARS-CoV-2 Rap RNA(RT-PCR) 04/30/20 04/30/20 05/01/20 05:11 05:11 05:46 D-Dimer 0.66 H Carbon Dioxide BUN Creatinine Ferritin Troponin I C-Reactive Protein 6.75 H B-Natriuretic Peptide 558.0 H SARS-CoV-2 Rap RNA(RT-PCR) 05/01/20 05/01/20 05:46 05:46 D-Dimer 0.53 H Carbon Dioxide BUN Creatinine Ferritin 651.48 H Troponin I C-Reactive Protein B-Natriuretic Peptide SARS-CoV-2 Rap RNA(RT-PCR) EKG Reviewed by me: Yes (Tele - V-pacing) Hospitalist ROS - Medication Medications: Active Medications Generic Name Dose Route Start Last Admin Trade Name Freq PRN Reason Stop Dose Admin Acetaminophen 650 mg 04/28/20 21:13 04/30/20 01:59 Acetaminophen 325 Mg Tab PO 650 mg Q6H PRN Administration Fever/Mild Pain Amiodarone HCl 200 mg 04/30/20 09:00 05/03/20 09:48 Amiodarone 200 Mg Tab PO 200 mg DAILY BRIE Administration Ascorbic Acid 1,000 mg 04/28/20 09:00 05/03/20 09:48 Ascorbic Acid 500 Mg Chewable Tablet PO 1,000 mg DAILY BRIE Administration Aspirin 81 mg 04/30/20 09:00 05/03/20 09:48 Aspirin 81 Mg Enteric Coated Tablet PO 81 mg DAILY BRIE Administration Benzonatate 100 mg 04/30/20 02:58 05/03/20 00:55 Benzonatate 100 Mg Cap PO 100 mg TIDPRN PRN Administration Cough Cholecalciferol 400 units 04/28/20 09:00 05/03/20 09:48 Cholecalciferol (Vitamin D3) 400 Units Tab PO 400 units DAILY BRIE Administration Dexamethasone 8 mg 04/29/20 09:00 05/03/20 09:48 Dexamethasone 4 Mg/Ml Vial SLOW IVP 8 mg DAILY BRIE Administration Digoxin 0.125 mg 04/29/20 09:00 05/03/20 09:49 Digoxin 0.125 Mg Tab PO 0.125 mg DAILY BRIE Administration Ferrous Sulfate 325 mg 04/30/20 09:00 05/03/20 09:49 Ferrous Sulfate 325 Mg Tab PO 325 mg DAILY BRIE Administration Guaifenesin 200 mg 04/28/20 21:19 05/03/20 09:51 Diabetic Tussin 200 Mg/10 Ml Udcup PO 200 mg Q4H PRN Administration Cough Heparin Sodium (Porcine) 5,000 units 04/28/20 09:00 05/03/20 09:49 Heparin 5,000 Units/Ml Vial SC 5,000 units TID BRIE Administration Cefepime HCl 2 gm/ Sodium 100 mls @ 200 mls/hr 04/28/20 14:00 05/03/20 01:07 Chloride IVPB 100 mls 0200,1400 BRIE Administration Doxycycline Hyclate 100 mg/ 100 mls @ 100 mls/hr 04/28/20 06:00 05/03/20 05:53 Sodium Chloride IVPB 100 mls 0600,1800 BRIE Administration Sodium Chloride 10 ml 04/28/20 09:00 05/03/20 09:50 Flush - Normal Saline 10 Ml Syringe IVF 10 ml Q12HR BRIE Administration Tamsulosin HCl 0.4 mg 04/30/20 09:00 05/03/20 09:48 Tamsulosin Hcl 0.4 Mg Cap PO 0.4 mg DAILY BRIE Administration Torsemide 40 mg 04/29/20 09:00 05/03/20 09:50 Torsemide 20 Mg Tab PO 40 mg DAILY BRIE Administration Zinc Sulfate 220 mg 04/28/20 09:00 05/03/20 09:48 Zinc Sulfate 220 Mg Cap PO 220 mg DAILY BRIE Administration - Exam General Appearance: NAD, awake alert General - other findings: tachypneic Eye: anicteric sclera ENT: normocephalic atraumatic, no oropharyngeal lesions Neck: supple, symmetric, no JVD, no thyromegaly, no lymphadenopathy Heart: RRR, no gallops, no rubs, normal peripheral pulses Heart - other findings: S1, S2 Respiratory: no wheezes, tachypneic Respiratory - other findings: coarse sounds bilat, basilar crackles Gastrointestinal: soft, non-tender, non-distended, normal bowel sounds, no palpable masses Extremities: no cyanosis, no clubbing, no edema Skin: normal turgor, no lesions Neurological: cranial nerve grossly intact, no new deficit Musculoskeletal: normal tone, generalized weakness Psychiatric: normal affect, A&O x 3 Hosp A/P (1) COVID-19 virus detected Code(s): U07.1 - COVID-19 Status: Acute Plan: Continue Cefepime/Doxycycline/Dexamethasone/Vit C/Zinc, start Remdesivir today, O2 supplementation with plans for home O2 (2) Acute on chronic systolic CHF (congestive heart failure) Code(s): I50.23 - ACUTE ON CHRONIC SYSTOLIC (CONGESTIVE) HEART FAILURE Status: Acute Plan: Improved, continue Torsemide, daily weight, serial I/O's (3) Severe sepsis with septic shock Code(s): A41.9 - SEPSIS, UNSPECIFIED ORGANISM; R65.21 - SEVERE SEPSIS WITH SEPTIC SHOCK Status: Acute (4) Acute worsening of stage 3 chronic kidney disease Code(s): N18.3 - CHRONIC KIDNEY DISEASE, STAGE 3 (MODERATE) * DO NOT USE * Status: Acute Plan: Improved, avoid nephrotoxic meds and limit contrast (5) Metabolic acidosis Code(s): E87.2 - ACIDOSIS Status: Acute (6) Cardiomyopathy Code(s): I42.9 - CARDIOMYOPATHY, UNSPECIFIED Status: Chronic Plan: EF 20-25% (7) Acute respiratory failure with hypoxia Code(s): J96.01 - ACUTE RESPIRATORY FAILURE WITH HYPOXIA Status: Acute Plan: Continue O2 supplementation, set up home O2 for d/c - Plan continue antibiotics, 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
[2020-05-03 12:37] LABS: ALT (SGPT) 16 U/L (8-55); AST (SGOT) 20 U/L (5-34); Alkaline Phosphatase 214 U/L (40-110)
[2020-05-03] MEDS: Albuterol 200 PUFF (6.7GM INHALER) INH PRN ×2 (14:19→20:25)
[2020-05-03] MEDS ORDERED: REMDESIVIR (EUA) 200 MG in Sodium Chloride 0.9% 250 ML 210 ML IV SCH (16:00)
[2020-05-04] MEDS: Diabetic Tussin 200 MG/10 ML UDCUP PO PRN ×4 (00:57→22:21)
[2020-05-04] MEDS: Cefepime 2 GM in Sodium Chloride 0.9% 100 ML IVPB SCH ×2 (01:00→14:32)
[2020-05-04] MEDS: Cholecalciferol (Vitamin D3) 400 UNITS TAB PO SCH (09:02)
[2020-05-04] MEDS: Dexamethasone 4 mg/ml Vial SLOW IVP SCH (09:02)
[2020-05-04] MEDS: Amiodarone 200 MG TAB PO SCH (09:02)
[2020-05-04] MEDS: Aspirin 81 mg Enteric Coated Tablet PO SCH (09:02)
[2020-05-04] MEDS: Ascorbic Acid 500 mg Chewable Tablet PO SCH (09:02)
[2020-05-04] MEDS: Heparin 5,000 UNITS/ML VIAL SC SCH ×3 (09:03→22:25)
[2020-05-04] MEDS: Digoxin 0.125 MG TAB PO SCH (09:03)
[2020-05-04] MEDS: Ferrous Sulfate 325 MG TAB PO SCH (09:03)
[2020-05-04] MEDS: Zinc Sulfate 220 MG CAP PO SCH (09:04)
[2020-05-04] MEDS: Tamsulosin HCl 0.4 MG CAP PO SCH (09:04)
[2020-05-04] MEDS: Torsemide 20 MG TAB PO SCH ×2 (09:04→10:48)
[2020-05-04] MEDS: Albuterol 200 PUFF (6.7GM INHALER) INH PRN (09:06)
[2020-05-04] MEDS ORDERED: Activase 2 MG VIAL CATH SCH (09:15)
[2020-05-04] MEDS: REMDESIVIR (EUA) 100 MG in Sodium Chloride 0.9% 250 ML 230 ML IV SCH (15:22)
--- NOTE | 2020-05-04 16:19 | PDOC.HOSPP ---
- Subjective Encounter Date: 05/04/20 Encounter Time: 10:30 Subjective: Patient up in bed no complaints. - Objective Vital Signs & Weight: Vital Signs (12 hours) Temp Pulse Resp BP BP Pulse Ox 05/04/20 12:00 97.2 F L 80 21 H 104/55 L 95 05/04/20 09:05 97.9 F 81 20 98/57 L 92 L 05/04/20 05:00 97 F L 80 18 126/73 99 Weight Admit Weight 176 lb 12.8 oz Weight 164 lb 11.2 oz I&O: 05/03/20 05/04/20 05/05/20 06:59 06:59 06:59 Intake Total 720 1100 Output Total 5135 1775 675 Balance -1555 -675 -675 Result Diagrams: 04/29/20 05:16 05/03/20 04:40 Hospitalist ROS - Review of Systems Cardiovascular: denies: chest pain, palpitations, orthopnea, paroxysmal noc. dyspnea, edema, light headedness, other Gastrointestinal: denies: nausea, vomiting, abdominal pain, diarrhea, constipation, melena, hematochezia, other Genitourinary: denies: dysuria, frequency, incontinence, hematuria, retention, other - Medication Medications: Active Medications Generic Name Dose Route Start Last Admin Trade Name Freq PRN Reason Stop Dose Admin Acetaminophen 650 mg 04/28/20 21:13 04/30/20 01:59 Acetaminophen 325 Mg Tab PO 650 mg Q6H PRN Administration Fever/Mild Pain Albuterol Sulfate 2 puff 04/28/20 18:16 05/04/20 09:06 Albuterol 200 Puff (6.7gm Inhaler) INH 2 puff Q6H PRN Administration Wheezing Amiodarone HCl 200 mg 04/30/20 09:00 05/04/20 09:02 Amiodarone 200 Mg Tab PO 200 mg DAILY BRIE Administration Ascorbic Acid 1,000 mg 04/28/20 09:00 05/04/20 09:02 Ascorbic Acid 500 Mg Chewable Tablet PO 1,000 mg DAILY BRIE Administration Aspirin 81 mg 04/30/20 09:00 05/04/20 09:02 Aspirin 81 Mg Enteric Coated Tablet PO 81 mg DAILY BRIE Administration Benzonatate 100 mg 04/30/20 02:58 05/03/20 00:55 Benzonatate 100 Mg Cap PO 100 mg TIDPRN PRN Administration Cough Cholecalciferol 400 units 04/28/20 09:00 05/04/20 09:02 Cholecalciferol (Vitamin D3) 400 Units Tab PO 400 units DAILY BRIE Administration Dexamethasone 8 mg 04/29/20 09:00 05/04/20 09:02 Dexamethasone 4 Mg/Ml Vial SLOW IVP 8 mg DAILY BRIE Administration Digoxin 0.125 mg 04/29/20 09:00 05/04/20 09:03 Digoxin 0.125 Mg Tab PO 0.125 mg DAILY BRIE Administration Ferrous Sulfate 325 mg 04/30/20 09:00 05/04/20 09:03 Ferrous Sulfate 325 Mg Tab PO 325 mg DAILY BRIE Administration Guaifenesin 200 mg 04/28/20 21:19 05/04/20 09:05 Diabetic Tussin 200 Mg/10 Ml Udcup PO 200 mg Q4H PRN Administration Cough Heparin Sodium (Porcine) 5,000 units 04/28/20 09:00 05/04/20 14:32 Heparin 5,000 Units/Ml Vial SC 5,000 units TID BRIE Administration Cefepime HCl 2 gm/ Sodium 100 mls @ 200 mls/hr 04/28/20 14:00 05/04/20 14:32 Chloride IVPB 100 mls 0200,1400 BRIE Administration Doxycycline Hyclate 100 mg/ 100 mls @ 100 mls/hr 04/28/20 06:00 05/04/20 05:12 Sodium Chloride IVPB 100 mls 0600,1800 BRIE Administration Remdesivir 100 mg/ Sodium 250 mls @ 250 mls/hr 05/04/20 16:00 05/04/20 15:22 Chloride IV 05/07/20 16:59 250 mls 1600 BRIE Administration Sodium Chloride 10 ml 04/28/20 09:00 05/04/20 09:04 Flush - Normal Saline 10 Ml Syringe IVF 10 ml Q12HR BRIE Administration Tamsulosin HCl 0.4 mg 04/30/20 09:00 05/04/20 09:04 Tamsulosin Hcl 0.4 Mg Cap PO 0.4 mg DAILY BRIE Administration Torsemide 40 mg 04/29/20 09:00 05/04/20 10:48 Torsemide 20 Mg Tab PO Not Given DAILY BRIE Zinc Sulfate 220 mg 04/28/20 09:00 05/04/20 09:04 Zinc Sulfate 220 Mg Cap PO 220 mg DAILY BRIE Administration - Exam Neck: negative: supple, symmetric, no JVD, no thyromegaly, no lymphadenopathy, no carotid bruit, JVD Heart: negative: RRR, no murmur, no gallops, no rubs, normal peripheral pulses, irregular, diminshed peripheral pulses, murmur present, II/IV, III/IV Respiratory: negative: CTAB, no wheezes, no rales, no ronchi, normal chest expansion, no tachypnea, normal percussion, rales, rhonchi, tachypneic, wheezes Hosp A/P - Plan (1) COVID-19 virus detected Code(s): U07.1 - COVID-19 Status: Acute Plan: Continue Cefepime/Doxycycline/Dexamethasone/Vit C/Zinc, start Remdesivir today, O2 supplementation with plans for home O2 (2) Acute on chronic systolic CHF (congestive heart failure) Code(s): I50.23 - ACUTE ON CHRONIC SYSTOLIC (CONGESTIVE) HEART FAILURE Status: Acute Plan: Improved, continue Torsemide, daily weight, serial I/O's (3) Severe sepsis with septic shock Code(s): A41.9 - SEPSIS, UNSPECIFIED ORGANISM; R65.21 - SEVERE SEPSIS WITH SEPTIC SHOCK Status: Acute (4) Acute worsening of stage 3 chronic kidney disease Code(s): N18.3 - CHRONIC KIDNEY DISEASE, STAGE 3 (MODERATE) * DO NOT USE * Status: Acute Plan: Improved, avoid nephrotoxic meds and limit contrast (5) Metabolic acidosis Code(s): E87.2 - ACIDOSIS Status: Acute (6) Cardiomyopathy Code(s): I42.9 - CARDIOMYOPATHY, UNSPECIFIED Status: Chronic Plan: EF 20-25% (7) Acute respiratory failure with hypoxia Code(s): J96.01 - ACUTE RESPIRATORY FAILURE WITH HYPOXIA Status: Acute Plan: Continue O2 supplementation, set up home O2 for d/c Patient is a 80-year-old male who initially came to the hospital for denies weakness was found to be hypotensive and was started initially on a Levophed and then on a dobutamine drip. Patient also was noted to be Covid positive. - Plan continue antibiotics, psychologist social, 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 1/ we will discontinue cefepime for now. We will continue doxy. We will continue dexamethasone. Patient on DVT prophylaxis. Patient currently on 4 L of nasal cannula.
[2020-05-04] MEDS: Acetaminophen 325 MG TAB PO PRN (22:21)
[2020-05-04] MEDS: Benzonatate 100 MG CAP PO PRN (22:21)
[2020-05-05] MEDS: Zinc Sulfate 220 MG CAP PO SCH (09:07)
[2020-05-05] MEDS: Ascorbic Acid 500 mg Chewable Tablet PO SCH (09:07)
[2020-05-05] MEDS: Cholecalciferol (Vitamin D3) 400 UNITS TAB PO SCH (09:08)
[2020-05-05] MEDS: Aspirin 81 mg Enteric Coated Tablet PO SCH (09:08)
[2020-05-05] MEDS: Digoxin 0.125 MG TAB PO SCH (09:08)
[2020-05-05] MEDS: Ferrous Sulfate 325 MG TAB PO SCH (09:09)
[2020-05-05] MEDS: Dexamethasone 4 mg/ml Vial SLOW IVP SCH (09:09)
[2020-05-05] MEDS: Amiodarone 200 MG TAB PO SCH (09:09)
[2020-05-05] MEDS: Tamsulosin HCl 0.4 MG CAP PO SCH (09:09)
[2020-05-05] MEDS: Heparin 5,000 UNITS/ML VIAL SC SCH ×3 (09:10→19:39)
[2020-05-05] MEDS: REMDESIVIR (EUA) 100 MG in Sodium Chloride 0.9% 250 ML 230 ML IV SCH (16:57)
[2020-05-06] MEDS: Benzonatate 100 MG CAP PO PRN (00:38)
[2020-05-06] MEDS: Acetaminophen 325 MG TAB PO PRN ×2 (00:38→16:35)
[2020-05-06] MEDS: Albuterol 200 PUFF (6.7GM INHALER) INH PRN ×2 (00:42→08:22)
[2020-05-06 05:46] LABS: ALT (SGPT) 11 U/L (8-55); AST (SGOT) 15 U/L (5-34); Albumin 2.9 g/dL (3.4-4.8); Alkaline Phosphatase 189 U/L (40-110); Anion Gap 16 mmol/L (10-20); BUN (Urea Nitrogen) 45 mg/dL (8.4-25.7); Bilirubin, Total 0.7 mg/dL (0.2-1.2); CRP (Inflammatory) 7.45 mg/dL (= or < 0.5); Calc. Creatinine Clearance 42 mL/min (70-130); Calcium 8.9 mg/dL (7.8-10.44); Carbon Dioxide 15 mmol/L (23-31); Chloride 110 mmol/L (98-107); Globulin 3.4 g/dL (2.4-3.5); Glucose 78 mg/dL (83-110); Potassium 4.7 mmol/L (3.5-5.1); Protein, Total 6.3 g/dL (5.8-8.1); Sodium 136 mmol/L (136-145)
[2020-05-06 06:35] LABS: Band 12 % (5-11); Hemoglobin 11.2 g/dL (14.0-18.0); Lymphocytes 4 % (21-51); MDiff Complete? YES; Mean Corpuscular HGB CONC 31.7 g/dL (32.0-36.0); Mean Corpuscular Volume 82.1 fL (78.0-98.0); Mean Platelet Volume 10.4 fL (7.4-10.4); Monocytes 7 % (0-10); Neutrophil 77 % (42-75); Platelet Count 200 thou/uL (130-400); RBC Distribution Width 14.6 % (11.5-14.5); Red Blood Cell (RBC) Count 4.31 mill/uL (4.70-6.10); White Blood Cell (WBC) Count 10.4 thou/uL (4.8-10.8)
--- NOTE | 2020-05-06 07:10 | PDOC.HOSPP ---
- Subjective Encounter Date: 05/05/20 Encounter Time: 11:30 Subjective: pt up in bed no complains - Objective Vital Signs & Weight: Vital Signs (12 hours) Temp Pulse Resp BP BP Pulse Ox 05/06/20 03:39 97.6 F 81 21 H 120/65 96 05/06/20 00:38 97.7 F 80 18 114/62 97 05/05/20 19:39 97.8 F 83 20 126/64 94 L Weight Admit Weight 176 lb 12.8 oz Weight 164 lb 11.2 oz I&O: 05/05/20 05/06/20 05/07/20 06:59 06:59 06:59 Intake Total 1250 840 Output Total 2125 775 Balance -875 65 Result Diagrams: 05/06/20 05:04 05/06/20 05:04 Hospitalist ROS - Review of Systems Cardiovascular: denies: chest pain, palpitations, orthopnea, paroxysmal noc. dyspnea, edema, light headedness, other Gastrointestinal: denies: nausea, vomiting, abdominal pain, diarrhea, constipation, melena, hematochezia, other Genitourinary: denies: dysuria, frequency, incontinence, hematuria, retention, other - Medication Medications: Active Medications Generic Name Dose Route Start Last Admin Trade Name Freq PRN Reason Stop Dose Admin Acetaminophen 650 mg 04/28/20 21:13 05/06/20 00:38 Acetaminophen 325 Mg Tab PO 650 mg Q6H PRN Administration Fever/Mild Pain Albuterol Sulfate 2 puff 04/28/20 18:16 05/06/20 00:42 Albuterol 200 Puff (6.7gm Inhaler) INH 2 puff Q6H PRN Administration Wheezing Amiodarone HCl 200 mg 04/30/20 09:00 05/05/20 09:09 Amiodarone 200 Mg Tab PO 200 mg DAILY BRIE Administration Ascorbic Acid 1,000 mg 04/28/20 09:00 05/05/20 09:07 Ascorbic Acid 500 Mg Chewable Tablet PO 1,000 mg DAILY BRIE Administration Aspirin 81 mg 04/30/20 09:00 05/05/20 09:08 Aspirin 81 Mg Enteric Coated Tablet PO 81 mg DAILY BRIE Administration Benzonatate 100 mg 04/30/20 02:58 05/06/20 00:38 Benzonatate 100 Mg Cap PO 100 mg TIDPRN PRN Administration Cough Cholecalciferol 400 units 04/28/20 09:00 05/05/20 09:08 Cholecalciferol (Vitamin D3) 400 Units Tab PO 400 units DAILY BRIE Administration Dexamethasone 8 mg 04/29/20 09:00 05/05/20 09:09 Dexamethasone 4 Mg/Ml Vial SLOW IVP 8 mg DAILY BRIE Administration Digoxin 0.125 mg 04/29/20 09:00 05/05/20 09:08 Digoxin 0.125 Mg Tab PO 0.125 mg DAILY BRIE Administration Ferrous Sulfate 325 mg 04/30/20 09:00 05/05/20 09:09 Ferrous Sulfate 325 Mg Tab PO 325 mg DAILY BRIE Administration Guaifenesin 200 mg 04/28/20 21:19 05/04/20 22:21 Diabetic Tussin 200 Mg/10 Ml Udcup PO 200 mg Q4H PRN Administration Cough Heparin Sodium (Porcine) 5,000 units 04/28/20 09:00 05/05/20 19:39 Heparin 5,000 Units/Ml Vial SC 5,000 units TID BRIE Administration Doxycycline Hyclate 100 mg/ 100 mls @ 100 mls/hr 04/28/20 06:00 05/06/20 05:40 Sodium Chloride IVPB 100 mls 0600,1800 BRIE Administration Remdesivir 100 mg/ Sodium 250 mls @ 250 mls/hr 05/04/20 16:00 05/05/20 16:57 Chloride IV 05/07/20 16:59 250 mls 1600 BRIE Administration Sodium Chloride 10 ml 04/28/20 09:00 05/05/20 19:39 Flush - Normal Saline 10 Ml Syringe IVF 10 ml Q12HR BRIE Administration Tamsulosin HCl 0.4 mg 04/30/20 09:00 05/05/20 09:09 Tamsulosin Hcl 0.4 Mg Cap PO 0.4 mg DAILY BRIE Administration Torsemide 40 mg 04/29/20 09:00 05/04/20 10:48 Torsemide 20 Mg Tab PO Not Given DAILY BRIE Zinc Sulfate 220 mg 04/28/20 09:00 05/05/20 09:07 Zinc Sulfate 220 Mg Cap PO 220 mg DAILY BRIE Administration - Exam Neck: negative: supple, symmetric, no JVD, no thyromegaly, no lymphadenopathy, no carotid bruit, JVD Heart: negative: RRR, no murmur, no gallops, no rubs, normal peripheral pulses, irregular, diminshed peripheral pulses, murmur present, II/IV, III/IV Respiratory: negative: CTAB, no wheezes, no rales, no ronchi, normal chest expansion, no tachypnea, normal percussion, rales, rhonchi, tachypneic, wheezes Hosp A/P - Plan (1) COVID-19 virus detected Code(s): U07.1 - COVID-19 Status: Acute Plan: Continue Cefepime/Doxycycline/Dexamethasone/Vit C/Zinc, start Remdesivir today, O2 supplementation with plans for home O2 (2) Acute on chronic systolic CHF (congestive heart failure) Code(s): I50.23 - ACUTE ON CHRONIC SYSTOLIC (CONGESTIVE) HEART FAILURE Status: Acute Plan: Improved, continue Torsemide, daily weight, serial I/O's (3) Severe sepsis with septic shock Code(s): A41.9 - SEPSIS, UNSPECIFIED ORGANISM; R65.21 - SEVERE SEPSIS WITH SEPTIC SHOCK Status: Acute (4) Acute worsening of stage 3 chronic kidney disease Code(s): N18.3 - CHRONIC KIDNEY DISEASE, STAGE 3 (MODERATE) * DO NOT USE * Status: Acute Plan: Improved, avoid nephrotoxic meds and limit contrast (5) Metabolic acidosis Code(s): E87.2 - ACIDOSIS Status: Acute (6) Cardiomyopathy Code(s): I42.9 - CARDIOMYOPATHY, UNSPECIFIED Status: Chronic Plan: EF 20-25% (7) Acute respiratory failure with hypoxia Code(s): J96.01 - ACUTE RESPIRATORY FAILURE WITH HYPOXIA Status: Acute Plan: Continue O2 supplementation, set up home O2 for d/c Patient is a 80-year-old male who initially came to the hospital for denies weakness was found to be hypotensive and was started initially on a Levophed and then on a dobutamine drip. Patient also was noted to be Covid positive. 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 We will continue doxy. We will continue dexamethasone. Patient on DVT prophylaxis. Patient currently on 4 L of nasal cannula. 05/05 pt not eating much will see if he takes in ensure. continues to be on NC will continue remdesivir.
[2020-05-06] MEDS: Amiodarone 200 MG TAB PO SCH (07:52)
[2020-05-06] MEDS: Ascorbic Acid 500 mg Chewable Tablet PO SCH (07:52)
[2020-05-06] MEDS: Aspirin 81 mg Enteric Coated Tablet PO SCH (07:53)
[2020-05-06] MEDS: Digoxin 0.125 MG TAB PO SCH (07:53)
[2020-05-06] MEDS: Cholecalciferol (Vitamin D3) 400 UNITS TAB PO SCH (07:53)
[2020-05-06] MEDS: Ferrous Sulfate 325 MG TAB PO SCH (07:53)
[2020-05-06] MEDS: Dexamethasone 4 mg/ml Vial SLOW IVP SCH (07:53)
[2020-05-06] MEDS: Heparin 5,000 UNITS/ML VIAL SC SCH ×3 (07:53→20:53)
[2020-05-06] MEDS: Tamsulosin HCl 0.4 MG CAP PO SCH (07:54)
[2020-05-06] MEDS: Zinc Sulfate 220 MG CAP PO SCH (07:54)
[2020-05-06] MEDS ORDERED: Non-Formulary Item 1 EACH (Omeprazole [Omeprazole] 40 MG Capsule.Dr) PO SCH (09:00)
[2020-05-06] MEDS: Allopurinol 100 MG TAB PO SCH (15:21)
[2020-05-06] MEDS: REMDESIVIR (EUA) 100 MG in Sodium Chloride 0.9% 250 ML 230 ML IV SCH (15:21)
[2020-05-06] MEDS: Diabetic Tussin 200 MG/10 ML UDCUP PO PRN (16:35)
[2020-05-07] MEDS: Albuterol 200 PUFF (6.7GM INHALER) INH PRN ×2 (02:03→20:49)
[2020-05-07] MEDS: Ferrous Sulfate 325 MG TAB PO SCH (10:28)
[2020-05-07] MEDS: Amiodarone 200 MG TAB PO SCH (10:28)
[2020-05-07] MEDS: Cholecalciferol (Vitamin D3) 400 UNITS TAB PO SCH (10:29)
[2020-05-07] MEDS: Torsemide 20 MG TAB PO SCH (10:29)
[2020-05-07] MEDS: Aspirin 81 mg Enteric Coated Tablet PO SCH (10:29)
[2020-05-07] MEDS: Heparin 5,000 UNITS/ML VIAL SC SCH ×3 (10:29→20:48)
[2020-05-07] MEDS: Allopurinol 100 MG TAB PO SCH (10:29)
[2020-05-07] MEDS: Ascorbic Acid 500 mg Chewable Tablet PO SCH (10:29)
[2020-05-07] MEDS: Tamsulosin HCl 0.4 MG CAP PO SCH (10:30)
[2020-05-07] MEDS: Dexamethasone 4 mg/ml Vial SLOW IVP SCH (10:30)
[2020-05-07] MEDS: Zinc Sulfate 220 MG CAP PO SCH (10:30)
[2020-05-07] MEDS: Digoxin 0.125 MG TAB PO SCH (10:47)
[2020-05-07] MEDS: REMDESIVIR (EUA) 100 MG in Sodium Chloride 0.9% 250 ML 230 ML IV SCH (17:06)
[2020-05-07] MEDS: D5W-AA 4.25% with LYTES 1,000 ML IV SCH ×2 (17:10→17:13)
--- NOTE | 2020-05-07 17:14 | PDOC.HOSPP ---
- Subjective Encounter Date: 05/06/20 Encounter Time: 11:20 Subjective: Patient up in no complaints. He continues not to eat very much - Objective Vital Signs & Weight: Vital Signs (12 hours) Temp Pulse Resp BP BP Pulse Ox Pulse Ox 05/07/20 14:40 111/56 L 98 05/07/20 13:13 97.1 F L 80 20 115/62 97 05/07/20 10:47 80 05/07/20 10:40 98.4 F 81 20 110/59 L 98 05/07/20 10:29 98 Pulse Ox 05/07/20 14:40 97 05/07/20 13:13 05/07/20 10:47 05/07/20 10:40 05/07/20 10:29 Weight Admit Weight 176 lb 12.8 oz Weight 164 lb 11.2 oz I&O: 05/06/20 05/07/20 05/08/20 06:59 06:59 06:59 Intake Total 840 1130 Output Total 775 1800 Balance 65 -670 Result Diagrams: 05/06/20 05:04 05/06/20 05:04 Hospitalist ROS - Review of Systems Cardiovascular: denies: chest pain, palpitations, orthopnea, paroxysmal noc. dyspnea, edema, light headedness, other Gastrointestinal: denies: nausea, vomiting, abdominal pain, diarrhea, constipation, melena, hematochezia, other Genitourinary: denies: dysuria, frequency, incontinence, hematuria, retention, other - Medication Medications: Active Medications Generic Name Dose Route Start Last Admin Trade Name Freq PRN Reason Stop Dose Admin Acetaminophen 650 mg 04/28/20 21:13 05/06/20 16:35 Acetaminophen 325 Mg Tab PO 650 mg Q6H PRN Administration Fever/Mild Pain Albuterol Sulfate 2 puff 04/28/20 18:16 05/07/20 02:03 Albuterol 200 Puff (6.7gm Inhaler) INH 2 puff Q6H PRN Administration Wheezing Allopurinol 100 mg 05/06/20 09:00 05/07/20 10:29 Allopurinol 100 Mg Tab PO 100 mg DAILY BRIE Administration Amiodarone HCl 200 mg 04/30/20 09:00 05/07/20 10:28 Amiodarone 200 Mg Tab PO 200 mg DAILY BRIE Administration Ascorbic Acid 1,000 mg 04/28/20 09:00 05/07/20 10:29 Ascorbic Acid 500 Mg Chewable Tablet PO 1,000 mg DAILY BRIE Administration Aspirin 81 mg 04/30/20 09:00 05/07/20 10:29 Aspirin 81 Mg Enteric Coated Tablet PO 81 mg DAILY BRIE Administration Benzonatate 100 mg 04/30/20 02:58 05/06/20 00:38 Benzonatate 100 Mg Cap PO 100 mg TIDPRN PRN Administration Cough Cholecalciferol 400 units 04/28/20 09:00 05/07/20 10:29 Cholecalciferol (Vitamin D3) 400 Units Tab PO 400 units DAILY BRIE Administration Dexamethasone 8 mg 04/29/20 09:00 05/07/20 10:30 Dexamethasone 4 Mg/Ml Vial SLOW IVP 8 mg DAILY BRIE Administration Digoxin 0.125 mg 04/29/20 09:00 05/07/20 10:47 Digoxin 0.125 Mg Tab PO 0.125 mg DAILY BRIE Administration Ferrous Sulfate 325 mg 04/30/20 09:00 05/07/20 10:28 Ferrous Sulfate 325 Mg Tab PO 325 mg DAILY BRIE Administration Guaifenesin 200 mg 04/28/20 21:19 05/06/20 16:35 Diabetic Tussin 200 Mg/10 Ml Udcup PO 200 mg Q4H PRN Administration Cough Heparin Sodium (Porcine) 5,000 units 04/28/20 09:00 05/07/20 17:06 Heparin 5,000 Units/Ml Vial SC 5,000 units TID BRIE Administration Pantoprazole Sodium 40 mg 05/06/20 09:00 05/07/20 10:29 Pantoprazole 40 Mg Tab PO 40 mg DAILY BRIE Administration Sodium Chloride 10 ml 04/28/20 09:00 05/07/20 10:30 Flush - Normal Saline 10 Ml Syringe IVF 10 ml Q12HR BRIE Administration Sodium Chloride 10 ml 04/28/20 08:00 05/06/20 15:22 Flush - Normal Saline 10 Ml Syringe IVF 10 ml PRN PRN Administration Saline Flush Tamsulosin HCl 0.4 mg 04/30/20 09:00 05/07/20 10:30 Tamsulosin Hcl 0.4 Mg Cap PO 0.4 mg DAILY BRIE Administration Torsemide 40 mg 04/29/20 09:00 05/07/20 10:29 Torsemide 20 Mg Tab PO 40 mg DAILY BRIE Administration Zinc Sulfate 220 mg 04/28/20 09:00 05/07/20 10:30 Zinc Sulfate 220 Mg Cap PO 220 mg DAILY BRIE Administration - Exam Neck: negative: supple, symmetric, no JVD, no thyromegaly, no lymphadenopathy, no carotid bruit, JVD Heart: negative: RRR, no murmur, no gallops, no rubs, normal peripheral pulses, irregular, diminshed peripheral pulses, murmur present, II/IV, III/IV Respiratory: negative: CTAB, no wheezes, no rales, no ronchi, normal chest expansion, no tachypnea, normal percussion, rales, rhonchi, tachypneic, wheezes Hosp A/P - Plan (1) COVID-19 virus detected Code(s): U07.1 - COVID-19 Status: Acute Plan: Continue Cefepime/Doxycycline/Dexamethasone/Vit C/Zinc, start Remdesivir today, O2 supplementation with plans for home O2 (2) Acute on chronic systolic CHF (congestive heart failure) Code(s): I50.23 - ACUTE ON CHRONIC SYSTOLIC (CONGESTIVE) HEART FAILURE Status: Acute Plan: Improved, continue Torsemide, daily weight, serial I/O's (3) Severe sepsis with septic shock Code(s): A41.9 - SEPSIS, UNSPECIFIED ORGANISM; R65.21 - SEVERE SEPSIS WITH SEPTIC SHOCK Status: Acute (4) Acute worsening of stage 3 chronic kidney disease Code(s): N18.3 - CHRONIC KIDNEY DISEASE, STAGE 3 (MODERATE) * DO NOT USE * Status: Acute Plan: Improved, avoid nephrotoxic meds and limit contrast (5) Metabolic acidosis Code(s): E87.2 - ACIDOSIS Status: Acute (6) Cardiomyopathy Code(s): I42.9 - CARDIOMYOPATHY, UNSPECIFIED Status: Chronic Plan: EF 20-25% (7) Acute respiratory failure with hypoxia Code(s): J96.01 - ACUTE RESPIRATORY FAILURE WITH HYPOXIA Status: Acute Plan: Continue O2 supplementation, set up home O2 for d/c Patient is a 80-year-old male who initially came to the hospital for denies weakness was found to be hypotensive and was started initially on a Levophed and then on a dobutamine drip. Patient also was noted to be Covid positive. 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 We will continue doxy. We will continue dexamethasone. Patient on DVT prophylaxis. Patient currently on 4 L of nasal cannula. 05/05 pt not eating much will see if he takes in ensure. continues to be on NC will continue remdesivir. 05/06 patient not eating much. We will continue remdesivir for now.
--- NOTE | 2020-05-07 17:40 | PDOC.HOSPP ---
- Subjective Encounter Date: 05/06/20 Encounter Time: 11:30 Subjective: Patient up in bed no complaints. - Objective Vital Signs & Weight: Vital Signs (12 hours) Temp Pulse Resp BP BP Pulse Ox Pulse Ox 05/07/20 14:40 111/56 L 98 05/07/20 13:13 97.1 F L 80 20 115/62 97 05/07/20 10:47 80 05/07/20 10:40 98.4 F 81 20 110/59 L 98 05/07/20 10:29 98 Pulse Ox 05/07/20 14:40 97 05/07/20 13:13 05/07/20 10:47 05/07/20 10:40 05/07/20 10:29 Weight Admit Weight 176 lb 12.8 oz Weight 164 lb 11.2 oz I&O: 05/06/20 05/07/20 05/08/20 06:59 06:59 06:59 Intake Total 840 1130 Output Total 775 1800 Balance 65 -670 Result Diagrams: 05/06/20 05:04 05/06/20 05:04 Hospitalist ROS - Review of Systems Cardiovascular: denies: chest pain, palpitations, orthopnea, paroxysmal noc. dyspnea, edema, light headedness, other Gastrointestinal: denies: nausea, vomiting, abdominal pain, diarrhea, constipation, melena, hematochezia, other Genitourinary: denies: dysuria, frequency, incontinence, hematuria, retention, other - Medication Medications: Active Medications Generic Name Dose Route Start Last Admin Trade Name Freq PRN Reason Stop Dose Admin Acetaminophen 650 mg 04/28/20 21:13 05/06/20 16:35 Acetaminophen 325 Mg Tab PO 650 mg Q6H PRN Administration Fever/Mild Pain Albuterol Sulfate 2 puff 04/28/20 18:16 05/07/20 02:03 Albuterol 200 Puff (6.7gm Inhaler) INH 2 puff Q6H PRN Administration Wheezing Allopurinol 100 mg 05/06/20 09:00 05/07/20 10:29 Allopurinol 100 Mg Tab PO 100 mg DAILY BRIE Administration Amiodarone HCl 200 mg 04/30/20 09:00 05/07/20 10:28 Amiodarone 200 Mg Tab PO 200 mg DAILY BRIE Administration Ascorbic Acid 1,000 mg 04/28/20 09:00 05/07/20 10:29 Ascorbic Acid 500 Mg Chewable Tablet PO 1,000 mg DAILY BRIE Administration Aspirin 81 mg 04/30/20 09:00 05/07/20 10:29 Aspirin 81 Mg Enteric Coated Tablet PO 81 mg DAILY BRIE Administration Benzonatate 100 mg 04/30/20 02:58 05/06/20 00:38 Benzonatate 100 Mg Cap PO 100 mg TIDPRN PRN Administration Cough Cholecalciferol 400 units 04/28/20 09:00 05/07/20 10:29 Cholecalciferol (Vitamin D3) 400 Units Tab PO 400 units DAILY BRIE Administration Dexamethasone 8 mg 04/29/20 09:00 05/07/20 10:30 Dexamethasone 4 Mg/Ml Vial SLOW IVP 8 mg DAILY BRIE Administration Digoxin 0.125 mg 04/29/20 09:00 05/07/20 10:47 Digoxin 0.125 Mg Tab PO 0.125 mg DAILY BRIE Administration Ferrous Sulfate 325 mg 04/30/20 09:00 05/07/20 10:28 Ferrous Sulfate 325 Mg Tab PO 325 mg DAILY BRIE Administration Guaifenesin 200 mg 04/28/20 21:19 05/06/20 16:35 Diabetic Tussin 200 Mg/10 Ml Udcup PO 200 mg Q4H PRN Administration Cough Heparin Sodium (Porcine) 5,000 units 04/28/20 09:00 05/07/20 17:06 Heparin 5,000 Units/Ml Vial SC 5,000 units TID BRIE Administration Amino Acids/Electrolytes/Dextrose 1,000 mls @ 45 mls/hr 05/07/20 15:30 05/07/20 17:13 Clinimix E 4.25/5 IV 1,000 mls INF BRIE Administration Pantoprazole Sodium 40 mg 05/06/20 09:00 05/07/20 10:29 Pantoprazole 40 Mg Tab PO 40 mg DAILY BRIE Administration Sodium Chloride 10 ml 04/28/20 09:00 05/07/20 10:30 Flush - Normal Saline 10 Ml Syringe IVF 10 ml Q12HR BRIE Administration Sodium Chloride 10 ml 04/28/20 08:00 05/06/20 15:22 Flush - Normal Saline 10 Ml Syringe IVF 10 ml PRN PRN Administration Saline Flush Tamsulosin HCl 0.4 mg 04/30/20 09:00 05/07/20 10:30 Tamsulosin Hcl 0.4 Mg Cap PO 0.4 mg DAILY BRIE Administration Torsemide 40 mg 04/29/20 09:00 05/07/20 10:29 Torsemide 20 Mg Tab PO 40 mg DAILY BRIE Administration Zinc Sulfate 220 mg 04/28/20 09:00 05/07/20 10:30 Zinc Sulfate 220 Mg Cap PO 220 mg DAILY BRIE Administration - Exam Neck: negative: supple, symmetric, no JVD, no thyromegaly, no lymphadenopathy, no carotid bruit, JVD Heart: negative: RRR, no murmur, no gallops, no rubs, normal peripheral pulses, irregular, diminshed peripheral pulses, murmur present, II/IV, III/IV Respiratory: negative: CTAB, no wheezes, no rales, no ronchi, normal chest expansion, no tachypnea, normal percussion, rales, rhonchi, tachypneic, wheezes Hosp A/P - Plan (1) COVID-19 virus detected Code(s): U07.1 - COVID-19 Status: Acute Plan: Continue Cefepime/Doxycycline/Dexamethasone/Vit C/Zinc, start Remdesivir today, O2 supplementation with plans for home O2 (2) Acute on chronic systolic CHF (congestive heart failure) Code(s): I50.23 - ACUTE ON CHRONIC SYSTOLIC (CONGESTIVE) HEART FAILURE Status: Acute Plan: Improved, continue Torsemide, daily weight, serial I/O's (3) Severe sepsis with septic shock Code(s): A41.9 - SEPSIS, UNSPECIFIED ORGANISM; R65.21 - SEVERE SEPSIS WITH SEPTIC SHOCK Status: Acute (4) Acute worsening of stage 3 chronic kidney disease Code(s): N18.3 - CHRONIC KIDNEY DISEASE, STAGE 3 (MODERATE) * DO NOT USE * Status: Acute Plan: Improved, avoid nephrotoxic meds and limit contrast (5) Metabolic acidosis Code(s): E87.2 - ACIDOSIS Status: Acute (6) Cardiomyopathy Code(s): I42.9 - CARDIOMYOPATHY, UNSPECIFIED Status: Chronic Plan: EF 20-25% (7) Acute respiratory failure with hypoxia Code(s): J96.01 - ACUTE RESPIRATORY FAILURE WITH HYPOXIA Status: Acute Plan: Continue O2 supplementation, set up home O2 for d/c Patient is a 80-year-old male who initially came to the hospital for bradley mckee was found to be hypotensive and was started initially on a Levophed and then on a dobutamine drip. Patient also was noted to be Covid positive. 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 We will continue doxy. We will continue dexamethasone. Patient on DVT prophylaxis. Patient currently on 4 L of nasal cannula. 05/05 pt not eating much will see if he takes in ensure. continues to be on NC will continue remdesivir. 05/06 patient not eating much. We will continue remdesivir for now.
[2020-05-07] MEDS: Diabetic Tussin 200 MG/10 ML UDCUP PO PRN (20:48)
[2020-05-07] MEDS: Acetaminophen 325 MG TAB PO PRN (20:48)
[2020-05-07] MEDS: Benzonatate 100 MG CAP PO PRN (20:49)
[2020-05-08] MEDS: Acetaminophen 325 MG TAB PO PRN (01:57)
[2020-05-08] MEDS: D5W-AA 4.25% with LYTES 1,000 ML IV SCH (02:13)
[2020-05-08] MEDS: Digoxin 0.125 MG TAB PO SCH (09:12)
[2020-05-08] MEDS: Allopurinol 100 MG TAB PO SCH (09:13)
[2020-05-08] MEDS: Aspirin 81 mg Enteric Coated Tablet PO SCH (09:13)
[2020-05-08] MEDS: Ascorbic Acid 500 mg Chewable Tablet PO SCH (09:13)
[2020-05-08] MEDS: Amiodarone 200 MG TAB PO SCH (09:13)
[2020-05-08] MEDS: Tamsulosin HCl 0.4 MG CAP PO SCH (09:13)
[2020-05-08 09:14] LABS: Hemoglobin 11.9 g/dL (14.0-18.0); Mean Corpuscular HGB CONC 32.1 g/dL (32.0-36.0); Mean Corpuscular Hemoglobin 26.4 pg (27.0-31.0); Mean Corpuscular Volume 82.2 fL (78.0-98.0); Mean Platelet Volume 10.2 fL (7.4-10.4); Platelet Count 209 thou/uL (130-400); RBC Distribution Width 14.7 % (11.5-14.5); Red Blood Cell (RBC) Count 4.51 mill/uL (4.70-6.10); White Blood Cell (WBC) Count 10.1 thou/uL (4.8-10.8)
[2020-05-08] MEDS: Dexamethasone 4 mg/ml Vial SLOW IVP SCH (09:14)
[2020-05-08] MEDS: Torsemide 20 MG TAB PO SCH (09:14)
[2020-05-08 09:16] LABS: ALT (SGPT) 8 U/L (8-55); AST (SGOT) 11 U/L (5-34); Albumin 3.1 g/dL (3.4-4.8); Alkaline Phosphatase 211 U/L (40-110); Anion Gap 17 mmol/L (10-20); BUN (Urea Nitrogen) 57 mg/dL (8.4-25.7); Bilirubin, Total 0.8 mg/dL (0.2-1.2); Calc. Creatinine Clearance 34 mL/min (70-130); Calcium 9.2 mg/dL (7.8-10.44); Carbon Dioxide 21 mmol/L (23-31); Chloride 105 mmol/L (98-107); Globulin 3.5 g/dL (2.4-3.5); Glucose 114 mg/dL (83-110); Magnesium 2.1 mg/dL (1.6-2.6); Potassium 4.1 mmol/L (3.5-5.1); Protein, Total 6.6 g/dL (5.8-8.1); Sodium 139 mmol/L (136-145)
[2020-05-08] MEDS: Ferrous Sulfate 325 MG TAB PO SCH (09:16)
[2020-05-08] MEDS: Cholecalciferol (Vitamin D3) 400 UNITS TAB PO SCH (09:17)
[2020-05-08] MEDS: Heparin 5,000 UNITS/ML VIAL SC SCH ×3 (09:28→20:33)
[2020-05-08 09:40] LABS: Band 2 % (5-11); Lymphocytes 3 % (21-51); MDiff Complete? YES; Metamyelocyte 2 % (0-0); Monocytes 5 % (0-10); Myelocyte 1 % (0-0); Neutrophil 87 % (42-75); Ovalocytes SLIGHT = 2-5 cells (100X) (0-1/hpf); Platelet Morphology Comment Appears Adequate; Polychromasia SLIGHT = 2-3 cells (100X) (0-2/hpf); Schistocytes SLIGHT = 2-5 cells (100X) (0-1/hpf); Tear Drops SLIGHT = 2-5 cells (100X) (0-1/hpf)
[2020-05-08] MEDS: Benzonatate 100 MG CAP PO PRN ×2 (09:54→20:33)
[2020-05-08] MEDS: Zinc Sulfate 220 MG CAP PO SCH (15:02)
--- NOTE | 2020-05-08 18:30 | PDOC.HOSPP ---
- Subjective Encounter Date: 05/08/20 Encounter Time: 10:30 Subjective: Patient up in bed no complaints. Spoke with patient's son recommended patient to be placed in detention facility since patient is severely deconditioned - Objective Vital Signs & Weight: Vital Signs (12 hours) Temp Pulse Resp BP BP Pulse Ox Pulse Ox 05/08/20 16:00 97.5 F L 79 19 113/66 98 05/08/20 15:06 92 L 05/08/20 12:00 97.6 F 79 18 112/66 96 05/08/20 09:12 82 05/08/20 08:00 100 05/08/20 07:27 97.7 F 82 16 117/73 92 L Pulse Ox 05/08/20 16:00 05/08/20 15:06 98 05/08/20 12:00 05/08/20 09:12 05/08/20 08:00 05/08/20 07:27 Weight Admit Weight 176 lb 12.8 oz Weight 164 lb 11.2 oz I&O: 05/07/20 05/08/20 05/09/20 06:59 06:59 06:59 Intake Total 1130 690 Output Total 1800 Balance -670 690 Result Diagrams: 05/08/20 08:38 05/08/20 08:38 Additional Labs: Accuchecks 05/08/20 05:00 POC Glucose 120 H Hospitalist ROS - Review of Systems Cardiovascular: denies: chest pain, palpitations, orthopnea, paroxysmal noc. dyspnea, edema, light headedness, other Gastrointestinal: denies: nausea, vomiting, abdominal pain, diarrhea, constipation, melena, hematochezia, other Genitourinary: denies: dysuria, frequency, incontinence, hematuria, retention, other - Medication Medications: Active Medications Generic Name Dose Route Start Last Admin Trade Name Freq PRN Reason Stop Dose Admin Acetaminophen 650 mg 04/28/20 21:13 05/08/20 01:57 Acetaminophen 325 Mg Tab PO 650 mg Q6H PRN Administration Fever/Mild Pain Albuterol Sulfate 2 puff 04/28/20 18:16 05/07/20 20:49 Albuterol 200 Puff (6.7gm Inhaler) INH 2 puff Q6H PRN Administration Wheezing Allopurinol 100 mg 05/06/20 09:00 05/08/20 09:13 Allopurinol 100 Mg Tab PO 100 mg DAILY BRIE Administration Amiodarone HCl 200 mg 04/30/20 09:00 05/08/20 09:13 Amiodarone 200 Mg Tab PO 200 mg DAILY BRIE Administration Ascorbic Acid 1,000 mg 04/28/20 09:00 05/08/20 09:13 Ascorbic Acid 500 Mg Chewable Tablet PO 1,000 mg DAILY BRIE Administration Aspirin 81 mg 04/30/20 09:00 05/08/20 09:13 Aspirin 81 Mg Enteric Coated Tablet PO 81 mg DAILY BRIE Administration Benzonatate 100 mg 04/30/20 02:58 05/08/20 09:54 Benzonatate 100 Mg Cap PO 100 mg TIDPRN PRN Administration Cough Cholecalciferol 400 units 04/28/20 09:00 05/08/20 09:17 Cholecalciferol (Vitamin D3) 400 Units Tab PO 400 units DAILY BRIE Administration Dexamethasone 8 mg 04/29/20 09:00 05/08/20 09:14 Dexamethasone 4 Mg/Ml Vial SLOW IVP 8 mg DAILY BRIE Administration Digoxin 0.125 mg 04/29/20 09:00 05/08/20 09:12 Digoxin 0.125 Mg Tab PO 0.125 mg DAILY BRIE Administration Ferrous Sulfate 325 mg 04/30/20 09:00 05/08/20 09:16 Ferrous Sulfate 325 Mg Tab PO 325 mg DAILY BRIE Administration Guaifenesin 200 mg 04/28/20 21:19 05/07/20 20:48 Diabetic Tussin 200 Mg/10 Ml Udcup PO 200 mg Q4H PRN Administration Cough Heparin Sodium (Porcine) 5,000 units 04/28/20 09:00 05/08/20 15:03 Heparin 5,000 Units/Ml Vial SC 5,000 units TID BRIE Administration Amino Acids/Electrolytes/Dextrose 1,000 mls @ 45 mls/hr 05/07/20 15:30 05/08/20 02:13 Clinimix E 4.25/5 IV 1,000 mls INF BRIE Administration Pantoprazole Sodium 40 mg 05/06/20 09:00 05/08/20 09:13 Pantoprazole 40 Mg Tab PO 40 mg DAILY BRIE Administration Sodium Chloride 10 ml 04/28/20 09:00 05/08/20 09:28 Flush - Normal Saline 10 Ml Syringe IVF 10 ml Q12HR BRIE Administration Sodium Chloride 10 ml 04/28/20 08:00 05/06/20 15:22 Flush - Normal Saline 10 Ml Syringe IVF 10 ml PRN PRN Administration Saline Flush Tamsulosin HCl 0.4 mg 04/30/20 09:00 05/08/20 09:13 Tamsulosin Hcl 0.4 Mg Cap PO 0.4 mg DAILY BRIE Administration Torsemide 40 mg 04/29/20 09:00 05/08/20 09:14 Torsemide 20 Mg Tab PO 40 mg DAILY BRIE Administration Zinc Sulfate 220 mg 04/28/20 09:00 05/08/20 15:02 Zinc Sulfate 220 Mg Cap PO 220 mg DAILY BRIE Administration - Exam Heart: negative: RRR, no murmur, no gallops, no rubs, normal peripheral pulses, irregular, diminshed peripheral pulses, murmur present, II/IV, III/IV Respiratory: negative: CTAB, no wheezes, no rales, no ronchi, normal chest expansion, no tachypnea, normal percussion, rales, rhonchi, tachypneic, wheezes Gastrointestinal: negative: soft, non-tender, non-distended, normal bowel sounds, no palpable masses, no hepatomegaly, no splenomegaly, no bruit, no guarding, no rigidity, tender to palpation, distended, diminished bowl sounds, voluntary guarding Hosp A/P - Plan (1) COVID-19 virus detected Code(s): U07.1 - COVID-19 Status: Acute Plan: Continue Cefepime/Doxycycline/Dexamethasone/Vit C/Zinc, start Remdesivir today, O2 supplementation with plans for home O2 (2) Acute on chronic systolic CHF (congestive heart failure) Code(s): I50.23 - ACUTE ON CHRONIC SYSTOLIC (CONGESTIVE) HEART FAILURE Status: Acute Plan: Improved, continue Torsemide, daily weight, serial I/O's (3) Severe sepsis with septic shock Code(s): A41.9 - SEPSIS, UNSPECIFIED ORGANISM; R65.21 - SEVERE SEPSIS WITH SEP TIC SHOCK Status: Acute (4) Acute worsening of stage 3 chronic kidney disease Code(s): N18.3 - CHRONIC KIDNEY DISEASE, STAGE 3 (MODERATE) * DO NOT USE * Status: Acute Plan: Improved, avoid nephrotoxic meds and limit contrast (5) Metabolic acidosis Code(s): E87.2 - ACIDOSIS Status: Acute (6) Cardiomyopathy Code(s): I42.9 - CARDIOMYOPATHY, UNSPECIFIED Status: Chronic Plan: EF 20-25% (7) Acute respiratory failure with hypoxia Code(s): J96.01 - ACUTE RESPIRATORY FAILURE WITH HYPOXIA Status: Acute Plan: Continue O2 supplementation, set up home O2 for d/c Patient is a 80-year-old male who initially came to the hospital for denies weakness was found to be hypotensive and was started initially on a Levophed and then on a dobutamine drip. Patient also was noted to be Covid positive. 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 We will continue doxy. We will continue dexamethasone. Patient on DVT prophylaxis. Patient currently on 4 L of nasal cannula. 05/05 pt not eating much will see if he takes in ensure. continues to be on NC will continue remdesivir. 05/06 patient not eating much. We will continue remdesivir for now. 05/08 spoke with patient's son Gagandeep recommended detention facility. Patient's son will talk with the patient. Patient medically stable he has completed his treatment with remdesivir. We will continue the steroids for t otal of 10 days. Patient on DVT prophylaxis. I have asked the family to bring in food for him.
[2020-05-08] MEDS: Albuterol 200 PUFF (6.7GM INHALER) INH PRN (19:00)
[2020-05-09 07:19] VITALS: TEMP 97.7
[2020-05-09] MEDS: Diabetic Tussin 200 MG/10 ML UDCUP PO PRN (07:50)
[2020-05-09] MEDS: Zinc Sulfate 220 MG CAP PO SCH (07:50)
[2020-05-09] MEDS: Allopurinol 100 MG TAB PO SCH (07:50)
[2020-05-09] MEDS: Tamsulosin HCl 0.4 MG CAP PO SCH (07:50)
[2020-05-09] MEDS: Ascorbic Acid 500 mg Chewable Tablet PO SCH (07:50)
[2020-05-09] MEDS: Ferrous Sulfate 325 MG TAB PO SCH (07:51)
[2020-05-09] MEDS: Amiodarone 200 MG TAB PO SCH (07:51)
[2020-05-09] MEDS: Digoxin 0.125 MG TAB PO SCH (07:51)
[2020-05-09] MEDS: Aspirin 81 mg Enteric Coated Tablet PO SCH (07:51)
[2020-05-09] MEDS: Torsemide 20 MG TAB PO SCH (07:51)
[2020-05-09] MEDS: Cholecalciferol (Vitamin D3) 400 UNITS TAB PO SCH (07:53)
[2020-05-09] MEDS: Dexamethasone 4 mg/ml Vial SLOW IVP SCH (07:53)
[2020-05-09] MEDS: Heparin 5,000 UNITS/ML VIAL SC SCH (07:55)
[2020-05-09 16:49] VITALS: BP 109/68
== END 2020-05-09 15:00 | DRG 871 ==
LOC: ERS 00:42 → ERHOLD 03:42 → 2SW 18:59 → T4-B 05-07 23:13
PROVIDERS: ADMIT Student in an Organized Health Care Education/Training Program; ATTEND Internal Medicine
PROC: 8E0ZXY6 Isolation (ICD-10-PCS; principal; 2020-04-28)
PROC: 3E033XZ Introduction of Vasopressor into Peripheral Vein, Percutaneous Approach (ICD-10-PCS; 2020-04-28)
PROC: XW033E5 Introduction of Remdesivir Anti-infective into Peripheral Vein, Percutaneous Approach, New Technology Group 5 (ICD-10-PCS; 2020-05-03)
DX: A41.89 Other specified sepsis (principal); R65.21 Severe sepsis with septic shock; U07.1 COVID-19; J12.82 Pneumonia due to coronavirus disease 2019; J96.01 Acute respiratory failure with hypoxia; I50.33 Acute on chronic diastolic (congestive) heart failure; I21.4 Non-ST elevation (NSTEMI) myocardial infarction; N17.9 Acute kidney failure, unspecified; I42.9 Cardiomyopathy, unspecified; E87.2 Acidosis; I13.0 Hypertensive heart and chronic kidney disease with heart failure and stage 1 through stage 4 chronic kidney disease, or unspecified chronic kidney disease; Z66 Do not resuscitate; K21.9 Gastro-esophageal reflux disease without esophagitis; M10.9 Gout, unspecified; M19.90 Unspecified osteoarthritis, unspecified site; N18.30 Chronic kidney disease, stage 3 unspecified; I48.91 Unspecified atrial fibrillation; E11.22 Type 2 diabetes mellitus with diabetic chronic kidney disease; I25.10 Atherosclerotic heart disease of native coronary artery without angina pectoris; Z87.891 Personal history of nicotine dependence; Z90.49 Acquired absence of other specified parts of digestive tract; Z88.8 Allergy status to other drugs, medicaments and biological substances; Z79.01 Long term (current) use of anticoagulants; Z79.899 Other long term (current) drug therapy; Z79.82 Long term (current) use of aspirin; Z95.810 Presence of automatic (implantable) cardiac defibrillator; Z95.1 Presence of aortocoronary bypass graft; I25.2 Old myocardial infarction
CPT/HCPCS: 36415; 36416; 36556; 71045; 80048; 80053; 81003; 81015; 82553; 82565; 82728; 83605; 83735; 83880; 84075; 84450; 84460; 84484; 85025; 85379; 86140; 87040; 93005; 96365; 96366; 96367; 96368; 99292; J0692; J1100; J1250; J1644; J2997; J3370; J3490; J7050; U0002

== ENCOUNTER 2020-08-01 08:48 | Day surgery (SDC) | payer MEDICARE, OTHER ==
[2020-08-01] MEDS ORDERED: EPOETIN ALFA-EPBX (ESRD) 40,000 UNIT/ML VIAL ONE (08:52)
[2020-08-01] MEDS ORDERED: EPOETIN ALFA-EPBX (ESRD) 40,000 UNIT/ML VIAL SC SCH (09:00)
[2020-08-01 10:03] VITALS: BP 107/61; TEMP 97.5
== END 2020-08-01 10:04 | disposition home or self-care (01) ==
LOC: ONC/OP 08:48
PROVIDERS: ATTEND Internal Medicine Medical Oncology
DX: N18.30 Chronic kidney disease, stage 3 unspecified (principal); D63.1 Anemia in chronic kidney disease; D50.8 Other iron deficiency anemias; Z88.8 Allergy status to other drugs, medicaments and biological substances
CPT/HCPCS: 36415; 82728; 96372; Q5105

== ENCOUNTER 2020-08-08 08:33 | Day surgery (SDC) | payer MEDICARE, OTHER ==
[2020-08-08] MEDS ORDERED: EPOETIN ALFA-EPBX (ESRD) 40,000 UNIT/ML VIAL SC SCH (08:45)
[2020-08-08 08:46] VITALS: BP 98/57; TEMP 97.9
== END 2020-08-08 09:30 | disposition home or self-care (01) ==
LOC: ONC/OP 08:33
PROVIDERS: ATTEND Internal Medicine Medical Oncology
DX: N18.30 Chronic kidney disease, stage 3 unspecified (principal); D63.1 Anemia in chronic kidney disease; D50.8 Other iron deficiency anemias; Z88.8 Allergy status to other drugs, medicaments and biological substances
CPT/HCPCS: 96372; Q5105

== ENCOUNTER 2020-08-14 19:40 | Inpatient (IN) | payer MEDICARE, OTHER ==
[2020-08-14 21:21] LABS: Mean Corpuscular HGB CONC 32.1 g/dL (32.0-36.0); Mean Corpuscular Hemoglobin 28.3 pg (27.0-31.0); Mean Corpuscular Volume 88.3 fL (78.0-98.0); Red Blood Cell (RBC) Count 3.53 mill/uL (4.70-6.10)
[2020-08-14 21:29] LABS: Albumin 3.4 g/dL (3.4-4.8); Anion Gap 14 mmol/L (10-20); BUN (Urea Nitrogen) 20 mg/dL (8.4-25.7); Bilirubin, Total 1.8 mg/dL (0.2-1.2); Calc. Creatinine Clearance 0 mL/min (70-130); Calcium 8.4 mg/dL (7.8-10.44); Carbon Dioxide 21 mmol/L (23-31); Chloride 106 mmol/L (98-107); Glucose 157 mg/dL (83-110); Potassium 4.3 mmol/L (3.5-5.1); Protein, Total 5.9 g/dL (5.8-8.1); Sodium 137 mmol/L (136-145)
[2020-08-14 21:30] LABS: ALT (SGPT) Less than 7 U/L (8-55); AST (SGOT) 9 U/L (5-34); Alkaline Phosphatase 163 U/L (40-110); Globulin 2.5 g/dL (2.4-3.5)
[2020-08-14 21:33] LABS: Band 9 % (5-11); Lymphocytes 2 % (21-51); MDiff Complete? YES; Mean Platelet Volume 7.9 fL (7.4-10.4); Monocytes 1 % (0-10); Neutrophil 88 % (42-75); Platelet Count 130 thou/uL (130-400); White Blood Cell (WBC) Count 9.6 thou/uL (4.8-10.8)
[2020-08-14] MEDS ORDERED: Ibuprofen 200 MG TAB ONE (21:35)
[2020-08-14 23:49] LABS: Bilirubin Negative (Negative); Blood, Urine Negative (Negative); Clarity Clear (Clear); Glucose, Urine (Dipstick) Normal (Negative); Ketone, Urine Negative (Negative); Leukocyte Negative Leu/uL (Negative); Nitrite Negative (Negative); Protein, Urine (Dipstick) Negative (Neg-Trace); Specific Gravity, Urine 1.017 (1.002-1.036); Urobilinogen 3 mg/dL (Less than 2)
[2020-08-15 01:38] LABS: Lactic Acid 1.2 mmol/L (0.5-2.2)
[2020-08-15] MEDS ORDERED: Ondansetron PF 4 MG/2 ML Vial IVP PRN (01:45)
[2020-08-15] MEDS ORDERED: HYDROcodone/Acetaminophen 5/325 mg Tablet PO PRN (01:45)
[2020-08-15] MEDS ORDERED: Ondansetron ODT 4 MG TAB PO PRN (01:45)
[2020-08-15 01:46] LABS: Troponin I 0.042 ng/mL (< 0.028)
[2020-08-15] MEDS ORDERED: Furosemide 40 MG/4 ML VIAL SLOW IVP SCH (02:00)
[2020-08-15] MEDS ORDERED: Norepinephrine 8 MG/0.9% NS 250 ML IVPB SCH (02:00)
[2020-08-15] MEDS ORDERED: Norepinephrine 8 MG/0.9% NS 250 ML ONE (02:18)
[2020-08-15] MEDS ORDERED: Furosemide 40 MG/4 ML VIAL ONE (02:18)
[2020-08-15 03:39] LABS: SARS-CoV-2 NAA Rapid Test Not Detected (NotDetected)
[2020-08-15 04:26] LABS: #Lymphocytes 0.3 thou/uL (1.20-3.40); %Eosinophils 0.4 % (0.0-10.0); %Lymphocytes 2.4 % (21.0-51.0); %Monocytes 9.5 % (0.0-10.0); %Neutrophils 87.7 % (42.0-75.0); Hemoglobin 10.2 g/dL (14.0-18.0); Mean Corpuscular HGB CONC 32.5 g/dL (32.0-36.0); Mean Corpuscular Hemoglobin 28.7 pg (27.0-31.0); Mean Corpuscular Volume 88.2 fL (78.0-98.0); Mean Platelet Volume 7.7 fL (7.4-10.4); Platelet Count 125 thou/uL (130-400); Red Blood Cell (RBC) Count 3.56 mill/uL (4.70-6.10); White Blood Cell (WBC) Count 10.2 thou/uL (4.8-10.8)
[2020-08-15 04:46] LABS: Anion Gap 16 mmol/L (10-20); BUN (Urea Nitrogen) 21 mg/dL (8.4-25.7); Calc. Creatinine Clearance 0 mL/min (70-130); Calcium 8.4 mg/dL (7.8-10.44); Carbon Dioxide 19 mmol/L (23-31); Chloride 107 mmol/L (98-107); Glucose 130 mg/dL (83-110); Potassium 4.1 mmol/L (3.5-5.1); Sodium 138 mmol/L (136-145)
[2020-08-15 04:49] LABS: Troponin I 0.045 ng/mL (< 0.028)
[2020-08-15 05:03] VITALS: BMI 24.2
[2020-08-15] MEDS: Enoxaparin Sodium 40 MG/0.4 ML SYRINGE SC SCH (10:33)
[2020-08-15] MEDS: DOBUTamine 500 mg/250 ml 250 ML IVPB SCH (15:14)
[2020-08-16] MEDS: Acetaminophen 325 MG TAB PO PRN (02:47)
[2020-08-16] MEDS ORDERED: Furosemide 20 MG/2 ML VIAL SLOW IVP SCH (09:30)
[2020-08-16] MEDS ORDERED: Spironolactone 25 MG TAB PO SCH (09:30)
[2020-08-16] MEDS: Enoxaparin Sodium 40 MG/0.4 ML SYRINGE SC SCH (09:52)
[2020-08-16] MEDS ORDERED: Digoxin 0.125 MG TAB PO SCH (10:15)
[2020-08-16] MEDS ORDERED: Tamsulosin HCl 0.4 MG CAP PO SCH ×2 (10:15→10:45)
[2020-08-16] MEDS ORDERED: Non-Formulary Item 1 EACH (Omeprazole [Omeprazole] 20 MG Tablet.Dr) PO SCH (10:16)
[2020-08-16] MEDS ORDERED: Amiodarone 200 MG TAB PO SCH ×2 (10:18→10:45)
[2020-08-17 04:56] LABS: Anion Gap 12 mmol/L (10-20); BUN (Urea Nitrogen) 20 mg/dL (8.4-25.7); Calc. Creatinine Clearance 51 mL/min (70-130); Calcium 8.2 mg/dL (7.8-10.44); Carbon Dioxide 22 mmol/L (23-31); Chloride 104 mmol/L (98-107); Glucose 76 mg/dL (83-110); Potassium 3.8 mmol/L (3.5-5.1); Sodium 134 mmol/L (136-145)
[2020-08-17] MEDS: Furosemide 20 MG/2 ML VIAL SLOW IVP SCH (08:25)
[2020-08-17] MEDS: Spironolactone 25 MG TAB PO SCH (08:25)
[2020-08-17] MEDS: Tamsulosin HCl 0.4 MG CAP PO SCH (08:25)
[2020-08-17] MEDS: Enoxaparin Sodium 40 MG/0.4 ML SYRINGE SC SCH (08:25)
[2020-08-17] MEDS: Amiodarone 200 MG TAB PO SCH (08:26)
[2020-08-17] MEDS: Digoxin 0.125 MG TAB PO SCH (08:26)
[2020-08-17] MEDS: DOBUTamine 500 mg/250 ml 250 ML IVPB SCH (08:26)
[2020-08-17] MEDS: Docusate 100 MG CAP PO SCH (08:26)
[2020-08-17] MEDS ORDERED: Amiodarone 200 MG TAB PO SCH (09:00)
[2020-08-17] MEDS ORDERED: guaiFENesin ER 600 MG TAB PO SCH (12:30)
[2020-08-17] MEDS: guaiFENesin ER 600 MG TAB PO SCH (20:37)
[2020-08-18 05:34] LABS: Hemoglobin 9.8 g/dL (14.0-18.0); Platelet Count 108 thou/uL (130-400)
[2020-08-18 05:57] LABS: Anion Gap 13 mmol/L (10-20); BUN (Urea Nitrogen) 18 mg/dL (8.4-25.7); Calc. Creatinine Clearance 53 mL/min (70-130); Calcium 8.3 mg/dL (7.8-10.44); Carbon Dioxide 22 mmol/L (23-31); Chloride 104 mmol/L (98-107); Glucose 75 mg/dL (83-110); Potassium 3.7 mmol/L (3.5-5.1); Sodium 135 mmol/L (136-145)
[2020-08-18] MEDS: Amiodarone 200 MG TAB PO SCH (09:33)
[2020-08-18] MEDS: Docusate 100 MG CAP PO SCH (09:33)
[2020-08-18] MEDS: Tamsulosin HCl 0.4 MG CAP PO SCH (09:33)
[2020-08-18] MEDS: guaiFENesin ER 600 MG TAB PO SCH ×2 (09:33→19:45)
[2020-08-18] MEDS: Enoxaparin Sodium 40 MG/0.4 ML SYRINGE SC SCH (09:34)
[2020-08-18] MEDS: Furosemide 20 MG/2 ML VIAL SLOW IVP SCH (09:34)
[2020-08-18] MEDS: Spironolactone 25 MG TAB PO SCH (09:34)
[2020-08-18] MEDS ORDERED: Potassium Chloride 20 MEQ TAB PO SCH (17:00)
[2020-08-18] MEDS: DOBUTamine 500 mg/250 ml 250 ML IVPB SCH (18:50)
[2020-08-19 05:46] LABS: Anion Gap 12 mmol/L (10-20); BUN (Urea Nitrogen) 16 mg/dL (8.4-25.7); Calc. Creatinine Clearance 49 mL/min (70-130); Calcium 8.6 mg/dL (7.8-10.44); Carbon Dioxide 22 mmol/L (23-31); Chloride 104 mmol/L (98-107); Glucose 74 mg/dL (83-110); Potassium 4.1 mmol/L (3.5-5.1); Sodium 134 mmol/L (136-145)
[2020-08-19] MEDS: Furosemide 20 MG/2 ML VIAL SLOW IVP SCH (09:54)
[2020-08-19] MEDS: Potassium Chloride 20 MEQ TAB PO SCH (09:54)
[2020-08-19] MEDS: Spironolactone 25 MG TAB PO SCH (09:54)
[2020-08-19] MEDS: Digoxin 0.125 MG TAB PO SCH (09:54)
[2020-08-19] MEDS: Enoxaparin Sodium 40 MG/0.4 ML SYRINGE SC SCH (09:54)
[2020-08-19] MEDS: Tamsulosin HCl 0.4 MG CAP PO SCH (09:55)
[2020-08-19] MEDS: Amiodarone 200 MG TAB PO SCH (09:55)
[2020-08-19] MEDS: Docusate 100 MG CAP PO SCH (09:55)
[2020-08-19] MEDS: guaiFENesin ER 600 MG TAB PO SCH ×2 (09:55→21:12)
[2020-08-19] MEDS: Acetaminophen 325 MG TAB PO PRN (15:34)
[2020-08-19] MEDS ORDERED: Furosemide 20 MG/2 ML VIAL SLOW IVP SCH (16:00)
[2020-08-19] MEDS ORDERED: Potassium Chloride 20 MEQ TAB PO SCH (18:00)
[2020-08-20] MEDS: Acetaminophen 325 MG TAB PO PRN (01:12)
[2020-08-20 05:48] LABS: Anion Gap 12 mmol/L (10-20); BUN (Urea Nitrogen) 18 mg/dL (8.4-25.7); Calc. Creatinine Clearance 45 mL/min (70-130); Calcium 8.3 mg/dL (7.8-10.44); Carbon Dioxide 24 mmol/L (23-31); Chloride 105 mmol/L (98-107); Glucose 75 mg/dL (83-110); Sodium 136 mmol/L (136-145)
[2020-08-20] MEDS: guaiFENesin ER 600 MG TAB PO SCH (07:56)
[2020-08-20] MEDS: Amiodarone 200 MG TAB PO SCH (07:56)
[2020-08-20] MEDS: Docusate 100 MG CAP PO SCH (07:56)
[2020-08-20] MEDS: Tamsulosin HCl 0.4 MG CAP PO SCH (07:56)
[2020-08-20] MEDS: Furosemide 20 MG/2 ML VIAL SLOW IVP SCH ×2 (08:01→11:09)
[2020-08-20] MEDS: Potassium Chloride 20 MEQ TAB PO SCH (09:51)
[2020-08-20] MEDS: Spironolactone 25 MG TAB PO SCH (11:09)
[2020-08-20 11:30] LABS: Hemoglobin 10.4 g/dL (14.0-18.0); Mean Corpuscular HGB CONC 32.5 g/dL (32.0-36.0); Mean Corpuscular Hemoglobin 28.6 pg (27.0-31.0); Mean Platelet Volume 8.4 fL (7.4-10.4); Platelet Count 101 thou/uL (130-400); RBC Distribution Width 14.3 % (11.5-14.5); Red Blood Cell (RBC) Count 3.63 mill/uL (4.70-6.10); White Blood Cell (WBC) Count 4.1 thou/uL (4.8-10.8)
[2020-08-20] MEDS: Enoxaparin Sodium 40 MG/0.4 ML SYRINGE SC SCH (11:42)
[2020-08-20 11:59] LABS: #Eosinphils 0.1 thou/uL (0.0-0.7); #Lymphocytes 1.2 thou/uL (1.20-3.40); #Monocytes 0.5 thou/uL (0.11-0.59); #Neutrophils 2.4 thou/uL (1.40-6.50); %Basophils 0.6 % (0.0-1.0); %Eosinophils 1.4 % (0.0-10.0); %Monocytes 11.4 % (0.0-10.0); %Neutrophils 57.5 % (42.0-75.0); Elliptocytes SLIGHT = 2-5 cells (100X) (0-1/hpf); MDiff Complete? YES; Platelet Morphology Comment Appears Decreased; Tear Drops SLIGHT = 2-5 cells (100X) (0-1/hpf)
[2020-08-20 15:05] VITALS: BP 98/59; TEMP 97.6
[2020-08-21] MEDS ORDERED: Furosemide 20 MG TAB PO SCH (09:00)
[2020-08-21] MEDS ORDERED: Tamsulosin HCl 0.4 MG CAP PO SCH (21:00)
== END 2020-08-20 17:26 | disposition home or self-care (01) | DRG 291 ==
LOC: ERS 19:40 → ERHOLD 08-15 00:29 → CCU 08-15 04:46 → 2NO 08-15 16:49
PROVIDERS: ADMIT Student in an Organized Health Care Education/Training Program; ATTEND Hospitalist
PROC: 3E033XZ Introduction of Vasopressor into Peripheral Vein, Percutaneous Approach (ICD-10-PCS; principal; 2020-08-15)
DX: I13.0 Hypertensive heart and chronic kidney disease with heart failure and stage 1 through stage 4 chronic kidney disease, or unspecified chronic kidney disease (principal); I50.23 Acute on chronic systolic (congestive) heart failure; J96.01 Acute respiratory failure with hypoxia; N17.9 Acute kidney failure, unspecified; N18.30 Chronic kidney disease, stage 3 unspecified; K21.9 Gastro-esophageal reflux disease without esophagitis; M10.9 Gout, unspecified; M19.90 Unspecified osteoarthritis, unspecified site; D63.1 Anemia in chronic kidney disease; I48.0 Paroxysmal atrial fibrillation; I50.84 End stage heart failure; I25.10 Atherosclerotic heart disease of native coronary artery without angina pectoris; I95.89 Other hypotension; E11.22 Type 2 diabetes mellitus with diabetic chronic kidney disease; I34.0 Nonrheumatic mitral (valve) insufficiency; R77.8 Other specified abnormalities of plasma proteins; I42.0 Dilated cardiomyopathy; Z86.16 Personal history of COVID-19; Z88.8 Allergy status to other drugs, medicaments and biological substances; Z79.82 Long term (current) use of aspirin; Z79.899 Other long term (current) drug therapy; I25.2 Old myocardial infarction; Z95.5 Presence of coronary angioplasty implant and graft; Z90.49 Acquired absence of other specified parts of digestive tract; Z95.1 Presence of aortocoronary bypass graft; Z95.810 Presence of automatic (implantable) cardiac defibrillator; Z87.891 Personal history of nicotine dependence
CPT/HCPCS: 0240U; 36415; 71045; 80048; 80053; 81003; 82553; 82728; 83605; 83880; 84484; 85014; 85018; 85025; 85049; 87040; 87086; 93005; 93306; 93798; J1250; J1650; J1940

== ENCOUNTER 2020-08-22 08:36 | Day surgery (SDC) | payer MEDICARE, OTHER ==
[2020-08-22] MEDS ORDERED: EPOETIN ALFA-EPBX (ESRD) 40,000 UNIT/ML VIAL ONE (08:40)
[2020-08-22 08:48] VITALS: BP 97/55
[2020-08-22] MEDS ORDERED: EPOETIN ALFA-EPBX (ESRD) 40,000 UNIT/ML VIAL SC SCH (09:00)
== END 2020-08-22 09:20 | disposition home or self-care (01) ==
LOC: ONC/OP 08:36
PROVIDERS: ATTEND Internal Medicine Medical Oncology
DX: N18.30 Chronic kidney disease, stage 3 unspecified (principal); D63.1 Anemia in chronic kidney disease; D50.8 Other iron deficiency anemias; Z88.8 Allergy status to other drugs, medicaments and biological substances
CPT/HCPCS: 96372; Q5105

== ENCOUNTER → 2020-08-29 | Day surgery (SDC) | payer MEDICARE, OTHER ==
[2020-08-29 08:54] VITALS: BP 111/66; TEMP 97.5
== END ==
LOC: ONC/OP 08:34
PROVIDERS: ATTEND Internal Medicine Medical Oncology
DX: N18.30 Chronic kidney disease, stage 3 unspecified (principal); D63.1 Anemia in chronic kidney disease; D50.8 Other iron deficiency anemias; Z88.8 Allergy status to other drugs, medicaments and biological substances
CPT/HCPCS: 96372; Q5105

== ENCOUNTER 2020-09-05 08:38 | Day surgery (SDC) | payer MEDICARE ==
[2020-09-05] MEDS ORDERED: EPOETIN ALFA-EPBX (ESRD) 40,000 UNIT/ML VIAL ONE (08:40)
[2020-09-05 08:53] VITALS: BP 106/63; TEMP 97.6
== END 2020-09-05 08:54 | disposition home or self-care (01) ==
LOC: ONC/OP 08:38
PROVIDERS: ATTEND Internal Medicine Medical Oncology
DX: N18.30 Chronic kidney disease, stage 3 unspecified (principal); D63.1 Anemia in chronic kidney disease; D50.8 Other iron deficiency anemias; Z88.8 Allergy status to other drugs, medicaments and biological substances
CPT/HCPCS: 96372; Q5105

== ENCOUNTER 2020-09-12 08:44 | Day surgery (SDC) | payer MEDICARE ==
[2020-09-12] MEDS ORDERED: EPOETIN ALFA-EPBX (ESRD) 40,000 UNIT/ML VIAL ONE (08:47)
[2020-09-12 08:55] VITALS: BP 101/58; TEMP 97.6
== END 2020-09-12 08:59 | disposition home or self-care (01) ==
LOC: ONC/OP 08:44
PROVIDERS: ATTEND Internal Medicine Medical Oncology
DX: N18.30 Chronic kidney disease, stage 3 unspecified (principal); D63.1 Anemia in chronic kidney disease; D50.8 Other iron deficiency anemias; Z88.8 Allergy status to other drugs, medicaments and biological substances
CPT/HCPCS: 96372; Q5105

== ENCOUNTER 2020-09-19 08:59 | Day surgery (SDC) | payer MEDICARE ==
[2020-09-19] MEDS ORDERED: EPOETIN ALFA-EPBX (NON-ESRD) 40,000 UNIT/ML VIAL SC SCH (09:15)
[2020-09-19 10:20] VITALS: BP 111/64
== END 2020-09-19 10:21 | disposition home or self-care (01) ==
LOC: ONC/OP 08:59
PROVIDERS: ATTEND Internal Medicine Medical Oncology
DX: N18.30 Chronic kidney disease, stage 3 unspecified (principal); D63.1 Anemia in chronic kidney disease; D50.8 Other iron deficiency anemias; Z88.8 Allergy status to other drugs, medicaments and biological substances
CPT/HCPCS: 36415; 80053; 82248; 82728; 83615; 84100; 84550; 96372; Q5106

== ENCOUNTER 2020-09-26 08:49 | Day surgery (SDC) | payer MEDICARE ==
[2020-09-26] MEDS ORDERED: Sodium Chloride 0.9% 20 ML ONE (08:54)
[2020-09-26] MEDS ORDERED: Iron Sucrose Complex 500 MG in Sodium Chloride 0.9% 250 ML 250 ML IVPB SCH (09:00)
[2020-09-26 09:47] VITALS: BP 104/63; TEMP 97.7
[2020-09-26 10:09] LABS: Hemoglobin 11.5 g/dL (14.0-18.0); Hypochromia SLIGHT = 6-15 cells (100X) (0-5/hpf); Lymphocytes 14 % (21-51); MDiff Complete? YES; Mean Corpuscular HGB CONC 31.8 g/dL (32.0-36.0); Mean Corpuscular Hemoglobin 27.6 pg (27.0-31.0); Mean Corpuscular Volume 86.9 fL (78.0-98.0); Mean Platelet Volume 9.7 fL (7.4-10.4); Monocytes 18 % (0-10); Neutrophil 65 % (42-75); Platelet Count 113 thou/uL (130-400); Platelet Morphology Comment Appears Decreased; Poikilocytosis SLIGHT = 6-15 cells (100X) (0-5/hpf); RBC Distribution Width 15.1 % (11.5-14.5); Reactive Lymphocytes 1 % (0-10); Red Blood Cell (RBC) Count 4.17 mill/uL (4.70-6.10); Tear Drops SLIGHT = 2-5 cells (100X) (0-1/hpf); White Blood Cell (WBC) Count 5.2 thou/uL (4.8-10.8)
== END 2020-09-26 11:13 | disposition home or self-care (01) ==
LOC: ONC/OP 08:49
PROVIDERS: ATTEND Internal Medicine Medical Oncology
DX: N18.30 Chronic kidney disease, stage 3 unspecified (principal); D63.1 Anemia in chronic kidney disease; D50.8 Other iron deficiency anemias; Z88.8 Allergy status to other drugs, medicaments and biological substances
CPT/HCPCS: 85025; 96365; J1756; J7050

== ENCOUNTER 2020-10-03 08:54 | Day surgery (SDC) | payer MEDICARE ==
[2020-10-03] MEDS ORDERED: EPOETIN ALFA-EPBX (ESRD) 40,000 UNIT/ML VIAL ONE ×2 (08:56→09:05)
[2020-10-03 10:30] VITALS: BP 108/61; TEMP 97.8
== END 2020-10-03 10:31 | disposition home or self-care (01) ==
LOC: ONC/OP 08:54
PROVIDERS: ATTEND Internal Medicine Medical Oncology
DX: N18.30 Chronic kidney disease, stage 3 unspecified (principal); D63.1 Anemia in chronic kidney disease; D50.8 Other iron deficiency anemias; Z88.8 Allergy status to other drugs, medicaments and biological substances
CPT/HCPCS: 36415; 82728; 96372; Q5105

== ENCOUNTER 2020-10-11 07:58 | Day surgery (SDC) | payer MEDICARE ==
[2020-10-11] MEDS ORDERED: EPOETIN ALFA-EPBX (ESRD) 40,000 UNIT/ML VIAL ONE (08:09)
[2020-10-11 08:25] VITALS: BP 104/58
== END 2020-10-11 08:27 | disposition home or self-care (01) ==
LOC: ONC/OP 07:58
PROVIDERS: ATTEND Internal Medicine Medical Oncology
DX: N18.30 Chronic kidney disease, stage 3 unspecified (principal); D63.1 Anemia in chronic kidney disease; D50.8 Other iron deficiency anemias; Z88.8 Allergy status to other drugs, medicaments and biological substances
CPT/HCPCS: 96372; Q5105

== ENCOUNTER 2020-10-24 08:27 | Day surgery (SDC) | payer MEDICARE, OTHER ==
[2020-10-24] MEDS ORDERED: EPOETIN ALFA-EPBX (ESRD) 40,000 UNIT/ML VIAL ONE (08:29)
[2020-10-24 08:52] VITALS: BP 106/61
== END 2020-10-24 08:55 | disposition home or self-care (01) ==
LOC: ONC/OP 08:27
PROVIDERS: ATTEND Internal Medicine Medical Oncology
DX: N18.30 Chronic kidney disease, stage 3 unspecified (principal); D63.1 Anemia in chronic kidney disease; D50.8 Other iron deficiency anemias; Z88.8 Allergy status to other drugs, medicaments and biological substances
CPT/HCPCS: 96372; Q5105

== ENCOUNTER 2020-10-31 08:33 | Day surgery (SDC) | payer MEDICARE ==
[2020-10-31] MEDS ORDERED: EPOETIN ALFA-EPBX (ESRD) 40,000 UNIT/ML VIAL ONE (08:37)
[2020-10-31 14:16] VITALS: BP 102/60
== END 2020-10-31 14:16 | disposition home or self-care (01) ==
LOC: ONC/OP 08:33
PROVIDERS: ATTEND Internal Medicine Medical Oncology
DX: N18.30 Chronic kidney disease, stage 3 unspecified (principal); D63.1 Anemia in chronic kidney disease; D50.8 Other iron deficiency anemias
CPT/HCPCS: 96372; Q5105

== ENCOUNTER 2020-11-21 08:38 | Day surgery (SDC) | payer MEDICARE ==
[2020-11-21 08:54] VITALS: BP 101/55
== END 2020-11-21 09:05 | disposition home or self-care (01) ==
LOC: ONC/OP 08:38
PROVIDERS: ATTEND Internal Medicine Medical Oncology
DX: N18.30 Chronic kidney disease, stage 3 unspecified (principal); D63.1 Anemia in chronic kidney disease; D50.8 Other iron deficiency anemias; Z88.8 Allergy status to other drugs, medicaments and biological substances
CPT/HCPCS: 96372; Q5105

== ENCOUNTER 2020-12-19 | Day surgery (SDC) | payer MEDICARE | END 2020-12-19 09:10 | disposition home or self-care (01) ==

== ENCOUNTER 2020-12-26 08:46 | Day surgery (SDC) | payer MEDICARE ==
[2020-12-26] MEDS ORDERED: EPOETIN ALFA-EPBX (ESRD) 40,000 UNIT/ML VIAL ONE (09:05)
[2020-12-26 09:15] VITALS: BP 94/57; TEMP 97.8
[2020-12-26] MEDS ORDERED: EPOETIN ALFA-EPBX (ESRD) 40,000 UNIT/ML VIAL SC SCH (09:15)
== END 2020-12-26 09:50 | disposition home or self-care (01) ==
LOC: ONC/OP 08:46
PROVIDERS: ATTEND Internal Medicine Medical Oncology
DX: N18.30 Chronic kidney disease, stage 3 unspecified (principal); D63.1 Anemia in chronic kidney disease; D50.8 Other iron deficiency anemias; Z88.8 Allergy status to other drugs, medicaments and biological substances
CPT/HCPCS: 96372; Q5105

== ENCOUNTER 2021-01-02 | Day surgery (SDC) | payer MEDICARE | END 2021-01-02 14:27 | disposition home or self-care (01) ==

== ENCOUNTER 2021-01-09 08:38 | Day surgery (SDC) | payer MEDICARE ==
[2021-01-09] MEDS ORDERED: EPOETIN ALFA-EPBX (ESRD) 40,000 UNIT/ML VIAL ONE (08:45)
[2021-01-09 08:55] VITALS: BP 95/54
[2021-01-09] MEDS ORDERED: EPOETIN ALFA-EPBX (ESRD) 40,000 UNIT/ML VIAL SC SCH (09:00)
== END 2021-01-09 09:33 | disposition home or self-care (01) ==
LOC: ONC/OP 08:38
PROVIDERS: ATTEND Internal Medicine Medical Oncology
DX: N18.30 Chronic kidney disease, stage 3 unspecified (principal); D63.1 Anemia in chronic kidney disease; D50.8 Other iron deficiency anemias; Z88.8 Allergy status to other drugs, medicaments and biological substances
CPT/HCPCS: 96372; Q5105

== ENCOUNTER 2021-01-23 08:41 | Day surgery (SDC) | payer MEDICARE ==
[2021-01-23] MEDS ORDERED: EPOETIN ALFA-EPBX (ESRD) 40,000 UNIT/ML VIAL ONE (08:46)
[2021-01-23 09:43] VITALS: BP 110/67; TEMP 97.6
== END 2021-01-23 09:45 | disposition home or self-care (01) ==
LOC: ONC/OP 08:41
PROVIDERS: ATTEND Internal Medicine Medical Oncology
DX: N18.30 Chronic kidney disease, stage 3 unspecified (principal); D63.1 Anemia in chronic kidney disease; D50.8 Other iron deficiency anemias; Z88.8 Allergy status to other drugs, medicaments and biological substances
CPT/HCPCS: 96372; Q5105

== ENCOUNTER → 2021-02-06 | Day surgery (SDC) | payer MEDICARE ==
[~2021-02-06] MED LIST changes: +EPOETIN ALFA-EPBX (ESRD) 40,000 UNIT/ML VIAL ONE; -EPOETIN ALFA-EPBX (ESRD) 40,000 UNIT/ML VIAL SC SCH
[2021-02-06 09:16] VITALS: BP 111/65; TEMP 97.7
== END ==
LOC: ONC/OP 08:47
PROVIDERS: ATTEND Internal Medicine Medical Oncology
DX: N18.30 Chronic kidney disease, stage 3 unspecified (principal); D63.1 Anemia in chronic kidney disease; D50.8 Other iron deficiency anemias; Z88.8 Allergy status to other drugs, medicaments and biological substances
CPT/HCPCS: 96372; Q5105

== ENCOUNTER → 2021-02-20 | Day surgery (SDC) | payer MEDICARE ==
[~2021-02-20] MED LIST changes: +EPOETIN ALFA-EPBX (ESRD) 40,000 UNIT/ML VIAL SC SCH
[2021-02-20 08:49] VITALS: BP 110/62
== END ==
LOC: ONC/OP 08:41
PROVIDERS: ATTEND Internal Medicine Medical Oncology
DX: N18.30 Chronic kidney disease, stage 3 unspecified (principal); D63.1 Anemia in chronic kidney disease; D50.8 Other iron deficiency anemias; Z88.8 Allergy status to other drugs, medicaments and biological substances
CPT/HCPCS: 96372; Q5105

== ENCOUNTER 2021-03-13 08:11 | Day surgery (SDC) | payer MEDICARE ==
[2021-03-13] MEDS ORDERED: EPOETIN ALFA-EPBX (ESRD) 40,000 UNIT/ML VIAL ONE (08:17)
[2021-03-13] MEDS ORDERED: EPOETIN ALFA-EPBX (ESRD) 40,000 UNIT/ML VIAL SC SCH (08:45)
== END 2021-03-13 08:40 | disposition home or self-care (01) ==
LOC: ONC/OP 08:11
PROVIDERS: ATTEND Internal Medicine Medical Oncology
DX: N18.30 Chronic kidney disease, stage 3 unspecified (principal); D63.1 Anemia in chronic kidney disease; D50.8 Other iron deficiency anemias; Z88.8 Allergy status to other drugs, medicaments and biological substances
CPT/HCPCS: 96372; Q5105

== ENCOUNTER → 2021-03-20 | Day surgery (SDC) | payer MEDICARE ==
[~2021-03-20] MED LIST changes: -EPOETIN ALFA-EPBX (ESRD) 40,000 UNIT/ML VIAL SC SCH
[2021-03-20 08:41] VITALS: BP 86/50; TEMP 97.7
== END ==
LOC: ONC/OP 08:20
PROVIDERS: ATTEND Internal Medicine Medical Oncology
DX: N18.30 Chronic kidney disease, stage 3 unspecified (principal); D63.1 Anemia in chronic kidney disease; D50.8 Other iron deficiency anemias; Z88.8 Allergy status to other drugs, medicaments and biological substances
CPT/HCPCS: 96372; Q5105

== ENCOUNTER → 2021-04-03 | Day surgery (SDC) | payer MEDICARE ==
[~2021-04-03] MED LIST changes: -EPOETIN ALFA-EPBX (ESRD) 40,000 UNIT/ML VIAL ONE; +EPOETIN ALFA-EPBX (NON-ESRD) 40,000 UNIT/ML VIAL ONE
[2021-04-03 11:52] VITALS: BP 99/57; TEMP 98.7
== END ==
LOC: ONC/OP 08:31
PROVIDERS: ATTEND Internal Medicine Medical Oncology
DX: N18.30 Chronic kidney disease, stage 3 unspecified (principal); D63.1 Anemia in chronic kidney disease; D50.8 Other iron deficiency anemias; Z88.8 Allergy status to other drugs, medicaments and biological substances
CPT/HCPCS: 96372; Q5106

== ENCOUNTER 2021-04-10 08:24 | Day surgery (SDC) | payer MEDICARE ==
[2021-04-10] MEDS ORDERED: EPOETIN ALFA-EPBX (NON-ESRD) 40,000 UNIT/ML VIAL ONE (08:38)
[2021-04-10 08:45] VITALS: BP 100/58
[2021-04-10] MEDS ORDERED: EPOETIN ALFA-EPBX (ESRD) 40,000 UNIT/ML VIAL SC SCH (08:45)
== END 2021-04-10 08:52 | disposition home or self-care (01) ==
LOC: ONC/OP 08:24
PROVIDERS: ATTEND Internal Medicine Medical Oncology
DX: N18.30 Chronic kidney disease, stage 3 unspecified (principal); D63.1 Anemia in chronic kidney disease; D50.8 Other iron deficiency anemias; Z88.8 Allergy status to other drugs, medicaments and biological substances
CPT/HCPCS: 96372; Q5106

== ENCOUNTER 2021-04-17 09:24 | Day surgery (SDC) | payer MEDICARE ==
[~2021-04-17 09:24] MED LIST changes: +EPOETIN ALFA-EPBX (ESRD) 40,000 UNIT/ML VIAL SC SCH; -EPOETIN ALFA-EPBX (NON-ESRD) 40,000 UNIT/ML VIAL ONE
[2021-04-17] MEDS ORDERED: EPOETIN ALFA-EPBX (NON-ESRD) 40,000 UNIT/ML VIAL ONE (09:28)
[2021-04-17 09:51] VITALS: BP 101/57; TEMP 97.8
== END 2021-04-17 09:52 | disposition home or self-care (01) ==
LOC: ONC/OP 09:24
PROVIDERS: ATTEND Internal Medicine Medical Oncology
DX: N18.30 Chronic kidney disease, stage 3 unspecified (principal); D63.1 Anemia in chronic kidney disease; D50.8 Other iron deficiency anemias; Z88.8 Allergy status to other drugs, medicaments and biological substances
CPT/HCPCS: 96372; Q5106

== ENCOUNTER 2021-06-12 08:56 | Day surgery (SDC) | payer OTHER ==
[2021-06-12] MEDS ORDERED: EPOETIN ALFA-EPBX (NON-ESRD) 40,000 UNIT/ML VIAL ONE (09:09)
[2021-06-12 09:13] VITALS: BP 112/63
[2021-06-12] MEDS ORDERED: EPOETIN ALFA-EPBX (ESRD) 40,000 UNIT/ML VIAL SC SCH (09:30)
== END 2021-06-12 10:29 | disposition home or self-care (01) ==
LOC: ONC/OP 08:56
PROVIDERS: ATTEND Internal Medicine Medical Oncology
DX: N18.30 Chronic kidney disease, stage 3 unspecified (principal); D63.1 Anemia in chronic kidney disease; D50.8 Other iron deficiency anemias; Z88.8 Allergy status to other drugs, medicaments and biological substances
CPT/HCPCS: 96372; Q5106

== ENCOUNTER 2021-06-26 09:25 | Day surgery (SDC) | payer OTHER ==
[2021-06-26] MEDS ORDERED: EPOETIN ALFA-EPBX (NON-ESRD) 40,000 UNIT/ML VIAL ONE (09:29)
[2021-06-26] MEDS ORDERED: EPOETIN ALFA-EPBX (ESRD) 40,000 UNIT/ML VIAL SC SCH (09:45)
[2021-06-26 10:16] VITALS: BP 100/66
== END 2021-06-26 10:21 | disposition home or self-care (01) ==
LOC: ONC/OP 09:25
PROVIDERS: ATTEND Internal Medicine Medical Oncology
DX: N18.30 Chronic kidney disease, stage 3 unspecified (principal); D63.1 Anemia in chronic kidney disease; D50.8 Other iron deficiency anemias; Z88.8 Allergy status to other drugs, medicaments and biological substances
CPT/HCPCS: 96372; Q5106

== ENCOUNTER 2021-08-08 08:35 | Day surgery (SDC) | payer MEDICARE ==
[2021-08-08] MEDS ORDERED: EPOETIN ALFA-EPBX (NON-ESRD) 40,000 UNIT/ML VIAL ONE (08:40)
[2021-08-08 08:52] VITALS: BP 102/58; TEMP 97.7
== END 2021-08-08 08:53 | disposition home or self-care (01) ==
LOC: ONC/OP 08:35
PROVIDERS: ATTEND Internal Medicine Medical Oncology
DX: N18.30 Chronic kidney disease, stage 3 unspecified (principal); D63.1 Anemia in chronic kidney disease; D50.8 Other iron deficiency anemias; Z88.8 Allergy status to other drugs, medicaments and biological substances
CPT/HCPCS: 96372; Q5106

== ENCOUNTER 2021-08-21 08:39 | Day surgery (SDC) | payer MEDICARE ==
[2021-08-21] MEDS ORDERED: EPOETIN ALFA-EPBX (ESRD) 40,000 UNIT/ML VIAL ONE (08:42)
[2021-08-21 08:56] VITALS: BP 103/55
[2021-08-21] MEDS ORDERED: EPOETIN ALFA-EPBX (ESRD) 40,000 UNIT/ML VIAL SC SCH (09:00)
== END 2021-08-21 09:01 | disposition home or self-care (01) ==
LOC: ONC/OP 08:39
PROVIDERS: ATTEND Internal Medicine Medical Oncology
DX: N18.30 Chronic kidney disease, stage 3 unspecified (principal); D63.1 Anemia in chronic kidney disease; D50.8 Other iron deficiency anemias; Z88.8 Allergy status to other drugs, medicaments and biological substances
CPT/HCPCS: 96372; Q5105

== ENCOUNTER 2021-09-04 09:23 | Day surgery (SDC) | payer MEDICARE ==
[2021-09-04] MEDS ORDERED: EPOETIN ALFA-EPBX (NON-ESRD) 40,000 UNIT/ML VIAL ONE (09:37)
[2021-09-04 09:43] VITALS: BP 107/63
[2021-09-04] MEDS ORDERED: EPOETIN ALFA-EPBX (ESRD) 40,000 UNIT/ML VIAL SC SCH (09:45)
== END 2021-09-04 09:49 | disposition home or self-care (01) ==
LOC: ONC/OP 09:23
PROVIDERS: ATTEND Internal Medicine Medical Oncology
DX: N18.30 Chronic kidney disease, stage 3 unspecified (principal); D63.1 Anemia in chronic kidney disease; D50.8 Other iron deficiency anemias; Z88.8 Allergy status to other drugs, medicaments and biological substances
CPT/HCPCS: 96372; Q5106

== ENCOUNTER 2021-09-18 08:56 | Day surgery (SDC) | payer MEDICARE ==
[2021-09-18] MEDS ORDERED: EPOETIN ALFA-EPBX (NON-ESRD) 40,000 UNIT/ML VIAL ONE (09:10)
[2021-09-18 09:12] VITALS: BP 98/59; TEMP 97.5
[2021-09-18] MEDS ORDERED: EPOETIN ALFA-EPBX (ESRD) 40,000 UNIT/ML VIAL SC SCH (09:30)
== END 2021-09-18 09:18 | disposition home or self-care (01) ==
LOC: ONC/OP 08:56
PROVIDERS: ATTEND Internal Medicine Medical Oncology
DX: N18.30 Chronic kidney disease, stage 3 unspecified (principal); D63.1 Anemia in chronic kidney disease; D50.8 Other iron deficiency anemias; Z88.8 Allergy status to other drugs, medicaments and biological substances
CPT/HCPCS: 96372; Q5106

== ENCOUNTER 2021-10-02 08:56 | Day surgery (SDC) | payer MEDICARE ==
[2021-10-02 09:09] VITALS: BP 101/58
[2021-10-02] MEDS ORDERED: EPOETIN ALFA-EPBX (ESRD) 40,000 UNIT/ML VIAL SC SCH (09:15)
[2021-10-02] MEDS ORDERED: EPOETIN ALFA-EPBX (NON-ESRD) 40,000 UNIT/ML VIAL ONE (09:15)
== END 2021-10-02 09:16 | disposition home or self-care (01) ==
LOC: ONC/OP 08:56
PROVIDERS: ATTEND Internal Medicine Medical Oncology
DX: N18.30 Chronic kidney disease, stage 3 unspecified (principal); D63.1 Anemia in chronic kidney disease; D50.8 Other iron deficiency anemias; Z88.8 Allergy status to other drugs, medicaments and biological substances
CPT/HCPCS: 96372; Q5106

== ENCOUNTER 2021-10-23 08:14 | Day surgery (SDC) | payer MEDICARE ==
[2021-10-23 08:35] VITALS: BP 107/57
[2021-10-23] MEDS ORDERED: EPOETIN ALFA-EPBX (NON-ESRD) 40,000 UNIT/ML VIAL ONE (08:51)
[2021-10-23] MEDS ORDERED: EPOETIN ALFA-EPBX (ESRD) 40,000 UNIT/ML VIAL FS SCH (09:30)
== END 2021-10-23 09:31 | disposition home or self-care (01) ==
LOC: ONC/OP 08:14
PROVIDERS: ATTEND Internal Medicine Medical Oncology
DX: N18.30 Chronic kidney disease, stage 3 unspecified (principal); D63.1 Anemia in chronic kidney disease; D50.8 Other iron deficiency anemias; Z88.8 Allergy status to other drugs, medicaments and biological substances
CPT/HCPCS: 96372; Q5106

== ENCOUNTER 2021-11-05 09:39 | Emergency (ER) | payer MEDICARE ==
[2021-11-05 11:26] LABS: ALT (SGPT) 10 U/L (8-55); AST (SGOT) 15 U/L (5-34); Albumin 3.6 g/dL (3.4-4.8); Alkaline Phosphatase 202 U/L (40-110); Anion Gap 17 mmol/L (10-20); BUN (Urea Nitrogen) 54 mg/dL (8.4-25.7); Bilirubin, Total 2.6 mg/dL (0.2-1.2); Calc. Creatinine Clearance 0 mL/min (70-130); Calcium 9.2 mg/dL (7.8-10.44); Carbon Dioxide 21 mmol/L (23-31); Chloride 107 mmol/L (98-107); Estimated GFR 20; Globulin 2.9 g/dL (2.4-3.5); Glucose 108 mg/dL (83-110); Potassium 4.1 mmol/L (3.5-5.1); Protein, Total 6.5 g/dL (5.8-8.1); Sodium 141 mmol/L (136-145)
[2021-11-05 11:46] LABS: #Eosinphils 0.1 thou/uL (0.0-0.7); #Lymphocytes 0.6 thou/uL (1.20-3.40); #Neutrophils 6.6 thou/uL (1.40-6.50); %Basophils 0.2 % (0.0-1.0); %Eosinophils 1.1 % (0.0-10.0); %Lymphocytes 7.1 % (21.0-51.0); %Monocytes 12.5 % (0.0-10.0); %Neutrophils 79.1 % (42.0-75.0); Hemoglobin 10.4 g/dL (14.0-18.0); Mean Corpuscular HGB CONC 32.7 g/dL (32.0-36.0); Mean Corpuscular Hemoglobin 29.3 pg (27.0-31.0); Mean Corpuscular Volume 89.6 fL (78.0-98.0); Mean Platelet Volume 10.1 fL (7.4-10.4); Platelet Count 67 thou/uL (130-400); Platelet Morphology Comment Appears Decreased; RBC Distribution Width 15.2 % (11.5-14.5); RBC Morphology Normal; Red Blood Cell (RBC) Count 3.56 mill/uL (4.70-6.10); White Blood Cell (WBC) Count 8.3 thou/uL (4.8-10.8)
== END 2021-11-05 12:20 | disposition home or self-care (01) ==
LOC: ERS 09:39
DX: J18.9 Pneumonia, unspecified organism (principal); I11.0 Hypertensive heart disease with heart failure; I50.9 Heart failure, unspecified; D64.9 Anemia, unspecified; K21.9 Gastro-esophageal reflux disease without esophagitis; M10.9 Gout, unspecified; M19.90 Unspecified osteoarthritis, unspecified site; I25.2 Old myocardial infarction; Z20.822 Contact with and (suspected) exposure to COVID-19; Z95.5 Presence of coronary angioplasty implant and graft; Z87.891 Personal history of nicotine dependence
CPT/HCPCS: 71046; 80053; 83605; 85025; 94760; 99284; U0003; U0005; 36415

== ENCOUNTER 2021-11-20 08:46 | Day surgery (SDC) | payer MEDICARE ==
[2021-11-20 09:11] LABS: Hemoglobin 10.1 g/dL (14.0-18.0); Mean Corpuscular Hemoglobin 28.4 pg (27.0-31.0); Mean Corpuscular Volume 88.5 fL (78.0-98.0); Mean Platelet Volume 8.3 fL (7.4-10.4); Platelet Count 102 thou/uL (130-400); RBC Distribution Width 15.2 % (11.5-14.5); Red Blood Cell (RBC) Count 3.54 mill/uL (4.70-6.10)
[2021-11-20] MEDS ORDERED: EPOETIN ALFA-EPBX (ESRD) 40,000 UNIT/ML VIAL ONE (09:23)
[2021-11-20 10:06] LABS: Lymphocytes 20 % (21-51); MDiff Complete? YES; Monocytes 17 % (0-10); Neutrophil 61 % (42-75); Platelet Morphology Comment Appears Decreased; RBC Morphology Normal; Reactive Lymphocytes 2 % (0-10)
== END 2021-11-20 12:37 | disposition home or self-care (01) ==
LOC: ONC/OP 08:46
PROVIDERS: ATTEND Internal Medicine Medical Oncology
DX: N18.30 Chronic kidney disease, stage 3 unspecified (principal); D63.1 Anemia in chronic kidney disease; D50.8 Other iron deficiency anemias
CPT/HCPCS: 85025; 96372; Q5105

== ENCOUNTER 2021-11-30 14:26 | Observation (INO) | payer MEDICARE ==
[2021-11-30 15:10] LABS: #Eosinphils 0.1 thou/uL (0.0-0.7); #Lymphocytes 0.8 thou/uL (1.20-3.40); #Monocytes 0.8 thou/uL (0.11-0.59); #Neutrophils 3.6 thou/uL (1.40-6.50); %Basophils 0.3 % (0.0-1.0); %Eosinophils 1.3 % (0.0-10.0); %Monocytes 14.7 % (0.0-10.0); %Neutrophils 68.6 % (42.0-75.0); Hemoglobin 10.4 g/dL (14.0-18.0); Mean Corpuscular HGB CONC 34.8 g/dL (32.0-36.0); Mean Corpuscular Hemoglobin 30.5 pg (27.0-31.0); Mean Corpuscular Volume 87.7 fL (78.0-98.0); Mean Platelet Volume 8.6 fL (7.4-10.4); Platelet Count 90 thou/uL (130-400); RBC Distribution Width 15.7 % (11.5-14.5); Red Blood Cell (RBC) Count 3.42 mill/uL (4.70-6.10); White Blood Cell (WBC) Count 5.2 thou/uL (4.8-10.8)
[2021-11-30 15:27] LABS: ALT (SGPT) 11 U/L (8-55); AST (SGOT) 14 U/L (5-34); Albumin 3.9 g/dL (3.4-4.8); Alkaline Phosphatase 198 U/L (40-110); Anion Gap 16 mmol/L (10-20); BUN (Urea Nitrogen) 54 mg/dL (8.4-25.7); Bilirubin, Total 2.3 mg/dL (0.2-1.2); Calc. Creatinine Clearance 0 mL/min (70-130); Calcium 9.3 mg/dL (7.8-10.44); Carbon Dioxide 21 mmol/L (23-31); Chloride 105 mmol/L (98-107); Estimated GFR 22; Globulin 3.2 g/dL (2.4-3.5); Glucose 88 mg/dL (83-110); Lipase 51 U/L (8-78); Protein, Total 7.1 g/dL (5.8-8.1); Sodium 138 mmol/L (136-145)
[2021-11-30] MEDS ORDERED: Aspirin Chewable 81 MG TAB ONE (15:42)
[2021-11-30 15:50] LABS: CKMB 2.5 ng/mL (0-6.6)
[2021-11-30 15:59] LABS: Bilirubin Negative (Negative); Blood, Urine Negative (Negative); Clarity Clear (Clear); Glucose, Urine (Dipstick) Normal (Negative); Ketone, Urine Negative (Negative); Leukocyte Negative Leu/uL (Negative); Nitrite Negative (Negative); Protein, Urine (Dipstick) Negative (Neg-Trace); Urobilinogen Normal mg/dL (Less than 2)
[2021-11-30] MEDS ORDERED: cefTRIAXone\\ROCEPHIN 1 GM VIAL ONE (16:19)
[2021-11-30 16:29] LABS: SARS-CoV-2 NAA Rapid Test Not Detected (NotDetected)
[2021-11-30] MEDS ORDERED: Azithromycin 500 MG VIAL ONE (17:39)
[2021-11-30] MEDS ORDERED: Acetaminophen 325 MG TAB PO PRN (19:00)
[2021-11-30] MEDS ORDERED: Ondansetron ODT 4 MG TAB SL PRN (19:00)
[2021-11-30] MEDS ORDERED: Ondansetron PF 4 MG/2 ML Vial IVP PRN (19:00)
[2021-11-30 19:15] LABS: Troponin I 0.058 ng/mL (< 0.028)
[2021-11-30 19:59] VITALS: BMI 24.2
[2021-11-30 22:06] LABS: Troponin I 0.053 ng/mL (< 0.028)
[2021-11-30] MEDS ORDERED: Acetaminophen 650 MG Suppository PR PRN (22:31)
[2021-11-30] MEDS: Guaifenesin DM 100-10/5 ML UDCUP PO PRN (23:04)
[2021-12-01 05:44] LABS: Anion Gap 15 mmol/L (10-20); BUN (Urea Nitrogen) 49 mg/dL (8.4-25.7); Calc. Creatinine Clearance 28 mL/min (70-130); Calcium 9.2 mg/dL (7.8-10.44); Carbon Dioxide 20 mmol/L (23-31); Chloride 109 mmol/L (98-107); Estimated GFR 26; Glucose 90 mg/dL (83-110); Potassium 3.8 mmol/L (3.5-5.1); Sodium 140 mmol/L (136-145)
[2021-12-01 05:48] LABS: Eosinophils 2 % (0-10); Hemoglobin 9.3 g/dL (14.0-18.0); Lymphocytes 9 % (21-51); MDiff Complete? YES; Mean Corpuscular HGB CONC 33.1 g/dL (32.0-36.0); Mean Corpuscular Hemoglobin 29.1 pg (27.0-31.0); Mean Platelet Volume 8.7 fL (7.4-10.4); Monocytes 19 % (0-10); Neutrophil 70 % (42-75); Platelet Count 82 thou/uL (130-400); RBC Distribution Width 15.6 % (11.5-14.5); Red Blood Cell (RBC) Count 3.17 mill/uL (4.70-6.10); White Blood Cell (WBC) Count 4.1 thou/uL (4.8-10.8)
[2021-12-01] MEDS: cefTRIAXone\\ROCEPHIN 1 GM in Sodium Chloride 0.9% 100 ML IVPB SCH (09:43)
[2021-12-01] MEDS: Enoxaparin Sodium 30 MG/0.3 ML SYRINGE SC SCH (11:47)
[2021-12-01] MEDS: Guaifenesin DM 100-10/5 ML UDCUP PO PRN ×2 (13:40→20:44)
[2021-12-01] MEDS ORDERED: Azithromycin 500 MG in Sodium Chloride 0.9% 250 ML 250 ML IVPB SCH (16:00)
[2021-12-01] MEDS: Carvedilol 3.125 MG TAB PO SCH (20:40)
[2021-12-01] MEDS ORDERED: Acetaminophen 325 MG TAB PO PRN (21:42)
[2021-12-02] MEDS: Guaifenesin DM 100-10/5 ML UDCUP PO PRN ×2 (01:11→09:44)
[2021-12-02 04:59] LABS: Anion Gap 14 mmol/L (10-20); BUN (Urea Nitrogen) 46 mg/dL (8.4-25.7); CRP (Inflammatory) 1.02 mg/dL (= or < 0.5); Calc. Creatinine Clearance 31 mL/min (70-130); Calcium 8.7 mg/dL (7.8-10.44); Carbon Dioxide 19 mmol/L (23-31); Chloride 108 mmol/L (98-107); Estimated GFR 30; Glucose 118 mg/dL (83-110); Potassium 4.1 mmol/L (3.5-5.1); Sodium 137 mmol/L (136-145)
[2021-12-02 05:34] LABS: Anisocytosis SLIGHT = 6-15 cells (100X) (0-5/hpf); Band 3 % (5-11); Eosinophils 4 % (0-10); Lymphocytes 11 % (21-51); MDiff Complete? YES; Mean Corpuscular HGB CONC 33.9 g/dL (32.0-36.0); Mean Corpuscular Hemoglobin 29.7 pg (27.0-31.0); Mean Corpuscular Volume 87.6 fL (78.0-98.0); Mean Platelet Volume 8.8 fL (7.4-10.4); Monocytes 14 % (0-10); Neutrophil 68 % (42-75); Platelet Count 76 thou/uL (130-400); Platelet Morphology Comment Appears Decreased; RBC Distribution Width 15.7 % (11.5-14.5); Red Blood Cell (RBC) Count 3.03 mill/uL (4.70-6.10); White Blood Cell (WBC) Count 5.1 thou/uL (4.8-10.8)
[2021-12-02] MEDS ORDERED: Spironolactone 25 MG TAB PO SCH (08:00)
[2021-12-02] MEDS ORDERED: Allopurinol 100 MG TAB PO SCH (09:00)
[2021-12-02] MEDS: Carvedilol 3.125 MG TAB PO SCH (09:35)
[2021-12-02] MEDS: Enoxaparin Sodium 30 MG/0.3 ML SYRINGE SC SCH (09:41)
[2021-12-02] MEDS: cefTRIAXone\\ROCEPHIN 1 GM in Sodium Chloride 0.9% 100 ML IVPB SCH (10:13)
[2021-12-02 11:35] VITALS: BP 109/73; TEMP 97.4
[2021-12-03] MEDS ORDERED: Digoxin 0.125 MG TAB PO SCH (09:00)
== END 2021-12-02 11:35 | disposition home or self-care (01) ==
LOC: ERS 14:26 → 2SW 16:21
PROVIDERS: ADMIT Hospitalist; ATTEND Hospitalist
DX: J18.9 Pneumonia, unspecified organism (principal); R77.8 Other specified abnormalities of plasma proteins; R79.89 Other specified abnormal findings of blood chemistry; I25.10 Atherosclerotic heart disease of native coronary artery without angina pectoris; I12.9 Hypertensive chronic kidney disease with stage 1 through stage 4 chronic kidney disease, or unspecified chronic kidney disease; N18.4 Chronic kidney disease, stage 4 (severe); D63.1 Anemia in chronic kidney disease; D69.6 Thrombocytopenia, unspecified; K21.9 Gastro-esophageal reflux disease without esophagitis; M10.9 Gout, unspecified; Z66 Do not resuscitate; Z87.891 Personal history of nicotine dependence; Z79.899 Other long term (current) drug therapy; Z88.8 Allergy status to other drugs, medicaments and biological substances; Z95.1 Presence of aortocoronary bypass graft; Z95.810 Presence of automatic (implantable) cardiac defibrillator; Z20.822 Contact with and (suspected) exposure to COVID-19
CPT/HCPCS: 71045; 80048 ×2; 80053; 81003; 82553; 83690; 83880; 84145; 84484 ×2; 85025 ×3; 86140; 87205; 93005; 94760; 97116; U0002; 36415; 87070; 96365; 96366; 96367; 96376; G0378; J0456; J0696; J3490; J7050

== ENCOUNTER → 2021-12-04 | Day surgery (SDC) | payer MEDICARE ==
[~2021-12-04] MED LIST changes: +EPOETIN ALFA-EPBX (ESRD) 40,000 UNIT/ML VIAL ONE; -EPOETIN ALFA-EPBX (ESRD) 40,000 UNIT/ML VIAL SC SCH; +Epoetin 40,000 UNITS/ML VIAL SC SCH
[2021-12-04 09:52] VITALS: BP 102/60; TEMP 97.8
== END | disposition home or self-care (01) ==
LOC: ONC/OP 09:34
PROVIDERS: ATTEND Internal Medicine Medical Oncology
DX: N18.30 Chronic kidney disease, stage 3 unspecified (principal); D63.1 Anemia in chronic kidney disease; D50.8 Other iron deficiency anemias; Z88.8 Allergy status to other drugs, medicaments and biological substances
CPT/HCPCS: 96374; Q5105

== ENCOUNTER 2021-12-18 08:31 | Day surgery (SDC) | payer MEDICARE ==
[2021-12-18] MEDS ORDERED: Epoetin 40,000 UNITS/ML VIAL SC SCH (10:30)
[2021-12-18 14:12] VITALS: BP 110/63; TEMP 98
[2021-12-18] MEDS ORDERED: EPOETIN ALFA-EPBX (ESRD) 40,000 UNIT/ML VIAL SC SCH (14:15)
== END 2021-12-18 14:13 | disposition home or self-care (01) ==
LOC: ONC/OP 08:31
PROVIDERS: ATTEND Internal Medicine Medical Oncology
DX: N18.30 Chronic kidney disease, stage 3 unspecified (principal); D63.1 Anemia in chronic kidney disease; D50.8 Other iron deficiency anemias; Z88.8 Allergy status to other drugs, medicaments and biological substances
CPT/HCPCS: 96372; J0885; Q5105

== ENCOUNTER 2022-01-01 08:29 | Day surgery (SDC) | payer MEDICARE ==
[2022-01-01] MEDS ORDERED: EPOETIN ALFA-EPBX (ESRD) 40,000 UNIT/ML VIAL ONE (08:38)
[2022-01-01] MEDS ORDERED: EPOETIN ALFA-EPBX (NON-ESRD) 40,000 UNIT/ML VIAL ONE (14:49)
[2022-01-01] MEDS ORDERED: Epoetin 40,000 UNITS/ML VIAL SC SCH (15:15)
[2022-01-01] MEDS ORDERED: Epoetin 40,000 UNITS/ML VIAL ONE (15:25)
== END 2022-01-01 15:57 | disposition home or self-care (01) ==
LOC: ONC/OP 08:29
PROVIDERS: ATTEND Internal Medicine Medical Oncology
DX: N18.30 Chronic kidney disease, stage 3 unspecified (principal); D63.1 Anemia in chronic kidney disease; D50.8 Other iron deficiency anemias; Z88.8 Allergy status to other drugs, medicaments and biological substances
CPT/HCPCS: 96372; J0885; Q5105; Q5106

== ENCOUNTER 2022-02-12 09:19 | Day surgery (SDC) | payer MEDICARE ==
[2022-02-12] MEDS ORDERED: Epoetin 40,000 UNITS/ML VIAL ONE (09:33)
[2022-02-12] MEDS ORDERED: Epoetin 40,000 UNITS/ML VIAL SC SCH (11:00)
[2022-02-12 12:07] VITALS: BP 116/70; TEMP 97.5
== END 2022-02-12 12:10 | disposition home or self-care (01) ==
LOC: ONC/OP 09:19
PROVIDERS: ATTEND Internal Medicine Medical Oncology
DX: N18.32 Chronic kidney disease, stage 3b (principal); D63.1 Anemia in chronic kidney disease; D50.8 Other iron deficiency anemias; Z88.8 Allergy status to other drugs, medicaments and biological substances
CPT/HCPCS: 36415; 82607; 82728; 82746; 96372; J0885

== ENCOUNTER 2022-02-26 08:47 | Day surgery (SDC) | payer MEDICARE ==
[~2022-02-26 08:47] MED LIST changes: -EPOETIN ALFA-EPBX (ESRD) 40,000 UNIT/ML VIAL ONE
[2022-02-26] MEDS ORDERED: EPOETIN ALFA-EPBX (ESRD) 40,000 UNIT/ML VIAL ONE (08:54)
[2022-02-26 09:08] VITALS: BP 102/56; TEMP 97.8
== END 2022-02-26 09:14 | disposition home or self-care (01) ==
LOC: ONC/OP 08:47
PROVIDERS: ATTEND Internal Medicine Medical Oncology
DX: N18.32 Chronic kidney disease, stage 3b (principal); D63.1 Anemia in chronic kidney disease; D50.8 Other iron deficiency anemias; Z88.8 Allergy status to other drugs, medicaments and biological substances
CPT/HCPCS: 96372; Q5105

== ENCOUNTER 2022-03-12 09:01 | Day surgery (SDC) | payer MEDICARE ==
[2022-03-12] MEDS ORDERED: Epoetin 40,000 UNITS/ML VIAL SC SCH (09:45)
[2022-03-12 10:00] VITALS: BP 115/65; TEMP 97.5
== END 2022-03-12 10:59 | disposition home or self-care (01) ==
LOC: ONC/OP 09:01
PROVIDERS: ATTEND Internal Medicine Medical Oncology
DX: N18.32 Chronic kidney disease, stage 3b (principal); D63.1 Anemia in chronic kidney disease; D50.8 Other iron deficiency anemias; Z88.8 Allergy status to other drugs, medicaments and biological substances
CPT/HCPCS: 96372

== ENCOUNTER 2022-03-25 09:03 | Day surgery (SDC) | payer MEDICARE ==
[2022-03-25] MEDS ORDERED: Epoetin 40,000 UNITS/ML VIAL ONE ×2 (09:20→09:50)
[2022-03-25 09:37] VITALS: BP 102/55; TEMP 96.9
== END 2022-03-25 10:00 | disposition home or self-care (01) ==
LOC: ONC/OP 09:03
PROVIDERS: ATTEND Internal Medicine Medical Oncology
DX: N18.32 Chronic kidney disease, stage 3b (principal); D63.1 Anemia in chronic kidney disease; D50.8 Other iron deficiency anemias; Z88.8 Allergy status to other drugs, medicaments and biological substances
CPT/HCPCS: 96372; J0885

== ENCOUNTER 2022-04-09 09:05 | Day surgery (SDC) | payer MEDICARE ==
[~2022-04-09 09:05] MED LIST changes: +EPOETIN ALFA-EPBX (ESRD) 40,000 UNIT/ML VIAL SC SCH; -Epoetin 40,000 UNITS/ML VIAL SC SCH
[2022-04-09] MEDS ORDERED: Epoetin 40,000 UNITS/ML VIAL ONE (09:11)
[2022-04-09 09:49] VITALS: BP 112/64; TEMP 97.5
== END 2022-04-09 09:53 | disposition home or self-care (01) ==
LOC: ONC/OP 09:05
PROVIDERS: ATTEND Internal Medicine Medical Oncology
DX: N18.32 Chronic kidney disease, stage 3b (principal); D63.1 Anemia in chronic kidney disease; D50.8 Other iron deficiency anemias; Z88.8 Allergy status to other drugs, medicaments and biological substances
CPT/HCPCS: 96372; J0885

== ENCOUNTER 2022-05-14 08:54 | Day surgery (SDC) | payer MEDICARE ==
[2022-05-14] MEDS ORDERED: Epoetin 40,000 UNITS/ML VIAL ONE (09:04)
[2022-05-14 09:32] VITALS: BP 122/63; TEMP 98.1
== END 2022-05-14 12:32 | disposition home or self-care (01) ==
LOC: ONC/OP 08:54
PROVIDERS: ATTEND Internal Medicine Medical Oncology
DX: N18.32 Chronic kidney disease, stage 3b (principal); D63.1 Anemia in chronic kidney disease; D50.8 Other iron deficiency anemias; Z88.8 Allergy status to other drugs, medicaments and biological substances; I50.22 Chronic systolic (congestive) heart failure
CPT/HCPCS: 36415; 80048; 83880; 96372; J0885

== ENCOUNTER 2022-05-19 11:29 | Outpatient (CLI) | payer OTHER | END 2022-05-19 11:30 | disposition home or self-care (01) | LOC: BICRAD 11:29 | PROVIDERS: ATTEND Nurse Practitioner Family | DX: I50.22 Chronic systolic (congestive) heart failure (principal); R09.89 Other specified symptoms and signs involving the circulatory and respiratory systems | CPT/HCPCS: 71046 ==

== ENCOUNTER 2022-05-19 19:21 | Inpatient (IN) | payer MEDICARE, OTHER ==
[2022-05-19 20:05] LABS: #Lymphocytes 0.4 thou/uL (1.20-3.40); #Monocytes 1.3 thou/uL (0.11-0.59); #Neutrophils 9.1 thou/uL (1.40-6.50); %Basophils 0.2 % (0.0-1.0); %Eosinophils 0.1 % (0.0-10.0); %Lymphocytes 3.7 % (21.0-51.0); %Monocytes 12.4 % (0.0-10.0); %Neutrophils 83.7 % (42.0-75.0); Hemoglobin 11.5 g/dL (14.0-18.0); Mean Corpuscular HGB CONC 32.5 g/dL (32.0-36.0); Mean Corpuscular Hemoglobin 28.8 pg (27.0-31.0); Mean Corpuscular Volume 88.6 fl (78.0-98.0); Mean Platelet Volume 9.7 fL (7.4-10.4); Platelet Count 118 10x3/uL (130-400); Red Blood Cell (RBC) Count 3.99 mill/uL (4.70-6.10); White Blood Cell (WBC) Count 10.9 10x3/uL (4.8-10.8)
[2022-05-19 20:26] LABS: ALT (SGPT) 8 U/L (8-55); AST (SGOT) 19 U/L (5-34); Albumin 4.1 g/dL (3.4-4.8); Alkaline Phosphatase 269 U/L (40-110); Anion Gap 20 mmol/L (10-20); BUN (Urea Nitrogen) 53 mg/dL (8.4-25.7); Bilirubin, Total 4.5 mg/dL (0.2-1.2); Calc. Creatinine Clearance 0 mL/min (70-130); Calcium 9.4 mg/dL (7.8-10.44); Carbon Dioxide 17 mmol/L (23-31); Chloride 106 mmol/L (98-107); Estimated GFR 24; Globulin 2.9 g/dL (2.4-3.5); Glucose 112 mg/dL (83-110); Potassium 4.3 mmol/L (3.5-5.1); Sodium 139 mmol/L (136-145)
[2022-05-19] MEDS ORDERED: Furosemide 40 MG/4 ML VIAL ONE (22:19)
[2022-05-19 22:32] LABS: SARS-CoV-2 NAA Rapid Test DETECTED (NotDetected)
[2022-05-19 23:00] LABS: Lactic Acid 1.9 mmol/L (0.5-2.2)
[2022-05-20] MEDS ORDERED: Ondansetron PF 4 MG/2 ML Vial IVP PRN (00:54)
[2022-05-20] MEDS ORDERED: Acetaminophen 325 MG TAB PO PRN (00:54)
[2022-05-20] MEDS ORDERED: Benzonatate 100 MG CAP ONE ×2 (02:55→03:21)
[2022-05-20 05:54] LABS: Mean Corpuscular HGB CONC 32.5 g/dL (32.0-36.0); Mean Corpuscular Hemoglobin 29.2 pg (27.0-31.0); Mean Corpuscular Volume 89.7 fl (78.0-98.0); Mean Platelet Volume 9.2 fL (7.4-10.4); Platelet Count 111 10x3/uL (130-400); Red Blood Cell (RBC) Count 3.79 mill/uL (4.70-6.10); White Blood Cell (WBC) Count 9.1 10x3/uL (4.8-10.8)
[2022-05-20 06:19] LABS: Anion Gap 17 mmol/L (10-20); BUN (Urea Nitrogen) 56 mg/dL (8.4-25.7); Calc. Creatinine Clearance 0 mL/min (70-130); Calcium 9.2 mg/dL (7.8-10.44); Carbon Dioxide 19 mmol/L (23-31); Chloride 107 mmol/L (98-107); Estimated GFR 26; Glucose 101 mg/dL (83-110); Potassium 4.2 mmol/L (3.5-5.1); Sodium 139 mmol/L (136-145)
[2022-05-20 06:26] LABS: Band 2 % (5-11); Eosinophils 1 % (0-10); Lymphocytes 5 % (21-51); MDiff Complete? YES; Monocytes 12 % (0-10); Neutrophil 80 % (42-75); Platelet Morphology Comment Appears Decreased
[2022-05-20] MEDS ORDERED: Furosemide 40 MG/4 ML VIAL ONE (06:49)
[2022-05-20] MEDS: Furosemide 20 MG/2 ML VIAL SLOW IVP SCH ×2 (06:54→16:50)
[2022-05-20] MEDS ORDERED: Ascorbic Acid 500 mg Chewable Tablet ONE (09:23)
[2022-05-20] MEDS ORDERED: Zinc Sulfate 220 MG CAP ONE (09:23)
[2022-05-20] MEDS: Zinc Sulfate 220 MG CAP PO SCH (09:29)
[2022-05-20] MEDS: Ascorbic Acid 500 mg Chewable Tablet PO SCH (09:29)
[2022-05-20] MEDS: Carvedilol 3.125 MG TAB PO SCH (16:29)
[2022-05-20] MEDS: Benzonatate 100 MG CAP PO PRN (16:50)
[2022-05-20] MEDS: guaiFENesin/Codeine 200 mg/20 mg 10 ml Cup PO PRN (23:57)
[2022-05-21 04:59] LABS: Hemoglobin 11.1 g/dL (14.0-18.0); Mean Corpuscular HGB CONC 32.7 g/dL (32.0-36.0); Mean Corpuscular Hemoglobin 29.4 pg (27.0-31.0); Mean Corpuscular Volume 89.8 fl (78.0-98.0); Mean Platelet Volume 10.6 fL (7.4-10.4); Platelet Count 97 10x3/uL (130-400); RBC Distribution Width 15.9 % (11.5-14.5); Red Blood Cell (RBC) Count 3.78 mill/uL (4.70-6.10); White Blood Cell (WBC) Count 7.9 10x3/uL (4.8-10.8)
[2022-05-21 05:19] LABS: Anion Gap 18 mmol/L (10-20); BUN (Urea Nitrogen) 58 mg/dL (8.4-25.7); Calc. Creatinine Clearance 29 mL/min (70-130); Calcium 9.1 mg/dL (7.8-10.44); Carbon Dioxide 18 mmol/L (23-31); Chloride 106 mmol/L (98-107); Estimated GFR 29; Glucose 95 mg/dL (83-110); Potassium 4.1 mmol/L (3.5-5.1); Sodium 138 mmol/L (136-145)
[2022-05-21] MEDS: Benzonatate 100 MG CAP PO PRN (06:01)
[2022-05-21] MEDS: Furosemide 20 MG/2 ML VIAL SLOW IVP SCH ×2 (06:01→14:41)
[2022-05-21 06:04] LABS: Band 2 % (5-11); Eosinophils 2 % (0-10); Lymphocytes 14 % (21-51); MDiff Complete? YES; Monocytes 12 % (0-10); Neutrophil 70 % (42-75); Platelet Morphology Comment Appears Decreased
[2022-05-21] MEDS: guaiFENesin/Codeine 200 mg/20 mg 10 ml Cup PO PRN ×2 (06:07→20:39)
[2022-05-21] MEDS: Ascorbic Acid 500 mg Chewable Tablet PO SCH (09:44)
[2022-05-21] MEDS: Zinc Sulfate 220 MG CAP PO SCH (09:44)
[2022-05-21] MEDS: Carvedilol 3.125 MG TAB PO SCH ×2 (09:44→16:47)
[2022-05-21] MEDS ORDERED: Tamsulosin HCl 0.4 MG CAP PO SCH (13:45)
[2022-05-21] MEDS: Ferrous Sulfate 325 MG TAB PO SCH (16:47)
[2022-05-21] MEDS ORDERED: Carvedilol 3.125 MG TAB PO SCH (21:00)
[2022-05-22 04:21] LABS: Anion Gap 17 mmol/L (10-20); BUN (Urea Nitrogen) 58 mg/dL (8.4-25.7); Calc. Creatinine Clearance 31 mL/min (70-130); Carbon Dioxide 18 mmol/L (23-31); Chloride 107 mmol/L (98-107); Estimated GFR 31; Glucose 75 mg/dL (83-110); Sodium 138 mmol/L (136-145)
[2022-05-22 05:09] LABS: Mean Corpuscular HGB CONC 32.7 g/dL (32.0-36.0); Mean Corpuscular Hemoglobin 29.7 pg (27.0-31.0); Mean Corpuscular Volume 90.8 fl (78.0-98.0); Platelet Count 94 10x3/uL (130-400); RBC Distribution Width 16.1 % (11.5-14.5); Red Blood Cell (RBC) Count 3.69 mill/uL (4.70-6.10); White Blood Cell (WBC) Count 6.8 10x3/uL (4.8-10.8)
[2022-05-22 05:11] LABS: Eosinophils 3 % (0-10); Lymphocytes 17 % (21-51); MDiff Complete? YES; Monocytes 14 % (0-10); Neutrophil 66 % (42-75); Platelet Morphology Comment Appears Decreased; RBC Morphology Normal
[2022-05-22] MEDS: Ferrous Sulfate 325 MG TAB PO SCH (08:06)
[2022-05-22] MEDS: Zinc Sulfate 220 MG CAP PO SCH (08:07)
[2022-05-22] MEDS: Ascorbic Acid 500 mg Chewable Tablet PO SCH (08:08)
[2022-05-22] MEDS: Carvedilol 3.125 MG TAB PO SCH (08:09)
[2022-05-22] MEDS: guaiFENesin/Codeine 200 mg/20 mg 10 ml Cup PO PRN (08:57)
[2022-05-22] MEDS ORDERED: Furosemide 20 MG TAB PO SCH (09:00)
[2022-05-22] MEDS ORDERED: Allopurinol 100 MG TAB PO SCH (09:00)
[2022-05-22] MEDS ORDERED: Tamsulosin HCl 0.4 MG CAP PO SCH (09:00)
[2022-05-22] MEDS ORDERED: Digoxin 0.125 MG TAB PO SCH (09:00)
[2022-05-22 12:53] VITALS: BP 101/64; TEMP 96.6
== END 2022-05-22 13:47 | disposition home or self-care (01) | DRG 177 ==
LOC: ERS 19:21 → ERHOLD 22:12 → 2NO 05-20 14:20
PROVIDERS: ADMIT Internal Medicine; ATTEND Internal Medicine
PROC: 8E0ZXY6 Isolation (ICD-10-PCS; principal; 2022-05-19)
DX: U07.1 COVID-19 (principal); I50.23 Acute on chronic systolic (congestive) heart failure; I13.0 Hypertensive heart and chronic kidney disease with heart failure and stage 1 through stage 4 chronic kidney disease, or unspecified chronic kidney disease; N18.4 Chronic kidney disease, stage 4 (severe); Z66 Do not resuscitate; D63.1 Anemia in chronic kidney disease; I25.10 Atherosclerotic heart disease of native coronary artery without angina pectoris; M10.9 Gout, unspecified; D69.6 Thrombocytopenia, unspecified; R53.1 Weakness; Z88.8 Allergy status to other drugs, medicaments and biological substances; Z79.899 Other long term (current) drug therapy; Z90.49 Acquired absence of other specified parts of digestive tract; Z95.5 Presence of coronary angioplasty implant and graft; Z95.1 Presence of aortocoronary bypass graft; Z95.810 Presence of automatic (implantable) cardiac defibrillator; Z87.891 Personal history of nicotine dependence
CPT/HCPCS: 36415; 36416; 71045; 80048; 80053; 83605; 83880; 85025; 93005; 96374; J1940

== ENCOUNTER 2022-05-28 09:44 | Day surgery (SDC) | payer MEDICARE ==
[2022-05-28] MEDS ORDERED: Epoetin 40,000 UNITS/ML VIAL ONE (09:55)
[2022-05-28 13:43] VITALS: BP 103/63; TEMP 97.5
== END 2022-05-28 13:44 | disposition home or self-care (01) ==
LOC: ONC/OP 09:44
PROVIDERS: ATTEND Internal Medicine Medical Oncology
DX: N18.32 Chronic kidney disease, stage 3b (principal); D63.1 Anemia in chronic kidney disease; D50.8 Other iron deficiency anemias; Z88.8 Allergy status to other drugs, medicaments and biological substances
CPT/HCPCS: 96372; J0885

== ENCOUNTER 2022-06-11 09:28 | Day surgery (SDC) | payer MEDICARE ==
[2022-06-11] MEDS ORDERED: Epoetin 40,000 UNITS/ML VIAL ONE (09:31)
[2022-06-11] MEDS ORDERED: Epoetin 40,000 UNITS/ML VIAL SC SCH (09:45)
[2022-06-11 10:16] VITALS: BP 125/60; TEMP 97.4
== END 2022-06-11 10:00 | disposition home or self-care (01) ==
LOC: ONC/OP 09:28
PROVIDERS: ATTEND Internal Medicine Medical Oncology
DX: N18.32 Chronic kidney disease, stage 3b (principal); D63.1 Anemia in chronic kidney disease; D50.8 Other iron deficiency anemias; Z88.8 Allergy status to other drugs, medicaments and biological substances
CPT/HCPCS: 96372; J0885

== ENCOUNTER 2022-06-25 09:31 | Day surgery (SDC) | payer MEDICARE ==
[2022-06-25] MEDS ORDERED: Epoetin 40,000 UNITS/ML VIAL ONE (09:38)
[2022-06-25 09:50] VITALS: BP 101/59; TEMP 97.7
== END 2022-06-25 09:53 | disposition home or self-care (01) ==
LOC: ONC/OP 09:31
PROVIDERS: ATTEND Internal Medicine Medical Oncology
DX: N18.32 Chronic kidney disease, stage 3b (principal); D63.1 Anemia in chronic kidney disease; D50.8 Other iron deficiency anemias; Z88.8 Allergy status to other drugs, medicaments and biological substances
CPT/HCPCS: 96372; J0885

== ENCOUNTER 2022-06-27 20:38 | Inpatient (IN) | payer MEDICARE ==
[2022-06-27 21:49] LABS: Hemoglobin 10.8 g/dL (14.0-18.0); Mean Corpuscular HGB CONC 32.6 g/dL (32.0-36.0); Mean Corpuscular Hemoglobin 29.4 pg (27.0-31.0); Mean Corpuscular Volume 90.2 fl (78.0-98.0); Mean Platelet Volume 9.9 fL (7.4-10.4); Platelet Count 124 10x3/uL (130-400); RBC Distribution Width 15.9 % (11.5-14.5); Red Blood Cell (RBC) Count 3.69 mill/uL (4.70-6.10); White Blood Cell (WBC) Count 8.1 10x3/uL (4.8-10.8)
[2022-06-27 22:08] LABS: ALT (SGPT) 14 U/L (8-55); AST (SGOT) 16 U/L (5-34); Albumin 3.6 g/dL (3.4-4.8); Alkaline Phosphatase 219 U/L (40-110); Anion Gap 18 mmol/L (10-20); BUN (Urea Nitrogen) 48 mg/dL (8.4-25.7); Calc. Creatinine Clearance 0 mL/min (70-130); Carbon Dioxide 16 mmol/L (23-31); Chloride 106 mmol/L (98-107); Estimated GFR 25; Globulin 2.8 g/dL (2.4-3.5); Glucose 109 mg/dL (83-110); Potassium 4.8 mmol/L (3.5-5.1); Protein, Total 6.4 g/dL (5.8-8.1); Sodium 135 mmol/L (136-145)
[2022-06-27 22:10] LABS: Lymphocytes 9 % (21-51); MDiff Complete? YES; Monocytes 15 % (0-10); Neutrophil 76 % (42-75)
[2022-06-27 22:42] LABS: CKMB 2.6 ng/mL (0-6.6)
[2022-06-27] MEDS ORDERED: Furosemide 40 MG/4 ML VIAL ONE (22:50)
[2022-06-27] MEDS ORDERED: Aspirin Chewable 81 MG TAB ONE (22:50)
[2022-06-27] MEDS ORDERED: Ondansetron PF 4 MG/2 ML Vial IVP PRN (23:34)
[2022-06-27] MEDS ORDERED: Acetaminophen 325 MG TAB PO PRN (23:34)
[2022-06-28 01:18] VITALS: BMI 25.1
[2022-06-28 01:24] LABS: Troponin I 0.102 ng/mL (< 0.028)
[2022-06-28] MEDS: Furosemide 40 MG/4 ML VIAL SLOW IVP SCH ×2 (05:37→14:36)
[2022-06-28 05:43] LABS: Hemoglobin 11.1 g/dL (14.0-18.0); Mean Corpuscular Hemoglobin 29.9 pg (27.0-31.0); Mean Corpuscular Volume 90.4 fl (78.0-98.0); Mean Platelet Volume 9.6 fL (7.4-10.4); Platelet Count 130 10x3/uL (130-400); Red Blood Cell (RBC) Count 3.73 mill/uL (4.70-6.10); White Blood Cell (WBC) Count 6.8 10x3/uL (4.8-10.8)
[2022-06-28 05:49] LABS: ALT (SGPT) 13 U/L (8-55); AST (SGOT) 15 U/L (5-34); Albumin 3.5 g/dL (3.4-4.8); Alkaline Phosphatase 207 U/L (40-110); Bilirubin, Direct 1.5 mg/dL (0.1-0.3); Bilirubin, Total 2.8 mg/dL (0.2-1.2); Protein, Total 6.5 g/dL (5.8-8.1)
[2022-06-28 05:51] LABS: Troponin I 0.082 ng/mL (< 0.028)
[2022-06-28 06:02] LABS: Anion Gap 18 mmol/L (10-20); BUN (Urea Nitrogen) 46 mg/dL (8.4-25.7); Calc. Creatinine Clearance 31 mL/min (70-130); Calcium 9.2 mg/dL (7.8-10.44); Carbon Dioxide 16 mmol/L (23-31); Chloride 104 mmol/L (98-107); Estimated GFR 29; Glucose 82 mg/dL (83-110); Magnesium 2.2 mg/dL (1.6-2.6); Potassium 4.4 mmol/L (3.5-5.1); Sodium 134 mmol/L (136-145)
[2022-06-28 06:18] LABS: Band 1 % (5-11); Eosinophils 2 % (0-10); Lymphocytes 11 % (21-51); MDiff Complete? YES; Metamyelocyte 1 % (0-0); Monocytes 14 % (0-10); Neutrophil 71 % (42-75)
[2022-06-28] MEDS: Spironolactone 25 MG TAB PO SCH (09:13)
[2022-06-28] MEDS: Tamsulosin HCl 0.4 MG CAP PO SCH (09:13)
[2022-06-28] MEDS: Carvedilol 3.125 MG TAB PO SCH ×2 (09:13→22:00)
[2022-06-29 04:44] LABS: #Eosinphils 0.1 thou/uL (0.0-0.7); #Lymphocytes 0.6 thou/uL (1.20-3.40); #Monocytes 0.8 thou/uL (0.11-0.59); #Neutrophils 3.7 thou/uL (1.40-6.50); %Basophils 0.2 % (0.0-1.0); %Eosinophils 1.7 % (0.0-10.0); %Lymphocytes 12.5 % (21.0-51.0); %Monocytes 14.9 % (0.0-10.0); %Neutrophils 70.7 % (42.0-75.0); Hemoglobin 10.5 g/dL (14.0-18.0); Mean Corpuscular HGB CONC 34.4 g/dL (32.0-36.0); Mean Corpuscular Hemoglobin 30.8 pg (27.0-31.0); Mean Corpuscular Volume 89.5 fl (78.0-98.0); Mean Platelet Volume 9.4 fL (7.4-10.4); Platelet Count 131 10x3/uL (130-400); RBC Distribution Width 15.8 % (11.5-14.5); White Blood Cell (WBC) Count 5.2 10x3/uL (4.8-10.8)
[2022-06-29 05:07] LABS: Anion Gap 15 mmol/L (10-20); BUN (Urea Nitrogen) 49 mg/dL (8.4-25.7); Calc. Creatinine Clearance 32 mL/min (70-130); Calcium 8.9 mg/dL (7.8-10.44); Carbon Dioxide 20 mmol/L (23-31); Chloride 105 mmol/L (98-107); Estimated GFR 31; Glucose 94 mg/dL (83-110); Magnesium 2.2 mg/dL (1.6-2.6); Potassium 4.2 mmol/L (3.5-5.1); Sodium 136 mmol/L (136-145)
[2022-06-29] MEDS: Furosemide 40 MG/4 ML VIAL SLOW IVP SCH ×2 (05:45→15:58)
[2022-06-29] MEDS: Carvedilol 3.125 MG TAB PO SCH ×2 (09:48→20:33)
[2022-06-29] MEDS: Spironolactone 25 MG TAB PO SCH (09:50)
[2022-06-29] MEDS: Digoxin 0.125 MG TAB PO SCH (09:51)
[2022-06-29] MEDS: Tamsulosin HCl 0.4 MG CAP PO SCH (09:51)
[2022-06-29] MEDS ORDERED: Empagliflozin 10 MG TAB PO SCH (13:45)
[2022-06-30 04:37] LABS: Hemoglobin 9.9 g/dL (14.0-18.0); Mean Corpuscular HGB CONC 33.5 g/dL (32.0-36.0); Mean Corpuscular Hemoglobin 30.1 pg (27.0-31.0); Mean Platelet Volume 9.5 fL (7.4-10.4); Platelet Count 122 10x3/uL (130-400); RBC Distribution Width 16.2 % (11.5-14.5); Red Blood Cell (RBC) Count 3.28 mill/uL (4.70-6.10)
[2022-06-30 05:03] LABS: Anion Gap 16 mmol/L (10-20); BUN (Urea Nitrogen) 51 mg/dL (8.4-25.7); Calc. Creatinine Clearance 31 mL/min (70-130); Calcium 8.8 mg/dL (7.8-10.44); Carbon Dioxide 20 mmol/L (23-31); Chloride 103 mmol/L (98-107); Estimated GFR 30; Glucose 92 mg/dL (83-110); Magnesium 2.2 mg/dL (1.6-2.6); Potassium 4.3 mmol/L (3.5-5.1); Sodium 135 mmol/L (136-145)
[2022-06-30 05:12] LABS: Eosinophils 1 % (0-10); Lymphocytes 12 % (21-51); MDiff Complete? YES; Monocytes 15 % (0-10); Neutrophil 72 % (42-75); Platelet Morphology Comment Appears Decreased
[2022-06-30] MEDS: Furosemide 40 MG/4 ML VIAL SLOW IVP SCH ×2 (05:27→14:14)
[2022-06-30] MEDS: Empagliflozin 10 MG TAB PO SCH (09:33)
[2022-06-30] MEDS: Spironolactone 25 MG TAB PO SCH (09:33)
[2022-06-30] MEDS: Carvedilol 3.125 MG TAB PO SCH ×2 (09:33→18:08)
[2022-06-30] MEDS: Tamsulosin HCl 0.4 MG CAP PO SCH (09:33)
[2022-07-01] MEDS ORDERED: FLU VACC QS2022-23(65YR UP)/PF 240 MCG/0.7 ML SYRINGE IM ONE (05:00)
[2022-07-01 05:23] LABS: Anion Gap 16 mmol/L (10-20); BUN (Urea Nitrogen) 58 mg/dL (8.4-25.7); Calc. Creatinine Clearance 27 mL/min (70-130); Calcium 9.4 mg/dL (7.8-10.44); Carbon Dioxide 21 mmol/L (23-31); Chloride 104 mmol/L (98-107); Estimated GFR 28; Glucose 92 mg/dL (83-110); Magnesium 2.2 mg/dL (1.6-2.6); Potassium 3.9 mmol/L (3.5-5.1); Sodium 137 mmol/L (136-145)
[2022-07-01] MEDS: Furosemide 40 MG/4 ML VIAL SLOW IVP SCH (05:51)
[2022-07-01 07:48] VITALS: TEMP 97.4
[2022-07-01] MEDS: Spironolactone 25 MG TAB PO SCH (08:37)
[2022-07-01] MEDS: Digoxin 0.125 MG TAB PO SCH (08:37)
[2022-07-01] MEDS: Tamsulosin HCl 0.4 MG CAP PO SCH (08:40)
[2022-07-01] MEDS: Carvedilol 3.125 MG TAB PO SCH (08:40)
[2022-07-01] MEDS: Empagliflozin 10 MG TAB PO SCH (08:40)
[2022-07-01 12:52] VITALS: BP 102/62
[2022-07-01] MEDS ORDERED: Furosemide 40 MG TAB PO SCH (14:00)
== END 2022-07-01 12:40 | disposition home or self-care (01) | DRG 291 ==
LOC: ERS 20:38 → 2NO 23:15
PROVIDERS: ADMIT Internal Medicine; ATTEND Family Medicine
DX: I13.0 Hypertensive heart and chronic kidney disease with heart failure and stage 1 through stage 4 chronic kidney disease, or unspecified chronic kidney disease (principal); I50.43 Acute on chronic combined systolic (congestive) and diastolic (congestive) heart failure; N18.4 Chronic kidney disease, stage 4 (severe); I24.8 Other forms of acute ischemic heart disease; K21.9 Gastro-esophageal reflux disease without esophagitis; Z66 Do not resuscitate; Z20.822 Contact with and (suspected) exposure to COVID-19; M19.90 Unspecified osteoarthritis, unspecified site; I25.10 Atherosclerotic heart disease of native coronary artery without angina pectoris; D50.9 Iron deficiency anemia, unspecified; I48.91 Unspecified atrial fibrillation; I25.2 Old myocardial infarction; Z87.891 Personal history of nicotine dependence; Z79.899 Other long term (current) drug therapy; Z79.01 Long term (current) use of anticoagulants; Z79.82 Long term (current) use of aspirin; Z95.810 Presence of automatic (implantable) cardiac defibrillator
CPT/HCPCS: 36415; 71045; 80048; 80053; 80076; 82553; 83735; 83880; 84484; 85025; 93005; 93306; 96374; J1940; U0003; U0005

== ENCOUNTER 2022-07-11 11:56 | Emergency (ER) | payer MEDICARE ==
[2022-07-11 12:21] LABS: Hemoglobin 10.8 g/dL (14.0-18.0); Mean Corpuscular HGB CONC 33.5 g/dL (32.0-36.0); Mean Corpuscular Hemoglobin 30.1 pg (27.0-31.0); Mean Platelet Volume 9.5 fL (7.4-10.4); Platelet Count 146 10x3/uL (130-400); RBC Distribution Width 15.7 % (11.5-14.5); Red Blood Cell (RBC) Count 3.57 mill/uL (4.70-6.10); White Blood Cell (WBC) Count 10.4 10x3/uL (4.8-10.8)
[2022-07-11 12:34] LABS: ALT (SGPT) 14 U/L (8-55); AST (SGOT) 15 U/L (5-34); Albumin 3.7 g/dL (3.4-4.8); Alkaline Phosphatase 208 U/L (40-110); Anion Gap 19 mmol/L (10-20); BUN (Urea Nitrogen) 63 mg/dL (8.4-25.7); Bilirubin, Total 2.3 mg/dL (0.2-1.2); Calc. Creatinine Clearance 0 mL/min (70-130); Carbon Dioxide 17 mmol/L (23-31); Chloride 100 mmol/L (98-107); Estimated GFR 24; Globulin 2.9 g/dL (2.4-3.5); Glucose 106 mg/dL (83-110); Lipase 93 U/L (8-78); Potassium 4.7 mmol/L (3.5-5.1); Protein, Total 6.6 g/dL (5.8-8.1); Sodium 131 mmol/L (136-145)
[2022-07-11 12:39] LABS: Hypochromia SLIGHT = 6-15 cells (100X) (0-5/hpf); Lymphocytes 7 % (21-51); MDiff Complete? YES; Monocytes 25 % (0-10); Neutrophil 67 % (42-75); Platelet Morphology Comment Appears Adequate; Reactive Lymphocytes 1 % (0-10)
[2022-07-11 12:55] LABS: CKMB 3.3 ng/mL (0-6.6)
== END 2022-07-11 12:20 | disposition left against medical advice (07) ==
LOC: ERS 11:56
DX: R06.02 Shortness of breath (principal)
CPT/HCPCS: 36415; 71045; 80053; 82553; 83690; 84484; 85025

== ENCOUNTER 2022-07-13 13:14 | Emergency (ER) | payer MEDICARE ==
[2022-07-13 14:14] LABS: Hemoglobin 11.4 g/dL (14.0-18.0); Mean Corpuscular HGB CONC 32.7 g/dL (32.0-36.0); Mean Corpuscular Hemoglobin 29.5 pg (27.0-31.0); Mean Corpuscular Volume 90.2 fl (78.0-98.0); Mean Platelet Volume 8.6 fL (7.4-10.4); Platelet Count 178 10x3/uL (130-400); RBC Distribution Width 16.1 % (11.5-14.5); Red Blood Cell (RBC) Count 3.88 mill/uL (4.70-6.10); White Blood Cell (WBC) Count 8.8 10x3/uL (4.8-10.8)
[2022-07-13] MEDS ORDERED: Furosemide 40 MG/4 ML VIAL ONE (14:14)
[2022-07-13] MEDS ORDERED: Aspirin Chewable 81 MG TAB ONE ×2 (14:14→14:25)
[2022-07-13 14:29] LABS: Lymphocytes 5 % (21-51); MDiff Complete? YES; Monocytes 12 % (0-10); Neutrophil 79 % (42-75); Ovalocytes SLIGHT = 2-5 cells (100X) (0-1/hpf); Platelet Morphology Comment Appears Adequate; Polychromasia SLIGHT = 2-3 cells (100X) (0-2/hpf); Reactive Lymphocytes 2 % (0-10); Target Cells SLIGHT = 2-5 cells (100X) (0-1/hpf)
[2022-07-13 15:03] LABS: ALT (SGPT) 13 U/L (8-55); AST (SGOT) 17 U/L (5-34); Albumin 3.5 g/dL (3.4-4.8); Alkaline Phosphatase 206 U/L (40-110); Anion Gap 16 mmol/L (10-20); BUN (Urea Nitrogen) 68 mg/dL (8.4-25.7); Bilirubin, Total 2.2 mg/dL (0.2-1.2); CK (CPK) 68 U/L (30-200); Calc. Creatinine Clearance 0 mL/min (70-130); Calcium 9.1 mg/dL (7.8-10.44); Carbon Dioxide 20 mmol/L (23-31); Chloride 101 mmol/L (98-107); Estimated GFR 25; Globulin 2.9 g/dL (2.4-3.5); Glucose 76 mg/dL (83-110); Lipase 96 U/L (8-78); Potassium 4.8 mmol/L (3.5-5.1); Protein, Total 6.4 g/dL (5.8-8.1); Sodium 132 mmol/L (136-145)
[2022-07-13 18:31] LABS: CKMB 3.4 ng/mL (0-6.6)
== END 2022-07-13 17:47 | disposition home or self-care (01) ==
LOC: ERS 13:14
DX: I50.9 Heart failure, unspecified (principal)
CPT/HCPCS: 36415; 71045; 80053; 82550; 82553; 83690; 83880; 84484; 85025; 93005; 96374; J1940

== ENCOUNTER 2022-07-26 18:26 | Emergency (ER) | payer MEDICARE ==
[2022-07-26 21:11] LABS: #Lymphocytes 0.8 thou/uL (1.20-3.40); #Neutrophils 5.8 thou/uL (1.40-6.50); %Basophils 0.3 % (0.0-1.0); %Eosinophils 0.6 % (0.0-10.0); %Lymphocytes 10.4 % (21.0-51.0); %Monocytes 12.5 % (0.0-10.0); %Neutrophils 76.2 % (42.0-75.0); Anisocytosis SLIGHT = 6-15 cells (100X) (0-5/hpf); Hemoglobin 12.2 g/dL (14.0-18.0); MDiff Complete? YES; Mean Corpuscular HGB CONC 35.3 g/dL (32.0-36.0); Mean Corpuscular Hemoglobin 31.6 pg (27.0-31.0); Mean Corpuscular Volume 89.6 fl (78.0-98.0); Mean Platelet Volume 11.1 fL (7.4-10.4); Platelet Count 117 10x3/uL (130-400); Platelet Morphology Comment Appears Decreased; Polychromasia SLIGHT = 2-3 cells (100X) (0-2/hpf); Red Blood Cell (RBC) Count 3.86 mill/uL (4.70-6.10); Target Cells SLIGHT = 2-5 cells (100X) (0-1/hpf); Tear Drops SLIGHT = 2-5 cells (100X) (0-1/hpf); White Blood Cell (WBC) Count 7.6 10x3/uL (4.8-10.8)
[2022-07-26 21:35] LABS: CKMB 3.7 ng/mL (0-6.6)
[2022-07-26] MEDS ORDERED: Furosemide 20 MG/2 ML VIAL ONE (22:17)
[2022-07-26 22:49] LABS: Albumin 3.6 g/dL (3.4-4.8)
[2022-07-26 22:50] LABS: Chloride 108 mmol/L (98-107); Potassium 5.9 mmol/L (3.5-5.1); Sodium 133 mmol/L (136-145)
[2022-07-26 22:51] LABS: Glucose 90 mg/dL (83-110)
[2022-07-26 22:52] LABS: Carbon Dioxide 11 mmol/L (23-31); Globulin 3.7 g/dL (2.4-3.5); Protein, Total 7.3 g/dL (5.8-8.1)
[2022-07-26 22:54] LABS: Alkaline Phosphatase 245 U/L (40-110)
[2022-07-26 22:55] LABS: BUN (Urea Nitrogen) 71 mg/dL (8.4-25.7); Calc. Creatinine Clearance 0 mL/min (70-130); Estimated GFR 24
[2022-07-26 22:56] LABS: AST (SGOT) 30 U/L (5-34)
[2022-07-26 22:57] LABS: ALT (SGPT) 22 U/L (8-55)
[2022-07-26 23:31] LABS: Anion Gap 20 mmol/L (10-20)
== END 2022-07-26 23:00 | disposition home or self-care (01) ==
LOC: ERS 18:26
DX: I50.9 Heart failure, unspecified (principal); Z79.899 Other long term (current) drug therapy; Z79.82 Long term (current) use of aspirin
CPT/HCPCS: 36415; 71045; 80053; 82553; 83880; 84484; 85025; 93005; 96374; J1940

== ENCOUNTER 2022-08-01 20:34 | Emergency (ER) | payer MEDICARE ==
[2022-08-01] MEDS ORDERED: Bacitracin 1 PK ONE (21:29)
[2022-08-01 21:35] LABS: #Eosinphils 0.1 thou/uL (0.0-0.7); #Lymphocytes 0.7 thou/uL (1.20-3.40); #Neutrophils 5.3 thou/uL (1.40-6.50); %Basophils 0.1 % (0.0-1.0); %Lymphocytes 9.3 % (21.0-51.0); %Monocytes 13.8 % (0.0-10.0); %Neutrophils 75.8 % (42.0-75.0); Hemoglobin 11.2 g/dL (14.0-18.0); Mean Corpuscular HGB CONC 34.8 g/dL (32.0-36.0); Mean Corpuscular Volume 89.1 fl (78.0-98.0); Mean Platelet Volume 9.4 fL (7.4-10.4); Platelet Count 111 10x3/uL (130-400); Red Blood Cell (RBC) Count 3.61 mill/uL (4.70-6.10)
[2022-08-01 21:55] LABS: ALT (SGPT) 20 U/L (8-55); AST (SGOT) 21 U/L (5-34); Albumin 3.7 g/dL (3.4-4.8); Alkaline Phosphatase 255 U/L (40-110); Anion Gap 16 mmol/L (10-20); BUN (Urea Nitrogen) 66 mg/dL (8.4-25.7); Calc. Creatinine Clearance 0 mL/min (70-130); Calcium 8.6 mg/dL (7.8-10.44); Carbon Dioxide 16 mmol/L (23-31); Chloride 102 mmol/L (98-107); Estimated GFR 27; Globulin 2.9 g/dL (2.4-3.5); Glucose 88 mg/dL (83-110); Potassium 4.4 mmol/L (3.5-5.1); Protein, Total 6.6 g/dL (5.8-8.1); Sodium 130 mmol/L (136-145)
[2022-08-01 22:15] LABS: CKMB 3.9 ng/mL (0-6.6)
== END 2022-08-01 23:30 | disposition home or self-care (01) ==
LOC: ERS 20:34
DX: R60.9 Edema, unspecified (principal); I50.9 Heart failure, unspecified; Z79.899 Other long term (current) drug therapy; Z79.82 Long term (current) use of aspirin
CPT/HCPCS: 36415; 71045; 80053; 82553; 83880; 84484; 85025; 93005

== ENCOUNTER 2022-08-03 15:01 | Inpatient (IN) | payer MEDICARE ==
[2022-08-03] MEDS ORDERED: Furosemide 100 MG/10 ML VIAL SLOW IVP SCH (19:15)
[2022-08-03 19:44] LABS: Hemoglobin 11.6 g/dL (14.0-18.0); Mean Corpuscular HGB CONC 33.1 g/dL (32.0-36.0); Mean Corpuscular Hemoglobin 29.5 pg (27.0-31.0); Mean Corpuscular Volume 89.1 fl (78.0-98.0); Mean Platelet Volume 9.4 fL (7.4-10.4); Platelet Count 130 10x3/uL (130-400); Red Blood Cell (RBC) Count 3.95 mill/uL (4.70-6.10); White Blood Cell (WBC) Count 7.9 10x3/uL (4.8-10.8)
[2022-08-03 20:00] LABS: Anion Gap 16 mmol/L (10-20); BUN (Urea Nitrogen) 65 mg/dL (8.4-25.7); Calc. Creatinine Clearance 0 mL/min (70-130); Calcium 9.2 mg/dL (7.8-10.44); Carbon Dioxide 16 mmol/L (23-31); Chloride 106 mmol/L (98-107); Estimated GFR 25; Glucose 85 mg/dL (83-110); Potassium 4.6 mmol/L (3.5-5.1); Sodium 133 mmol/L (136-145)
[2022-08-03 20:04] VITALS: BMI 25.4
[2022-08-03 20:07] LABS: Anisocytosis SLIGHT = 6-15 cells (100X) (0-5/hpf); Eosinophils 1 % (0-10); Lymphocytes 6 % (21-51); MDiff Complete? YES; Monocytes 24 % (0-10); Neutrophil 68 % (42-75); Ovalocytes SLIGHT = 2-5 cells (100X) (0-1/hpf); Platelet Morphology Comment Appears Adequate; Polychromasia SLIGHT = 2-3 cells (100X) (0-2/hpf); Reactive Lymphocytes 1 % (0-10)
[2022-08-03] MEDS: DOBUTamine 500 mg/250 ml 500 MG in Premix Bag 1 BAG IVPB SCH (20:10)
[2022-08-03] MEDS: Tamsulosin HCl 0.4 MG CAP PO SCH (20:11)
[2022-08-04] MEDS: Furosemide 40 MG/4 ML VIAL SLOW IVP SCH ×2 (05:29→14:32)
[2022-08-04 08:31] LABS: Anion Gap 17 mmol/L (10-20); BUN (Urea Nitrogen) 66 mg/dL (8.4-25.7); Calc. Creatinine Clearance 30 mL/min (70-130); Carbon Dioxide 17 mmol/L (23-31); Chloride 106 mmol/L (98-107); Estimated GFR 28; Glucose 97 mg/dL (83-110); Sodium 135 mmol/L (136-145)
[2022-08-04] MEDS ORDERED: Empagliflozin 25 MG TAB PO SCH (09:00)
[2022-08-04] MEDS: Allopurinol 100 MG TAB PO SCH (09:04)
[2022-08-04] MEDS: Acetaminophen 325 MG TAB PO PRN ×2 (12:37→18:28)
[2022-08-04] MEDS: DOBUTamine 500 mg/250 ml 500 MG in Premix Bag 1 BAG IVPB SCH (14:32)
[2022-08-04] MEDS: Tamsulosin HCl 0.4 MG CAP PO SCH (21:37)
[2022-08-05] MEDS: Acetaminophen 325 MG TAB PO PRN (00:52)
[2022-08-05 04:30] LABS: Anion Gap 17 mmol/L (10-20); BUN (Urea Nitrogen) 61 mg/dL (8.4-25.7); Calc. Creatinine Clearance 31 mL/min (70-130); Calcium 9.2 mg/dL (7.8-10.44); Carbon Dioxide 19 mmol/L (23-31); Chloride 104 mmol/L (98-107); Estimated GFR 29; Glucose 93 mg/dL (83-110); Potassium 4.4 mmol/L (3.5-5.1); Sodium 136 mmol/L (136-145)
[2022-08-05] MEDS: Furosemide 40 MG/4 ML VIAL SLOW IVP SCH (06:07)
[2022-08-05] MEDS: Allopurinol 100 MG TAB PO SCH (08:54)
[2022-08-05] MEDS: Empagliflozin 10 MG TAB PO SCH (08:55)
[2022-08-05] MEDS ORDERED: Magnesium Sulfate 3 GM in Sodium Chloride 0.9% 100 ML IVPB SCH (11:00)
[2022-08-05] MEDS: DOBUTamine 500 mg/250 ml 500 MG in Premix Bag 1 BAG IVPB SCH (15:25)
[2022-08-05] MEDS: Tamsulosin HCl 0.4 MG CAP PO SCH (20:47)
[2022-08-06] MEDS: Acetaminophen 325 MG TAB PO PRN ×4 (02:16→23:06)
[2022-08-06 05:00] LABS: Anion Gap 15 mmol/L (10-20); BUN (Urea Nitrogen) 60 mg/dL (8.4-25.7); Calc. Creatinine Clearance 30 mL/min (70-130); Calcium 8.6 mg/dL (7.8-10.44); Carbon Dioxide 20 mmol/L (23-31); Chloride 102 mmol/L (98-107); Estimated GFR 29; Glucose 90 mg/dL (83-110); Potassium 4.4 mmol/L (3.5-5.1); Sodium 133 mmol/L (136-145)
[2022-08-06 05:05] LABS: Magnesium 6.5 mg/dL (1.6-2.6)
[2022-08-06] MEDS ORDERED: Sodium Chloride 0.9% 500 ML IV SCH (06:30)
[2022-08-06] MEDS ORDERED: Furosemide 40 MG/4 ML VIAL SLOW IVP SCH (06:30)
[2022-08-06] MEDS: Allopurinol 100 MG TAB PO SCH (08:20)
[2022-08-06] MEDS: Empagliflozin 10 MG TAB PO SCH (08:20)
[2022-08-06 08:53] LABS: Magnesium 2.7 mg/dL (1.6-2.6)
[2022-08-06] MEDS: DOBUTamine 500 mg/250 ml 500 MG in Premix Bag 1 BAG IVPB SCH (13:15)
[2022-08-06] MEDS: Furosemide 20 MG/2 ML VIAL SLOW IVP SCH (16:44)
[2022-08-06] MEDS ORDERED: DOBUTamine 500 mg/250 ml 500 MG in Premix Bag 1 BAG IVPB SCH (18:05)
[2022-08-06] MEDS: Tamsulosin HCl 0.4 MG CAP PO SCH (21:26)
[2022-08-07 04:56] LABS: Anion Gap 16 mmol/L (10-20); BUN (Urea Nitrogen) 59 mg/dL (8.4-25.7); Calc. Creatinine Clearance 32 mL/min (70-130); Calcium 8.7 mg/dL (7.8-10.44); Carbon Dioxide 19 mmol/L (23-31); Chloride 104 mmol/L (98-107); Estimated GFR 31; Glucose 78 mg/dL (83-110); Potassium 4.7 mmol/L (3.5-5.1); Sodium 134 mmol/L (136-145)
[2022-08-07] MEDS: Acetaminophen 325 MG TAB PO PRN (05:52)
[2022-08-07 07:38] VITALS: BP 107/55; TEMP 97.7
[2022-08-07] MEDS: Furosemide 20 MG/2 ML VIAL SLOW IVP SCH (09:54)
== END 2022-08-07 11:46 | disposition home or self-care (01) | DRG 291 ==
LOC: 2NO 18:44 → INTOOBSV 18:44 → OBSVTOIN 08-05 09:47
PROVIDERS: ADMIT Internal Medicine Cardiovascular Disease; ATTEND Internal Medicine Cardiovascular Disease
DX: I13.0 Hypertensive heart and chronic kidney disease with heart failure and stage 1 through stage 4 chronic kidney disease, or unspecified chronic kidney disease (principal); I50.43 Acute on chronic combined systolic (congestive) and diastolic (congestive) heart failure; N18.4 Chronic kidney disease, stage 4 (severe); I48.20 Chronic atrial fibrillation, unspecified; Z66 Do not resuscitate; I25.10 Atherosclerotic heart disease of native coronary artery without angina pectoris; D50.9 Iron deficiency anemia, unspecified; E83.41 Hypermagnesemia; Z95.810 Presence of automatic (implantable) cardiac defibrillator; Z88.8 Allergy status to other drugs, medicaments and biological substances; Z79.899 Other long term (current) drug therapy
CPT/HCPCS: 36415; 80048; 83735; 83880; 85025; 96374; 96375; 96376; G0378; G0379; J1250; J1940; J3475; J3490; J7030

== ENCOUNTER 2022-08-13 11:28 | Day surgery (SDC) | payer MEDICARE ==
[2022-08-13 11:47] VITALS: BP 100/62; TEMP 97.9
[2022-08-13] MEDS ORDERED: EPOETIN ALFA-EPBX (ESRD) 40,000 UNIT/ML VIAL SC SCH (12:00)
== END 2022-08-13 12:13 | disposition home or self-care (01) ==
LOC: ONC/OP 11:28
PROVIDERS: ATTEND Internal Medicine Medical Oncology
DX: N18.32 Chronic kidney disease, stage 3b (principal); D63.1 Anemia in chronic kidney disease; D50.8 Other iron deficiency anemias; Z88.8 Allergy status to other drugs, medicaments and biological substances; Z91.011 Allergy to milk products
CPT/HCPCS: 36415; 80053; 82248; 82607; 82728; 83615; 84100; 84550; 96401

== ENCOUNTER 2022-08-25 18:51 | Emergency (ER) | payer MEDICARE ==
[2022-08-25] MEDS ORDERED: Oxymetazoline HCl 0.05% (30 ML BOT) ONE (20:00)
[2022-08-25 20:03] LABS: Hemoglobin 10.5 g/dL (14.0-18.0); Mean Corpuscular HGB CONC 34.4 g/dL (32.0-36.0); Mean Corpuscular Hemoglobin 30.2 pg (27.0-31.0); Mean Corpuscular Volume 87.9 fl (78.0-98.0); Mean Platelet Volume 8.8 fL (7.4-10.4); Platelet Count 125 10x3/uL (130-400); RBC Distribution Width 15.3 % (11.5-14.5); Red Blood Cell (RBC) Count 3.48 mill/uL (4.70-6.10); White Blood Cell (WBC) Count 6.7 10x3/uL (4.8-10.8)
[2022-08-25 20:10] LABS: INR-International Normal Ratio 1.2; Prothrombin Time 15.6 sec (12.0-14.7)
[2022-08-25 20:11] LABS: PTT 39.5 sec (22.9-36.1)
[2022-08-25 20:24] LABS: Eosinophils 1 % (0-10); Lymphocytes 5 % (21-51); MDiff Complete? YES; Monocytes 13 % (0-10); Neutrophil 81 % (42-75); Platelet Morphology Comment Appears Decreased; Polychromasia SLIGHT = 2-3 cells (100X) (0-2/hpf)
== END 2022-08-25 21:08 | disposition home or self-care (01) ==
LOC: ERS 18:51
DX: D50.9 Iron deficiency anemia, unspecified (principal); R04.0 Epistaxis; I11.0 Hypertensive heart disease with heart failure; I50.9 Heart failure, unspecified; E78.5 Hyperlipidemia, unspecified; I48.91 Unspecified atrial fibrillation; Z79.899 Other long term (current) drug therapy; Z79.01 Long term (current) use of anticoagulants
CPT/HCPCS: 36415; 85025; 85610; 85730; 99284

== ENCOUNTER 2022-08-27 09:42 | Day surgery (SDC) | payer MEDICARE ==
[2022-08-27 10:12] VITALS: BP 112/65; TEMP 97.8
[2022-08-27] MEDS ORDERED: EPOETIN ALFA-EPBX (ESRD) 40,000 UNITS/ML VIAL SC SCH (10:15)
== END 2022-08-27 10:30 | disposition home or self-care (01) ==
LOC: ONC/OP 09:42
PROVIDERS: ATTEND Internal Medicine Medical Oncology
DX: N18.32 Chronic kidney disease, stage 3b (principal); D63.1 Anemia in chronic kidney disease; D50.8 Other iron deficiency anemias; Z88.8 Allergy status to other drugs, medicaments and biological substances; Z91.011 Allergy to milk products
CPT/HCPCS: 96372

== ENCOUNTER 2022-08-28 13:29 | Inpatient (IN) | payer MEDICARE ==
[2022-08-28 15:01] LABS: #Eosinphils 0.1 thou/uL (0.0-0.7); #Lymphocytes 0.6 thou/uL (1.20-3.40); #Monocytes 1.1 thou/uL (0.11-0.59); %Basophils 0.1 % (0.0-1.0); %Eosinophils 0.8 % (0.0-10.0); %Lymphocytes 7.3 % (21.0-51.0); %Monocytes 14.7 % (0.0-10.0); %Neutrophils 77.2 % (42.0-75.0); Hemoglobin 10.5 g/dL (14.0-18.0); Mean Corpuscular HGB CONC 34.7 g/dL (32.0-36.0); Mean Corpuscular Hemoglobin 30.9 pg (27.0-31.0); Mean Corpuscular Volume 89.1 fl (78.0-98.0); Mean Platelet Volume 8.4 fL (7.4-10.4); Platelet Count 148 10x3/uL (130-400); RBC Distribution Width 15.1 % (11.5-14.5); White Blood Cell (WBC) Count 7.7 10x3/uL (4.8-10.8)
[2022-08-28 15:28] LABS: Bacteria/HPF None Seen HPF (None Seen); Bilirubin Negative (Negative); Blood, Urine 1+ (Negative); Clarity Clear (Clear); Glucose, Urine (Dipstick) Normal (Negative); Ketone, Urine Negative (Negative); Leukocyte Negative Leu/uL (Negative); Nitrite Negative (Negative); Protein, Urine (Dipstick) Negative (Neg-Trace); Specific Gravity, Urine 1.013 (1.002-1.036); Squamous Epithelial None Seen HPF (0-3); WBC/HPF 0-3 HPF (0-3)
[2022-08-28 15:29] LABS: ALT (SGPT) 14 U/L (8-55); AST (SGOT) 18 U/L (5-34); Albumin 3.7 g/dL (3.4-4.8); Alkaline Phosphatase 242 U/L (40-110); Anion Gap 20 mmol/L (10-20); BUN (Urea Nitrogen) 85 mg/dL (8.4-25.7); Bilirubin, Total 2.3 mg/dL (0.2-1.2); Calc. Creatinine Clearance 0 mL/min (70-130); Calcium 9.3 mg/dL (7.8-10.44); Carbon Dioxide 17 mmol/L (23-31); Chloride 104 mmol/L (98-107); Estimated GFR 18; Globulin 3.2 g/dL (2.4-3.5); Glucose 107 mg/dL (83-110); Magnesium 2.3 mg/dL (1.6-2.6); Potassium 4.5 mmol/L (3.5-5.1); Protein, Total 6.9 g/dL (5.8-8.1); Sodium 136 mmol/L (136-145)
[2022-08-28 15:46] LABS: CKMB 2.4 ng/mL (0-6.6)
[2022-08-28] MEDS ORDERED: Aspirin Chewable 81 MG TAB ONE ×2 (17:02→17:07)
[2022-08-28] MEDS ORDERED: Nitroglycerin 2% Ointment 1 INCH/1 GM Packet ONE (17:02)
[2022-08-28] MEDS ORDERED: Furosemide 40 MG/4 ML VIAL ONE (17:02)
[2022-08-28] MEDS ORDERED: Ondansetron PF 4 MG/2 ML Vial IVP PRN (17:25)
[2022-08-28 18:51] LABS: Troponin I 0.097 ng/mL (< 0.028)
[2022-08-28] MEDS ORDERED: Heparin 5,000 UNITS/ML VIAL SC SCH (21:00)
[2022-08-28] MEDS ORDERED: Acetaminophen 325 MG TAB PO PRN (21:30)
[2022-08-28 21:32] LABS: Troponin I 0.099 ng/mL (< 0.028)
[2022-08-28 21:50] VITALS: BMI 24.5
[2022-08-29 05:12] LABS: ALT (SGPT) 14 U/L (8-55); AST (SGOT) 14 U/L (5-34); Albumin 3.2 g/dL (3.4-4.8); Alkaline Phosphatase 211 U/L (40-110); Anion Gap 16 mmol/L (10-20); BUN (Urea Nitrogen) 89 mg/dL (8.4-25.7); Calc. Creatinine Clearance 22 mL/min (70-130); Calcium 8.9 mg/dL (7.8-10.44); Carbon Dioxide 19 mmol/L (23-31); Chloride 105 mmol/L (98-107); Estimated GFR 20; Globulin 2.9 g/dL (2.4-3.5); Glucose 88 mg/dL (83-110); Magnesium 2.3 mg/dL (1.6-2.6); Potassium 4.3 mmol/L (3.5-5.1); Protein, Total 6.1 g/dL (5.8-8.1); Sodium 136 mmol/L (136-145)
[2022-08-29 05:18] LABS: Phosphorus 3.8 mg/dL (2.3-4.7)
[2022-08-29 05:22] LABS: Anisocytosis SLIGHT = 6-15 cells (100X) (0-5/hpf); Eosinophils 1 % (0-10); Hemoglobin 9.7 g/dL (14.0-18.0); Lymphocytes 8 % (21-51); MDiff Complete? YES; Mean Corpuscular HGB CONC 34.4 g/dL (32.0-36.0); Mean Corpuscular Hemoglobin 30.9 pg (27.0-31.0); Mean Corpuscular Volume 89.8 fl (78.0-98.0); Mean Platelet Volume 7.7 fL (7.4-10.4); Monocytes 11 % (0-10); Neutrophil 80 % (42-75); Platelet Count 135 10x3/uL (130-400); Platelet Morphology Comment Appears Adequate; Red Blood Cell (RBC) Count 3.13 mill/uL (4.70-6.10); White Blood Cell (WBC) Count 6.6 10x3/uL (4.8-10.8)
[2022-08-29] MEDS: Furosemide 40 MG/4 ML VIAL SLOW IVP SCH ×2 (05:52→14:35)
[2022-08-29] MEDS ORDERED: Ferrous Sulfate 325 MG TAB PO SCH (08:00)
[2022-08-29] MEDS: Digoxin 0.125 MG TAB PO SCH (10:50)
[2022-08-29] MEDS: Empagliflozin 10 MG TAB PO SCH (10:51)
[2022-08-29] MEDS: Spironolactone 25 MG TAB PO SCH ×2 (10:51→17:15)
[2022-08-29] MEDS: Famotidine 20 MG TAB PO SCH (10:53)
[2022-08-29] MEDS: Tamsulosin HCl 0.4 MG CAP PO SCH (10:53)
[2022-08-29] MEDS: Loratadine 10 MG TAB PO SCH (10:53)
[2022-08-29] MEDS: Ferrous Sulfate 325 MG TAB PO SCH (17:15)
[2022-08-30 04:58] LABS: Hemoglobin 10.6 g/dL (14.0-18.0); Mean Corpuscular Hemoglobin 31.3 pg (27.0-31.0); Mean Corpuscular Volume 89.2 fl (78.0-98.0); Mean Platelet Volume 8.1 fL (7.4-10.4); Platelet Count 139 10x3/uL (130-400); RBC Distribution Width 15.2 % (11.5-14.5); Red Blood Cell (RBC) Count 3.38 mill/uL (4.70-6.10); White Blood Cell (WBC) Count 6.4 10x3/uL (4.8-10.8)
[2022-08-30] MEDS: Furosemide 40 MG/4 ML VIAL SLOW IVP SCH ×2 (05:56→13:58)
[2022-08-30 06:05] LABS: Anion Gap 19 mmol/L (10-20); BUN (Urea Nitrogen) 78 mg/dL (8.4-25.7); Calc. Creatinine Clearance 21 mL/min (70-130); Carbon Dioxide 16 mmol/L (23-31); Chloride 107 mmol/L (98-107); Estimated GFR 21; Glucose 86 mg/dL (83-110); Potassium 4.6 mmol/L (3.5-5.1); Sodium 137 mmol/L (136-145)
[2022-08-30] MEDS ORDERED: Sodium Bicarbonate Tab 325 MG TAB PO SCH (09:15)
[2022-08-30] MEDS: Empagliflozin 10 MG TAB PO SCH (10:20)
[2022-08-30] MEDS: Tamsulosin HCl 0.4 MG CAP PO SCH (10:20)
[2022-08-30] MEDS: Famotidine 20 MG TAB PO SCH (10:21)
[2022-08-30] MEDS: Digoxin 0.125 MG TAB PO SCH (10:21)
[2022-08-30] MEDS: Loratadine 10 MG TAB PO SCH (10:21)
[2022-08-30] MEDS: Spironolactone 25 MG TAB PO SCH ×2 (10:21→18:05)
[2022-08-30] MEDS: Ferrous Sulfate 325 MG TAB PO SCH ×2 (10:21→18:05)
[2022-08-30] MEDS: Sodium Bicarbonate Tab 325 MG TAB PO SCH ×2 (13:58→20:57)
[2022-08-31 05:44] LABS: Anion Gap 15 mmol/L (10-20); BUN (Urea Nitrogen) 65 mg/dL (8.4-25.7); Calc. Creatinine Clearance 35 mL/min (70-130); Calcium 8.8 mg/dL (7.8-10.44); Carbon Dioxide 19 mmol/L (23-31); Chloride 107 mmol/L (98-107); Estimated GFR 22; Glucose 93 mg/dL (83-110); Potassium 4.1 mmol/L (3.5-5.1); Sodium 137 mmol/L (136-145)
[2022-08-31] MEDS: Furosemide 40 MG/4 ML VIAL SLOW IVP SCH (06:05)
[2022-08-31 06:33] LABS: Hemoglobin 9.6 g/dL (14.0-18.0); Mean Corpuscular HGB CONC 33.4 g/dL (32.0-36.0); Mean Corpuscular Hemoglobin 29.8 pg (27.0-31.0); Mean Corpuscular Volume 89.2 fl (78.0-98.0); Mean Platelet Volume 8.1 fL (7.4-10.4); Platelet Count 143 10x3/uL (130-400); RBC Distribution Width 15.4 % (11.5-14.5); Red Blood Cell (RBC) Count 3.21 mill/uL (4.70-6.10); White Blood Cell (WBC) Count 6.3 10x3/uL (4.8-10.8)
[2022-08-31 06:44] LABS: Anisocytosis SLIGHT = 6-15 cells (100X) (0-5/hpf); Lymphocytes 9 % (21-51); MDiff Complete? YES; Monocytes 13 % (0-10); Neutrophil 77 % (42-75); Platelet Morphology Comment Appears Adequate
[2022-08-31] MEDS: Sodium Bicarbonate Tab 325 MG TAB PO SCH ×2 (09:46→13:15)
[2022-08-31] MEDS: Digoxin 0.125 MG TAB PO SCH (09:46)
[2022-08-31] MEDS: Tamsulosin HCl 0.4 MG CAP PO SCH (09:47)
[2022-08-31] MEDS: Loratadine 10 MG TAB PO SCH (09:47)
[2022-08-31] MEDS: Spironolactone 25 MG TAB PO SCH ×2 (09:47→16:59)
[2022-08-31] MEDS: Famotidine 20 MG TAB PO SCH (09:47)
[2022-08-31] MEDS: Ferrous Sulfate 325 MG TAB PO SCH ×2 (09:47→16:59)
[2022-08-31] MEDS: Empagliflozin 10 MG TAB PO SCH (09:47)
[2022-08-31] MEDS ORDERED: DOBUTamine 500 mg/250 ml 250 ML IVPB SCH (10:00)
[2022-08-31] MEDS ORDERED: Furosemide 20 MG/2 ML VIAL SLOW IVP SCH (14:00)
[2022-08-31 16:58] VITALS: BP 116/68; TEMP 98
== END 2022-08-31 19:08 | disposition hospice, home (50) | DRG 280 ==
LOC: ERS 13:29 → SUATTDRO 13:29 → 2NO 17:25
PROVIDERS: ADMIT Family Medicine; ATTEND Internal Medicine
DX: I13.0 Hypertensive heart and chronic kidney disease with heart failure and stage 1 through stage 4 chronic kidney disease, or unspecified chronic kidney disease (principal); I21.A1 Myocardial infarction type 2; I50.43 Acute on chronic combined systolic (congestive) and diastolic (congestive) heart failure; N17.9 Acute kidney failure, unspecified; N18.4 Chronic kidney disease, stage 4 (severe); Z66 Do not resuscitate; Z51.5 Encounter for palliative care; M10.9 Gout, unspecified; E78.5 Hyperlipidemia, unspecified; D63.1 Anemia in chronic kidney disease; D50.8 Other iron deficiency anemias; R04.0 Epistaxis; I48.0 Paroxysmal atrial fibrillation; Z90.49 Acquired absence of other specified parts of digestive tract; Z95.1 Presence of aortocoronary bypass graft; Z95.0 Presence of cardiac pacemaker; Z88.8 Allergy status to other drugs, medicaments and biological substances; Z79.899 Other long term (current) drug therapy; Z79.82 Long term (current) use of aspirin; Z79.01 Long term (current) use of anticoagulants; Z91.011 Allergy to milk products
CPT/HCPCS: 36415; 36416; 71045; 80048; 80053; 81003; 81015; 82553; 83735; 83880; 84100; 84443; 84484; 85025; 85027; 85610; 85730; 87040; 93005; 96372; 97139; 99284; J1250; J1940